=== PATIENT | female | born 1940 | race Caucasian/White ===

== ENCOUNTER 2017-11-12 12:22 | Observation (INO) | payer MEDICARE, SELFPAY ==
[2017-11-12] VITALS (13 sets, daily range): BP systolic 108–154; BP diastolic 68–84; PULSE 75–109; RESP 18–24; TEMP 36.5–36.7; O2SAT 92–98; BMI 32.8
--- NOTE | 2017-11-12 11:28 | XR_ITS ---
XR chest 2V Ordering Physician: Ignacio Aceves MD Patient Age: 77 years: Female HISTORY: ITS.REASON: cough, shortness of breath TECHNIQUE: COMPARISON : AP chest 12/13/2014 FINDINGS Right lung We again see scarring . Vertically oriented linear area of scarring and atelectasis at the right lung base. Mild thickening along the fissure at the right midlung again noted. Left chest. Is additional density was partially obscures apex left hemidiaphragm. Change since 2014. This may reflect a small infiltrate at the left lung base likely anterior left lower lobe as also suggestion today's lateral view. . Blunting at the posterior sulcus of left and right lung noted. Changes 2014 and may reflect a small pleural effusion versus some chronic pleural changes. Minimal vascular engorgement. Question possible very subtle CHF Borderline/mild cardiomegaly. Slight fullness right peritracheal azygous region is similar to previous studies but noted. May merely reflect a prominent azygos arch/ & azygous vein chest wall intact. Degenerative changes T-spine most evident midportion mild accentuated kyphosis IMPRESSION: . 1. minimal patchy infiltrate anterior LLL. Partial obscures left hemidiaphragm.. 2. Mild cardiomegaly. Mild vascular engorgement borderline CHF 3. Blunting CP angles reflecting small pleural effusions versus chronic pleural changes left base
--- NOTE | 2017-11-12 12:18 | HMH.HP ---
*Admission Date: 11/12/17 *Chief complaint: shortness of breath, cough *History of present illness: 77 year old female with a history of HTN, CVA and hyperlipidemia presents to PCP office with URI symptoms and shortness of breath that started 3-4 days ago. She reports a sore throat, yellow rhinorrhea, bilateral otalgia, wheezing, shortness of breath and a productive cough, sputum yellow. Patient denies any chest pain, palpitations or dizziness. She reports significant shortness of breath with exertion. No fevers. No GI symptoms. In the office, she was found to have an irregular heart rate and rhythm. EKG showed A. Fib UCVR 128. Patient was direct admitted for cardiology consult and further evaluation. [facility] History I have reviewed the patient's past medical history: Yes Medical History: Reports:: Cerebrovascular Accident, Hyperlipidemia, Hypertension Review of Systems - Review of Systems Review of systems:: pertinent systems reviewed and negative unless documented below - ENT Reports ear pain, Reports nasal congestion, Reports nasal discharge, Reports sore throat - *Cardiovascular Reports shortness of breath - *Respiratory Reports cough, Reports shortness of breath, Reports wheezing Meds Allergies Allergy/AdvReac Type Severity Reaction Status Date / Time No Known Allergies Allergy Unverified 09/04/17 15:04 Exam Narrative: Patient is alert and oriented x3. Rate and rhythm irregular. Pulses 2+ bilaterally. Trace LE edema. Skin is pink, warm and dry. Bilateral TM's with chronic changes and fluid/air levels. Pharynx with mild erythema. [place]oddy anterior cervical LAD. No thyromegaly. Scattered inspiratory crackles RUL/RML and faint scattered wheezes. Abdomen soft and nontender. Assessment and Plan (1) New onset atrial fibrillation Status: Acute Category: Medical Code(s): I48.91 - Unspecified atrial fibrillation (2) Shortness of breath on exertion Status: Acute Category: Medical Code(s): R06.02 - Shortness of breath (3) CVA (cerebral vascular accident) Status: Chronic Category: Medical Code(s): I63.9 - Cerebral infarction, unspecified (4) HTN (hypertension) Status: Chronic Category: Medical Code(s): I10 - Essential (primary) hypertension (5) Hyperlipemia Status: Chronic Category: Medical Code(s): E78.5 - Hyperlipidemia, unspecified (6) URI (upper respiratory infection) Status: Acute Category: Medical Code(s): J06.9 - Acute upper respiratory infection, unspecified - Assessment and plan all Dx Assessment and Plan for all problems:: Admit to acute care. Patient has an URI and likely pneumonia. This stress has likely caused her to convert in A. fib. Will obtain basic labs and cultures with addition of TSH and respiratory PCR. Will start antibiotics and nebs for possible pneumonia pending CXR. Consult cardiology, monitor telemetry and obtain Echo.
--- NOTE | 2017-11-12 12:26 | CA_ITS ---
PROCEDURE: 2-D M-mode and color Doppler study INDICATIONS FOR THE TEST: Chest pain COPD Heart Murmur Tobacco Smoking PalpitationsX Fatigue Syncope Edema HypertensionXDiabetes MellitusX Rheumatic Fever SOB DOEXObesityXHyperlipidemia Family History HD Additional History N O AF/RVR PATIENT INFORMATION HEIGHT: 64 WEIGHT:190 GENDER: Female B/P:140/95 2-D/M-MODE INTERPRETATION: 2-D MEASUREMENTS OBSERVED VALUES IN CMS Right Ventricular Dimension (RVDd) 1.7 Interventricular Septum (Thickness)(IVsd) 1.5 Left Ventricular Internal Dimensions(LVIDd) 5.0 Left Ventricular Posterior Wall (Thickness)(LVPWd) 1.2 Aortic Root 3.3 Aortic Cusp Separation 1.6 Left Atrial Dimensions (LAD) 3.6 2D 1. Left atrium is moderately enlarged, left ventricle is normal size, there is mild concentric left ventricular hypertrophy, visually estimated ejection fraction approximately 40-45%, there appears to be hypokinesis involving the distal septum and apical wall. 2. The right atrium is moderately enlarged, right ventricle is normal size and contractility. 3. The aortic valve is thickened and calcified leaflet continue to display mobility. 4. The mitral and tricuspid valve leaflets are minimally thickened. 5. The pulmonic valve is poorly visualized. 6. No significant pericardial effusion noted. DOPPLER INTERROGATION: Doppler interrogation of the aortic, mitral and tricuspid valvular presence of moderate mitral and moderate tricuspid regurgitation, calculated right ventricular systolic pressure is 60 to 65 mmHg consistent with moderate pulmonary hypertension. CONCLUSION: 1. Moderate biatrial enlargement, normal left ventricular size, mild concentric left ventricular hypertrophy, visually estimated ejection fraction of 40-45% with multiple segmental wall motion abnormalities described above 2. Moderate mitral and moderate tricuspid regurgitation, calculated right ventricular systolic pressure is 60 to 65 mmHg consistent with moderate pulmonary hypertension 3. No significant pericardial effusion noted.
[2017-11-12 13:50] LABS: Adenovirus,PCR Not Detected (NotDetected); Bordetella Pertussis Not Detected (NotDetected); Chlamydophila Pneumoniae, PCR Not Detected (NotDetected); Coronavirus 229E Not Detected (NotDetected); Coronavirus NL63 Not Detected (NotDetected); Coronavirus OC43 Not Detected (NotDetected); Coronovirus HKU1,PCR Not Detected (NotDetected); Human Metapneumovirus Not Detected (NotDetected); Influenza A, PCR Not Detected (NotDetected); Influenza AH1, 2009 Not Detected (NotDetected); Influenza AH1, PCR Not Detected (NotDetected); Influenza AH3,PCR Not Detected (NotDetected); Influenza B, PCR Not Detected (NotDetected); Mycoplasma Pneumoniae, PCR Not Detected (NotDected); Parainfluenza 1, PCR Not Detected (NotDetected); Parainfluenza 2, PCR Not Detected (NotDetected); Parainfluenza 3, PCR Not Detected (NotDetected); Parainfluenza 4, PCR Not Detected (NotDetected); Respiratory Syncytial Virus Not Detected (NotDetected)
[2017-11-12 14:08] LABS: Basophils % 0.2 % (0.1-2.0); Eosinophils # 0.1 K/mm3 (0.0-0.4); Eosinophils % 0.8 % (0.1-12.0); Hematocrit 39.5 % (37.0-47.0); Hemoglobin 12.7 g/dL (12.2-16.2); Lymphocytes # 1.8 K/mm3 (0.7-4.5); Lymphocytes % 15.4 K/mm3 (10-50); Mean Corpuscular HGB Conc 32.2 g/dL (31.8-35.4); Mean Corpuscular Hemoglobin 29.6 pg (27.0-31.2); Mean Corpuscular Volume 91.7 fl (81-99); Mean Platelet Volume 8.9 fl (7.4-10.4); Monocytes # 0.5 K/mm3 (0.1-1.0); Monocytes % 4.6 % (1.7-9.3); Neutrophils # 9.2 K/mm3 (1.8-7.8); Platelet Count 191 K/mm3 (142-424); Red Blood Count 4.31 M/mm3 (4.20-5.40); Red Cell Distribution Width 13.3 % (11.5-17.5); White Blood Count 11.6 K/mm3 (4.8-10.8)
--- NOTE | 2017-11-12 14:20 | HMH.CNCARD ---
History of Present Illness Consult date: 11/12/17 Requesting physician: Ignacio Aceves Consult reason: atrial fibrillation Chief complaint: cough, chest discomfort Additional Medical History:: 1. Hypertension 2. History of CVA approximately 2013 with affected speech and left side of body that improved after 3 months of physical therapy 3. Obesity History of present illness: 77-year-old white female with several days of increasing upper airway congestion and discomfort in the chest with productive cough presented to PCP office today for further evaluation. She was noted to have an irregular heartbeat with EKG revealing atrial fibrillation with a rapid ventricular response in the 120-130 range. Patient has no known previous history of atrial fibrillation. He was admitted for further evaluation and treatment. Patient denies any previous history of hyperthyroidism or coronary artery disease. She has a remote history of tobacco use. She denies history of diabetes. She does take statin therapy for hyperlipidemia. She denies any history of seizures recent fever or chills. Cardiology consulted for further evaluation. Echocardiogram has been performed with official results pending. [facility] History Medical History: Reports:: Cerebrovascular Accident, Hyperlipidemia, Hypertension Meds Home Medications Medication Instructions Recorded Confirmed Type Atorvastatin Calcium [Atorvastatin 40 mg PO DAILY 11/12/17 11/12/17 History 40mg Tab] Clopidogrel Bisulfate [Plavix 75mg 75 mg PO DAILY 11/12/17 11/12/17 History Tab] Hydralazine HCl 50 mg PO TID 11/12/17 11/12/17 History Loratadine [Allergy] 10 mg PO DAILY 11/12/17 11/12/17 History Metoprolol Tartrate 100 mg PO BID 11/12/17 11/12/17 History Ropinirole HCl 0.5 mg PO BID 11/12/17 11/12/17 History hydroCHLOROthiazide [HCTZ 25mg 25 mg PO DAILY 11/12/17 11/12/17 History tab] Allergies Allergy/AdvReac Type Severity Reaction Status Date / Time No Known Allergies Allergy Unverified 09/04/17 15:04 Review of Systems - *Cardiovascular Reports shortness of breath with activity, Reports irregular heart rhythm - *Respiratory Reports cough, Reports shortness of breath, Reports shortness of breath with activity - *Gastrointestinal Denies loose stools, Denies heartburn, Denies vomiting - *Neurologic Reports unsteadiness, Denies behavioral changes, Denies seizure-like activity Exam Vital signs and Labs for Last 24 Hours: Temp Pulse Resp BP Pulse Ox 97.7 F 75 20 132/68 95 11/12/17 13:21 11/12/17 13:21 11/12/17 13:21 11/12/17 13:21 11/12/17 13:21 Laboratory Results - last 24 hr 11/12/17 13:50: WBC 11.6 H, RBC 4.31, Hgb 12.7, Hct 39.5, MCV 91.7, MCH 29.6, MCHC 32.2, RDW 13.3, Plt Count 191, MPV 8.9, Neut % (Auto) 79.0, Lymph % (Auto) 15.4, [place] % (Auto) 4.6, Eos % (Auto) 0.8, Baso % (Auto) 0.2, Neut # (Auto) 9.2 H, Lymph # (Auto) 1.8, [place] # (Auto) 0.5, Eos # (Auto) 0.1, Baso # (Auto) 0.0 I & O for Last 24 hours: Intake & Output 11/10/17 11/11/17 11/12/17 11/13/17 11:59 11:59 11:59 11:59 Weight 191 lb 9 oz - *Routine Neck Exam Absent: JVD, carotid bruit - *Routine Respiratory Exam Present: CTA bilaterally. Absent: accessory muscle use - *Routine Cardiovascular Exam Present: tachycardia, irregular rhythm, irregularly irregular - *Routine Abdominal Exam Present: soft. Absent: tenderness - *Routine Extremities Exam Absent: edema, calf tenderness - *Routine Neurological Exam Present: alert, oriented X3, moving all extremities Assessment and Plan (1) New onset atrial fibrillation Current visit: Yes Status: Acute Category: Medical Code(s): I48.91 - Unspecified atrial fibrillation (2) Shortness of breath on exertion Current visit: Yes Status: Acute Category: Medical Code(s): R06.02 - Shortness of breath (3) CVA (cerebral vascular accident) Current visit: Yes Status: Chronic Category:
[2017-11-12 14:40] LABS: Alanine Aminotransferase 76 U/L (12-78); Albumin/Globulin Ratio 0.9 (1.1-1.8); Alkaline Phosphatase 102 U/L (46-116); Aspartate Amino Transferase 28 U/L (15-37); Bilirubin,Total 0.7 mg/dL (0.2-1.0); Blood Urea Nitrogen 27 mg/dL (7-18); Calcium 8.5 mg/dL (8.5-10.1); Carbon Dioxide 26 mmol/L (21.0-32.0); Chloride 98 mmol/L (98-107); Creatinine Clearance Estimated 53 mL/min (0-300); Creatinine,Serum 1.23 mg/dL (0.55-1.02); Estimated Glomerular Filt Rate 42 ml/min (>60); GFR (African American) 51 ML/MIN (>60); Globulin 3.3 gm/dl (1.3-3.2); Glucose 139 mg/dL (74-106); Sodium 137 mmol/L (136-145); Thyroid Stimulating Hormone 2.15 uIU/ml (0.358-3.740); Total Protein,Serum 6.3 gm/dL (6.4-8.2)
[2017-11-12 15:14] LABS: Mycoplasma Pneumo IGM (Rapid) Non-Reactive (Non-Reactiv)
--- NOTE | 2017-11-12 15:28 | PC.NURSE ---
Report given to Alek Bravo RN
[2017-11-12 16:06] LABS: Rhinovirus/Enterovirus Detected (NotDetected)
--- NOTE | 2017-11-12 17:48 | PC.NURSE ---
pt started on Cardizem gtt at 5mg/hr. running 80-100. afib on monitor. wheezes and rhonchi throughout. pt has had no complaints. v/s/s. call light in reach. pt able to ambulate with standby assist to bathroom. iv patent. will continue to monitor pt condition
--- NOTE | 2017-11-12 18:51 | PC.NURSE ---
titrated Cardizem drip to 10mg/hr. hr rate was running in the 110's. currently running between 80-100. will continue to monitor.
--- NOTE | 2017-11-12 19:04 | PC.NURSE ---
report to be given to christina barron and lynnette landis
--- NOTE | 2017-11-12 19:30 | PC.NURSE ---
PT FULL CODE, REPORT FROM RUSS
--- NOTE | 2017-11-12 21:00 | PC.NURSE ---
2ND IV STARTED PER JANKI.HEYDI, X1 STICK. #22 RAC: SALINE LOCKED, FLUSHED. PT TOLERATED WELL.
[2017-11-13] VITALS (29 sets, daily range): BP systolic 100–140; BP diastolic 64–84; PULSE 59–132; RESP 14–20; TEMP 36.2–37; O2SAT 90–100
--- NOTE | 2017-11-13 | IR_ITS ---
CARDIAC CATHETERIZATION DATE OF CATHETERIZATION:11/13/2017 9:10 AM PROCEDURES: 1. Left heart catheterization 2. Left ventriculogram 3. Selective coronary angiogram 4. Drug-eluting stent deployment to the mid dominant right coronary artery 5. Intravascular ultrasound to the LAD 6. Drug-eluting stent deployment to the proximal LAD INDICATION FOR TEST: 1. Abnormal echocardiogram with regional wall motion abnormality involving the septum and apex 2. Reduced ejection fraction 3. New onset atrial fibrillation 4. Acute coronary syndrome 5. Coronary artery disease Informed consent was obtained prior to the procedure. COMPLICATIONS: None ESTIMATED BLOOD LOSS: Less than 10 ml. TECHNIQUE: One percent lidocaine used to anesthetize the right anterior aspect of the wrist. The right radial artery was accessed via the Seldinger technique. A 6 Irish sheath was placed in the right radial artery. 2.5 mg of verapamil, 800 mcg of nitroglycerin and 5000 U Heparin were given through the arterial sheath. The trap catheter was also used to perform left heart catheterization left ventriculogram and selective coronary angiogram. At the end of the diagnostic angiogram and additional 4000 units of heparin was administered intravenously giving an ACT of 313 seconds. An MixRank right guide catheter was used intubate the right coronary artery and a BMW wire was placed distally. A 3 mm x 15 mm resolute Aidan stent was deployed at 24 mily reducing the severe concentric stenosis to 0%. DIPESH-3 flow was present before and after the procedure. Following this the catheter was placed into the left main artery and the BMW wire was placed distally. There is a new onset regional wall motion abnormality involving the septum and apex which was more consistent with an LAD lesion. There is an angiographically indeterminate lesion in the proximal LAD which looks very hazy possibly even a ruptured plaque in the proximal LAD especially in the TRINIDADIAN cranial views. Because of this intravascular ultrasound probe was used to interrogate the lesion. I chose not to use FFR as I suspected this vessel was involved in an acute coronary syndrome based on the 2 regional wall motion abnormality. The MLA measured 4 sq m therefore a 3 mm x 18 mm resolute [place] stent was placed in the area of interest and angiographically indeterminate lesion and deployed at 14 mily reducing the stenosis to 0%. At the end of the procedure the apparatus was removed the sheath was removed good hemostasis was achieved using TR banding patient transferred the postop holding area in stable condition. DIPESH-3 flow was present down the LAD before and after the procedure. The closing ACT measured ANGIOGRAPHIC RESULTS: 1. The left main artery normal 2. The left anterior descending artery has proximal angiographically indeterminate 50% stenosis 3. The circumflex artery is a nondominant yet still large vessel with mild luminal irregularities 4. The right coronary artery is a dominant vessel and has proximal 30% stenosis with a mid vessel concentric 80% stenosis 5. The ADRIAN ventriculogram reveals preserved ejection fraction estimated at 55% 6. The left ventricular end-diastolic pressure elevated at 25 mmHg IMPRESSION: 1. 2 vessel coronary artery disease as described above 2. Preserved ejection fraction 3. Moderately elevated LVEDP PLAN: 1. Aspirin Plavix 2. Patient should be on anticoagulation for her atrial fibrillation 3. Cardiac rehabilitation 4. Avoidance of tobacco products 5. Risk factor modification 6. Beta blockers for coronary artery disease
--- NOTE | 2017-11-13 03:40 | PC.NURSE ---
S Call RN , notified of O2 sat @ 87-88%
--- NOTE | 2017-11-13 06:05 | PC.NURSE ---
PT ALERT AND ORIENTED. STILL AFIB ON MONITOR. NO C/O CHEST PAIN OR SOA. CARDIZEM DRIP CURRENTLY 10MG/HR. IV SECURE AND PATENT X2. PT REMAINS ON ROOM AIR. INTERMITTENT, NON-PRODUCTIVE COUGH. AUDIBLE INSPIRATORY AND EXPIRATORY WHEEZES. SLEPT LONG INTERVALS. PT STABLE. WILL CONTINUE TO MONITOR. REPORT TO BE GIVEN TO ONCOMING NURSE.
--- NOTE | 2017-11-13 07:37 | PC.NURSE ---
REPORT GIVEN TO Marquis LITTLE W/C
--- NOTE | 2017-11-13 08:10 | HMH.ACPN2 ---
Internal Medicine - PN: Subj *Date: 11/13/17 *Time: 07:30 Interval history: Patient is sitting up in bed eating breakfast. States she feels better today. She has no complaints. ALert and oriented x3. Rate and rhythm irregular. Trace LE edema. A.fib 106 on the monitor. Cardizem infusing at 10mg/hr. LS with scattered wheezes/loose rhonchi anteriorly. Abdomen soft and nontender. Exam Vital signs and Labs for Last 24 Hours: Temp Pulse Resp BP Pulse Ox 97.2 F L 99 H 20 114/82 93 L 11/13/17 04:10 11/13/17 06:10 11/13/17 06:10 11/13/17 06:10 11/13/17 06:10 Laboratory Results - last 24 hr 11/12/17 13:45: Chlamy pneumoniae PCR Not detected, Adenovirus (PCR) Not detected, B.parapertussis DNA PCR Not detected, Coronavirus OC43 (PCR) Not detected, Coronavirus HKU1 (PCR) Not detected, Coronavirus 229E (PCR) Not detected, Coronavirus NL63 (PCR) Not detected, Human Metapneumovir PCR Not detected, Influenza A (H1) PCR Not detected, Influ A (H1N1/09) PCR Not detected, Influenza A (H3) PCR Not detected, Influenza Type A (PCR) Not detected, Influenza Type B (PCR) Not detected, M. pneumoniae (PCR) Not detected, Parainfluenza 1 (PCR) Not detected, Parainfluenza 2 (PCR) Not detected, Parainfluenza 3 (PCR) Not detected, Parainfluenza 4 (PCR) Not detected, RSV (PCR) Not detected, Entero/Rhino (PCR) Detected A 11/12/17 13:50: WBC 11.6 H, RBC 4.31, Hgb 12.7, Hct 39.5, MCV 91.7, MCH 29.6, MCHC 32.2, RDW 13.3, Plt Count 191, MPV 8.9, Neut % (Auto) 79.0, Lymph % (Auto) 15.4, [place] % (Auto) 4.6, Eos % (Auto) 0.8, Baso % (Auto) 0.2, Neut # (Auto) 9.2 H, Lymph # (Auto) 1.8, [place] # (Auto) 0.5, Eos # (Auto) 0.1, Baso # (Auto) 0.0 11/12/17 13:50: Sodium 137, Potassium 3.0 L, Chloride 98, Carbon Dioxide 26, Anion Gap 16.0 H, BUN 27 H, Creatinine 1.23 H, Estimated Creat Clear 53, Estimated GFR 42 L, Est GFR ( Amer) 51 L, Glucose 139 H, Calcium 8.5, Total Bilirubin 0.7, AST 28, ALT 76, Alkaline Phosphatase 102, Total Protein 6.3 L, Albumin 3.0 L, Globulin 3.3 H, Albumin/Globulin Ratio 0.9 L, TSH 2.15 11/12/17 13:50: Mycoplasma pneumon IgM Non-reactive I & O for Last 24 hours: Intake & Output 11/10/17 11/11/17 11/12/17 11/13/17 11:59 11:59 11:59 11:59 Intake Total 496 / 496 Output Total 700 / 700 Balance -204 / -204 Weight 187 lb 4 oz Microbiology Reports for the Last 24 Hours: Microbiology 11/12/17 15:00 Sputum - Expectorated Sputum Gram Stain - Final 11/12/17 15:00 Sputum - Expectorated Sputum Sputum Culture - Preliminary Assessment and Plan (1) New onset atrial fibrillation Current visit: Yes Status: Acute Category: Medical Code(s): I48.91 - Unspecified atrial fibrillation (2) Shortness of breath on exertion Current visit: Yes Status: Acute Category: Medical Code(s): R06.02 - Shortness of breath (3) CVA (cerebral vascular accident) Current visit: Yes Status: Chronic Category: Medical Code(s): I63.9 - Cerebral infarction, unspecified (4) HTN (hypertension) Current visit: Yes Status: Chronic Category: Medical Code(s): I10 - Essential (primary) hypertension (5) Hyperlipemia Current visit: Yes Status: Chronic Category: Medical Code(s): E78.5 - Hyperlipidemia, unspecified (6) URI (upper respiratory infection) Current visit: Yes Status: Acute Category: Medical Code(s): J06.9 - Acute upper respiratory infection, unspecified (7) Hypokalemia Current visit: Yes Status: Acute Category: Medical Code(s): E87.6 - Hypokalemia - Assessment and plan all Dx Assessment and Plan for all problems:: Echo showed EF 40-45% with hypokineses of distal septum/apical wall, moderate biatrial enlargement, moderate MR/TR, and RVSP 60-65 indicating moderate pulmonary HTN. She has not converted on Cardizem at this point; however her rate has improved. Awaiting cardiology plan for today. CXR showed LLL pneumonia. Continue xopenex treatments and IV antibiotics. Sp
--- NOTE | 2017-11-13 08:11 | HMH.PHAVTE ---
[facility] Pharmacy VTE Monitoring - Patient Demographics Admission date: 11/12/17 Report Date: 11/13/17 Time: 08:11 Allergies/Adverse Reactions: Patient Allergies No Known Allergies Allergy (Unverified 09/04/17 15:04) Height: 1.63 m Weight: 84.935 kg Patient Problems: Current Active Problems New onset atrial fibrillation (Acute) Shortness of breath on exertion (Acute) CVA (cerebral vascular accident) (Chronic) HTN (hypertension) (Chronic) Hyperlipemia (Chronic) URI (upper respiratory infection) (Acute) - VTE Risk Labs: VTE Related Lab Results Hgb 12.7 g/dL (12.2-16.2) 11/12/17 13:50 Hct 39.5 % (37.0-47.0) 11/12/17 13:50 Plt Count 191 K/mm3 (142-424) 11/12/17 13:50 BUN 27 mg/dL (7-18) H 11/12/17 13:50 Creatinine 1.23 mg/dL (0.55-1.02) H 11/12/17 13:50 Estimated Creat Clear 53 mL/min (0-300) 11/12/17 13:50 Was VTE Risk Assessment Performed: Yes VTE Score: 2 VTE Risk Level: Low Risk Clinical Trial Participant: No - Prophylaxis VTE Prophylaxis Ordered?: Yes Types of VTE Prophylaxis: TEDS Knee High Location of Applied Device: Bilateral Lower Extremeties
--- NOTE | 2017-11-13 08:13 | HMH.PNCARD ---
Subjective Date: 11/13/17 Time: 08:13 Principal diagnosis: A. fib, CHF Interval history: No new complaints overnight. Still with SOA with activity. Discussed echo results with patient and recommendation for cardiac cath due to segmental wall motion abnormalities. Continue IV cardizem for now. Review of Systems - *Neurologic Reports unsteadiness, Denies behavioral changes, Denies seizure-like activity Meds Home Medications Medication Instructions Recorded Confirmed Type Atorvastatin Calcium [Atorvastatin 40 mg PO DAILY 11/12/17 11/12/17 History 40mg Tab] Clopidogrel Bisulfate [Plavix 75mg 75 mg PO DAILY 11/12/17 11/12/17 History Tab] Hydralazine HCl 50 mg PO TID 11/12/17 11/12/17 History Loratadine [Allergy] 10 mg PO DAILY 11/12/17 11/12/17 History Metoprolol Tartrate 100 mg PO BID 11/12/17 11/12/17 History Ropinirole HCl 0.5 mg PO BID 11/12/17 11/12/17 History hydroCHLOROthiazide [HCTZ 25mg 25 mg PO DAILY 11/12/17 11/12/17 History tab] Allergies Allergy/AdvReac Type Severity Reaction Status Date / Time No Known Allergies Allergy Unverified 09/04/17 15:04 Exam Vital signs and Labs for Last 24 Hours: Temp Pulse Resp BP Pulse Ox 97.2 F L 99 H 20 114/82 93 L 11/13/17 04:10 11/13/17 06:10 11/13/17 06:10 11/13/17 06:10 11/13/17 06:10 Laboratory Results - last 24 hr 11/12/17 13:45: Chlamy pneumoniae PCR Not detected, Adenovirus (PCR) Not detected, B.parapertussis DNA PCR Not detected, Coronavirus OC43 (PCR) Not detected, Coronavirus HKU1 (PCR) Not detected, Coronavirus 229E (PCR) Not detected, Coronavirus NL63 (PCR) Not detected, Human Metapneumovir PCR Not detected, Influenza A (H1) PCR Not detected, Influ A (H1N1/09) PCR Not detected, Influenza A (H3) PCR Not detected, Influenza Type A (PCR) Not detected, Influenza Type B (PCR) Not detected, M. pneumoniae (PCR) Not detected, Parainfluenza 1 (PCR) Not detected, Parainfluenza 2 (PCR) Not detected, Parainfluenza 3 (PCR) Not detected, Parainfluenza 4 (PCR) Not detected, RSV (PCR) Not detected, Entero/Rhino (PCR) Detected A 11/12/17 13:50: WBC 11.6 H, RBC 4.31, Hgb 12.7, Hct 39.5, MCV 91.7, MCH 29.6, MCHC 32.2, RDW 13.3, Plt Count 191, MPV 8.9, Neut % (Auto) 79.0, Lymph % (Auto) 15.4, [place] % (Auto) 4.6, Eos % (Auto) 0.8, Baso % (Auto) 0.2, Neut # (Auto) 9.2 H, Lymph # (Auto) 1.8, [place] # (Auto) 0.5, Eos # (Auto) 0.1, Baso # (Auto) 0.0 11/12/17 13:50: Sodium 137, Potassium 3.0 L, Chloride 98, Carbon Dioxide 26, Anion Gap 16.0 H, BUN 27 H, Creatinine 1.23 H, Estimated Creat Clear 53, Estimated GFR 42 L, Est GFR ( Amer) 51 L, Glucose 139 H, Calcium 8.5, Total Bilirubin 0.7, AST 28, ALT 76, Alkaline Phosphatase 102, Total Protein 6.3 L, Albumin 3.0 L, Globulin 3.3 H, Albumin/Globulin Ratio 0.9 L, TSH 2.15 11/12/17 13:50: Mycoplasma pneumon IgM Non-reactive I & O for Last 24 hours: Intake & Output 11/10/17 11/11/17 11/12/17 11/13/17 11:59 11:59 11:59 11:59 Intake Total 496 / 496 Output Total 700 / 700 Balance -204 / -204 Weight 187 lb 4 oz Microbiology Reports for the Last 24 Hours: Microbiology 11/12/17 15:00 Sputum - Expectorated Sputum Gram Stain - Final 11/12/17 15:00 Sputum - Expectorated Sputum Sputum Culture - Preliminary - *Routine Respiratory Exam Present: rhonchi, wheezes - *Routine Cardiovascular Exam Present: irregular rhythm Plan - Patient/Caregiver Discharge Instructions Activity: As above. Proceed with cardiac cath today. Further recommendations to follow. - Follow Up Plan
--- NOTE | 2017-11-13 08:15 | P.PN_ITS ---
Internal Medicine - PN: Subj *Date: 11/13/17 *Time: 07:30 Interval history: Patient is sitting up in bed eating breakfast. States she feels better today. She has no complaints. ALert and oriented x3. Rate and rhythm irregular. Trace LE edema. A.fib 106 on the monitor. Cardizem infusing at 10mg/hr. LS with scattered wheezes/loose rhonchi anteriorly. Abdomen soft and nontender. Exam Vital signs and Labs for Last 24 Hours: Temp Pulse Resp BP Pulse Ox 97.2 F L 99 H 20 114/82 93 L 11/13/17 04:10 11/13/17 06:10 11/13/17 06:10 11/13/17 06:10 11/13/17 06:10 Laboratory Results - last 24 hr 11/12/17 13:45: Chlamy pneumoniae PCR Not detected, Adenovirus (PCR) Not detected, B.parapertussis DNA PCR Not detected, Coronavirus OC43 (PCR) Not detected, Coronavirus HKU1 (PCR) Not detected, Coronavirus 229E (PCR) Not detected, Coronavirus NL63 (PCR) Not detected, Human Metapneumovir PCR Not detected, Influenza A (H1) PCR Not detected, Influ A (H1N1/09) PCR Not detected , Influenza A (H3) PCR Not detected, Influenza Type A (PCR) Not detected, Influenza Type B (PCR) Not detected, M. pneumoniae (PCR) Not detected, Parainfluenza 1 (PCR) Not detected, Parainfluenza 2 (PCR) Not detected, Parainfluenza 3 (PCR) Not detected, Parainfluenza 4 (PCR) Not detected, RSV (PCR ) Not detected, Entero/Rhino (PCR) Detected A 11/12/17 13:50: WBC 11.6 H, RBC 4.31, Hgb 12.7, Hct 39.5, MCV 91.7, MCH 29.6, MCHC 32.2, RDW 13.3, Plt Count 191, MPV 8.9, Neut % (Auto) 79.0, Lymph % (Auto) 15.4, [place] % (Auto) 4.6, Eos % (Auto) 0.8, Baso % (Auto) 0.2, Neut # (Auto) 9.2 H, Lymph # (Auto) 1.8, [place] # (Auto) 0.5, Eos # (Auto) 0.1, Baso # (Auto) 0.0 11/12/17 13:50: Sodium 137, Potassium 3.0 L, Chloride 98, Carbon Dioxide 26, Anion Gap 16.0 H, BUN 27 H, Creatinine 1.23 H, Estimated Creat Clear 53, Estimated GFR 42 L, Est GFR ( Amer) 51 L, Glucose 139 H, Calcium 8.5, Total Bilirubin 0.7, AST 28, ALT 76, Alkaline Phosphatase 102, Total Protein 6.3 L, Albumin 3.0 L, Globulin 3.3 H, Albumin/Globulin Ratio 0.9 L, TSH 2.15 11/12/17 13:50: Mycoplasma pneumon IgM Non-reactive I & O for Last 24 hours: Intake & Output 11/10/17 11/11/17 11/12/17 11/13/17 11:59 11:59 11:59 11:59 Intake Total 496 / 496 Output Total 700 / 700 Balance -204 / -204 Weight 187 lb 4 oz Microbiology Reports for the Last 24 Hours: Microbiology 11/12/17 15:00 Sputum - Expectorated Sputum Gram Stain - Final 11/12/17 15:00 Sputum - Expectorated Sputum Sputum Culture - Preliminary Assessment and Plan (1) New onset atrial fibrillation Current visit: Yes Status: Acute Category: Medical Code(s): I48.91 - Unspecified atrial fibrillation (2) Shortness of breath on exertion Current visit: Yes Status: Acute Category: Medical Code(s): R06.02 - Shortness of breath (3) CVA (cerebral vascular accident) Current visit: Yes Status: Chronic Category: Medical Code(s): I63.9 - Cerebral infarction, unspecified (4) HTN (hypertension) Current visit: Yes Status: Chronic Category: Medical Code(s): I10 - Essential (primary) hypertension (5) Hyperlipemia Current visit: Yes Status: Chronic Category: Medical Code(s): E78.5 - Hyperlipidemia, unspecified (6) URI (upper respiratory infection) Current visit: Yes Status: Acute Category: Medical Code(s): J06.9 - Acute upper respiratory infection, unspecified (7) Hypokalemia Current visit: Yes Status: Acute Category: Medical Code(s): E87.6 - H
--- NOTE | 2017-11-13 08:16 | P.PN_ITS ---
Subjective Date: 11/13/17 Time: 08:13 Principal diagnosis: A. fib, CHF Interval history: No new complaints overnight. Still with SOA with activity. Discussed echo results with patient and recommendation for cardiac cath due to segmental wall motion abnormalities. Continue IV cardizem for now. Review of Systems - *Neurologic Reports unsteadiness, Denies behavioral changes, Denies seizure-like activity Meds Home Medications Medication Instructions Recorded Confirmed Type Atorvastatin Calcium [Atorvastatin 40 mg PO DAILY 11/12/17 11/12/17 History 40mg Tab] Clopidogrel Bisulfate [Plavix 75mg 75 mg PO DAILY 11/12/17 11/12/17 History Tab] Hydralazine HCl 50 mg PO TID 11/12/17 11/12/17 History Loratadine [Allergy] 10 mg PO DAILY 11/12/17 11/12/17 History Metoprolol Tartrate 100 mg PO BID 11/12/17 11/12/17 History Ropinirole HCl 0.5 mg PO BID 11/12/17 11/12/17 History hydroCHLOROthiazide [HCTZ 25mg 25 mg PO DAILY 11/12/17 11/12/17 History tab] Allergies Allergy/AdvReac Type Severity Reaction Status Date / Time No Known Allergies Allergy Unverified 09/04/17 15:04 Exam Vital signs and Labs for Last 24 Hours: Temp Pulse Resp BP Pulse Ox 97.2 F L 99 H 20 114/82 93 L 11/13/17 04:10 11/13/17 06:10 11/13/17 06:10 11/13/17 06:10 11/13/17 06:10 Laboratory Results - last 24 hr 11/12/17 13:45: Chlamy pneumoniae PCR Not detected, Adenovirus (PCR) Not detected, B.parapertussis DNA PCR Not detected, Coronavirus OC43 (PCR) Not detected, Coronavirus HKU1 (PCR) Not detected, Coronavirus 229E (PCR) Not detected, Coronavirus NL63 (PCR) Not detected, Human Metapneumovir PCR Not detected, Influenza A (H1) PCR Not detected, Influ A (H1N1/09) PCR Not detected , Influenza A (H3) PCR Not detected, Influenza Type A (PCR) Not detected, Influenza Type B (PCR) Not detected, M. pneumoniae (PCR) Not detected, Parainfluenza 1 (PCR) Not detected, Parainfluenza 2 (PCR) Not detected, Parainfluenza 3 (PCR) Not detected, Parainfluenza 4 (PCR) Not detected, RSV (PCR ) Not detected, Entero/Rhino (PCR) Detected A 11/12/17 13:50: WBC 11.6 H, RBC 4.31, Hgb 12.7, Hct 39.5, MCV 91.7, MCH 29.6, MCHC 32.2, RDW 13.3, Plt Count 191, MPV 8.9, Neut % (Auto) 79.0, Lymph % (Auto) 15.4, [place] % (Auto) 4.6, Eos % (Auto) 0.8, Baso % (Auto) 0.2, Neut # (Auto) 9.2 H, Lymph # (Auto) 1.8, [place] # (Auto) 0.5, Eos # (Auto) 0.1, Baso # (Auto) 0.0 11/12/17 13:50: Sodium 137, Potassium 3.0 L, Chloride 98, Carbon Dioxide 26, Anion Gap 16.0 H, BUN 27 H, Creatinine 1.23 H, Estimated Creat Clear 53, Estimated GFR 42 L, Est GFR ( Amer) 51 L, Glucose 139 H, Calcium 8.5, Total Bilirubin 0.7, AST 28, ALT 76, Alkaline Phosphatase 102, Total Protein 6.3 L, Albumin 3.0 L, Globulin 3.3 H, Albumin/Globulin Ratio 0.9 L, TSH 2.15 11/12/17 13:50: Mycoplasma pneumon IgM Non-reactive I & O for Last 24 hours: Intake & Output 11/10/17 11/11/17 11/12/17 11/13/17 11:59 11:59 11:59 11:59 Intake Total 496 / 496 Output Total 700 / 700 Balance -204 / -204 Weight 187 lb 4 oz Microbiology Reports for the Last 24 Hours: Microbiology 11/12/17 15:00 Sputum - Expectorated Sputum Gram Stain - Final 11/12/17 15:00 Sputum - Expectorated Sputum Sputum Culture - Preliminary - *Routine Respiratory Exam Present: rhonchi, wheezes - *Routine Cardiovascular Exam Present: irregular rhythm
--- NOTE | 2017-11-13 08:27 | PC.NURSE ---
0822 PATIENT TO POWER CHECKER WITH MAYDA VELARDE RN VIA WHEELCHAIR
[2017-11-13 09:53] LABS: CATHL Activated Clotting Time 287 SEC (74-125)
[2017-11-13 09:54] LABS: CATHL Activated Clotting Time 313 SEC (74-125)
[2017-11-13 14:52] LABS: Basophils % 0.2 % (0.1-2.0); Eosinophils # 0.1 K/mm3 (0.0-0.4); Hematocrit 36.4 % (37.0-47.0); Hemoglobin 11.3 g/dL (12.2-16.2); Lymphocytes % 19.1 K/mm3 (10-50); Mean Corpuscular HGB Conc 31.2 g/dL (31.8-35.4); Monocytes # 0.5 K/mm3 (0.1-1.0); Neutrophils # 7.7 K/mm3 (1.8-7.8); Neutrophils % 74.7 % (37.0-80.0); Platelet Count 176 K/mm3 (142-424); Red Blood Count 3.91 M/mm3 (4.20-5.40); Red Cell Distribution Width 13.4 % (11.5-17.5); White Blood Count 10.3 K/mm3 (4.8-10.8)
[2017-11-13 15:59] LABS: Anion Gap 14.1 mEq/L (5-15); Blood Urea Nitrogen 29 mg/dL (7-18); Carbon Dioxide 25 mmol/L (21.0-32.0); Chloride 100 mmol/L (98-107); Creatinine Clearance Estimated 46 mL/min (0-300); Creatinine,Serum 1.38 mg/dL (0.55-1.02); Estimated Glomerular Filt Rate 37 ml/min (>60); GFR (African American) 45 ML/MIN (>60); Glucose 223 mg/dL (74-106); Potassium 3.1 mmoL/L (3.5-5.1); Sodium 136 mmol/L (136-145)
--- NOTE | 2017-11-13 16:12 | PC.NURSE ---
PATIENT RETURNED FROM [facility] AT 1300 REMOVED 2ML AIR FROM TRACELET WITH 4ML REMAINING AT THAT TIME. 1330 REMOVED 2ML AIR FROM TRACELET WITH 2ML REMAINING 1400 REMOVED 2ML AIR FROM TRACELET WITH 0ML REMAINING 1430 REMOVED TRACELET AT THIS TIME REPLACED WITH 2X2 AND TEGADERM PATIENT STATES SHE IS FEELING WELL TODAY JUST TIRED. RATE IS CONTROLLED RHYTHM CONTINUES TO BE A.FIB. PER ELIJAH HOLLIDAY GIVE PATIENT 120MG PO CARDIZEM AND DC DRIP 30 MINUTES AFTER. WHEN DRIP IS DC PATIENT IS OK TO TRANSFER TO ACUTE FROM STEPDOWN. LUNGS HAVE WHEEZES T/O. DENIES PAIN AT THIS TIME. PATIENT IS AMBULATING TO THE BATHROOM ON HER OWN.
--- NOTE | 2017-11-13 21:20 | PC.NURSE ---
Late entry: @ 2107 Aaron Thakkar RN notified of increase of heart rate of 120-130's. Strip obtained for chart.
[2017-11-14] VITALS (14 sets, daily range): BP systolic 117–140; BP diastolic 65–88; PULSE 60–120; RESP 17–22; TEMP 36.6–37.1; O2SAT 92–96
--- NOTE | 2017-11-14 03:56 | PC.NURSE ---
Pt has rested well this shift with no complaints of pain or discomfort. Pt has been tachycardic this shift with HR as high as 140s, but not sustaining. Pt continues to be in a-fib. Wheezing noted during lung auscultation. BS active in all 4 qauds. A&Ox3. No acute distress noted. Will continue to monitor.
--- NOTE | 2017-11-14 07:06 | PC.NURSE ---
REPORT GIVEN TO Gaby PORTILLO
[2017-11-14 07:07] LABS: Anion Gap 9.9 mEq/L (5-15); Blood Urea Nitrogen 31 mg/dL (7-18); Carbon Dioxide 28 mmol/L (21.0-32.0); Chloride 104 mmol/L (98-107); Creatinine Clearance Estimated 49 mL/min (0-300); Creatinine,Serum 1.27 mg/dL (0.55-1.02); Estimated Glomerular Filt Rate 41 ml/min (>60); GFR (African American) 49 ML/MIN (>60); Glucose 134 mg/dL (74-106); Potassium 3.9 mmoL/L (3.5-5.1); Sodium 138 mmol/L (136-145)
--- NOTE | 2017-11-14 07:27 | PC.NURSE ---
REPORT GIVEN TO Juana SANDERSON W/C
--- NOTE | 2017-11-14 08:40 | HMH.ACPN2 ---
Internal Medicine - PN: Subj *Date: 11/14/17 *Time: 08:40 Interval history: Events of yesterday noted. Cath results reviewed. Patient has had no chest pain. Feels pretty good except for continued cough and sputum production. Exam Vital signs and Labs for Last 24 Hours: Temp Pulse Resp BP Pulse Ox 98.6 F 60 20 129/65 94 L 11/14/17 07:41 11/14/17 07:41 11/14/17 07:41 11/14/17 07:41 11/14/17 07:41 Laboratory Results - last 24 hr 11/13/17 09:14: Activated Clotting Time 313 H* 11/13/17 09:26: Activated Clotting Time 287 H* 11/13/17 14:40: WBC 10.3, RBC 3.91 L, Hgb 11.3 L, Hct 36.4 L, MCV 93.0, MCH 29.0, MCHC 31.2 L, RDW 13.4, Plt Count 176, MPV 9.0, Neut % (Auto) 74.7, Lymph % (Auto) 19.1, [place] % (Auto) 5.0, Eos % (Auto) 1.0, Baso % (Auto) 0.2, Neut # (Auto) 7.7, Lymph # (Auto) 2.0, [place] # (Auto) 0.5, Eos # (Auto) 0.1, Baso # (Auto) 0.0 11/13/17 14:40: Sodium 136, Potassium 3.1 L, Chloride 100, Carbon Dioxide 25, Anion Gap 14.1, BUN 29 H, Creatinine 1.38 H, Estimated Creat Clear 46, Estimated GFR 37 L, Est GFR ( Amer) 45 L, Glucose 223 H 11/14/17 06:05: Sodium 138, Potassium 3.9 D, Chloride 104, Carbon Dioxide 28, Anion Gap 9.9, BUN 31 H, Creatinine 1.27 H, Estimated Creat Clear 49, Estimated GFR 41 L, Est GFR ( Amer) 49 L, Glucose 134 H D I & O for Last 24 hours: Intake & Output 11/11/17 11/12/17 11/13/17 11/14/17 11:59 11:59 11:59 11:59 Intake Total 496 / 496 1589 / 1589 Output Total 700 / 700 1400 / 1400 Balance -204 / -204 189 / 189 Weight 187 lb 4 oz 186 lb 4 oz Microbiology Reports for the Last 24 Hours: Microbiology 11/12/17 15:00 Sputum - Expectorated Sputum Gram Stain - Final 11/12/17 15:00 Sputum - Expectorated Sputum Sputum Culture - Preliminary 11/12/17 13:50 Blood Blood Culture - Preliminary NO GROWTH AFTER 24 HOURS 11/12/17 13:50 Blood Blood Culture - Preliminary NO GROWTH AFTER 24 HOURS Narrative: Heart rate remains in atrial fibrillation in the low 100 range. Lungs have rhonchi and some crackles in the left lower lung field but overall improved. Patient is breathing more comfortably with less tachypnea. She has no edema and is neurologically intact. Assessment and Plan (1) New onset atrial fibrillation Current visit: Yes Status: Acute Category: Medical Code(s): I48.91 - Unspecified atrial fibrillation (2) Shortness of breath on exertion Current visit: Yes Status: Acute Category: Medical Code(s): R06.02 - Shortness of breath (3) CVA (cerebral vascular accident) Current visit: Yes Status: Chronic Category: Medical Code(s): I63.9 - Cerebral infarction, unspecified (4) HTN (hypertension) Current visit: Yes Status: Chronic Category: Medical Code(s): I10 - Essential (primary) hypertension (5) Hyperlipemia Current visit: Yes Status: Chronic Category: Medical Code(s): E78.5 - Hyperlipidemia, unspecified (6) URI (upper respiratory infection) Current visit: Yes Status: Acute Category: Medical Code(s): J06.9 - Acute upper respiratory infection, unspecified (7) Hypokalemia Current visit: Yes Status: Acute Category: Medical Code(s): E87.6 - Hypokalemia (8) Coronary atherosclerosis of [place] coronary artery Current visit: Yes Status: Acute Category: Medical Code(s): I25.10 - Atherosclerotic heart disease of [place] coronary artery without angina pectoris Stents placed. Continue current medication, But will also add Eliquis for atrial fibrillation anticoagulation issues. Continue current antibiotics. Await culture results.
--- NOTE | 2017-11-14 12:19 | HMH.PNCARD ---
Subjective Date: 11/14/17 Time: 08:30 Principal diagnosis: A. fib, CHF Interval history: Still with some SOA but less than admission. No chest pains. Tolerating meds at this time. Review of Systems - *Cardiovascular Denies chest pain - *Respiratory Reports cough, Reports shortness of breath, Reports shortness of breath with activity - *Neurologic Reports unsteadiness, Denies behavioral changes, Denies seizure-like activity Meds Home Medications Medication Instructions Recorded Confirmed Type Atorvastatin Calcium [Atorvastatin 40 mg PO HS 11/12/17 11/13/17 History 40mg Tab] Clopidogrel Bisulfate [Plavix 75mg 75 mg PO DAILY 11/12/17 11/12/17 History Tab] Hydralazine HCl 50 mg PO TID 11/12/17 11/12/17 History Loratadine [Allergy] 10 mg PO DAILY 11/12/17 11/12/17 History Ropinirole HCl 0.5 mg PO BID 11/12/17 11/12/17 History hydroCHLOROthiazide [HCTZ 25mg 25 mg PO DAILY 11/12/17 11/12/17 History tab] Fluticasone Propionate 2 sprays INHALATION DAILY 11/13/17 11/13/17 History Metoprolol Succinate 50 mg PO PM 11/13/17 11/13/17 History Metoprolol Succinate [Toprol XL 100 mg PO DAILY 11/13/17 11/13/17 History 100mg tablet] Allergies Allergy/AdvReac Type Severity Reaction Status Date / Time No Known Allergies Allergy Unverified 09/04/17 15:04 Exam Vital signs and Labs for Last 24 Hours: Temp Pulse Resp BP Pulse Ox 98.0 F 96 H 20 117/73 93 L 11/14/17 11:20 11/14/17 11:20 11/14/17 11:20 11/14/17 11:20 11/14/17 11:20 Laboratory Results - last 24 hr 11/13/17 14:40: WBC 10.3, RBC 3.91 L, Hgb 11.3 L, Hct 36.4 L, MCV 93.0, MCH 29.0, MCHC 31.2 L, RDW 13.4, Plt Count 176, MPV 9.0, Neut % (Auto) 74.7, Lymph % (Auto) 19.1, [place] % (Auto) 5.0, Eos % (Auto) 1.0, Baso % (Auto) 0.2, Neut # (Auto) 7.7, Lymph # (Auto) 2.0, [place] # (Auto) 0.5, Eos # (Auto) 0.1, Baso # (Auto) 0.0 11/13/17 14:40: Sodium 136, Potassium 3.1 L, Chloride 100, Carbon Dioxide 25, Anion Gap 14.1, BUN 29 H, Creatinine 1.38 H, Estimated Creat Clear 46, Estimated GFR 37 L, Est GFR ( Amer) 45 L, Glucose 223 H 11/14/17 06:05: Sodium 138, Potassium 3.9 D, Chloride 104, Carbon Dioxide 28, Anion Gap 9.9, BUN 31 H, Creatinine 1.27 H, Estimated Creat Clear 49, Estimated GFR 41 L, Est GFR ( Amer) 49 L, Glucose 134 H D I & O for Last 24 hours: Intake & Output 11/12/17 11/13/17 11/14/17 11/15/17 11:59 11:59 11:59 11:59 Intake Total 496 / 496 1589 / 1589 Output Total 700 / 700 1400 / 1400 Balance -204 / -204 189 / 189 Weight 187 lb 4 oz 186 lb 4 oz Microbiology Reports for the Last 24 Hours: Microbiology 11/12/17 15:00 Sputum - Expectorated Sputum Gram Stain - Final 11/12/17 15:00 Sputum - Expectorated Sputum Sputum Culture - Preliminary 11/12/17 13:50 Blood Blood Culture - Preliminary NO GROWTH AFTER 24 HOURS 11/12/17 13:50 Blood Blood Culture - Preliminary NO GROWTH AFTER 24 HOURS - *Routine Respiratory Exam Present: rhonchi, diminished air movement - *Routine Cardiovascular Exam Present: irregularly irregular Plan - Patient/Caregiver Discharge Instructions Additional Instructions: Continue DAPT for OMAYRA for 4-6 wks then consider stopping ASA due to need for anticoagulation (eliquis) for a. fib. Continue combination of BB and CCB for HR control. Consider VANDANA/Cardioversion in 4 wks if needed. Low dose lasix for elevated LVEDP on cardiac cath and elevated RVSP on echo. Patient Instructions: DI for Atrial Fibrillation - Follow Up Plan
--- NOTE | 2017-11-14 12:32 | P.PN_ITS ---
Subjective Date: 11/14/17 Time: 08:30 Principal diagnosis: A. fib, CHF Interval history: Still with some SOA but less than admission. No chest pains. Tolerating meds at this time. Review of Systems - *Cardiovascular Denies chest pain - *Respiratory Reports cough, Reports shortness of breath, Reports shortness of breath with activity - *Neurologic Reports unsteadiness, Denies behavioral changes, Denies seizure-like activity Meds Home Medications Medication Instructions Recorded Confirmed Type Atorvastatin Calcium [Atorvastatin 40 mg PO HS 11/12/17 11/13/17 History 40mg Tab] Clopidogrel Bisulfate [Plavix 75mg 75 mg PO DAILY 11/12/17 11/12/17 History Tab] Hydralazine HCl 50 mg PO TID 11/12/17 11/12/17 History Loratadine [Allergy] 10 mg PO DAILY 11/12/17 11/12/17 History Ropinirole HCl 0.5 mg PO BID 11/12/17 11/12/17 History hydroCHLOROthiazide [HCTZ 25mg 25 mg PO DAILY 11/12/17 11/12/17 History tab] Fluticasone Propionate 2 sprays INHALATION DAILY 11/13/17 11/13/17 History Metoprolol Succinate 50 mg PO PM 11/13/17 11/13/17 History Metoprolol Succinate [Toprol XL 100 mg PO DAILY 11/13/17 11/13/17 History 100mg tablet] Allergies Allergy/AdvReac Type Severity Reaction Status Date / Time No Known Allergies Allergy Unverified 09/04/17 15:04 Exam Vital signs and Labs for Last 24 Hours: Temp Pulse Resp BP Pulse Ox 98.0 F 96 H 20 117/73 93 L 11/14/17 11:20 11/14/17 11:20 11/14/17 11:20 11/14/17 11:20 11/14/17 11:20 Laboratory Results - last 24 hr 11/13/17 14:40: WBC 10.3, RBC 3.91 L, Hgb 11.3 L, Hct 36.4 L, MCV 93.0, MCH 29.0 , MCHC 31.2 L, RDW 13.4, Plt Count 176, MPV 9.0, Neut % (Auto) 74.7, Lymph % ( Auto) 19.1, [place] % (Auto) 5.0, Eos % (Auto) 1.0, Baso % (Auto) 0.2, Neut # (Auto ) 7.7, Lymph # (Auto) 2.0, [place] # (Auto) 0.5, Eos # (Auto) 0.1, Baso # (Auto) 0.0 11/13/17 14:40: Sodium 136, Potassium 3.1 L, Chloride 100, Carbon Dioxide 25, Anion Gap 14.1, BUN 29 H, Creatinine 1.38 H, Estimated Creat Clear 46, Estimated GFR 37 L, Est GFR ( Amer) 45 L, Glucose 223 H 11/14/17 06:05: Sodium 138, Potassium 3.9 D, Chloride 104, Carbon Dioxide 28, Anion Gap 9.9, BUN 31 H, Creatinine 1.27 H, Estimated Creat Clear 49, Estimated GFR 41 L, Est GFR ( Amer) 49 L, Glucose 134 H D I & O for Last 24 hours: Intake & Output 11/12/17 11/13/17 11/14/17 11/15/17 11:59 11:59 11:59 11:59 Intake Total 496 / 496 1589 / 1589 Output Total 700 / 700 1400 / 1400 Balance -204 / -204 189 / 189 Weight 187 lb 4 oz 186 lb 4 oz Microbiology Reports for the Last 24 Hours: Microbiology 11/12/17 15:00 Sputum - Expectorated Sputum Gram Stain - Final 11/12/17 15:00 Sputum - Expectorated Sputum Sputum Culture - Preliminary 11/12/17 13:50 Blood Blood Culture - Preliminary NO GROWTH AFTER 24 HOURS 11/12/17 13:50 Blood Blood Culture - Preliminary NO GROWTH AFTER 24 HOURS - *Routine Respiratory Exam Present: rhonchi, diminished air movement - *Routine Cardiovascular Exam Present: irregularly irregular Plan - Patient/Caregiver Discharge Instructions Additional Instructions: Continue DAPT for OMAYRA for 4-6 wks then consider stopping ASA due to need for anticoagulation (eliquis) for a. fib
[2017-11-15] VITALS (15 sets, daily range): BP systolic 133–150; BP diastolic 61–89; PULSE 79–132; RESP 16–21; TEMP 36.8–37.2; O2SAT 93–96
--- NOTE | 2017-11-15 05:11 | PC.NURSE ---
Pt has rested well this shift, no complaints of pain or discomfort. Pt states her breathing is much better tonight. Faint wheezes noted during lung auscultation. Pt c/o diarrhea this shift. BS active in all 4 qauds. VSS. Pt continues to be in a-fib with occasional PVC. NO acute distress noted. Will continue to monitor.
[2017-11-15 07:01] LABS: Basophils % 0.4 % (0.1-2.0); Eosinophils # 0.1 K/mm3 (0.0-0.4); Hematocrit 34.4 % (37.0-47.0); Hemoglobin 11.2 g/dL (12.2-16.2); Lymphocytes # 2.3 K/mm3 (0.7-4.5); Lymphocytes % 24.5 K/mm3 (10-50); Mean Corpuscular HGB Conc 32.6 g/dL (31.8-35.4); Mean Corpuscular Hemoglobin 29.5 pg (27.0-31.2); Mean Corpuscular Volume 90.7 fl (81-99); Mean Platelet Volume 9.2 fl (7.4-10.4); Monocytes # 0.5 K/mm3 (0.1-1.0); Monocytes % 5.1 % (1.7-9.3); Neutrophils # 6.4 K/mm3 (1.8-7.8); Neutrophils % 68.9 % (37.0-80.0); Platelet Count 179 K/mm3 (142-424); Red Blood Count 3.79 M/mm3 (4.20-5.40); Red Cell Distribution Width 13.3 % (11.5-17.5); White Blood Count 9.3 K/mm3 (4.8-10.8)
--- NOTE | 2017-11-15 07:02 | PC.NURSE ---
REPORT GIVEN TO Gaby VITAL
[2017-11-15 07:05] LABS: Alanine Aminotransferase 59 U/L (12-78); Albumin Level 2.5 gm/dL (3.4-5.0); Albumin/Globulin Ratio 0.7 (1.1-1.8); Alkaline Phosphatase 86 U/L (46-116); Anion Gap 13.1 mEq/L (5-15); Aspartate Amino Transferase 15 U/L (15-37); Bilirubin,Total 0.2 mg/dL (0.2-1.0); Blood Urea Nitrogen 25 mg/dL (7-18); Calcium 8.4 mg/dL (8.5-10.1); Carbon Dioxide 25 mmol/L (21.0-32.0); Chloride 104 mmol/L (98-107); Creatinine Clearance Estimated 59 mL/min (0-300); Creatinine,Serum 1.06 mg/dL (0.55-1.02); Estimated Glomerular Filt Rate 50 ml/min (>60); GFR (African American) 61 ML/MIN (>60); Globulin 3.4 gm/dl (1.3-3.2); Glucose 124 mg/dL (74-106); Potassium 4.1 mmoL/L (3.5-5.1); Sodium 138 mmol/L (136-145); Total Protein,Serum 5.9 gm/dL (6.4-8.2)
--- NOTE | 2017-11-15 07:52 | HMH.ACPN2 ---
Internal Medicine - PN: Subj *Date: 11/15/17 *Time: 07:30 Interval history: Patient is sitting on the side of the bed. Reports some shortness of breath through the night. Continues to have productive cough. Alert and oriented x3. Rate and rhythm irregular, A. Fib UCVR rate 130-150's on bedside monitor. Lung sounds with scattered loose rhonchi, air movement improved. Abdomen soft and nontender Exam Vital signs and Labs for Last 24 Hours: Temp Pulse Resp BP Pulse Ox 98.2 F 132 H 20 147/75 95 11/15/17 07:34 11/15/17 07:34 11/15/17 07:34 11/15/17 07:34 11/15/17 07:34 Laboratory Results - last 24 hr 11/15/17 06:10: WBC 9.3, RBC 3.79 L, Hgb 11.2 L, Hct 34.4 L, MCV 90.7, MCH 29.5, MCHC 32.6, RDW 13.3, Plt Count 179, MPV 9.2, Neut % (Auto) 68.9, Lymph % (Auto) 24.5, [place] % (Auto) 5.1, Eos % (Auto) 1.0, Baso % (Auto) 0.4, Neut # (Auto) 6.4, Lymph # (Auto) 2.3, [place] # (Auto) 0.5, Eos # (Auto) 0.1, Baso # (Auto) 0.0 11/15/17 06:10: Sodium 138, Potassium 4.1, Chloride 104, Carbon Dioxide 25, Anion Gap 13.1, BUN 25 H, Creatinine 1.06 H, Estimated Creat Clear 59, Estimated GFR 50 L, Est GFR ( Amer) 61 D, Glucose 124 H, Calcium 8.4 L, Total Bilirubin 0.2, AST 15 D, ALT 59, Alkaline Phosphatase 86, Total Protein 5.9 L, Albumin 2.5 L, Globulin 3.4 H, Albumin/Globulin Ratio 0.7 L I & O for Last 24 hours: Intake & Output 11/12/17 11/13/17 11/14/17 11/15/17 11:59 11:59 11:59 11:59 Intake Total 496 / 496 1589 / 1589 1510 / 1510 Output Total 700 / 700 1400 / 1400 200 / 200 Balance -204 / -204 189 / 189 1310 / 1310 Weight 187 lb 4 oz 186 lb 4 oz Microbiology Reports for the Last 24 Hours: Microbiology 11/12/17 15:00 Sputum - Expectorated Sputum Gram Stain - Final 11/12/17 15:00 Sputum - Expectorated Sputum Sputum Culture - Preliminary 11/12/17 13:50 Blood Blood Culture - Preliminary NO GROWTH AFTER 48 HOURS 11/12/17 13:50 Blood Blood Culture - Preliminary NO GROWTH AFTER 48 HOURS Assessment and Plan (1) New onset atrial fibrillation Current visit: Yes Status: Acute Category: Medical Code(s): I48.91 - Unspecified atrial fibrillation (2) Shortness of breath on exertion Current visit: Yes Status: Acute Category: Medical Code(s): R06.02 - Shortness of breath (3) CVA (cerebral vascular accident) Current visit: Yes Status: Chronic Category: Medical Code(s): I63.9 - Cerebral infarction, unspecified (4) HTN (hypertension) Current visit: Yes Status: Chronic Category: Medical Code(s): I10 - Essential (primary) hypertension (5) Hyperlipemia Current visit: Yes Status: Chronic Category: Medical Code(s): E78.5 - Hyperlipidemia, unspecified (6) URI (upper respiratory infection) Current visit: Yes Status: Acute Category: Medical Code(s): J06.9 - Acute upper respiratory infection, unspecified (7) Hypokalemia Current visit: Yes Status: Acute Category: Medical Code(s): E87.6 - Hypokalemia (8) Coronary atherosclerosis of [place] coronary artery Current visit: Yes Status: Acute Category: Medical Code(s): I25.10 - Atherosclerotic heart disease of [place] coronary artery without angina pectoris - Assessment and plan all Dx Assessment and Plan for all problems:: Patient's respiratory status has improved and she is ok to discharge from that standpoint; however she continues to have high heart rates which is likely the cause of her shortness of breath. Cardizem changed to immediate release. Awaiting cardiology note for further recommendations. If HR comes down will consider discharge home later this afternoon on increased dose of cardizem with short term FU in the office.
--- NOTE | 2017-11-15 07:57 | P.PN_ITS ---
Internal Medicine - PN: Subj *Date: 11/15/17 *Time: 07:30 Interval history: Patient is sitting on the side of the bed. Reports some shortness of breath through the night. Continues to have productive cough. Alert and oriented x3. Rate and rhythm irregular, A. Fib UCVR rate 130-150's on bedside monitor. Lung sounds with scattered loose rhonchi, air movement improved. Abdomen soft and nontender Exam Vital signs and Labs for Last 24 Hours: Temp Pulse Resp BP Pulse Ox 98.2 F 132 H 20 147/75 95 11/15/17 07:34 11/15/17 07:34 11/15/17 07:34 11/15/17 07:34 11/15/17 07:34 Laboratory Results - last 24 hr 11/15/17 06:10: WBC 9.3, RBC 3.79 L, Hgb 11.2 L, Hct 34.4 L, MCV 90.7, MCH 29.5 , MCHC 32.6, RDW 13.3, Plt Count 179, MPV 9.2, Neut % (Auto) 68.9, Lymph % (Auto ) 24.5, [place] % (Auto) 5.1, Eos % (Auto) 1.0, Baso % (Auto) 0.4, Neut # (Auto) 6.4, Lymph # (Auto) 2.3, [place] # (Auto) 0.5, Eos # (Auto) 0.1, Baso # (Auto) 0.0 11/15/17 06:10: Sodium 138, Potassium 4.1, Chloride 104, Carbon Dioxide 25, Anion Gap 13.1, BUN 25 H, Creatinine 1.06 H, Estimated Creat Clear 59, Estimated GFR 50 L, Est GFR ( Amer) 61 D, Glucose 124 H, Calcium 8.4 L, Total Bilirubin 0.2, AST 15 D, ALT 59, Alkaline Phosphatase 86, Total Protein 5.9 L, Albumin 2.5 L, Globulin 3.4 H, Albumin/Globulin Ratio 0.7 L I & O for Last 24 hours: Intake & Output 11/12/17 11/13/17 11/14/17 11/15/17 11:59 11:59 11:59 11:59 Intake Total 496 / 496 1589 / 1589 1510 / 1510 Output Total 700 / 700 1400 / 1400 200 / 200 Balance -204 / -204 189 / 189 1310 / 1310 Weight 187 lb 4 oz 186 lb 4 oz Microbiology Reports for the Last 24 Hours: Microbiology 11/12/17 15:00 Sputum - Expectorated Sputum Gram Stain - Final 11/12/17 15:00 Sputum - Expectorated Sputum Sputum Culture - Preliminary 11/12/17 13:50 Blood Blood Culture - Preliminary NO GROWTH AFTER 48 HOURS 11/12/17 13:50 Blood Blood Culture - Preliminary NO GROWTH AFTER 48 HOURS Assessment and Plan (1) New onset atrial fibrillation Current visit: Yes Status: Acute Category: Medical Code(s): I48.91 - Unspecified atrial fibrillation (2) Shortness of breath on exertion Current visit: Yes Status: Acute Category: Medical Code(s): R06.02 - Shortness of breath (3) CVA (cerebral vascular accident) Current visit: Yes Status: Chronic Category: Medical Code(s): I63.9 - Cerebral infarction, unspecified (4) HTN (hypertension) Current visit: Yes Status: Chronic Category: Medical Code(s): I10 - Essential (primary) hypertension (5) Hyperlipemia Current visit: Yes Status: Chronic Category: Medical Code(s): E78.5 - Hyperlipidemia, unspecified (6) URI (upper respiratory infection) Current visit: Yes Status: Acute Category: Medical Code(s): J06.9 - Acute upper respiratory infection, unspecified (7) Hypokalemia Current visit: Yes Status: Acute Category: Medical Code(s): E87.6 - Hypokalemia (8) Coronary atherosclerosis of [place] coronary artery Current visit: Yes Status: Acute Category: Medical Code(s): I25.10 - Atherosclerotic heart disease of [place] coronary artery without angina pectoris - Assessment and plan all Dx Assessment and Plan for all problems:: Patient's respiratory status has improved and she is ok to discharge from that standpoint; however she continues to have high heart rates which is likely the cau
--- NOTE | 2017-11-15 08:02 | PC.NURSE ---
0715 - Received report from Aaron Thakkar RN
--- NOTE | 2017-11-15 09:16 | P.PN_ITS ---
Subjective Date: 11/15/17 Time: 09:13 Principal diagnosis: A. fib, CHF Interval history: 77-year-old white female in bed in no acute distress. Eyes chest pain. Still with some shortness of breath but improving. Telemetry shows continued atrial fibrillation with rates in the 120s and 130s beats per minute. Exam Vital signs and Labs for Last 24 Hours: Temp Pulse Resp BP Pulse Ox 98.2 F 132 H 20 147/75 95 11/15/17 07:34 11/15/17 07:34 11/15/17 07:34 11/15/17 07:34 11/15/17 07:34 Laboratory Results - last 24 hr 11/15/17 06:10: WBC 9.3, RBC 3.79 L, Hgb 11.2 L, Hct 34.4 L, MCV 90.7, MCH 29.5 , MCHC 32.6, RDW 13.3, Plt Count 179, MPV 9.2, Neut % (Auto) 68.9, Lymph % (Auto ) 24.5, [place] % (Auto) 5.1, Eos % (Auto) 1.0, Baso % (Auto) 0.4, Neut # (Auto) 6.4, Lymph # (Auto) 2.3, [place] # (Auto) 0.5, Eos # (Auto) 0.1, Baso # (Auto) 0.0 11/15/17 06:10: Sodium 138, Potassium 4.1, Chloride 104, Carbon Dioxide 25, Anion Gap 13.1, BUN 25 H, Creatinine 1.06 H, Estimated Creat Clear 59, Estimated GFR 50 L, Est GFR ( Amer) 61 D, Glucose 124 H, Calcium 8.4 L, Total Bilirubin 0.2, AST 15 D, ALT 59, Alkaline Phosphatase 86, Total Protein 5.9 L, Albumin 2.5 L, Globulin 3.4 H, Albumin/Globulin Ratio 0.7 L I & O for Last 24 hours: Intake & Output 11/12/17 11/13/17 11/14/17 11/15/17 11:59 11:59 11:59 11:59 Intake Total 496 / 496 1589 / 1589 1510 / 1510 Output Total 700 / 700 1400 / 1400 200 / 200 Balance -204 / -204 189 / 189 1310 / 1310 Weight 187 lb 4 oz 186 lb 4 oz Microbiology Reports for the Last 24 Hours: Microbiology 11/12/17 15:00 Sputum - Expectorated Sputum Gram Stain - Final 11/12/17 15:00 Sputum - Expectorated Sputum Sputum Culture - Preliminary 11/12/17 13:50 Blood Blood Culture - Preliminary NO GROWTH AFTER 48 HOURS 11/12/17 13:50 Blood Blood Culture - Preliminary NO GROWTH AFTER 48 HOURS - *Routine Respiratory Exam Present: rhonchi - *Routine Cardiovascular Exam Present: tachycardia, irregularly irregular Progress Note: A&P (1) New onset atrial fibrillation Status: Acute Assessment and plan: Recommend starting amiodarone 200 mg twice daily. We will also give digoxin 0.25 mg IV ?3 doses and then 0.125 mg p.o. daily starting tomorrow. Continue anticoagulation with Eliquis. Consider VANDANA/cardioversion in 1 week if patient has not converted back to normal sinus rhythm in the interim. In light of the mild cardiomyopathy noted on echocardiogram, will try to minimize use of negative inotropes (Cardizem) and get rate control using beta joel, amiodarone and digoxin. Patient could be discharged home later today if rate control obtained. Current Visit: Yes (2) Shortness of breath on exertion Status: Acute Current Visit: Yes (3) CVA (cerebral vascular accident) Status: Chronic Current Visit: Yes (4) HTN (hypertension) Status: Chronic Current Visit: Yes (5) Hyperlipemia Status: Chronic Current Visit: Yes (6) URI (upper respiratory infection) Status: Acute Current Visit: Yes
--- NOTE | 2017-11-15 19:23 | PC.NURSE ---
Pt A&Ox3 in NAD this shift. Heart rate irreg. Lungs /c expiratory wheezes. Pt ambulated in room independently. Will continue to monitor.
[2017-11-16] VITALS: BP 166/65; PULSE 81; RESP 20; TEMP 36.2; O2SAT 94
--- NOTE | 2017-11-16 03:46 | PC.NURSE ---
no acute distress noted at this time, pt has rested well this shift, denies pain and SOA, scattered wheezing and rhonchi noted to auscultation, pt c/o cough producing yellow thick sputum, pt maintaining O2 sats at or above 90 on room air, community cultural development officer in place reading A-Fib, bowel sounds active, pt ambulating to and from bathroom well, no acute distress noted at this time, call light in reach, will continue to monitor.
[2017-11-16 04:00] VITALS: BP 126/59; PULSE 53; RESP 20; TEMP 36.7; O2SAT 94
[2017-11-16 05:00] VITALS: PULSE 60; PULSE 87
[2017-11-16 06:24] VITALS: PULSE 65; PULSE 67; O2SAT 94
[2017-11-16 08:00] VITALS: BP 146/83; PULSE 60; PULSE 79; RESP 16; TEMP 36.7; O2SAT 94
[2017-11-16 08:07] VITALS: PULSE 98
--- NOTE | 2017-11-16 08:08 | HMH.DCSUM ---
General - General Admission date: 11/12/17 Discharge date: 11/16/17 HPI HPI: 77 year old female with a history of HTN, CVA and hyperlipidemia presents to PCP office with URI symptoms and shortness of breath that started 3-4 days ago. She reports a sore throat, yellow rhinorrhea, bilateral otalgia, wheezing, shortness of breath and a productive cough, sputum yellow. Patient denies any chest pain, palpitations or dizziness. She reports significant shortness of breath with exertion. No fevers. No GI symptoms. In the office, she was found to have an irregular heart rate and rhythm. EKG showed A. Fib UCVR 128. Patient was direct admitted for cardiology consult and further evaluation. Hospital Course Hospital Course: Patient was admitted and begun on broad term antibiotics to cover community-acquired pneumonia. Chest x-ray showed patchy left lower lobe infiltrate PCR testing showed positive serology for rhino/enterovirus. She improved with antibiotic therapy and supportive care. Atrial fibrillation was noted as on admission, and she was treated with Lovenox and initially with Cardizem intravenously. Cardiology was consulted and because of her new onset disease, high risk of vascular disease given her previous stroke, she was subjected to left heart cath which revealed coronary disease and she had 2 stents placed. She did well with this and felt better with less shortness of air afterwards. Patient continued to be in atrial fibrillation with rapid response and her medical treatment was transitioned to amiodarone and digoxin. She did well with this and her heart rate this morning is in the 60s. She feels much better. Eliquis anticoagulation was also started and she tolerated this well. This morning she was doing well. She will be discharged with medications as noted in the document below. Objective Vital signs: Temp Pulse Resp BP Pulse Ox 98.0 F 67 20 126/59 94 L 11/16/17 04:00 11/16/17 06:24 11/16/17 04:00 11/16/17 04:00 11/16/17 06:24 Narrative: This morning patient is pleasant, talkative, in no distress. Vital signs look great. Still with an irregular rhythm but in the low 60s for rate control. Lungs are clear with only minimal rhonchi, her voice is much improved. She looks better as far as constitutional symptoms. She has no edema. Previously noted neurologic deficits remain. Results Labs on day of discharge: Preliminary micro results at discharge 11/12/17 15:00 Sputum Culture - Preliminary Sputum - Expectorated Sputum 11/12/17 13:50 Blood Culture - Preliminary Blood NO GROWTH AFTER 72 HOURS 11/12/17 13:50 Blood Culture - Preliminary Blood NO GROWTH AFTER 72 HOURS DS: Diagnosis - Discharge Diagnosis (1) New onset atrial fibrillation Status: Acute (2) Shortness of breath on exertion Status: Resolved (3) CVA (cerebral vascular accident) Status: Chronic (4) HTN (hypertension) Status: Chronic (5) Hyperlipemia Status: Chronic (6) URI (upper respiratory infection) Status: Resolved (7) Hypokalemia Status: Resolved (8) Coronary atherosclerosis of [place] coronary artery Status: Chronic Discharge Plan - Patient Discharge Instructions ACTIVITY: Continue current activity DIET: continue same diet Additional Instructions: Continue DAPT for OMAYRA for 4-6 wks then consider stopping ASA due to need for anticoagulation (eliquis) for a. fib. Continue combination of BB and CCB for HR control. Consider VANDANA/Cardioversion in 4 wks if needed. Low dose lasix for elevated LVEDP on cardiac cath and elevated RVSP on echo. Patient Instructions: DI for Atrial Fibrillation - Follow up Plan Follow up with: Ignacio Aceves MD [Primary Care Provider] - 11/20/17 Danilo Adan MD [Staff Physician] - 1 week Disposition: Home, Self-Prison Medications: Home Medications Medication Instructions Recorded Confirmed Type Atorvastat
--- NOTE | 2017-11-16 08:11 | P.DS_ITS ---
General - General Admission date: 11/12/17 Discharge date: 11/16/17 HPI HPI: 77 year old female with a history of HTN, CVA and hyperlipidemia presents to PCP office with URI symptoms and shortness of breath that started 3-4 days ago. She reports a sore throat, yellow rhinorrhea, bilateral otalgia, wheezing, shortness of breath and a productive cough, sputum yellow. Patient denies any chest pain, palpitations or dizziness. She reports significant shortness of breath with exertion. No fevers. No GI symptoms. In the office, she was found to have an irregular heart rate and rhythm. EKG showed A. Fib UCVR 128. Patient was direct admitted for cardiology consult and further evaluation. Hospital Course Hospital Course: Patient was admitted and begun on broad term antibiotics to cover community- acquired pneumonia. Chest x-ray showed patchy left lower lobe infiltrate PCR testing showed positive serology for rhino/enterovirus. She improved with antibiotic therapy and supportive care. Atrial fibrillation was noted as on admission, and she was treated with Lovenox and initially with Cardizem intravenously. Cardiology was consulted and because of her new onset disease, high risk of vascular disease given her previous stroke, she was subjected to left heart cath which revealed coronary disease and she had 2 stents placed. She did well with this and felt better with less shortness of air afterwards. Patient continued to be in atrial fibrillation with rapid response and her medical treatment was transitioned to amiodarone and digoxin. She did well with this and her heart rate this morning is in the 60s. She feels much better. Eliquis anticoagulation was also started and she tolerated this well. This morning she was doing well. She will be discharged with medications as noted in the document below. Objective Vital signs: Temp Pulse Resp BP Pulse Ox 98.0 F 67 20 126/59 94 L 11/16/17 04:00 11/16/17 06:24 11/16/17 04:00 11/16/17 04:00 11/16/17 06:24 Narrative: This morning patient is pleasant, talkative, in no distress. Vital signs look great. Still with an irregular rhythm but in the low 60s for rate control. Lungs are clear with only minimal rhonchi, her voice is much improved. She looks better as far as constitutional symptoms. She has no edema. Previously noted neurologic deficits remain. Results Labs on day of discharge: Preliminary micro results at discharge 11/12/17 15:00 Sputum Culture - Preliminary Sputum - Expectorated Sputum 11/12/17 13:50 Blood Culture - Preliminary Blood NO GROWTH AFTER 72 HOURS 11/12/17 13:50 Blood Culture - Preliminary Blood NO GROWTH AFTER 72 HOURS DS: Diagnosis - Discharge Diagnosis (1) New onset atrial fibrillation Status: Acute (2) Shortness of breath on exertion Status: Resolved (3) CVA (cerebral vascular accident) Status: Chronic (4) HTN (hypertension) Status: Chronic (5) Hyperlipemia Status: Chronic (6) URI (upper respiratory infection) Status: Resolved (7) Hypokalemia Status: Resolved (8) Coronary atherosclerosis of [place] coronary artery Status: Chronic Discharge Plan - Patient Discharge Instructions ACTIVITY: Continue current activity DIET: continue same diet Additional Instructions: Continue DAPT for OMAYRA for 4-6 wks then consider stopping ASA due to need for anticoag
[2017-11-16 08:22] LABS: Thyroid Stimulating Hormone 2.81 uIU/ml (0.358-3.740)
--- NOTE | 2017-11-29 09:48 | P.CONS_ITS ---
History of Present Illness Consult date: 11/12/17 Requesting physician: Ignacio Aceves Consult reason: atrial fibrillation Chief complaint: cough, chest discomfort Additional Medical History:: 1. Hypertension 2. History of CVA approximately 2013 with affected speech and left side of body that improved after 3 months of physical therapy 3. Obesity History of present illness: 77-year-old white female with several days of increasing upper airway congestion and discomfort in the chest with productive cough presented to PCP office today for further evaluation. She was noted to have an irregular heartbeat with EKG revealing atrial fibrillation with a rapid ventricular response in the 120-130 range. Patient has no known previous history of atrial fibrillation. He was admitted for further evaluation and treatment. Patient denies any previous history of hyperthyroidism or coronary artery disease. She has a remote history of tobacco use. She denies history of diabetes. She does take statin therapy for hyperlipidemia. She denies any history of seizures recent fever or chills. Cardiology consulted for further evaluation. Echocardiogram has been performed with official results pending. [facility] History Medical History: Reports:: Cerebrovascular Accident, Hyperlipidemia, Hypertension Meds Home Medications Medication Instructions Recorded Confirmed Type Atorvastatin Calcium [Atorvastatin 40 mg PO DAILY 11/12/17 11/12/17 History 40mg Tab] Clopidogrel Bisulfate [Plavix 75mg 75 mg PO DAILY 11/12/17 11/12/17 History Tab] Hydralazine HCl 50 mg PO TID 11/12/17 11/12/17 History Loratadine [Allergy] 10 mg PO DAILY 11/12/17 11/12/17 History Metoprolol Tartrate 100 mg PO BID 11/12/17 11/12/17 History Ropinirole HCl 0.5 mg PO BID 11/12/17 11/12/17 History hydroCHLOROthiazide [HCTZ 25mg 25 mg PO DAILY 11/12/17 11/12/17 History tab] Allergies Allergy/AdvReac Type Severity Reaction Status Date / Time No Known Allergies Allergy Unverified 09/04/17 15:04 Review of Systems - *Cardiovascular Reports shortness of breath with activity, Reports irregular heart rhythm - *Respiratory Reports cough, Reports shortness of breath, Reports shortness of breath with activity - *Gastrointestinal Denies loose stools, Denies heartburn, Denies vomiting - *Neurologic Reports unsteadiness, Denies behavioral changes, Denies seizure-like activity Exam Vital signs and Labs for Last 24 Hours: Temp Pulse Resp BP Pulse Ox 97.7 F 75 20 132/68 95 11/12/17 13:21 11/12/17 13:21 11/12/17 13:21 11/12/17 13:21 11/12/17 13:21 Laboratory Results - last 24 hr 11/12/17 13:50: WBC 11.6 H, RBC 4.31, Hgb 12.7, Hct 39.5, MCV 91.7, MCH 29.6, MCHC 32.2, RDW 13.3, Plt Count 191, MPV 8.9, Neut % (Auto) 79.0, Lymph % (Auto) 15.4, [place] % (Auto) 4.6, Eos % (Auto) 0.8, Baso % (Auto) 0.2, Neut # (Auto) 9.2 H, Lymph # (Auto) 1.8, [place] # (Auto) 0.5, Eos # (Auto) 0.1, Baso # (Auto) 0.0 I & O for Last 24 hours: Intake & Output 11/10/17 11/11/17 11/12/17 11/13/17 11:59 11:59 11:59 11:59 Weight 191 lb 9 oz - *Routine Neck Exam Absent: JVD, carotid bruit - *Routine Respiratory Exam Present: CTA bilaterally. Absent: accessory muscle use - *Routine Cardiovascular Exam Present: tachycardia, irregular rhythm, irregularly irregular - *Routine Abdominal Exam
== END 2017-11-16 09:28 | disposition home or self-care (01) ==
PROVIDERS: Internal Medicine; Nurse Practitioner Family; Admitting Provider Internal Medicine Adolescent Medicine; Family Provider Internal Medicine Adolescent Medicine; PCP Internal Medicine Adolescent Medicine; Visit Provider Internal Medicine Adolescent Medicine
DX: I48.91 Unspecified atrial fibrillation (principal); J06.9 Acute upper respiratory infection, unspecified; J18.9 Pneumonia, unspecified organism; I10 Essential (primary) hypertension; I25.10 Atherosclerotic heart disease of native coronary artery without angina pectoris; E87.6 Hypokalemia; Z86.73 Personal history of transient ischemic attack (TIA), and cerebral infarction without residual deficits; B34.8 Other viral infections of unspecified site
CPT/HCPCS: 36415; 71046; 80048; 80053; 84443; 85025; 85347; 86738; 87040; 87070; 87077; 87205; 87486; 87581; 87633; 87798; 92928; 93005; 93306; 93458; 93571; 94640; 94760; 94761; 99152; 99153; C1725; C1769; C1876; C9600; G0378; J1644; J2405; Q9967

== ENCOUNTER 2017-12-24 09:07 | Observation (INO) ==
[2017-12-24 13:56] LABS: Anion Gap 10.8 mEq/L (5-15); Blood Urea Nitrogen 23 mg/dL (7-18); Carbon Dioxide 36 mmol/L (21.0-32.0); Chloride 95 mmol/L (98-107); Glucose 159 mg/dL (74-106); Sodium 139 mmol/L (136-145)
[2017-12-24 13:58] LABS: Potassium 2.8 mmoL/L (3.5-5.1)
--- NOTE | 2017-12-25 12:24 | History & Physical Report ---
*Admission Date: 12/25/17 *Chief complaint: Weakness, nausea/vomiting *History of present illness: 77-year-old white female with diagnosis of new onset atrial fibrillation and cardiac disease hospitalized the end of November for new-onset atrial fibrillation , catheterization showed two-vessel coronary disease with successful stent deployment with preserved left ventricular end-diastolic function. She was discharged home on beta-blockers, digoxin and anticonvulsant therapy. She may to see me in my office, was significantly swollen and placed on diuretics. Last week she has not done well, and yesterday labs done showing potassium of 2.9. Came to the office today, a 25 pound weight loss since before previous auscultation week, keeping fluids down, actively vomiting the office. Plan will be to admit to hospital for IV fluids, further diagnostic testing and volume repletion. [facility] History I have reviewed the patient's past medical history: Yes Medical History: Reports:: Atrial Fibrillation, Coronary Artery Disease, Cerebrovascular Accident, Hyperlipidemia, Hypertension, Myocardial Infarction, Palpitations Denies:: Cancer, Diabetes Mellitus Type 1, Diabetes Mellitus Type 2, MRSA Other Medical History: Reports: Arthritis, Cataracts, Sinus Problems Laterality Cases: Bilateral: Breast Biopsy, Cataract Other Surgeries: Yes: Angioplasty, Cardiac Catheterization, Cardiac Surgery, Coronary Stent, Other Amputation: No Fractures: No - *Social History Educational Level: Completed GED/General Educational Development Smoking Status: Never smoker Alcohol Intake: never Alcohol Intake Frequency:: other Substance Use Type: denies use Occupational Status: retired Housing: house Household Members: spouse - Psychiatric History Expresses thoughts of harming self/others: None Suicide Plan Description: No Plan *Family Hx:: Heart Attack, Hyperlipidemia, Hypertension, Stroke, Coronary Artery Disease Review of Systems - Review of Systems Review of systems:: unable to obtain, other, pertinent systems reviewed and negative unless documented below Denies any stroke symptoms, cardiac pains or dyspnea with orthopnea. Reports increasing dyspnea with exertion, weakness, orthostatic symptoms of vomiting without blood or coffee grounds. No stretching Meds Home Medications Medication Instructions Recorded Confirmed Type Atorvastatin Calcium [Atorvastatin 40 mg PO HS 11/12/17 12/25/17 History 40mg Tab] Loratadine [Allergy] 10 mg PO DAILY 11/12/17 12/25/17 History Fluticasone Propionate 2 sprays INHALATION DAILY 11/13/17 12/25/17 History metoprolol succinate ER 100 mg 50 mg PO BID 11/27/17 12/25/17 History tablet,extended release 24 hr ropinirole 0.5 mg tablet 0.5 mg PO BID 11/27/17 12/25/17 History furosemide 20 mg tablet 20 mg PO DAILY PRN tab 12/11/17 12/25/17 History hydrochlorothiazide 25 mg tablet 25 mg PO DAILY 12/11/17 12/25/17 History Apixaban [Eliquis] 2.5 mg PO BID 12/25/17 12/25/17 History Clopidogrel Bisulfate [Plavix 75mg 75 mg PO DAILY 12/25/17 12/25/17 History Tab] Digoxin [Digoxin 0.125mg Tablet] 125 mcg PO DAILY 12/25/17 12/25/17 History Allergies Allergy/AdvReac Type Severity Reaction Status Date / Time No Known Allergies Allergy Verified 12/25/17 11:32 Exam Vital signs and Labs for Last 24 Hours: Temp Pulse Resp BP Pulse Ox 97.7 F 71 18 131/64 97 12/25/17 11:17 12/25/17 11:17 12/25/17 11:17 12/25/17 11:17 12/25/17 11:17 Laboratory Results - last 24 hr 12/24/17 09:09: Sodium 139, Potassium 2.8 L*, Chloride 95 L, Carbon Dioxide 36 H , Anion Gap 10.8, BUN 23 H, Creatinine 1.42 H, Estimated GFR 36 L, Est GFR ( Amer) 43 L, Glucose 159 H, Magnesium 2.1 12/24/17 09:09: Digoxin 2.46 I & O for Last 24 hours: Intake & Output 12/23/17 12/24/17 12/25/17 12/26/17 11:59 11:59 11:59 11:59 Weight 174 lb 6 oz Narrative: Weak and frail, blood pressure was normal however, with the vomiting in the office - oropharynx is dry. Lungs are clear, heart rate regular no 50s. Soft 1+ lymphedema in her ankles but much less edema than baseline. H&P: Result - Labs Labs: [facility] 12/24/17 09:09 Sodium 139 Potassium 2.8 L* Chloride 95 L Carbon Dioxide 36 H BUN 23 H Creatinine 1.42 H Glucose 159 H Assessment and Plan - Assessment and plan all Dx Assessment and Plan for all problems:: Plan will be to admit to hospital. Cautious IV fluid resuscitation. Follow labs, hold digoxin, continue beta-joel. Follow on telemetry monitoring. Stop diuretics at this point.
--- NOTE | 2017-12-25 13:38 | Pharmacy Consult Notes ---
[facility] Pharmacy VTE Monitoring - Patient Demographics Admission date: 12/25/17 Report Date: 12/25/17 Time: 13:37 Allergies/Adverse Reactions: Patient Allergies No Known Allergies Allergy (Verified 12/25/17 11:32) Height: 1.63 m Weight: 79.095 kg Patient Problems: Current Active Problems Hypokalemia (Acute) Bradycardia (Acute) - VTE Risk Labs: VTE Related Lab Results BUN 23 mg/dL (7-18) H 12/24/17 09:09 Creatinine 1.42 mg/dL (0.55-1.02) H 12/24/17 09:09 Was VTE Risk Assessment Performed: Yes VTE Score: 3 VTE Risk Level: Low Risk Clinical Trial Participant: No - Prophylaxis VTE Prophylaxis Ordered?: Yes Types of VTE Prophylaxis: TEDS Knee High Location of Applied Device: Bilateral Lower Extremeties
[2017-12-26 06:49] LABS: Anion Gap 8.7 mEq/L (5-15); Chol/HDL Ratio 2.3 (1-3.5)
[2017-12-26 06:54] LABS: Potassium 2.7 mmoL/L (3.5-5.1)
[2017-12-26 07:12] LABS: Basophils % 0.4 % (0.1-2.0); Eosinophils # 0.1 K/mm3 (0.0-0.4); Eosinophils % 0.8 % (0.1-12.0); Hematocrit 37.6 % (37.0-47.0); Lymphocytes # 2.5 K/mm3 (0.7-4.5); Lymphocytes % 27.3 K/mm3 (10-50); Mean Corpuscular Hemoglobin 29.4 pg (27.0-31.2); Mean Corpuscular Volume 91.9 fl (81-99); Mean Platelet Volume 8.8 fl (7.4-10.4); Monocytes # 0.7 K/mm3 (0.1-1.0); Monocytes % 7.4 % (1.7-9.3); Neutrophils # 5.7 K/mm3 (1.8-7.8); Platelet Count 303 K/mm3 (142-424); Red Blood Count 4.09 M/mm3 (4.20-5.40); Red Cell Distribution Width 14.5 % (11.5-17.5)
--- NOTE | 2017-12-26 07:58 | Progress Note ---
Internal Medicine - PN: Subj *Date: 12/26/17 *Time: 07:56 Interval history: Patient overall feels somewhat better, has Clear liquids down. Had problems with the p.o. potassium. Continues to feel fairly weak. Exam Vital signs and Labs for Last 24 Hours: Temp Pulse Resp BP Pulse Ox 98.2 F 65 20 126/55 96 12/26/17 07:35 12/26/17 07:35 12/26/17 07:35 12/26/17 07:35 12/26/17 07:35 Laboratory Results - last 24 hr 12/25/17 11:59: Troponin I 0.07 H 12/25/17 11:59: Digoxin 2.21 12/26/17 06:12: WBC 9.0, RBC 4.09 L, Hgb 12.0 L, Hct 37.6, MCV 91.9, MCH 29.4, MCHC 32.0, RDW 14.5, Plt Count 303, MPV 8.8, Neut % (Auto) 64.0, Lymph % (Auto) 27.3, [place] % (Auto) 7.4, Eos % (Auto) 0.8, Baso % (Auto) 0.4, Neut # (Auto) 5.7 , Lymph # (Auto) 2.5, [place] # (Auto) 0.7, Eos # (Auto) 0.1, Baso # (Auto) 0.0 12/26/17 06:12: Sodium 141, Potassium 2.7 L*, Chloride 101, Carbon Dioxide 34 H , Anion Gap 8.7, BUN 16 D, Creatinine 1.07 H D, Estimated Creat Clear 55, Estimated GFR 50 L, Est GFR ( Amer) 60 D, Glucose 90, Triglycerides 102 , Cholesterol 99 L, LDL Cholesterol 36, VLDL Cholesterol 20, HDL Cholesterol 43 , Cholesterol/HDL Ratio 2.3 I & O for Last 24 hours: Intake & Output 12/23/17 12/24/17 12/25/17 12/26/17 11:59 11:59 11:59 11:59 Intake Total 2503 / 2503 Output Total 800 / 800 Balance 1703 / 1703 Weight 174 lb 6 oz 174 lb 6 oz Narrative: Patient is alert, pleasant, oropharynx is slightly more more. Lungs are clear, heart rate remains bradycardic in the low 50s. Abdomen soft, no skin perfusion problems or breakdown. Assessment and Plan (1) Bradycardia Current visit: Yes Status: Acute Category: Medical Code(s): R00.1 - Bradycardia, unspecified (2) Hypokalemia Current visit: Yes Status: Acute Category: Medical Code(s): E87.6 - Hypokalemia (3) A-fib Current visit: No Status: Chronic Category: Medical Code(s): I48.91 - Unspecified atrial fibrillation (4) Bilateral edema of lower extremity Current visit: No Status: Chronic Category: Medical Code(s): R60.0 - Localized edema (5) CAD (coronary artery disease) Current visit: No Status: Chronic Category: Medical Code(s): I25.10 - Atherosclerotic heart disease of [place] coronary artery without angina pectoris Potassium remains low at 2.7, we will replace this intravenously given her intolerance to pills. Continue telemetry monitoring. Given her significant bradycardia we will continue to hold digoxin, I will slightly reduce the dose of her joel. Labs tomorrow.
[2017-12-27 07:34] LABS: Basophils # 0.1 K/mm3 (0-0.2); Basophils % 0.6 % (0.1-2.0); Eosinophils # 0.1 K/mm3 (0.0-0.4); Eosinophils % 1.1 % (0.1-12.0); Hematocrit 34.9 % (37.0-47.0); Hemoglobin 11.1 g/dL (12.2-16.2); Lymphocytes # 1.9 K/mm3 (0.7-4.5); Lymphocytes % 24.8 K/mm3 (10-50); Mean Corpuscular HGB Conc 31.9 g/dL (31.8-35.4); Mean Corpuscular Hemoglobin 29.6 pg (27.0-31.2); Mean Corpuscular Volume 92.8 fl (81-99); Mean Platelet Volume 8.5 fl (7.4-10.4); Monocytes # 0.6 K/mm3 (0.1-1.0); Neutrophils # 5.1 K/mm3 (1.8-7.8); Neutrophils % 65.6 % (37.0-80.0); Platelet Count 275 K/mm3 (142-424); Red Blood Count 3.76 M/mm3 (4.20-5.40); Red Cell Distribution Width 14.7 % (11.5-17.5); White Blood Count 7.7 K/mm3 (4.8-10.8)
[2017-12-27 07:41] LABS: Albumin/Globulin Ratio 0.6 (1.1-1.8); Anion Gap 8.1 mEq/L (5-15); Bilirubin,Total 0.4 mg/dL (0.2-1.0); Calcium 8.2 mg/dL (8.5-10.1); Globulin 3.2 gm/dl (1.3-3.2); Potassium 3.1 mmoL/L (3.5-5.1); Total Protein,Serum 5.2 gm/dL (6.4-8.2)
--- NOTE | 2017-12-27 08:27 | Discharge Summary ---
General - General Admission date: 12/25/17 Discharge date: 12/27/17 HPI HPI: 77-year-old white female with diagnosis of new onset atrial fibrillation and cardiac disease hospitalized the end of November for new-onset atrial fibrillation , catheterization showed two-vessel coronary disease with successful stent deployment with preserved left ventricular end-diastolic function. She was discharged home on beta-blockers, digoxin and anticonvulsant therapy. She may to see me in my office, was significantly swollen and placed on diuretics. Last week she has not done well, and yesterday labs done showing potassium of 2.9. Came to the office today, a 25 pound weight loss since before previous auscultation week, keeping fluids down, actively vomiting the office. Plan will be to admit to hospital for IV fluids, further diagnostic testing and volume repletion. Hospital Course Hospital Course: Patient was admitted for IV hydration. She was gently rehydrated with IVF's which she tolerated well. She was placed on telemetry which initially showed some bradycardia. Her digoxin was held and her metoprolol was changed from extended release to immediate release. Heart rate 60-70's this morning. Patient was not able to tolerate PO potassium replacement so she was given multiple runs of potassium IV. CXR was obtained and found to be normal. She has not had any further vomiting and is tolerating solid foods without any nausea or abdominal pain. Orthostasis has resolved and she is able to ambulate without any dizziness. She is feeling much better and is ready to go home. Discharge home on metoprolol tartrate and aldactone. Stop digoxin. See medication reconciliation for complete list. CMP and CBC at [facility] lab on 12/31. Follow-up with Dr. Aceves in [place] office on 01/01/ Objective Vital signs: Temp Pulse Resp BP Pulse Ox 98.0 F 76 20 106/81 97 12/27/17 07:50 12/27/17 07:50 12/27/17 07:50 12/27/17 07:50 12/27/17 07:50 Narrative: Alert and oriented x3. Rate and rhythm irregular. 1+ BLE edema. Lung sounds with faint crackles LLL. Abdomen soft and nontender. Results Labs on day of discharge: Labs from last 24 hours 12/27/17 12/27/17 06:52 06:52 WBC 7.7 RBC 3.76 L Hgb 11.1 L Hct 34.9 L MCV 92.8 MCH 29.6 MCHC 31.9 RDW 14.7 Plt Count 275 MPV 8.5 Neut % (Auto) 65.6 Lymph % (Auto) 24.8 [place] % (Auto) 8.0 Eos % (Auto) 1.1 Baso % (Auto) 0.6 Neut # (Auto) 5.1 Lymph # (Auto) 1.9 [place] # (Auto) 0.6 Eos # (Auto) 0.1 Baso # (Auto) 0.1 Sodium 143 Potassium 3.1 L Chloride 105 Carbon Dioxide 33 H Anion Gap 8.1 BUN 11 D Creatinine 1.01 Estimated Creat Clear 58 Estimated GFR 53 L Est GFR ( Amer) 64 Glucose 109 H Calcium 8.2 L Total Bilirubin 0.4 AST 24 ALT 25 Alkaline Phosphatase 93 Total Protein 5.2 L Albumin 2.0 L Globulin 3.2 Albumin/Globulin Ratio 0.6 L DS: Diagnosis - Discharge Diagnosis (1) Bradycardia Status: Resolved (2) Hypokalemia Status: Acute (3) A-fib Status: Chronic (4) Bilateral edema of lower extremity Status: Chronic (5) CAD (coronary artery disease) Status: Chronic Discharge Plan - Patient Discharge Instructions ACTIVITY: Continue current activity DIET: continue same diet - Follow up Plan Follow up with: Ignacio Aceves MD [Primary Care Provider] - 01/01/18 Disposition: Home, Self-[facility] Medications: Home Medications Medication Instructions Recorded Confirmed Type Atorvastatin Calcium [Atorvastatin 40 mg PO HS 11/12/17 12/25/17 History 40mg Tab] Loratadine [Allergy] 10 mg PO DAILY 11/12/17 12/25/17 History Fluticasone Propionate 2 sprays INHALATION DAILY 11/13/17 12/25/17 History metoprolol succinate ER 100 mg 50 mg PO HS 11/27/17 12/25/17 History tablet,extended release 24 hr ropinirole 0.5 mg tablet 0.5 mg PO BID 11/27/17 12/25/17 History furosemide 20 mg tablet 20 mg PO DAILY PRN tab 12/11/17 12/25/17 History hydrochlorothiazide 25 mg tablet 25 mg PO DAILY 12/11/17 12/25/17 History Apixaban [Eliquis] 2.5 mg PO BID 12/25/17 12/25/17 History Clopidogrel Bisulfate [Plavix 75mg 75 mg PO DAILY 12/25/17 12/25/17 History Tab] Digoxin [Digoxin 0.125mg Tablet] 125 mcg PO DAILY 12/25/17 12/25/17 History Metoprolol Succinate [Toprol Xl] 100 mg PO DAILY 12/25/17 12/25/17 History Potassium Chloride [Pot Chlor 20 20 meq PO BID 12/25/17 12/25/17 History mEq Tab] Prescriptions/Medication Reconciliation: New Metoprolol Tartrate [Lopressor 50mg tablet] 50 mg PO BID #60 tab Spironolactone [Aldactone 25mg Tab] 25 mg PO BID #60 tab Continue ropinirole 0.5 mg tablet 0.5 mg PO BID hydrochlorothiazide 25 mg tablet 25 mg PO DAILY Loratadine [Allergy] 10 mg PO DAILY Atorvastatin Calcium [Atorvastatin 40mg Tab] 40 mg PO HS Fluticasone Propionate 2 sprays INHALATION DAILY Apixaban [Eliquis] 2.5 mg PO BID Clopidogrel Bisulfate [Plavix 75mg Tab] 75 mg PO DAILY Discontinued metoprolol succinate ER 100 mg tablet,extended release 24 hr 50 mg PO HS furosemide 20 mg tablet 20 mg PO DAILY PRN tab PRN Reason: Edema Digoxin [Digoxin 0.125mg Tablet] 125 mcg PO DAILY Potassium Chloride [Pot Chlor 20 mEq Tab] 20 meq PO BID Metoprolol Succinate [Toprol Xl] 100 mg PO DAILY
== END 2017-12-27 12:17 | disposition home or self-care (01) ==
LOC: LAB.CARL 09:07 → 2ND 09:07
PROVIDERS: ADMIT Internal Medicine Adolescent Medicine; ATTEND Internal Medicine Adolescent Medicine

== ENCOUNTER → 2017-12-31 08:43 | Outpatient (CLI) | payer MEDICARE, SELFPAY ==
[2017-12-31 13:39] LABS: Basophils # 0.1 K/mm3 (0-0.2); Basophils % 0.6 % (0.1-2.0); Eosinophils # 0.2 K/mm3 (0.0-0.4); Eosinophils % 2.7 % (0.1-12.0); Hemoglobin 11.9 g/dL (12.2-16.2); Lymphocytes # 1.7 K/mm3 (0.7-4.5); Mean Corpuscular HGB Conc 31.4 g/dL (31.8-35.4); Mean Corpuscular Hemoglobin 29.6 pg (27.0-31.2); Mean Corpuscular Volume 94.5 fl (81-99); Monocytes # 0.4 K/mm3 (0.1-1.0); Neutrophils # 5.6 K/mm3 (1.8-7.8); Neutrophils % 70.6 % (37.0-80.0); Platelet Count 341 K/mm3 (142-424); Red Blood Count 4.02 M/mm3 (4.20-5.40); Red Cell Distribution Width 14.9 % (11.5-17.5); White Blood Count 7.9 K/mm3 (4.8-10.8)
[2017-12-31 13:46] LABS: Alanine Aminotransferase 39 U/L (12-78); Albumin Level 2.6 gm/dL (3.4-5.0); Albumin/Globulin Ratio 0.8 (1.1-1.8); Alkaline Phosphatase 128 U/L (46-116); Anion Gap 15.2 mEq/L (5-15); Aspartate Amino Transferase 24 U/L (15-37); Bilirubin,Total 0.4 mg/dL (0.2-1.0); Blood Urea Nitrogen 18 mg/dL (7-18); Calcium 8.8 mg/dL (8.5-10.1); Carbon Dioxide 28 mmol/L (21.0-32.0); Chloride 103 mmol/L (98-107); Creatinine,Serum 1.21 mg/dL (0.55-1.02); Estimated Glomerular Filt Rate 43 ml/min (>60); GFR (African American) 52 ML/MIN (>60); Globulin 3.1 gm/dl (1.3-3.2); Glucose 123 mg/dL (74-106); Potassium 3.2 mmoL/L (3.5-5.1); Sodium 143 mmol/L (136-145); Total Protein,Serum 5.7 gm/dL (6.4-8.2)
== END ==
PROVIDERS: Visit Provider Nurse Practitioner Family
DX: R53.1 Weakness (principal); E87.6 Hypokalemia
CPT/HCPCS: 36415; 80053; 85025

== ENCOUNTER → 2018-01-07 08:58 | Outpatient (CLI) | payer MEDICARE, SELFPAY ==
[2018-01-07 13:45] LABS: Anion Gap 14.7 mEq/L (5-15); Blood Urea Nitrogen 23 mg/dL (7-18); Carbon Dioxide 25 mmol/L (21.0-32.0); Chloride 104 mmol/L (98-107); Creatinine,Serum 1.36 mg/dL (0.55-1.02); Estimated Glomerular Filt Rate 38 ml/min (>60); GFR (African American) 46 ML/MIN (>60); Glucose 114 mg/dL (74-106); Magnesium 1.7 mg/dL (1.4-2.2); Potassium 4.7 mmoL/L (3.5-5.1); Sodium 139 mmol/L (136-145)
== END ==
PROVIDERS: PCP Internal Medicine Adolescent Medicine; Visit Provider Internal Medicine Adolescent Medicine
DX: E87.6 Hypokalemia (principal)
CPT/HCPCS: 36415; 80048; 83735

== ENCOUNTER → 2018-02-06 08:30 | Outpatient (CLI) | payer MEDICARE, SELFPAY ==
[2018-02-06 13:19] LABS: Basophils % 0.2 % (0.1-2.0); Eosinophils # 0.2 K/mm3 (0.0-0.4); Eosinophils % 1.1 % (0.1-12.0); Hematocrit 35.2 % (37.0-47.0); Hemoglobin 11.6 g/dL (12.2-16.2); Lymphocytes # 2.6 K/mm3 (0.7-4.5); Lymphocytes % 16.1 K/mm3 (10-50); Mean Corpuscular HGB Conc 33.1 g/dL (31.8-35.4); Mean Corpuscular Hemoglobin 29.5 pg (27.0-31.2); Mean Corpuscular Volume 89.2 fl (81-99); Mean Platelet Volume 9.6 fl (7.4-10.4); Monocytes # 0.8 K/mm3 (0.1-1.0); Monocytes % 5.2 % (1.7-9.3); Neutrophils # 12.3 K/mm3 (1.8-7.8); Neutrophils % 77.4 % (37.0-80.0); Platelet Count 295 K/mm3 (142-424); Red Blood Count 3.95 M/mm3 (4.20-5.40); Red Cell Distribution Width 13.4 % (11.5-17.5); White Blood Count 15.9 K/mm3 (4.8-10.8)
[2018-02-06 13:22] LABS: MANUAL DIFFERENTIAL MANUAL DIFFERENTIAL (MANUAL DIFF)
[2018-02-06 13:37] LABS: Lymphocytes % 18 % (10-50); Monocytes % 6 % (2-9); Neutrophils % 75 % (42-76); Total Cells Counted 100
[2018-02-06 13:38] LABS: Platelet Estimate Normal; RBC Morphology Normal
[2018-02-06 14:32] LABS: Alanine Aminotransferase 23 U/L (12-78); Albumin Level 3.2 gm/dL (3.4-5.0); Albumin/Globulin Ratio 1.1 (1.1-1.8); Alkaline Phosphatase 81 U/L (46-116); Anion Gap 14.1 mEq/L (5-15); Aspartate Amino Transferase 14 U/L (15-37); Bilirubin,Total 0.2 mg/dL (0.2-1.0); Blood Urea Nitrogen 43 mg/dL (7-18); Calcium 9.1 mg/dL (8.5-10.1); Carbon Dioxide 22 mmol/L (21.0-32.0); Chloride 105 mmol/L (98-107); Creatinine,Serum 1.45 mg/dL (0.55-1.02); Estimated Glomerular Filt Rate 35 ml/min (>60); GFR (African American) 42 ML/MIN (>60); Globulin 2.8 gm/dl (1.3-3.2); Glucose 134 mg/dL (74-106); Potassium 5.1 mmoL/L (3.5-5.1); Sodium 136 mmol/L (136-145)
== END ==
PROVIDERS: Visit Provider Internal Medicine Adolescent Medicine
DX: I48.2 Chronic atrial fibrillation (principal); I50.20 Unspecified systolic (congestive) heart failure
CPT/HCPCS: 36415; 80053; 85007; 85025

== ENCOUNTER → 2018-03-13 09:00 | Outpatient (CLI) | payer MEDICARE, SELFPAY ==
[2018-03-13 13:50] LABS: Alanine Aminotransferase 28 U/L (12-78); Albumin Level 3.2 gm/dL (3.4-5.0); Albumin/Globulin Ratio 1.1 (1.1-1.8); Alkaline Phosphatase 103 U/L (46-116); Aspartate Amino Transferase 17 U/L (15-37); Bilirubin,Total 0.3 mg/dL (0.2-1.0); Blood Urea Nitrogen 34 mg/dL (7-18); Calcium 8.9 mg/dL (8.5-10.1); Carbon Dioxide 22 mmol/L (21.0-32.0); Chloride 102 mmol/L (98-107); Estimated Glomerular Filt Rate 29 ml/min (>60); GFR (African American) 35 ML/MIN (>60); Glucose 134 mg/dL (74-106); Sodium 135 mmol/L (136-145); Total Protein,Serum 6.2 gm/dL (6.4-8.2)
== END ==
PROVIDERS: Visit Provider Internal Medicine Adolescent Medicine
DX: I10 Essential (primary) hypertension (principal)
CPT/HCPCS: 36415; 80053

== ENCOUNTER → 2018-04-05 09:14 | Outpatient (CLI) | payer MEDICARE, SELFPAY ==
[2018-04-05 09:30] LABS: Basophils % 0.3 % (0.1-2.0); Eosinophils % 0.5 % (0.1-12.0); Hemoglobin 8.8 g/dL (12.2-16.2); Lymphocytes # 1.8 K/mm3 (0.7-4.5); Lymphocytes % 21.2 K/mm3 (10-50); Mean Corpuscular HGB Conc 31.1 g/dL (31.8-35.4); Mean Corpuscular Hemoglobin 27.3 pg (27.0-31.2); Mean Corpuscular Volume 87.6 fl (81-99); Mean Platelet Volume 9.1 fl (7.4-10.4); Monocytes # 0.5 K/mm3 (0.1-1.0); Monocytes % 6.2 % (1.7-9.3); Neutrophils # 6.1 K/mm3 (1.8-7.8); Neutrophils % 71.9 % (37.0-80.0); Platelet Count 315 K/mm3 (142-424); Red Blood Count 3.23 M/mm3 (4.20-5.40); Red Cell Distribution Width 14.4 % (11.5-17.5); White Blood Count 8.5 K/mm3 (4.8-10.8)
[2018-04-05 09:54] LABS: Hematocrit 28.4 % (37.0-47.0)
[2018-04-05 11:10] LABS: Alanine Aminotransferase 36 U/L (12-78); Albumin/Globulin Ratio 1.1 (1.1-1.8); Alkaline Phosphatase 93 U/L (46-116); Anion Gap 16.5 mEq/L (5-15); Aspartate Amino Transferase 23 U/L (15-37); Bilirubin,Total 0.4 mg/dL (0.2-1.0); Blood Urea Nitrogen 42 mg/dL (7-18); Calcium 9.1 mg/dL (8.5-10.1); Carbon Dioxide 21 mmol/L (21.0-32.0); Chloride 105 mmol/L (98-107); Creatinine,Serum 2.01 mg/dL (0.55-1.02); Estimated Glomerular Filt Rate 24 ml/min (>60); GFR (African American) 29 ML/MIN (>60); Globulin 2.8 gm/dl (1.3-3.2); Glucose 107 mg/dL (74-106); Potassium 5.5 mmoL/L (3.5-5.1); Sodium 137 mmol/L (136-145); Total Protein,Serum 5.8 gm/dL (6.4-8.2)
== END ==
PROVIDERS: Visit Provider Internal Medicine Adolescent Medicine
DX: I48.2 Chronic atrial fibrillation (principal); I50.20 Unspecified systolic (congestive) heart failure
CPT/HCPCS: 36415; 80053; 83735; 85025

== ENCOUNTER 2018-04-05 10:00 | Outpatient (RCR) | payer MEDICARE, SELFPAY ==
--- NOTE | 2018-04-01 15:26 | HMH.PTOPWND ---
Rehab Outpt Wound Evaluation Rehab OP Wound Evaluation Start: 04/01/18 15:18 Freq: Status: Active Protocol: Document 04/01/18 15:19 LEI (Rec: 04/01/18 15:26 PHORHUAN [id number]) Electronically Signed By Adán Alves, PT 04/01/18 15:19 Subjective/History History History Pt is 77 yowf who presents with c/o sharmin LE edema x ~ 4 yrs, Since I had a stroke. Pt reports she walked long distances frequently prior to her CVA, but since that time she is unable to ambulate very far. She reports also having a hx of A-fib, HTN, CO, and cardiac stents x 2. She reports minimal pain, but some tenderness to palpation in the lower legs. She also reports the edema reduces with LE elevation at night. Lymphedema Eval Classification of Lymphedema Secondary Lymphedema Yes Stage of Lymphedema Lymphedema stages Stage I (Pitting edema, reduces w/ elevation, no fibrosis) Skin Changes Dry Skin Yes Discoloration of Skin Yes Pain Scale Pain Scale (0-10) 2 Affected Extremities Areas Affected by Lymphedema/Edema Right Lower Extremity Left Lower Extremity Manual Lymphatic Drainage Treatment Area MLD Treatment Area Right Lower Extremity Left Lower Extremity Wound Problems/Impairments Impairments Problems/Impairmments Palpation Tenderness Impaired Walking Increased Edema Lymphedema Present Subjective C/O Pain Impaired Self Care/Self Management Prognosis Rehab Potential Good Clinical Impression Consistent with Diagnosis Yes Short Term Goals Number of Weeks 4 Decreased Palpation Tenderness Yes: to min Increase Ability to Walk Yes: 5 min Decrease Subjective C/O Pain Yes: 1/ Patient to Understand Lymphedema Yes Treatment and Exercises Decrease Girth Measurments by (cm) Yes: by 5 cm Correction Goals Number of Weeks 8 Decreased Palpation Tenderness Yes: to none Increase Ability to Walk Yes: 10 min Decrease Subjective C/O Pain Yes: 0/10 Patient to be Ind w/ HEP Yes Patient to Adhere Lymphedema Precautions Yes
== END 2018-04-05 10:01 | disposition home or self-care (01) ==
LOC: PT 10:00
PROVIDERS: Family Provider Internal Medicine Adolescent Medicine; PCP Internal Medicine Adolescent Medicine; Visit Provider Internal Medicine Adolescent Medicine
DX: I89.0 Lymphedema, not elsewhere classified (principal)
CPT/HCPCS: 97140; 97162; 97760

== ENCOUNTER 2018-04-09 10:08 | Observation (INO) ==
--- NOTE | 2018-04-09 13:56 | Consult Report ---
History of Present Illness Consult date: 04/09/18 Requesting physician: Ignacio Aceves Consult reason: shortness of breath Chief complaint: SOA Additional Medical History:: 1. Hypertension 2. History of CVA approximately 2013 with affected speech and left side of body that improved after 3 months of physical therapy 3. Obesity 4. New-onset atrial fibrillation, 10/2017, CHADS-VASC score of 6 A. Intolerant of Xarelto and Eliquis due to nausea. 5. Anemia, 03/2018 6. Coronary artery disease A. Cardiac catheterization, 10/2017, and drug-eluting stent placement to LAD and RCA. ADRIAN ventriculogram revealed ejection fraction of 55% with left ventricular end-diastolic pressure 25 mmHg. B. Echocardiogram, 10/2017, Moderate biatrial enlargement, normal left ventricular size, mild concentric left ventricular hypertrophy, visually estimated ejection fraction of 40-45% with multiple segmental wall motion abnormalities. Moderate mitral and moderate tricuspid regurgitation, calculated right ventricular systolic pressure is 60 to 65 mmHg consistent with moderate pulmonary hypertension. No significant pericardial effusion noted. 7. Hyperlipidemia History of present illness: 77-year-old white female with history of recent coronary artery disease with two -vessel stenting in October of this year at same time being diagnosed with new onset atrial fibrillation for which she was started on anticoagulation. Post stenting patient relates with resolved. However over the last 4-6 weeks patient has had recurrent episodes of exertional shortness of breath to the point of limiting her activity. She states she gets out of breath just walking across the room at home and in the last 2 nights has had to sit up on the couch to sleep due to shortness of breath. She has noted some increase in her lower extremity edema although she admits she has lymphedema and has recently been to the lymphedema clinic. Patient was seen in Dr. Aceves's office today and was admitted for further evaluation and treatment. Patient's EKG shows atrial fibrillation with mild RVR. Preliminary echocardiogram shows slight decrease in her left ventricular ejection fraction compared with echocardiogram from October of this year. Official reading is pending. Cardiology consulted for evaluation and recommendations. The patient relates she has been off of her anticoagulation for atrial fibrillation for about 3 weeks now. She remains on aspirin and plavix. [facility] History Medical History: Reports:: Atrial Fibrillation, Coronary Artery Disease, Cerebrovascular Accident, Hyperlipidemia, Hypertension, Myocardial Infarction, Palpitations Denies:: Cancer, Diabetes Mellitus Type 1, Diabetes Mellitus Type 2, MRSA Other Medical History: Reports: Arthritis, Cataracts, Sinus Problems Laterality Cases: Bilateral: Breast Biopsy Other Surgeries: Yes: Angioplasty, Cardiac Catheterization, Cardiac Surgery, Coronary Stent, Other Amputation: No Fractures: No - *Social History Smoking Status: Never smoker Alcohol Intake: never Alcohol Intake Frequency:: other Substance Use Type: denies use Occupational Status: retired Housing: house Household Members: spouse *Family Hx:: Heart Attack, Hyperlipidemia, Hypertension, Stroke, Coronary Artery Disease Meds Home Medications Medication Instructions Recorded Confirmed Type Atorvastatin Calcium [Atorvastatin 40 mg PO HS 11/12/17 12/25/17 History 40mg Tab] Loratadine [Allergy] 10 mg PO DAILY 11/12/17 12/25/17 History Fluticasone Propionate 2 sprays INHALATION DAILY 11/13/17 12/25/17 History ropinirole 0.5 mg tablet 0.5 mg PO BID 11/27/17 12/25/17 History hydrochlorothiazide 25 mg tablet 25 mg PO DAILY 12/11/17 12/25/17 History Apixaban [Eliquis] 2.5 mg PO BID 12/25/17 12/25/17 History Clopidogrel Bisulfate [Plavix 75mg 75 mg PO DAILY 12/25/17 12/25/17 History Tab] Allergies Allergy/AdvReac Type Severity Reaction Status Date / Time No Known Allergies Allergy Verified 12/25/17 11:32 Review of Systems - *Cardiovascular Reports shortness of breath with activity, Denies chest pain - *Respiratory Reports shortness of breath with activity - *Gastrointestinal Denies abdominal pain - *Genitourinary Denies difficulty urinating Exam Vital signs and Labs for Last 24 Hours: Temp Pulse Resp BP Pulse Ox 98.3 F 96 H 18 124/70 95 04/09/18 12:43 04/09/18 12:43 04/09/18 12:43 04/09/18 12:43 04/09/18 12:43 I & O for Last 24 hours: Intake & Output 04/07/18 04/08/18 04/09/18 04/10/18 11:59 11:59 11:59 11:59 Weight 172 lb 3.99 oz - *Routine Neck Exam Absent: JVD, carotid bruit - *Routine Respiratory Exam Present: decreased breath sounds. Absent: rales, rhonchi, wheezes - *Routine Cardiovascular Exam Present: tachycardia, irregularly irregular - *Routine Extremities Exam Present: edema, extremity cold to touch - *Routine Neurological Exam Present: alert, oriented X3, moving all extremities Assessment and Plan (1) Atrial fibrillation with rapid ventricular response Current visit: Yes Status: Acute Category: Medical Code(s): I48.91 - Unspecified atrial fibrillation (2) Cardiomyopathy Current visit: Yes Status: Acute Category: Medical Code(s): I42.9 - Cardiomyopathy, unspecified (3) Coronary atherosclerosis of [place] coronary artery Current visit: No Status: Chronic Qualifiers: [place] vs. transplanted heart: [place] heart Associated angina: without angina Qualified Code(s): I25.10 - Atherosclerotic heart disease of [place] coronary artery without angina pectoris Category: Medical Code(s): I25.10 - Atherosclerotic heart disease of [place] coronary artery without angina pectoris (4) Fatigue Current visit: No Status: Chronic Qualifiers: Fatigue type: chronic, unspecified Qualified Code(s): R53.82 - Chronic fatigue, unspecified Category: Medical Code(s): R53.83 - Other fatigue (5) HHD (hypertensive heart disease) Current visit: No Status: Chronic Qualifiers: Heart failure presence: without heart failure Qualified Code(s): I11.9 - Hypertensive heart disease without heart failure Category: Medical Code(s): I11.9 - Hypertensive heart disease without heart failure (6) HLD (hyperlipidemia) Current visit: No Status: Chronic Qualifiers: Hyperlipidemia type: other hyperlipidemia Qualified Code(s): E78.4 - Other hyperlipidemia Category: Medical Code(s): E78.5 - Hyperlipidemia, unspecified (7) HTN (hypertension) Current visit: No Status: Chronic Qualifiers: Hypertension type: essential hypertension Qualified Code(s): I10 - Essential (primary) hypertension Category: Medical Code(s): I10 - Essential (primary) hypertension (8) Shortness of breath on exertion Current visit: No Status: Resolved Category: Medical Code(s): R06.02 - Shortness of breath (9) Hyperkalemia Current visit: Yes Status: Acute Category: Medical Code(s): E87.5 - Hyperkalemia (10) Renal insufficiency Current visit: Yes Status: Acute Category: Medical Code(s): N28.9 - Disorder of kidney and ureter, unspecified - Assessment and plan all Dx Assessment and Plan for all problems:: 1. SOA, multifactorial, including anemia, cardiomyopathy and a.fib with mild RVR. Consideration for stent thrombosis/stenosis also. 2. Serial cardiac enzymes 3. Echo, pending 4. Recommend transfusion to Hgb >10. Anemia likely from anticoagulation for A. fib (stopped 3 wks ago) so will need consideration of Left atrial appendage ligation for thromboembolism prevention. Consider GI workup also for source of bleed. 5. Reevaluate in AM with further recommendations. Consider repeat cardiac cath. 6. Guaiac stool for blood.
[2018-04-09 14:05] LABS: Basophils % 0.3 % (0.1-2.0); Eosinophils # 0.1 K/mm3 (0.0-0.4); Eosinophils % 1.2 % (0.1-12.0); Hematocrit 29.6 % (37.0-47.0); Lymphocytes # 1.9 K/mm3 (0.7-4.5); Lymphocytes % 25.6 K/mm3 (10-50); Mean Corpuscular HGB Conc 30.6 g/dL (31.8-35.4); Mean Corpuscular Hemoglobin 26.8 pg (27.0-31.2); Mean Corpuscular Volume 87.7 fl (81-99); Mean Platelet Volume 8.7 fl (7.4-10.4); Monocytes # 0.5 K/mm3 (0.1-1.0); Monocytes % 6.2 % (1.7-9.3); Neutrophils # 4.9 K/mm3 (1.8-7.8); Neutrophils % 66.7 % (37.0-80.0); Platelet Count 332 K/mm3 (142-424); Red Blood Count 3.37 M/mm3 (4.20-5.40); Red Cell Distribution Width 14.3 % (11.5-17.5); White Blood Count 7.3 K/mm3 (4.8-10.8)
[2018-04-09 14:06] LABS: Calcium 9.2 mg/dL (8.5-10.1)
[2018-04-09 15:47] LABS: Creatine Kinase 52 U/L (26-192)
--- NOTE | 2018-04-09 16:10 | History & Physical Report ---
*Admission Date: 04/09/18 *Chief complaint: Malaise/dyspnea *History of present illness: 77-year-old white female with history of new onset atrial fibrillation approximately 4 months ago, non-STEMI, stents were placed and patient was discharged on a regimen of diuretics, blood pressure medication, and anticoagulation therapy. Over the past couple of months, patient continued to feel poorly, and I have seen her multiple times in the office and adjust her diuretics and done a couple of things with her blood pressure medication including reducing dose of her beta-joel with some improvement in her symptoms. 4 weeks ago she had persistent GI bleeding on 2 different antiplatelet therapies , and this has been stopped. She came back for follow-up today, and was found to have persistent anemia, worsening kidney insufficiency with acute on chronic kidney injury and significant lethargy and malaise. Was admitted to hospital for bolus, repeat echocardiogram, recheck labs and cardiology evaluation for possible VANDANA with cardioversion to assist her in maintaining sinus rhythm and further recommendations. [facility] History I have reviewed the patient's past medical history: Yes Medical History: Reports:: Arrhythmia, Atrial Fibrillation, Coronary Artery Disease, Cerebrovascular Accident, Heart Murmur, Hyperlipidemia, Hypertension, Myocardial Infarction, Palpitations, Valvular Heart Disease Denies:: Cancer, Diabetes Mellitus Type 1, Diabetes Mellitus Type 2, MRSA Other Medical History: Reports: Arthritis, Cataracts, Sinus Problems Laterality Cases: Left: Lumpectomy, Bilateral: Breast Biopsy, Cataract Other Surgeries: Yes: Angioplasty, Cardiac Catheterization, Cardiac Surgery, Coronary Stent, Other Amputation: No Fractures: No - *Social History Educational Level: Completed High School Smoking Status: Never smoker Alcohol Intake: never Alcohol Intake Frequency:: other Substance Use Type: denies use Occupational Status: retired Housing: house Household Members: spouse - Psychiatric History Expresses thoughts of harming self/others: None Suicide Plan Description: No Plan *Family Hx:: Heart Attack, Hyperlipidemia, Hypertension, Stroke, Coronary Artery Disease Review of Systems - Review of Systems Review of systems:: pertinent systems reviewed and negative unless documented below - Constitutional Reports fatigue, Reports lack of energy, Reports malaise - ENT Reports poor balance - *Cardiovascular Reports shortness of breath, Reports shortness of breath with activity, Reports generalized swelling, Reports irregular heart rhythm, Reports leg swelling - *Respiratory Reports cough - *Gastrointestinal Reports abdominal pain Meds Home Medications Medication Instructions Recorded Confirmed Type Atorvastatin Calcium [Atorvastatin 40 mg PO HS 11/12/17 04/09/18 History 40mg Tab] Loratadine [Allergy] 10 mg PO DAILY 11/12/17 04/09/18 History Fluticasone Propionate 2 sprays INHALATION DAILY 11/13/17 04/09/18 History ropinirole 0.5 mg tablet 0.5 mg PO BID 11/27/17 04/09/18 History Clopidogrel Bisulfate [Plavix 75mg 75 mg PO DAILY 12/25/17 04/09/18 History Tab] Erythromycin Base [Erythromycin 1 gm EYE-BOTH WEEKLY 04/09/18 04/09/18 History 3.5gm opth oinment] Metoprolol Tartrate [Lopressor 100 mg PO DAILY 04/09/18 04/09/18 History 50mg tablet] Spironolactone [Aldactone 25mg 25 mg PO BID 04/09/18 04/09/18 History Tab] Allergies Allergy/AdvReac Type Severity Reaction Status Date / Time No Known Allergies Allergy Verified 12/25/17 11:32 Exam Vital signs and Labs for Last 24 Hours: Temp Pulse Resp BP Pulse Ox 98.0 F 85 18 121/64 94 L 04/09/18 15:32 04/09/18 15:32 04/09/18 15:32 04/09/18 15:32 04/09/18 15:32 Laboratory Results - last 24 hr 04/09/18 14:43: Blood Type A Negative, Crossmatch (AHG) See Detail 04/09/18 14:43: Total Creatine Kinase 52, CK-MB (CK-2) 1.0, CK-MB (CK-2) Rel Index 1.9, Troponin I < 0.02 04/09/18 14:58: Blood Type Confirm A Negative 04/09/18 : WBC 7.3, RBC 3.37 L, Hgb 9.0 L, Hct 29.6 L, MCV 87.7, MCH 26.8 L, MCHC 30.6 L, RDW 14.3, Plt Count 332, MPV 8.7, Neut % (Auto) 66.7, Lymph % (Auto ) 25.6, [place] % (Auto) 6.2, Eos % (Auto) 1.2, Baso % (Auto) 0.3, Neut # (Auto) 4.9, Lymph # (Auto) 1.9, [place] # (Auto) 0.5, Eos # (Auto) 0.1, Baso # (Auto) 0.0 04/09/18 : Sodium 138, Potassium 5.0, Chloride 105, Carbon Dioxide 20 L, Anion Gap 18.0 H, BUN 41 H, Creatinine 1.78 H, Estimated Creat Clear 33, Estimated GFR 28 L, Est GFR ( Amer) 33 L, Glucose 139 H, Calcium 9.2, Magnesium 2.0 04/09/18 : B-Natriuretic Peptide 1110 H I & O for Last 24 hours: Intake & Output 04/07/18 04/08/18 04/09/18 04/10/18 11:59 11:59 11:59 11:59 Weight 172 lb 3.99 oz Narrative: Patient appears tired and ill over baseline. She, as always, is pleasant and talkative. Lungs have rhonchi in both bases, heart rate irregular with rate in the low 60s. Abdomen soft but slightly distended. Legs have 1+ edema to mid hong. She walks with assistance with her walker and her . Previously noted mild neurologic deficit from ischemic stroke several years ago unchanged. H&P: Result - Labs Labs: Short CBC 04/09/18 Range/Units Unknown WBC 7.3 (4.8-10.8) K/mm3 Hgb 9.0 L (12.2-16.2) g/dL Hct 29.6 L (37.0-47.0) % Plt Count 332 (142-424) K/mm3 BMP 04/09/18 Unknown Sodium 138 Potassium 5.0 Chloride 105 Carbon Dioxide 20 L BUN 41 H Creatinine 1.78 H Glucose 139 H Calcium 9.2 Cardiac Enzymes 04/09/18 Range/Units 14:43 Total Creatine Kinase 52 (26-192) U/L CK-MB (CK-2) 1.0 (0.0-3.6) ng/ml Troponin I < 0.02 (0.00-0.06) ng/ml Assessment and Plan (1) Atrial fibrillation with rapid ventricular response Current visit: Yes Status: Acute Category: Medical Code(s): I48.91 - Unspecified atrial fibrillation (2) Cardiomyopathy Current visit: Yes Status: Acute Category: Medical Code(s): I42.9 - Cardiomyopathy, unspecified (3) Coronary atherosclerosis of [place] coronary artery Current visit: No Status: Chronic Qualifiers: [place] vs. transplanted heart: elem heart Associated angina: without angina Qualified Code(s): I25.10 - Atherosclerotic heart disease of [place] coronary artery without angina pectoris Category: Medical Code(s): I25.10 - Atherosclerotic heart disease of [place] coronary artery without angina pectoris (4) Fatigue Current visit: No Status: Chronic Qualifiers: Fatigue type: chronic, unspecified Qualified Code(s): R53.82 - Chronic fatigue, unspecified Category: Medical Code(s): R53.83 - Other fatigue (5) HHD (hypertensive heart disease) Current visit: No Status: Chronic Qualifiers: Heart failure presence: without heart failure Qualified Code(s): I11.9 - Hypertensive heart disease without heart failure Category: Medical Code(s): I11.9 - Hypertensive heart disease without heart failure (6) HLD (hyperlipidemia) Current visit: No Status: Chronic Qualifiers: Hyperlipidemia type: other hyperlipidemia Qualified Code(s): E78.4 - Other hyperlipidemia Category: Medical Code(s): E78.5 - Hyperlipidemia, unspecified (7) HTN (hypertension) Current visit: No Status: Chronic Qualifiers: Hypertension type: essential hypertension Qualified Code(s): I10 - Essential (primary) hypertension Category: Medical Code(s): I10 - Essential (primary) hypertension (8) Shortness of breath on exertion Current visit: No Status: Resolved Category: Medical Code(s): R06.02 - Shortness of breath (9) Hyperkalemia Current visit: Yes Status: Acute Category: Medical Code(s): E87.5 - Hyperkalemia (10) Renal insufficiency Current visit: Yes Status: Acute Category: Medical Code(s): N28.9 - Disorder of kidney and ureter, unspecified (11) A-fib Current visit: No Status: Chronic Qualifiers: Atrial fibrillation type: chronic Qualified Code(s): I48.2 - Chronic atrial fibrillation Category: Medical Code(s): I48.91 - Unspecified atrial fibrillation Patient is currently not in rapid response from her A. fib but is significantly compromised from a functional status perspective. She is also been extremely intolerant to anticoagulation therapy Cardiology evaluation to see if cardioversion electrically would be an option, she would certainly require VANDANA, transthoracic echo today. (12) Bilateral edema of lower extremity Current visit: No Status: Chronic Category: Medical Code(s): R60.0 - Localized edema Admit. Diuresis if able to after fluid bolus. Close observation of fluid status and labs.
--- NOTE | 2018-04-09 20:51 | Cardiology Report ---
PROCEDURE: 2-D M-mode and color Doppler study INDICATIONS FOR THE TEST: Chest pain COPD Heart Murmur Tobacco Smoking Palpitations Fatigue Syncope EdemaX Hypertension Diabetes Mellitus Rheumatic Fever SOB DOEXObesityXHyperlipidemiaX Family History HD Additional History CHRONIC AF,CHF,PAST HISTORY CVA PATIENT INFORMATION HEIGHT: 65 WEIGHT:170 GENDER: Female B/P:117/84 2-D/M-MODE INTERPRETATION: 2-D MEASUREMENTS OBSERVED VALUES IN CMS Right Ventricular Dimension (RVDd) 2.3 Interventricular Septum (Thickness)(IVsd) .9 Left Ventricular Internal Dimensions(LVIDd) 5.6 Left Ventricular Posterior Wall (Thickness)(LVPWd) .9 Aortic Root 3.3 Aortic Cusp Separation 1.7 Left Atrial Dimensions (LAD) 3.9 2D 1. Left atrium is moderately enlarged, left ventricle is mildly dilated, there is severely reduced left ventricular systolic function, visually estimated ejection fraction of 25-30%, there is marked hypokinesis involving mid to distal septum, anterior, anteroapical, anterolateral and inferoapical wall. 2. The right atrium and right ventricle are mildly enlarged with normal contractility. 3. The aortic valve is minimally thickened and fibrosed. 4. The mitral and tricuspid valve leaflets are minimally thickened. 5. The pulmonic valve is poorly visualized. 6. No significant pericardial effusion noted. DOPPLER INTERROGATION: Doppler interrogation of the aortic, mitral and tricuspid valve reveals presence of moderate to severe mitral and moderate tricuspid regurgitation, calculated right ventricular systolic pressure 58 mmHg consistent with the moderate pulmonary hypertension, inferior vena cava is dilated without significant inspiratory collapse. CONCLUSION: 1. Moderately enlarged atrium, mildly dilated left ventricle, severely reduced left ventricular systolic function, visually estimated ejection fraction of 25-30% with multiple segmental wall motion abnormality described above. 2. Mildly enlarged right ventricle with normal contractility. 3. Moderate to severe mitral and moderate tricuspid regurgitation, calculated right ventricular systolic pressure is 58 mmHg consistent with moderate pulmonary hypertension, inferior vena cava is dilated without significant inspiratory collapse. 4. No significant pericardial effusion noted.
[2018-04-10 00:25] LABS: Hematocrit 36.1 % (37.0-47.0)
[2018-04-10 00:37] LABS: Hemoglobin 11.4 g/dL (12.2-16.2)
--- NOTE | 2018-04-10 07:18 | Pharmacy Consult Notes ---
[facility] Pharmacy VTE Monitoring - Patient Demographics Admission date: 04/09/18 Report Date: 04/10/18 Time: 07:18 Allergies/Adverse Reactions: Patient Allergies No Known Allergies Allergy (Verified 12/25/17 11:32) Height: 1.63 m Weight: 77.621 kg Patient Problems: Current Active Problems Atrial fibrillation with rapid ventricular response (Acute) Cardiomyopathy (Acute) Hyperkalemia (Acute) Renal insufficiency (Acute) - VTE Risk Labs: VTE Related Lab Results Hgb 11.4 g/dL (12.2-16.2) L D 04/10/18 00:15 Hct 36.1 % (37.0-47.0) L 04/10/18 00:15 Plt Count 332 K/mm3 (142-424) 04/09/18 Unknown BUN 41 mg/dL (7-18) H 04/09/18 Unknown Creatinine 1.78 mg/dL (0.55-1.02) H 04/09/18 Unknown Estimated Creat Clear 33 mL/min (0-300) 04/09/18 Unknown Was VTE Risk Assessment Performed: Yes VTE Score: 3 VTE Risk Level: Low Risk Clinical Trial Participant: No - Prophylaxis VTE Prophylaxis Ordered?: Yes Types of VTE Prophylaxis: TEDS Knee High Location of Applied Device: Bilateral Lower Extremeties
--- NOTE | 2018-04-10 08:38 | Progress Note ---
Internal Medicine - PN: Subj *Date: 04/10/18 *Time: 08:35 Interval history: Patient is feeling fairly well. Tolerated blood transfusion well. Had significant urine output after the transfusion. Has minimal shortness of air she walks around room. No pains in the chest or otherwise. Exam Vital signs and Labs for Last 24 Hours: Temp Pulse Resp BP Pulse Ox 97.7 F 100 H 20 136/85 97 04/10/18 07:57 04/10/18 08:00 04/10/18 07:57 04/10/18 07:57 04/10/18 07:57 Laboratory Results - last 24 hr 04/09/18 14:43: Blood Type A Negative, Antibody Screen Negative, Crossmatch (AHG ) See Detail 04/09/18 14:43: Total Creatine Kinase 52, CK-MB (CK-2) 1.0, CK-MB (CK-2) Rel Index 1.9, Troponin I < 0.02 04/09/18 14:58: Blood Type Confirm A Negative 04/09/18 : WBC 7.3, RBC 3.37 L, Hgb 9.0 L, Hct 29.6 L, MCV 87.7, MCH 26.8 L, MCHC 30.6 L, RDW 14.3, Plt Count 332, MPV 8.7, Neut % (Auto) 66.7, Lymph % (Auto ) 25.6, [place] % (Auto) 6.2, Eos % (Auto) 1.2, Baso % (Auto) 0.3, Neut # (Auto) 4.9, Lymph # (Auto) 1.9, [place] # (Auto) 0.5, Eos # (Auto) 0.1, Baso # (Auto) 0.0 04/09/18 : Sodium 138, Potassium 5.0, Chloride 105, Carbon Dioxide 20 L, Anion Gap 18.0 H, BUN 41 H, Creatinine 1.78 H, Estimated Creat Clear 33, Estimated GFR 28 L, Est GFR ( Amer) 33 L, Glucose 139 H, Calcium 9.2, Magnesium 2.0 04/09/18 : B-Natriuretic Peptide 1110 H 04/10/18 00:15: Hgb 11.4 L D, Hct 36.1 L I & O for Last 24 hours: Intake & Output 07/04/08/18 04/09/18 04/10/18 11:59 11:59 11:59 11:59 Intake Total 1597 / 1597 Output Total 925 / 925 Balance 672 / 672 Weight 172 lb 3.99 oz 171 lb 2 oz Narrative: Patient is awake, alert. Pleasant. Heart rate irregular. Rate is under good control. Crackles and rhonchi in both lung bases. Symmetric air entry. Alert and oriented 3. Assessment and Plan (1) Atrial fibrillation with rapid ventricular response Current visit: Yes Status: Acute Category: Medical Code(s): I48.91 - Unspecified atrial fibrillation (2) Cardiomyopathy Current visit: Yes Status: Acute Category: Medical Code(s): I42.9 - Cardiomyopathy, unspecified (3) Coronary atherosclerosis of [place] coronary artery Current visit: No Status: Chronic Qualifiers: [place] vs. transplanted heart: [place] heart Associated angina: without angina Qualified Code(s): I25.10 - Atherosclerotic heart disease of [place] coronary artery without angina pectoris Category: Medical Code(s): I25.10 - Atherosclerotic heart disease of [place] coronary artery without angina pectoris (4) Fatigue Current visit: No Status: Chronic Qualifiers: Fatigue type: chronic, unspecified Qualified Code(s): R53.82 - Chronic fatigue, unspecified Category: Medical Code(s): R53.83 - Other fatigue (5) HHD (hypertensive heart disease) Current visit: No Status: Chronic Qualifiers: Heart failure presence: without heart failure Qualified Code(s): I11.9 - Hypertensive heart disease without heart failure Category: Medical Code(s): I11.9 - Hypertensive heart disease without heart failure (6) HLD (hyperlipidemia) Current visit: No Status: Chronic Qualifiers: Hyperlipidemia type: other hyperlipidemia Qualified Code(s): E78.4 - Other hyperlipidemia Category: Medical Code(s): E78.5 - Hyperlipidemia, unspecified (7) HTN (hypertension) Current visit: No Status: Chronic Qualifiers: Hypertension type: essential hypertension Qualified Code(s): I10 - Essential (primary) hypertension Category: Medical Code(s): I10 - Essential (primary) hypertension (8) Shortness of breath on exertion Current visit: No Status: Resolved Category: Medical Code(s): R06.02 - Shortness of breath (9) Hyperkalemia Current visit: Yes Status: Acute Category: Medical Code(s): E87.5 - Hyperkalemia (10) Renal insufficiency Current visit: Yes Status: Acute Category: Medical Code(s): N28.9 - Disorder of kidney and ureter, unspecified (11) A-fib Current visit: No Status: Chronic Qualifiers: Atrial fibrillation type: chronic Qualified Code(s): I48.2 - Chronic atrial fibrillation Category: Medical Code(s): I48.91 - Unspecified atrial fibrillation (12) Bilateral edema of lower extremity Current visit: No Status: Chronic Category: Medical Code(s): R60.0 - Localized edema - Assessment and plan all Dx Assessment and Plan for all problems:: Significant cardiac comorbidity with chronic atrial fibrillation, echocardiogram report yesterday with 25% ejection fraction with segmental wall motion abnormalities. Agree with plan for heart catheterization today to evaluate for vascular blockages. Given the fact the patient has been treated for 3 months or over, with beta blockers and diuretics-and is intolerant to parag inhibitors and angiotensin receptor blockers because of hyperkalemia and renal insufficiency-I think this patient should be strongly considered for pacemaker/defibrillator device for her high risk of lethal cardiac arrhythmias and her need to be in sinus rhythm. She is also had poor response to newer oral anticoagulation agents, with GI bleeding. I would be very reluctant to put her on warfarin because of her high fall risk because of recent stroke and her reliance on cane/walker for ambulation. As a result I think she also should be considered for atrial appendage clipping to avoid further anticoagulation use. Check labs today for kidney function, labs ordered for tomorrow to evaluate response to therapy. Appreciate cardiology consultation.
--- NOTE | 2018-04-10 09:34 | Progress Note ---
Subjective Date: 04/10/18 Time: 09:31 Principal diagnosis: Cardiomyopathy, CHF Interval history: 77 yo WF in bed in [facility]. Breathing has improved after blood transfusions and IV lasix. Echo showed reduced LVEF compared with echo from 10/2017 at time of cath/ stenting. Pt intolerant of BENNETT/ARB due to hyperkalemia. She has been compliant with beta joel and diuretic therapy. Unable to take anticoagulation due to recurrent GI bleed. Exam Vital signs and Labs for Last 24 Hours: Temp Pulse Resp BP Pulse Ox 97.7 F 100 H 20 136/85 97 04/10/18 07:57 04/10/18 08:00 04/10/18 07:57 04/10/18 07:57 04/10/18 07:57 Laboratory Results - last 24 hr 04/09/18 14:43: Blood Type A Negative, Antibody Screen Negative, Crossmatch (AHG ) See Detail 04/09/18 14:43: Total Creatine Kinase 52, CK-MB (CK-2) 1.0, CK-MB (CK-2) Rel Index 1.9, Troponin I < 0.02 04/09/18 14:58: Blood Type Confirm A Negative 04/09/18 : WBC 7.3, RBC 3.37 L, Hgb 9.0 L, Hct 29.6 L, MCV 87.7, MCH 26.8 L, MCHC 30.6 L, RDW 14.3, Plt Count 332, MPV 8.7, Neut % (Auto) 66.7, Lymph % (Auto ) 25.6, [place] % (Auto) 6.2, Eos % (Auto) 1.2, Baso % (Auto) 0.3, Neut # (Auto) 4.9, Lymph # (Auto) 1.9, [place] # (Auto) 0.5, Eos # (Auto) 0.1, Baso # (Auto) 0.0 04/09/18 : Sodium 138, Potassium 5.0, Chloride 105, Carbon Dioxide 20 L, Anion Gap 18.0 H, BUN 41 H, Creatinine 1.78 H, Estimated Creat Clear 33, Estimated GFR 28 L, Est GFR ( Amer) 33 L, Glucose 139 H, Calcium 9.2, Magnesium 2.0 04/09/18 : B-Natriuretic Peptide 1110 H 04/10/18 00:15: Hgb 11.4 L D, Hct 36.1 L I & O for Last 24 hours: Intake & Output 04/07/18 04/08/18 04/09/18 04/10/18 11:59 11:59 11:59 11:59 Intake Total 1597 / 1597 Output Total 925 / 925 Balance 672 / 672 Weight 172 lb 3.99 oz 171 lb 2 oz - *Routine Respiratory Exam Present: decreased breath sounds. Absent: rhonchi, wheezes Comments: slight basilar rales - *Routine Cardiovascular Exam Present: irregularly irregular. Absent: RRR - *Routine Extremities Exam Present: edema Progress Note: A&P (1) Atrial fibrillation with rapid ventricular response Status: Acute Current Visit: Yes (2) Cardiomyopathy Status: Acute Current Visit: Yes (3) Coronary atherosclerosis of [place] coronary artery Status: Chronic Current Visit: No (4) Fatigue Status: Chronic Current Visit: No (5) HHD (hypertensive heart disease) Status: Chronic Current Visit: No (6) HLD (hyperlipidemia) Status: Chronic Current Visit: No (7) HTN (hypertension) Status: Chronic Current Visit: No (8) Shortness of breath on exertion Status: Resolved Current Visit: No (9) Hyperkalemia Status: Acute Current Visit: Yes (10) Renal insufficiency Status: Acute Current Visit: Yes (11) A-fib Status: Chronic Current Visit: No (12) Bilateral edema of lower extremity Status: Chronic Current Visit: No Assessment and Plan for All Diagnoses:: Due to worsening LVEF despite coronary revascularization in 10/2017 and maximally tolerated medical therapy, will plan to proceed with AICD insertion tomorrow.
[2018-04-10 09:38] LABS: Anion Gap 15.3 mEq/L (5-15); Potassium 4.3 mmoL/L (3.5-5.1)
[2018-04-11 06:04] LABS: Basophils % 0.3 % (0.1-2.0); Eosinophils # 0.2 K/mm3 (0.0-0.4); Eosinophils % 1.9 % (0.1-12.0); Hematocrit 35.4 % (37.0-47.0); Lymphocytes # 2.4 K/mm3 (0.7-4.5); Lymphocytes % 29.4 K/mm3 (10-50); Mean Corpuscular Hemoglobin 26.6 pg (27.0-31.2); Mean Corpuscular Volume 85.8 fl (81-99); Mean Platelet Volume 8.8 fl (7.4-10.4); Monocytes # 0.6 K/mm3 (0.1-1.0); Monocytes % 7.4 % (1.7-9.3); Neutrophils # 4.9 K/mm3 (1.8-7.8); Platelet Count 281 K/mm3 (142-424); Red Blood Count 4.12 M/mm3 (4.20-5.40); White Blood Count 8.1 K/mm3 (4.8-10.8)
[2018-04-11 06:21] LABS: Albumin Level 2.8 gm/dL (3.4-5.0); Anion Gap 12.3 mEq/L (5-15); Bilirubin,Total 0.9 mg/dL (0.2-1.0); Globulin 2.9 gm/dl (1.3-3.2); Potassium 4.3 mmoL/L (3.5-5.1); Total Protein,Serum 5.7 gm/dL (6.4-8.2)
--- NOTE | 2018-04-11 09:20 | Progress Note ---
[facility] Anesthesia Checklist - Patient Identification Patient Identification: Arm Band, Verbal (Name & ) - Structural Data Admitted From: Inpatient Planned Operative Procedure/s: bi v pacer Consent for Planned Operative Procedure(s) Verified: Yes Verified Documents: Surgical Consent, History and Physical - NPO Status Verified Time NPO: 00:00 - Chart Verification Results Verified: CBC, BMP - Additional verifications Patient : No Anesthesia Reactions: No Hx Blood Transfusions: Yes Blood Transfusion Reaction: No Cephalosporin Allergy: No Previous Colonoscopy: No - Cardiovascular Assessment Pulse Strength: Baseline Pulse Rhythm: Irregular Peripheral Edema: No - Airway Assessment C-Spine Mobility Assessed: Yes TMJ Mobility Assessed: Yes Dentition: Dentures-good fit - Neurological Assessment Level of Consciousness: Awake, Alert, Appropriate Hx Seizures: No Numbness or tingling in extremities: No - Anesthesia Plan Anesthesia Risk discussed: Yes Anesthesia Plan: Verified ASA Class: III Anesthesia Type: General [facility] Anesthesia HX I have reviewed the patient's past medical history: Yes Medical History: Reports:: Arrhythmia, Atrial Fibrillation, Coronary Artery Disease, Cerebrovascular Accident, Gastrointestinal Bleed, Heart Murmur, Hyperlipidemia, Hypertension, Myocardial Infarction, Palpitations, Valvular Heart Disease Denies:: Cancer, Diabetes Mellitus Type 1, Diabetes Mellitus Type 2, MRSA Other Medical History: Reports: Arthritis, Cataracts, Sinus Problems Laterality Cases: Left: Lumpectomy, Bilateral: Breast Biopsy, Cataract Other Surgeries: Yes: Angioplasty, Cardiac Catheterization, Cardiac Surgery, Coronary Stent, Other Amputation: No Fractures: No *Family Hx:: Heart Attack, Hyperlipidemia, Hypertension, Stroke, Coronary Artery Disease
--- NOTE | 2018-04-11 09:49 | Progress Note ---
Internal Medicine - PN: Subj *Date: 04/11/18 *Time: 08:10 Interval history: Patient is sitting on the side of the bed, states shortness of breath has improved. She has no complaints or concerns. Alert and oriented x3. Rate and rhythm irregular. Trace LE edema. Lung sounds clear. Abdomen soft and nontender. Exam Vital signs and Labs for Last 24 Hours: Temp Pulse Resp BP Pulse Ox 97.6 F 115 H 18 104/61 98 04/11/18 08:00 04/11/18 08:33 04/11/18 08:00 04/11/18 08:00 04/11/18 08:33 Laboratory Results - last 24 hr 04/10/18 09:35: Stool Occult Blood Negative 04/11/18 05:40: WBC 8.1, RBC 4.12 L, Hgb 11.0 L, Hct 35.4 L, MCV 85.8, MCH 26.6 L, MCHC 31.0 L, RDW 15.0, Plt Count 281, MPV 8.8, Neut % (Auto) 61.0, Lymph % ( Auto) 29.4, [place] % (Auto) 7.4, Eos % (Auto) 1.9, Baso % (Auto) 0.3, Neut # (Auto ) 4.9, Lymph # (Auto) 2.4, [place] # (Auto) 0.6, Eos # (Auto) 0.2, Baso # (Auto) 0.0 04/11/18 05:40: Sodium 137, Potassium 4.3, Chloride 106, Carbon Dioxide 23, Anion Gap 12.3, BUN 30 H, Creatinine 1.57 H, Estimated Creat Clear 37, Estimated GFR 32 L, Est GFR ( Amer) 39 L, Glucose 92 D, Calcium 9.0, Total Bilirubin 0.9, AST 19, ALT 43, Alkaline Phosphatase 107, Total Protein 5.7 L, Albumin 2.8 L, Globulin 2.9, Albumin/Globulin Ratio 1.0 L I & O for Last 24 hours: Intake & Output 04/08/18 04/09/18 04/10/18 04/11/18 11:59 11:59 11:59 11:59 Intake Total 1597 / 1597 850 / 850 Output Total 925 / 925 1350 / 1350 Balance 672 / 672 -500 / -500 Weight 172 lb 3.99 oz 171 lb 2 oz 173 lb 2 oz Assessment and Plan (1) Atrial fibrillation with rapid ventricular response Current visit: Yes Status: Acute Category: Medical Code(s): I48.91 - Unspecified atrial fibrillation (2) Cardiomyopathy Current visit: Yes Status: Acute Category: Medical Code(s): I42.9 - Cardiomyopathy, unspecified (3) Coronary atherosclerosis of [place] coronary artery Current visit: No Status: Chronic Qualifiers: [place] vs. transplanted heart: [place] heart Associated angina: without angina Qualified Code(s): I25.10 - Atherosclerotic heart disease of [place] coronary artery without angina pectoris Category: Medical Code(s): I25.10 - Atherosclerotic heart disease of [place] coronary artery without angina pectoris (4) Fatigue Current visit: No Status: Chronic Qualifiers: Fatigue type: chronic, unspecified Qualified Code(s): R53.82 - Chronic fatigue, unspecified Category: Medical Code(s): R53.83 - Other fatigue (5) HHD (hypertensive heart disease) Current visit: No Status: Chronic Qualifiers: Heart failure presence: without heart failure Qualified Code(s): I11.9 - Hypertensive heart disease without heart failure Category: Medical Code(s): I11.9 - Hypertensive heart disease without heart failure (6) HLD (hyperlipidemia) Current visit: No Status: Chronic Qualifiers: Hyperlipidemia type: other hyperlipidemia Qualified Code(s): E78.4 - Other hyperlipidemia Category: Medical Code(s): E78.5 - Hyperlipidemia, unspecified (7) HTN (hypertension) Current visit: No Status: Chronic Qualifiers: Hypertension type: essential hypertension Qualified Code(s): I10 - Essential (primary) hypertension Category: Medical Code(s): I10 - Essential (primary) hypertension (8) Shortness of breath on exertion Current visit: No Status: Resolved Category: Medical Code(s): R06.02 - Shortness of breath (9) Hyperkalemia Current visit: Yes Status: Acute Category: Medical Code(s): E87.5 - Hyperkalemia (10) Renal insufficiency Current visit: Yes Status: Acute Category: Medical Code(s): N28.9 - Disorder of kidney and ureter, unspecified (11) A-fib Current visit: No Status: Chronic Qualifiers: Atrial fibrillation type: chronic Qualified Code(s): I48.2 - Chronic atrial fibrillation Category: Medical Code(s): I48.91 - Unspecified atrial fibrillation (12) Bilateral edema of lower extremity Current visit: No Status: Chronic Category: Medical Code(s): R60.0 - Localized edema - Assessment and plan all Dx Assessment and Plan for all problems:: NPO for AICD placement today. Plan for cath tomorrow.
--- NOTE | 2018-04-11 15:38 | Progress Note ---
Subjective Date: 04/11/18 Time: 08:00 Principal diagnosis: Cardiomyopathy, CHF Interval history: 77 yo WF in bed in NAD. SOA has improved with transfusion and diuresis. Answered questions regarding AICD. Exam Vital signs and Labs for Last 24 Hours: Temp Pulse Resp BP Pulse Ox 97.6 F 115 H 18 104/61 98 04/11/18 08:00 04/11/18 08:33 04/11/18 08:00 04/11/18 08:00 04/11/18 08:33 Laboratory Results - last 24 hr 04/11/18 05:40: WBC 8.1, RBC 4.12 L, Hgb 11.0 L, Hct 35.4 L, MCV 85.8, MCH 26.6 L, MCHC 31.0 L, RDW 15.0, Plt Count 281, MPV 8.8, Neut % (Auto) 61.0, Lymph % ( Auto) 29.4, [place] % (Auto) 7.4, Eos % (Auto) 1.9, Baso % (Auto) 0.3, Neut # (Auto ) 4.9, Lymph # (Auto) 2.4, [place] # (Auto) 0.6, Eos # (Auto) 0.2, Baso # (Auto) 0.0 04/11/18 05:40: Sodium 137, Potassium 4.3, Chloride 106, Carbon Dioxide 23, Anion Gap 12.3, BUN 30 H, Creatinine 1.57 H, Estimated Creat Clear 37, Estimated GFR 32 L, Est GFR ( Amer) 39 L, Glucose 92 D, Calcium 9.0, Total Bilirubin 0.9, AST 19, ALT 43, Alkaline Phosphatase 107, Total Protein 5.7 L, Albumin 2.8 L, Globulin 2.9, Albumin/Globulin Ratio 1.0 L I & O for Last 24 hours: Intake & Output 04/09/18 04/10/18 04/11/18 04/12/18 11:59 11:59 11:59 11:59 Intake Total 1597 / 1597 850 / 850 Output Total 925 / 925 1350 / 1350 800 / 800 Balance 672 / 672 -500 / -500 -800 / -800 Weight 172 lb 3.99 oz 171 lb 2 oz 173 lb 2 oz - *Routine Respiratory Exam Present: CTA bilaterally - *Routine Cardiovascular Exam Present: tachycardia, irregularly irregular Progress Note: A&P (1) Atrial fibrillation with rapid ventricular response Status: Acute Current Visit: Yes (2) Cardiomyopathy Status: Acute Current Visit: Yes (3) Coronary atherosclerosis of [place] coronary artery Status: Chronic Current Visit: No (4) Fatigue Status: Chronic Current Visit: No (5) HHD (hypertensive heart disease) Status: Chronic Current Visit: No (6) HLD (hyperlipidemia) Status: Chronic Current Visit: No (7) HTN (hypertension) Status: Chronic Current Visit: No (8) Shortness of breath on exertion Status: Resolved Current Visit: No (9) Hyperkalemia Status: Acute Current Visit: Yes (10) Renal insufficiency Status: Acute Current Visit: Yes (11) A-fib Status: Chronic Current Visit: No (12) Bilateral edema of lower extremity Status: Chronic Current Visit: No Assessment and Plan for All Diagnoses:: Plan is for AICD today. A. fib still not well controlled. Will increase bisoprolol to 5 mg BID as BP tolerates.
--- NOTE | 2018-04-12 13:42 | Progress Note ---
Internal Medicine - PN: Subj *Date: 04/12/18 *Time: 08:30 Interval history: Patient did very well overnight, no problems with chest pain. Feels more energetic. Is n.p.o. for ventricular defibrillator/atrial pacer device today. Exam Vital signs and Labs for Last 24 Hours: Temp Pulse Resp BP Pulse Ox 98.1 F 128 H 16 144/77 97 04/12/18 12:00 04/12/18 12:00 04/12/18 12:00 04/12/18 12:00 04/12/18 12:00 I & O for Last 24 hours: Intake & Output 04/10/18 04/11/18 04/12/18 04/13/18 11:59 11:59 11:59 11:59 Intake Total 1597 / 1597 850 / 850 480 / 480 Output Total 925 / 925 1350 / 1350 800 / 800 Balance 672 / 672 -500 / -500 -320 / -320 Weight 171 lb 2 oz 173 lb 2 oz Narrative: Lungs are clear. Heart rate irregular, trace edema. Alert, pleasant. Assessment and Plan (1) Atrial fibrillation with rapid ventricular response Current visit: Yes Status: Acute Category: Medical Code(s): I48.91 - Unspecified atrial fibrillation (2) Cardiomyopathy Current visit: Yes Status: Acute Category: Medical Code(s): I42.9 - Cardiomyopathy, unspecified (3) Coronary atherosclerosis of [place] coronary artery Current visit: No Status: Chronic Qualifiers: [place] vs. transplanted heart: [place] heart Associated angina: without angina Qualified Code(s): I25.10 - Atherosclerotic heart disease of [place] coronary artery without angina pectoris Category: Medical Code(s): I25.10 - Atherosclerotic heart disease of [place] coronary artery without angina pectoris (4) Fatigue Current visit: No Status: Chronic Qualifiers: Fatigue type: chronic, unspecified Qualified Code(s): R53.82 - Chronic fatigue, unspecified Category: Medical Code(s): R53.83 - Other fatigue (5) HHD (hypertensive heart disease) Current visit: No Status: Chronic Qualifiers: Heart failure presence: without heart failure Qualified Code(s): I11.9 - Hypertensive heart disease without heart failure Category: Medical Code(s): I11.9 - Hypertensive heart disease without heart failure (6) HLD (hyperlipidemia) Current visit: No Status: Chronic Qualifiers: Hyperlipidemia type: other hyperlipidemia Qualified Code(s): E78.4 - Other hyperlipidemia Category: Medical Code(s): E78.5 - Hyperlipidemia, unspecified (7) HTN (hypertension) Current visit: No Status: Chronic Qualifiers: Hypertension type: essential hypertension Qualified Code(s): I10 - Essential (primary) hypertension Category: Medical Code(s): I10 - Essential (primary) hypertension (8) Shortness of breath on exertion Current visit: No Status: Resolved Category: Medical Code(s): R06.02 - Shortness of breath (9) Hyperkalemia Current visit: Yes Status: Acute Category: Medical Code(s): E87.5 - Hyperkalemia (10) Renal insufficiency Current visit: Yes Status: Acute Category: Medical Code(s): N28.9 - Disorder of kidney and ureter, unspecified (11) A-fib Current visit: No Status: Chronic Qualifiers: Atrial fibrillation type: chronic Qualified Code(s): I48.2 - Chronic atrial fibrillation Category: Medical Code(s): I48.91 - Unspecified atrial fibrillation (12) Bilateral edema of lower extremity Current visit: No Status: Chronic Category: Medical Code(s): R60.0 - Localized edema - Assessment and plan all Dx Assessment and Plan for all problems:: Metabolically patient is improving. Continue current plan. Cardiology evaluation and device placement today.
--- NOTE | 2018-04-12 14:28 | Progress Note ---
[facility] Anesthesia Record Part I Intake, IV Amount: 400 Estimated blood loss (mL): 10 Urine output (mL): 0 Blood Products used (#): none Blood Pressure: 137/55 SaO2: 96 Pulse Rate: 112 Respiratory Rate: 16 Temperature: 97.8 F Patient is:: Awake, Stable Stable to PACU at:: 14:22
--- NOTE | 2018-04-12 14:29 | Progress Note ---
[facility] Anesthesia Record Part II Discharge Time: 14:52 Destination: Medical Surgical Department PACU nurse assessment reviewed?: Yes Patient Condition:: Good Anesthesia Complications:: None
[2018-04-13 06:16] LABS: Basophils % 0.3 % (0.1-2.0); Eosinophils # 0.2 K/mm3 (0.0-0.4); Eosinophils % 2.1 % (0.1-12.0); Hematocrit 33.5 % (37.0-47.0); Lymphocytes # 1.8 K/mm3 (0.7-4.5); Lymphocytes % 24.5 K/mm3 (10-50); Mean Corpuscular HGB Conc 29.9 g/dL (31.8-35.4); Mean Corpuscular Hemoglobin 26.1 pg (27.0-31.2); Mean Corpuscular Volume 87.2 fl (81-99); Mean Platelet Volume 8.9 fl (7.4-10.4); Monocytes # 0.5 K/mm3 (0.1-1.0); Monocytes % 7.3 % (1.7-9.3); Neutrophils # 4.7 K/mm3 (1.8-7.8); Neutrophils % 65.7 % (37.0-80.0); Platelet Count 249 K/mm3 (142-424); Red Blood Count 3.84 M/mm3 (4.20-5.40); White Blood Count 7.2 K/mm3 (4.8-10.8)
[2018-04-13 06:42] LABS: Anion Gap 10.8 mEq/L (5-15); Calcium 8.5 mg/dL (8.5-10.1); Potassium 4.8 mmoL/L (3.5-5.1)
--- NOTE | 2018-04-13 15:02 | Progress Note ---
Internal Medicine - PN: Subj *Date: 04/13/18 *Time: 17:49 Interval history: Patient had no acute events overnight. Continues to have mild left upper chest at site of ICD placement. Remained tachycardic overnight with heart rate in the low 100s. Irregular rhythm. No evidence, denies nausea, vomiting, diarrhea. Denies shortness of breath or confusion. Exam Vital signs and Labs for Last 24 Hours: Temp Pulse Resp BP Pulse Ox 100.0 F H 95 H 18 153/83 94 L 04/13/18 12:00 04/13/18 12:00 04/13/18 12:00 04/13/18 12:00 04/13/18 12:00 Laboratory Results - last 24 hr 04/13/18 05:55: WBC 7.2, RBC 3.84 L, Hgb 10.0 L, Hct 33.5 L, MCV 87.2, MCH 26.1 L, MCHC 29.9 L, RDW 15.0, Plt Count 249, MPV 8.9, Neut % (Auto) 65.7, Lymph % ( Auto) 24.5, [place] % (Auto) 7.3, Eos % (Auto) 2.1, Baso % (Auto) 0.3, Neut # (Auto ) 4.7, Lymph # (Auto) 1.8, [place] # (Auto) 0.5, Eos # (Auto) 0.2, Baso # (Auto) 0.0 04/13/18 05:55: Sodium 142, Potassium 4.8, Chloride 109 H, Carbon Dioxide 27, Anion Gap 10.8, BUN 24 H, Creatinine 1.59 H, Estimated Creat Clear 36, Estimated GFR 31 L, Est GFR ( Amer) 38 L, Glucose 107 H, Calcium 8.5 I & O for Last 24 hours: Intake & Output 04/10/18 04/11/18 04/12/18 04/13/18 23:59 23:59 23:59 23:59 Intake Total 1477 / 1477 490 / 490 400 / 400 Output Total 1675 / 1675 1400 / 1400 250 / 250 Balance -198 / -198 -910 / -910 400 / 400 -250 / -250 Weight 77.621 kg 78.528 kg 76.856 kg - *Routine HEENT Exam Head: Present: normocephalic, atraumatic Eye: Present: EOMI, PERRL. Absent: conjunctival icterus, scleral injection ENT: Present: mucous membranes moist - *Routine Neck Exam Present: supple. Absent: lymphadenopathy - Routine Chest/Breast/Axilla Exam Comments: TTP in Left upper chest overlying AICD. No erythema, wound CDI - *Routine Respiratory Exam Present: CTA bilaterally. Absent: rales, wheezes, crackles - *Routine Cardiovascular Exam Present: tachycardia, irregular rhythm. Absent: murmur - *Routine Abdominal Exam Present: soft, normoactive bowel sounds - *Routine Rectal Exam Patient deferred: visual exam - *Routine Exam Patient deferred: external exam - *Routine Extremities Exam Absent: cyanosis, clubbing - *Routine Skin Exam Present: intact. Absent: cyanosis - *Routine Neurological Exam Present: alert, oriented X3, CN II-XII intact Assessment and Plan (1) Atrial fibrillation with rapid ventricular response Current visit: Yes Status: Acute Category: Medical Code(s): I48.91 - Unspecified atrial fibrillation (2) Cardiomyopathy Current visit: Yes Status: Acute Category: Medical Code(s): I42.9 - Cardiomyopathy, unspecified (3) Coronary atherosclerosis of [place] coronary artery Current visit: No Status: Chronic Qualifiers: [place] vs. transplanted heart: [place] heart Associated angina: without angina Qualified Code(s): I25.10 - Atherosclerotic heart disease of [place] coronary artery without angina pectoris Category: Medical Code(s): I25.10 - Atherosclerotic heart disease of [place] coronary artery without angina pectoris (4) Fatigue Current visit: No Status: Chronic Qualifiers: Fatigue type: chronic, unspecified Qualified Code(s): R53.82 - Chronic fatigue, unspecified Category: Medical Code(s): R53.83 - Other fatigue (5) HHD (hypertensive heart disease) Current visit: No Status: Chronic Qualifiers: Heart failure presence: without heart failure Qualified Code(s): I11.9 - Hypertensive heart disease without heart failure Category: Medical Code(s): I11.9 - Hypertensive heart disease without heart failure (6) HLD (hyperlipidemia) Current visit: No Status: Chronic Qualifiers: Hyperlipidemia type: other hyperlipidemia Qualified Code(s): E78.4 - Other hyperlipidemia Category: Medical Code(s): E78.5 - Hyperlipidemia, unspecified (7) HTN (hypertension) Current visit: No Status: Chronic Qualifiers: Hypertension type: essential hypertension Qualified Code(s): I10 - Essential (primary) hypertension Category: Medical Code(s): I10 - Essential (primary) hypertension (8) Hyperkalemia Current visit: Yes Status: Acute Category: Medical Code(s): E87.5 - Hyperkalemia (9) Renal insufficiency Current visit: Yes Status: Acute Category: Medical Code(s): N28.9 - Disorder of kidney and ureter, unspecified (10) A-fib Current visit: No Status: Chronic Qualifiers: Atrial fibrillation type: chronic Qualified Code(s): I48.2 - Chronic atrial fibrillation Category: Medical Code(s): I48.91 - Unspecified atrial fibrillation (11) Bilateral edema of lower extremity Current visit: No Status: Chronic Category: Medical Code(s): R60.0 - Localized edema - Assessment and plan all Dx Assessment and Plan for all problems:: 77yo F with Afib and HFrEF s/p AICD placement. - Improved rate control - Mild incision tenderness - Symptoms improved - Needs RHC, planned for Sunday - Continue current level of management - Pain control as ordered
--- NOTE | 2018-04-14 06:14 | Progress Note ---
Internal Medicine - PN: Subj *Date: 04/14/18 *Time: 06:11 Interval history: Ms. Trujillo remains hemodynamically stable. No acute events overnight. Blood pressure improved with rate control. Heart rate more consistently in the 90s overnight. Denies any fevers, nausea or vomiting. Has not had a bowel movement greater than 24 hours. Ambulating without dizziness. Continues to have left upper chest pain at site of ICD placement. Exam Vital signs and Labs for Last 24 Hours: Temp Pulse Resp BP Pulse Ox 97.8 F 94 H 16 120/66 97 04/14/18 04:00 04/14/18 04:00 04/14/18 04:00 04/14/18 04:00 04/14/18 04:00 Laboratory Results - last 24 hr 04/13/18 05:55: WBC 7.2, RBC 3.84 L, Hgb 10.0 L, Hct 33.5 L, MCV 87.2, MCH 26.1 L, MCHC 29.9 L, RDW 15.0, Plt Count 249, MPV 8.9, Neut % (Auto) 65.7, Lymph % ( Auto) 24.5, [place] % (Auto) 7.3, Eos % (Auto) 2.1, Baso % (Auto) 0.3, Neut # (Auto ) 4.7, Lymph # (Auto) 1.8, [place] # (Auto) 0.5, Eos # (Auto) 0.2, Baso # (Auto) 0.0 04/13/18 05:55: Sodium 142, Potassium 4.8, Chloride 109 H, Carbon Dioxide 27, Anion Gap 10.8, BUN 24 H, Creatinine 1.59 H, Estimated Creat Clear 36, Estimated GFR 31 L, Est GFR ( Amer) 38 L, Glucose 107 H, Calcium 8.5 I & O for Last 24 hours: Intake & Output 04/11/18 04/12/18 04/13/18 04/14/18 23:59 23:59 23:59 23:59 Intake Total 490 / 490 400 / 400 800 / 800 Output Total 1400 / 1400 550 / 550 300 / 300 Balance -910 / -910 400 / 400 250 / 250 -300 / -300 Weight 78.528 kg 76.856 kg 77.593 kg - *Routine HEENT Exam Head: Present: normocephalic, atraumatic Eye: Present: EOMI ENT: Present: mucous membranes moist - *Routine Neck Exam Present: supple. Absent: lymphadenopathy - Routine Chest/Breast/Axilla Exam Chest wall: Present: tenderness (overlying ICD insertion site. No erythema or drainage) - *Routine Respiratory Exam Present: CTA bilaterally. Absent: accessory muscle use, rales, stridor, wheezes - *Routine Cardiovascular Exam Present: tachycardia, irregularly irregular - *Routine Abdominal Exam Present: soft, normoactive bowel sounds. Absent: tenderness - *Routine Rectal Exam Patient deferred: visual exam - *Routine Exam Patient deferred: external exam - *Routine Extremities Exam Absent: cyanosis, clubbing, edema - *Routine Skin Exam Present: intact. Absent: cyanosis, erythema - *Routine Neurological Exam Present: alert, oriented X3, CN II-XII intact Assessment and Plan (1) Atrial fibrillation with rapid ventricular response Current visit: Yes Status: Acute Category: Medical Code(s): I48.91 - Unspecified atrial fibrillation (2) Cardiomyopathy Current visit: Yes Status: Acute Category: Medical Code(s): I42.9 - Cardiomyopathy, unspecified (3) Coronary atherosclerosis of [place] coronary artery Current visit: No Status: Chronic Qualifiers: [place] vs. transplanted heart: [place] heart Associated angina: without angina Qualified Code(s): I25.10 - Atherosclerotic heart disease of [place] coronary artery without angina pectoris Category: Medical Code(s): I25.10 - Atherosclerotic heart disease of [place] coronary artery without angina pectoris (4) Fatigue Current visit: No Status: Chronic Qualifiers: Fatigue type: chronic, unspecified Qualified Code(s): R53.82 - Chronic fatigue, unspecified Category: Medical Code(s): R53.83 - Other fatigue (5) HHD (hypertensive heart disease) Current visit: No Status: Chronic Qualifiers: Heart failure presence: without heart failure Qualified Code(s): I11.9 - Hypertensive heart disease without heart failure Category: Medical Code(s): I11.9 - Hypertensive heart disease without heart failure (6) HLD (hyperlipidemia) Current visit: No Status: Chronic Qualifiers: Hyperlipidemia type: other hyperlipidemia Qualified Code(s): E78.4 - Other hyperlipidemia Category: Medical Code(s): E78.5 - Hyperlipidemia, unspecified (7) HTN (hypertension) Current visit: No Status: Chronic Qualifiers: Hypertension type: essential hypertension Qualified Code(s): I10 - Essential (primary) hypertension Category: Medical Code(s): I10 - Essential (primary) hypertension (8) Shortness of breath on exertion Current visit: No Status: Resolved Category: Medical Code(s): R06.02 - Shortness of breath (9) Hyperkalemia Current visit: Yes Status: Acute Category: Medical Code(s): E87.5 - Hyperkalemia (10) Renal insufficiency Current visit: Yes Status: Acute Category: Medical Code(s): N28.9 - Disorder of kidney and ureter, unspecified (11) A-fib Current visit: No Status: Chronic Qualifiers: Atrial fibrillation type: chronic Qualified Code(s): I48.2 - Chronic atrial fibrillation Category: Medical Code(s): I48.91 - Unspecified atrial fibrillation (12) Bilateral edema of lower extremity Current visit: No Status: Chronic Category: Medical Code(s): R60.0 - Localized edema - Assessment and plan all Dx Assessment and Plan for all problems:: 77yo F with Afib and HFrEF s/p AICD placement. - Improved rate control - Mild incision tenderness - Symptoms stable - Needs RHC, planned for Sunday - Continue current level of management - Pain control as ordered -Initiate bowel regimen
--- NOTE | 2018-04-15 08:21 | Progress Note ---
Subjective Date: 04/15/18 Time: 08:18 Principal diagnosis: Cardiomyopathy, CHF Interval history: 77 yo WF in chair in NAD. States she is feeling better. Some soreness at ICD site but no pain. Discussed need to minimize risk for CVA with consideration for CHIKIS ligation in near future. Exam Vital signs and Labs for Last 24 Hours: Temp Pulse Resp BP Pulse Ox 97.9 F 108 H 18 125/69 99 04/15/18 07:27 04/15/18 07:55 04/15/18 07:27 04/15/18 07:27 04/15/18 07:55 I & O for Last 24 hours: Intake & Output 04/12/18 04/13/18 04/14/18 04/15/18 11:59 11:59 11:59 11:59 Intake Total 480 / 480 400 / 400 800 / 800 1450 / 1450 Output Total 800 / 800 250 / 250 600 / 600 Balance -320 / -320 150 / 150 200 / 200 1450 / 1450 Weight 169 lb 7 oz 171 lb 1 oz 171 lb 5 oz - *Routine Respiratory Exam Present: CTA bilaterally - *Routine Cardiovascular Exam Present: irregularly irregular Progress Note: A&P (1) Atrial fibrillation with rapid ventricular response Status: Acute Current Visit: Yes (2) Cardiomyopathy Status: Acute Current Visit: Yes (3) Coronary atherosclerosis of [place] coronary artery Status: Chronic Current Visit: No (4) Fatigue Status: Chronic Current Visit: No (5) HHD (hypertensive heart disease) Status: Chronic Current Visit: No (6) HLD (hyperlipidemia) Status: Chronic Current Visit: No (7) HTN (hypertension) Status: Chronic Current Visit: No (8) Shortness of breath on exertion Status: Resolved Current Visit: No (9) Hyperkalemia Status: Acute Current Visit: Yes (10) Renal insufficiency Status: Acute Current Visit: Yes (11) A-fib Status: Chronic Current Visit: No (12) Bilateral edema of lower extremity Status: Chronic Current Visit: No Assessment and Plan for All Diagnoses:: Will proceed with Right and Left heart cath today to define coronary anatomy and pulmonary pressure in setting of biventricular CHF and severe Cardiomyopathy. Will add digoxin for rate control. Telemetry still shows A. fib with labile rate and intermittent pacing.
--- NOTE | 2018-04-15 08:35 | Progress Note ---
Internal Medicine - PN: Subj *Date: 04/15/18 *Time: 08:34 Interval history: Patient did well over the weekend. Feels good this morning. Exam Vital signs and Labs for Last 24 Hours: Temp Pulse Resp BP Pulse Ox 97.9 F 108 H 18 125/69 99 04/15/18 07:27 04/15/18 07:55 04/15/18 07:27 04/15/18 07:27 04/15/18 07:55 I & O for Last 24 hours: Intake & Output 04/12/18 04/13/18 04/14/18 04/15/18 11:59 11:59 11:59 11:59 Intake Total 480 / 480 400 / 400 800 / 800 1450 / 1450 Output Total 800 / 800 250 / 250 600 / 600 Balance -320 / -320 150 / 150 200 / 200 1450 / 1450 Weight 169 lb 7 oz 171 lb 1 oz 171 lb 5 oz Narrative: No edema. Alert. Oriented. Pulse rate irregular, better rate control. Assessment and Plan (1) Atrial fibrillation with rapid ventricular response Current visit: Yes Status: Acute Category: Medical Code(s): I48.91 - Unspecified atrial fibrillation (2) Cardiomyopathy Current visit: Yes Status: Acute Category: Medical Code(s): I42.9 - Cardiomyopathy, unspecified (3) Coronary atherosclerosis of [place] coronary artery Current visit: No Status: Chronic Qualifiers: [place] vs. transplanted heart: [place] heart Associated angina: without angina Qualified Code(s): I25.10 - Atherosclerotic heart disease of [place] coronary artery without angina pectoris Category: Medical Code(s): I25.10 - Atherosclerotic heart disease of [place] coronary artery without angina pectoris (4) Fatigue Current visit: No Status: Chronic Qualifiers: Fatigue type: chronic, unspecified Qualified Code(s): R53.82 - Chronic fatigue, unspecified Category: Medical Code(s): R53.83 - Other fatigue (5) HHD (hypertensive heart disease) Current visit: No Status: Chronic Qualifiers: Heart failure presence: without heart failure Qualified Code(s): I11.9 - Hypertensive heart disease without heart failure Category: Medical Code(s): I11.9 - Hypertensive heart disease without heart failure (6) HLD (hyperlipidemia) Current visit: No Status: Chronic Qualifiers: Hyperlipidemia type: other hyperlipidemia Qualified Code(s): E78.4 - Other hyperlipidemia Category: Medical Code(s): E78.5 - Hyperlipidemia, unspecified (7) HTN (hypertension) Current visit: No Status: Chronic Qualifiers: Hypertension type: essential hypertension Qualified Code(s): I10 - Essential (primary) hypertension Category: Medical Code(s): I10 - Essential (primary) hypertension (8) Shortness of breath on exertion Current visit: No Status: Resolved Category: Medical Code(s): R06.02 - Shortness of breath (9) Hyperkalemia Current visit: Yes Status: Acute Category: Medical Code(s): E87.5 - Hyperkalemia (10) Renal insufficiency Current visit: Yes Status: Acute Category: Medical Code(s): N28.9 - Disorder of kidney and ureter, unspecified (11) A-fib Current visit: No Status: Chronic Qualifiers: Atrial fibrillation type: chronic Qualified Code(s): I48.2 - Chronic atrial fibrillation Category: Medical Code(s): I48.91 - Unspecified atrial fibrillation (12) Bilateral edema of lower extremity Current visit: No Status: Chronic Category: Medical Code(s): R60.0 - Localized edema - Assessment and plan all Dx Assessment and Plan for all problems:: Left heart cath today. Medicine changes if needed based on results from this test.
--- NOTE | 2018-04-15 10:30 | Procedure Note ---
[facility] CHOIR DIRECTOR-D - CHOIR DIRECTOR-D Date of Procedure:: 04/12/18 Procedures:: 1. Pocket formation for biventricular pacemaker generator with cardiac resynchronization/defibrillator therapy. 2. Placement right atrial sensing and pacing lead into the right atrial appendage. 3. Placement of right ventricular sensing pacing and shocking lead in the right ventricular apex. 4. Placement of left ventricular sensing pacing lead via the coronary sinus. 5. Permanent cardiac resynchronization therapy with AICD implantation/ biventricular pacemaker. Indication for test:: Systolic Congestive Heart Failure , ejection <35% Wide QRS > 120ms [place] [employer] Class 3 Informed consent:: Obtained prior to procedure. Complications:: None EBL:: Less than 10 ml. Technique:: 1% lidocaine with epinephrine used to anesthetize the left anterior aspect of the chest. Scalpel was used to make the initial cutaneous incision while electrocautery was used to dissect down into the fascia. The fascia was lifted off the pectoralis muscle and digitally manipulated creating a pocket for the pacemaker. The patient was then placed in Trendelenburg position and subclavian vein was accessed via the Seldinger technique on 3 separate occasions. 3 wires were left into the subclavian vein. The right ventricular pacing shocking coil sheath was placed into the subclavian vein and under fluoroscopic guidance the right lingular sensing pacing shocking lead was placed into the right ventricular apex secured into place with the distal screw. After achieving excellent numbers the lead was then secured into placing using 3-0 silk. The lead was secured to the fascia also with heavy silk suture. Prior to the right ventricular lead being secured into place the sheath was peeled away from the subclavian vein. Under fluoroscopic guidance the coronary sinus was cannulated and confirmed with an injection of contrast. An 0.014 wire was then placed distally in the inferior posterior segment of the left ventricle via the coronary sinus and the left ventricular lead was advanced. After achieving excellent thresholds and interrogation numbers the sheath was then peeled away and the lead was then secured into place using silk suture. Following this, the left ventricular coil was secured in place using heavy silk and also secured to the fascia and additional 7 [place] sheath was then placed over the existing wire and an atrial sensing placing coil was placed in the right atrial appendage after achieving excellent thresholds the sheath was peeled away and the lead was secured to the fascia using heavy silk. After achieving, hemostasis, Ancef was used to flush the pocket and the 3 leads were attached to the CHOIR DIRECTOR-D generator. The generator was then secured into place by heavy silk suture. Monocryl was used to close the subcutaneous layers while tyler were used to close the subcutaneous layers while tyler were used to close the cutaneous layer. Pressurized and the patient was transferred to the postop holding area in stable condition. Impression:: 1. Successful pocket formation for biventricular pacemaker generator with cardiac resynchronization/defibrillator therapy. 2. Successful placement of right atrial sensing and pacing lead into the right atrial appendage. 3. Successful placement of a right ventricular sensing, pacing, and shocking lead in the right ventricular apex. 4. Successful placement of left ventricular sensing pacing lead via the coronary sinus. 5. Successful permanent cardiac resynchronization plus AICD generator device. Interrogation:: Generator Model # [id number] Serial # [id number] RA Model # [id number] Serial # [id number] P-wave 0.4 mV Impedance 380 Ohms Threshold Pulse Width RV Model #[id number] Serial # [id number] R-wave 12.0 mV Impedance 530 Ohms Threshold 0.75V Pulse Width .5ms lV Model #[id number] Serial # [id number] R-wave Impedance 580 Ohms Threshold 1.25V Pulse Width 1.0 ms Pacing Parameters: Mode: DDIR Base/Max Track: 80/110 Therapies: VT-1: 150- Monitor VT-2: 180- ATP X3, 36, 40 J VF- 214- ATP W/C 36, 40 J Plan:: 1.Post-op wound care.
--- NOTE | 2018-04-16 08:06 | Progress Note ---
Subjective Date: 04/16/18 Time: 07:49 Principal diagnosis: Cardiomyopathy, CHF Interval history: 77-year-old white female ambulating in room in no distress. Soreness over the ICD site is improved. She denies chest pain or shortness of breath. States she feels much better than when she came in to the hospital. Telemetry shows atrial fibrillation with intermittent pacing with rate in the 80 to low 100 range. Exam Vital signs and Labs for Last 24 Hours: Temp Pulse Resp BP Pulse Ox 98.4 F 84 18 118/68 97 04/16/18 07:44 04/16/18 07:44 04/16/18 07:44 04/16/18 07:44 04/16/18 07:44 I & O for Last 24 hours: Intake & Output 04/13/18 04/14/18 04/15/18 04/16/18 11:59 11:59 11:59 11:59 Intake Total 400 / 400 800 / 800 1450 / 1450 1160 / 1160 Output Total 250 / 250 600 / 600 1150 / 1150 Balance 150 / 150 200 / 200 1450 / 1450 10 / 10 Weight 169 lb 7 oz 171 lb 1 oz 171 lb 5 oz 169 lb 3 oz - *Routine Respiratory Exam Present: CTA bilaterally - *Routine Cardiovascular Exam Present: irregularly irregular Progress Note: A&P (1) Atrial fibrillation with rapid ventricular response Status: Acute Current Visit: Yes (2) Cardiomyopathy Status: Acute Current Visit: Yes (3) Coronary atherosclerosis of [place] coronary artery Status: Chronic Current Visit: No (4) Fatigue Status: Chronic Current Visit: No (5) HHD (hypertensive heart disease) Status: Chronic Current Visit: No (6) HLD (hyperlipidemia) Status: Chronic Current Visit: No (7) HTN (hypertension) Status: Chronic Current Visit: No (8) Shortness of breath on exertion Status: Resolved Current Visit: No (9) Hyperkalemia Status: Acute Current Visit: Yes (10) Renal insufficiency Status: Acute Current Visit: Yes (11) A-fib Status: Chronic Current Visit: No (12) Bilateral edema of lower extremity Status: Chronic Current Visit: No Assessment and Plan for All Diagnoses:: Cardiac catheterization yesterday revealed patent stents without significant CAD and improved LVEF. Continue DAPT. Digoxin started yesterday with improvement in rate. Consideration for VANDANA/Cardioversion only if patient could take anticoagulation, otherwise will plan to refer for CHIKIS ligation due to recent anemia, blood transfusion and high risk for fall/bleeding complications. OK from cardiology standpoint to discharge home. Follow up one week for ICD incision care and medication titration.
--- NOTE | 2018-04-16 09:10 | Discharge Summary ---
General - General Admission date:: 04/09/18 Discharge date: 04/16/18 HPI HPI: 77-year-old white female with history of new onset atrial fibrillation approximately 4 months ago, non-STEMI, stents were placed and patient was discharged on a regimen of diuretics, blood pressure medication, and anticoagulation therapy. Over the past couple of months, patient continued to feel poorly, and I have seen her multiple times in the office and adjust her diuretics and done a couple of things with her blood pressure medication including reducing dose of her beta-joel with some improvement in her symptoms. 4 weeks ago she had persistent GI bleeding on 2 different antiplatelet therapies , and this has been stopped. She came back for follow-up today, and was found to have persistent anemia, worsening kidney insufficiency with acute on chronic kidney injury and significant lethargy and malaise. Was admitted to hospital for bolus, repeat echocardiogram, recheck labs and cardiology evaluation for possible VANDANA with cardioversion to assist her in maintaining sinus rhythm and further recommendations. Hospital Course Hospital Course: Admitted due to worsening fatigue, SOA, and irregular rythym with Hx of anticoagulant intolerance and GI bleeds. Cardiology consulted and Echocardiogram obtained. Found to have significantly decreased EF (<25%) from baseline in October necessitating intervention. Cardiology recommended AICD placement and Right Heart cath. Admitted for optimization. AICD placed and rate control initiated. Symptoms began to improve and patient reported feeling better. Due to continued left chest wall pain, titration of rate control medication, and fatigue, patient kept admitted until right heart cath performed. Tolerated right heart cath with noted improvement in LVEF, and patent stents. Due to Hx of anticoagulation intolerance, cardiology recommended Right atrial appendage clipping to decrease risk for clot formation. PAtient remained stable with improved blood pressure and heart rate in 80s-90s. Medically stable for discharge home with plan for outpatient stress test and referral to lace finisher who can assist with RAA clipping. Objective Vital signs: Temp Pulse Resp BP Pulse Ox 98.4 F 84 18 118/68 97 04/16/18 07:44 04/16/18 07:44 04/16/18 07:44 04/16/18 07:44 04/16/18 07:44 - *Routine HEENT Exam Head: Present: normocephalic, atraumatic Eye: Present: EOMI ENT: Present: mucous membranes moist - *Routine Neck Exam Present: supple, full ROM. Absent: JVD, lymphadenopathy - Routine Chest/Breast/Axilla Exam Chest wall: Present: tenderness (above site of ICD placement) - *Routine Respiratory Exam Present: CTA bilaterally. Absent: prolonged expiratory phase, stridor, wheezes , crackles - *Routine Cardiovascular Exam Present: Normal S1, irregularly irregular Comments: rate in normal range - *Routine Abdominal Exam Present: soft, normoactive bowel sounds - *Routine Rectal Exam Patient deferred: visual exam - *Routine Exam Patient deferred: external exam - *Routine Extremities Exam Absent: cyanosis, clubbing, edema - *Routine Skin Exam Present: intact. Absent: cyanosis, erythema - *Routine Neurological Exam Present: alert, oriented X3, CN II-XII intact DS: Diagnosis - Discharge Diagnosis (1) Atrial fibrillation with rapid ventricular response Status: Acute (2) Cardiomyopathy Status: Acute (3) Coronary atherosclerosis of [place] coronary artery Status: Chronic (4) Fatigue Status: Chronic (5) HHD (hypertensive heart disease) Status: Chronic (6) HLD (hyperlipidemia) Status: Chronic (7) HTN (hypertension) Status: Chronic (8) Shortness of breath on exertion Status: Resolved (9) Hyperkalemia Status: Acute (10) Renal insufficiency Status: Acute (11) A-fib Status: Chronic (12) Bilateral edema of lower extremity Status: Chronic Discharge Plan - Patient Discharge Instructions ACTIVITY: Continue current activity, Ambulate as tolerated DIET: low fat, low cholesterol Patient Instructions: DI for Atrial Fibrillation, Low-Sodium Diet - Follow up Plan Follow up with: Danilo Adan MD [Staff Physician] - 04/22/18 Ignacio Aceves MD [Primary Care Provider] - 1 week Disposition: Home, Self-Half-Way Medications: Home Medications Medication Instructions Recorded Confirmed Type Loratadine [Allergy] 10 mg PO DAILY 11/12/17 04/09/18 History Fluticasone Propionate 2 sprays INHALATION DAILY 11/13/17 04/09/18 History ropinirole 0.5 mg tablet 0.5 mg PO BID 11/27/17 04/09/18 History Erythromycin Base [Erythromycin 1 gm EYE-BOTH WEEKLY 04/09/18 04/09/18 History 3.5gm opth oinment] Spironolactone [Aldactone 25mg 25 mg PO BID 04/09/18 04/09/18 History Tab] Prescriptions/Medication Reconciliation: New Clopidogrel Bisulfate [Plavix 75mg Tab] 75 mg PO DAILY 30 Days #30 tab Digoxin [Digoxin 0.125mg Tablet] 125 mcg PO DAILY 30 Days #30 tab Lisinopril [Zestril 2.5mg Tablet] 2.5 mg PO DAILY 30 Days #30 tab Acetaminophen with Codeine [Tylenol with Codeine #3 tablet] 1 each PO Q6HP PRN 3 Days #12 tab PRN Reason: Breakthru Moderate Pain Aspirin [Aspirin 81mg chewable tab] 81 mg PO DAILY 30 Days #30 tab.chew Bisoprolol Fumarate [Zebeta 5mg tablet] 5 mg PO BID 30 Days #60 tab Continue ropinirole 0.5 mg tablet 0.5 mg PO BID Loratadine [Allergy] 10 mg PO DAILY Fluticasone Propionate 2 sprays INHALATION DAILY Atorvastatin Calcium [Atorvastatin 40mg Tab] 40 mg PO HS 30 Days #30 tab Erythromycin Base [Erythromycin 3.5gm opth oinment] 1 gm EYE-BOTH WEEKLY Spironolactone [Aldactone 25mg Tab] 25 mg PO BID Discontinued Metoprolol Tartrate 100 mg PO DAILY Clopidogrel Bisulfate [Plavix 75mg Tab] 75 mg PO DAILY
== END 2018-04-16 10:40 | disposition home or self-care (01) ==
LOC: 2ND
PROVIDERS: ADMIT Internal Medicine Adolescent Medicine; ATTEND Internal Medicine Adolescent Medicine

== ENCOUNTER → 2018-06-14 10:44 | Outpatient (CLI) | payer MEDICARE, SELFPAY ==
[2018-06-14 12:21] LABS: Alanine Aminotransferase 22 U/L (12-78); Albumin Level 2.8 gm/dL (3.4-5.0); Alkaline Phosphatase 131 U/L (46-116); Aspartate Amino Transferase 22 U/L (15-37); Bilirubin,Direct 0.2 mg/dL (0.0-0.2); Bilirubin,Indirect 0.2 mg/dL (0.0-0.9); Bilirubin,Total 0.4 mg/dL (0.2-1.0); Digoxin 1.34 ng/mL (1.15-2.56); Total Protein,Serum 6.5 gm/dL (6.4-8.2)
== END ==
PROVIDERS: Family Provider Internal Medicine Adolescent Medicine; PCP Internal Medicine Adolescent Medicine; Visit Provider Internal Medicine Cardiovascular Disease
DX: E78.5 Hyperlipidemia, unspecified (principal); I11.9 Hypertensive heart disease without heart failure; I25.10 Atherosclerotic heart disease of native coronary artery without angina pectoris; I48.91 Unspecified atrial fibrillation; R11.2 Nausea with vomiting, unspecified; R53.83 Other fatigue; R60.0 Localized edema
CPT/HCPCS: 36415; 80076; 80162

== ENCOUNTER → 2018-08-16 09:37 | Outpatient (CLI) | payer MEDICARE, SELFPAY ==
--- NOTE | 2018-08-16 09:39 | XR_ITS ---
XR DEXA axial skeleton HISTORY: ITS.REASON: POST MENOPAUSAL ORDERING PHYSICIAN: Ignacio Aceves MD PATIENT AGE: 78 years COMPARISON: None FINDINGS: The BMD measured at the right femoral neck is 0.715 g/cm squared with a T score of -2.3. This is considered Osteopenic according to the World Health Organization criteria. Fracture risk is Moderate. Treatment is advised. The L1 L4 density has a T score of -1.4 IMPRESSION: Osteopenia with moderate fracture risk. Treatment is suggested. Recommend follow-up exam July 2020
== END ==
PROVIDERS: PCP Internal Medicine Adolescent Medicine; Visit Provider Internal Medicine Adolescent Medicine
DX: Z78.0 Asymptomatic menopausal state (principal)
CPT/HCPCS: 77080

== ENCOUNTER → 2018-09-05 11:30 | Outpatient (CLI) | payer MEDICARE, SELFPAY ==
--- NOTE | 2018-09-05 11:33 | XR_ITS ---
XR chest 2V HISTORY: ITS.REASON: chest pain ORDERING PHYSICIAN: Yaritza Bae PATIENT AGE: 78 years COMPARISON: 04/12/2018 FINDINGS: Tripolar pacemaker is present. There has been prior clipping of left aortic appendage. Normal heart size. There are atelectatic or fibrotic changes in the right lung base. Chronic changes are present in the left lung base. There are old left-sided rib fractures. Mild degenerative change thoracic spine. IMPRESSION: Chronic changes, prior pacemaker placement. No acute finding
[2018-09-05 12:16] LABS: Basophils # 0.1 K/mm3 (0-0.2); Basophils % 0.4 % (0.1-2.0); Eosinophils # 0.1 K/mm3 (0.0-0.4); Eosinophils % 0.8 % (0.1-12.0); Hematocrit 44.7 % (37.0-47.0); Hemoglobin 13.6 g/dL (12.2-16.2); Lymphocytes # 3.4 K/mm3 (0.7-4.5); Lymphocytes % 20.1 % (10-50); Mean Corpuscular HGB Conc 30.4 g/dL (31.8-35.4); Mean Corpuscular Hemoglobin 27.8 pg (27.0-31.2); Mean Corpuscular Volume 91.6 fl (81-99); Mean Platelet Volume 8.4 fl (7.4-10.4); Monocytes # 0.9 K/mm3 (0.1-1.0); Monocytes % 5.5 % (1.7-9.3); Neutrophils # 12.5 K/mm3 (1.8-7.8); Neutrophils % 73.2 % (37.0-80.0); Platelet Count 240 K/mm3 (142-424); Red Blood Count 4.88 M/mm3 (4.20-5.40); Red Cell Distribution Width 15.2 % (11.5-17.5); White Blood Count 17.1 K/mm3 (4.8-10.8)
[2018-09-05 12:22] LABS: MANUAL DIFFERENTIAL MANUAL DIFFERENTIAL (MANUAL DIFF)
[2018-09-05 13:17] LABS: Lymphocytes % 18 % (10-50); Monocytes % 4 % (2-9); Neutrophils % 78 % (42-76); Platelet Estimate Normal; Total Cells Counted 100
[2018-09-05 14:16] LABS: Anion Gap 16.8 mEq/L (5-15); Blood Urea Nitrogen 68 mg/dL (7-18); Calcium 8.9 mg/dL (8.5-10.1); Carbon Dioxide 22 mmol/L (21.0-32.0); Chloride 102 mmol/L (98-107); Creatinine,Serum 1.82 mg/dL (0.55-1.02); Estimated Glomerular Filt Rate 27 ml/min (>60); Free T4 (Free Thyroxine) 1.22 ng/dl (0.76-1.46); GFR (African American) 33 ML/MIN (>60); Glucose 98 mg/dL (74-106); Potassium 5.8 mmoL/L (3.5-5.1); Sodium 135 mmol/L (136-145); Thyroid Stimulating Hormone 5.52 uIU/ml (0.358-3.740)
== END ==
PROVIDERS: PCP Internal Medicine Adolescent Medicine; Visit Provider Nurse Practitioner Family
DX: E78.5 Hyperlipidemia, unspecified (principal); I11.9 Hypertensive heart disease without heart failure; I25.10 Atherosclerotic heart disease of native coronary artery without angina pectoris; I48.91 Unspecified atrial fibrillation; Z95.810 Presence of automatic (implantable) cardiac defibrillator
CPT/HCPCS: 36415; 71046; 80048; 84439; 84443; 85007; 85025

== ENCOUNTER → 2018-09-06 12:17 | Outpatient (CLI) | payer MEDICARE, SELFPAY ==
[2018-09-06 12:33] LABS: MANUAL DIFFERENTIAL MANUAL DIFFERENTIAL (MANUAL DIFF)
[2018-09-06 13:16] LABS: Basophils # 0.1 K/mm3 (0-0.2); Basophils % 0.3 % (0.1-2.0); Eosinophils # 0.1 K/mm3 (0.0-0.4); Eosinophils % 0.6 % (0.1-12.0); Hematocrit 43.3 % (37.0-47.0); Hemoglobin 13.2 g/dL (12.2-16.2); Lymphocytes # 2.7 K/mm3 (0.7-4.5); Lymphocytes % 17.6 % (10-50); Mean Corpuscular HGB Conc 30.4 g/dL (31.8-35.4); Mean Corpuscular Hemoglobin 27.6 pg (27.0-31.2); Mean Corpuscular Volume 90.8 fl (81-99); Monocytes # 0.8 K/mm3 (0.1-1.0); Monocytes % 4.9 % (1.7-9.3); Neutrophils # 11.8 K/mm3 (1.8-7.8); Neutrophils % 76.5 % (37.0-80.0); Platelet Count 236 K/mm3 (142-424); Red Blood Count 4.77 M/mm3 (4.20-5.40); Red Cell Distribution Width 15.3 % (11.5-17.5); White Blood Count 15.4 K/mm3 (4.8-10.8)
[2018-09-06 16:05] LABS: Alanine Aminotransferase 24 U/L (12-78); Albumin/Globulin Ratio 0.9 (1.1-1.8); Alkaline Phosphatase 99 U/L (46-116); Anion Gap 14.8 mEq/L (5-15); Aspartate Amino Transferase 12 U/L (15-37); Bilirubin,Total 0.4 mg/dL (0.2-1.0); Blood Urea Nitrogen 68 mg/dL (7-18); Calcium 8.9 mg/dL (8.5-10.1); Carbon Dioxide 23 mmol/L (21.0-32.0); Chloride 103 mmol/L (98-107); Creatinine,Serum 1.85 mg/dL (0.55-1.02); Estimated Glomerular Filt Rate 26 ml/min (>60); GFR (African American) 32 ML/MIN (>60); Globulin 3.3 gm/dl (1.3-3.2); Glucose 100 mg/dL (74-106); Potassium 5.8 mmoL/L (3.5-5.1); Sodium 135 mmol/L (136-145); Total Protein,Serum 6.3 gm/dL (6.4-8.2)
[2018-09-06 18:21] LABS: Hypochromasia 1+; Lymphocytes % 17 % (10-50); Monocytes % 5 % (2-9); Neutrophils % 77 % (42-76); Platelet Estimate Normal; Total Cells Counted 100
[2018-09-08 12:21] LABS: Peripheral Smear Review Scanned Result
[2018-09-09 13:09] LABS: Albumin 3.5 g/dL (2.9-4.4); Alpha-1-Globulin 0.2 g/dL (0.0-0.4); Alpha-2-Globulin 0.8 g/dL (0.4-1.0); Gamma Globulin 0.9 g/dL (0.4-1.8); Protein, Total 6.4 g/dL (6.0-8.5)
== END ==
PROVIDERS: PCP Internal Medicine Adolescent Medicine; Visit Provider Internal Medicine Adolescent Medicine
DX: D72.829 Elevated white blood cell count, unspecified (principal); D72.89 Other specified disorders of white blood cells
CPT/HCPCS: 36415; 80053; 84155; 84165; 85007; 85014; 85018; 85048; 85049; 85060

== ENCOUNTER → 2018-10-17 09:20 | Outpatient (CLI) | payer MEDICARE, SELFPAY ==
[2018-10-17 11:27] LABS: Anion Gap 14.2 mEq/L (5-15); Blood Urea Nitrogen 25 mg/dL (7-18); Calcium 9.3 mg/dL (8.5-10.1); Carbon Dioxide 28 mmol/L (21.0-32.0); Chloride 104 mmol/L (98-107); Creatinine,Serum 1.27 mg/dL (0.55-1.02); Estimated Glomerular Filt Rate 41 ml/min (>60); GFR (African American) 49 ML/MIN (>60); Glucose 116 mg/dL (74-106); Potassium 4.2 mmoL/L (3.5-5.1); Sodium 142 mmol/L (136-145)
== END ==
PROVIDERS: Visit Provider Internal Medicine Cardiovascular Disease
DX: I25.10 Atherosclerotic heart disease of native coronary artery without angina pectoris (principal); I42.9 Cardiomyopathy, unspecified; I48.2 Chronic atrial fibrillation; R06.02 Shortness of breath
CPT/HCPCS: 36415; 80048

== ENCOUNTER → 2018-10-31 09:38 | Outpatient (CLI) | payer MEDICARE, SELFPAY ==
[2018-10-31 11:15] LABS: Blood Urea Nitrogen 27 mg/dL (7-18); Calcium 9.3 mg/dL (8.5-10.1); Carbon Dioxide 30 mmol/L (21.0-32.0); Chloride 103 mmol/L (98-107); Creatinine,Serum 1.09 mg/dL (0.55-1.02); Estimated Glomerular Filt Rate 49 ml/min (>60); GFR (African American) 59 ML/MIN (>60); Glucose 134 mg/dL (74-106); Sodium 141 mmol/L (136-145)
== END ==
PROVIDERS: Visit Provider Nurse Practitioner Family
DX: I11.0 Hypertensive heart disease with heart failure (principal); I50.41 Acute combined systolic (congestive) and diastolic (congestive) heart failure
CPT/HCPCS: 36415; 80048; 83880

== ENCOUNTER → 2018-11-22 10:06 | Outpatient (CLI) | payer MEDICARE, SELFPAY ==
[2018-11-22 12:04] LABS: Blood Urea Nitrogen 23 mg/dL (7-18); Calcium 9.1 mg/dL (8.5-10.1); Carbon Dioxide 29 mmol/L (21.0-32.0); Chloride 103 mmol/L (98-107); Creatinine,Serum 1.06 mg/dL (0.55-1.02); Estimated Glomerular Filt Rate 50 ml/min (>60); GFR (African American) 61 ML/MIN (>60); Glucose 181 mg/dL (74-106); Sodium 141 mmol/L (136-145)
== END ==
PROVIDERS: Visit Provider Internal Medicine Cardiovascular Disease
DX: E78.5 Hyperlipidemia, unspecified (principal); I11.9 Hypertensive heart disease without heart failure; I25.10 Atherosclerotic heart disease of native coronary artery without angina pectoris; I42.9 Cardiomyopathy, unspecified; I48.91 Unspecified atrial fibrillation; R60.9 Edema, unspecified
CPT/HCPCS: 36415; 80048

== ENCOUNTER → 2019-02-18 10:54 | Outpatient (CLI) | payer MEDICARE, SELFPAY ==
[2019-02-18 14:20] LABS: Basophils % 0.3 % (0.1-2.0); Eosinophils # 0.2 K/mm3 (0.0-0.4); Eosinophils % 2.3 % (0.1-12.0); Hematocrit 33.6 % (37.0-47.0); Hemoglobin 10.7 g/dL (12.2-16.2); Lymphocytes # 2.3 K/mm3 (0.7-4.5); Lymphocytes % 23.7 % (10-50); Mean Corpuscular HGB Conc 31.8 g/dL (31.8-35.4); Mean Corpuscular Hemoglobin 25.7 pg (27.0-31.2); Mean Platelet Volume 9.5 fl (7.4-10.4); Monocytes # 0.5 K/mm3 (0.1-1.0); Monocytes % 5.7 % (1.7-9.3); Neutrophils # 6.5 K/mm3 (1.8-7.8); Neutrophils % 67.9 % (37.0-80.0); Platelet Count 296 K/mm3 (142-424); Red Blood Count 4.15 M/mm3 (4.20-5.40); Red Cell Distribution Width 14.1 % (11.5-17.5); White Blood Count 9.5 K/mm3 (4.8-10.8)
[2019-02-18 14:33] LABS: Alanine Aminotransferase 22 U/L (12-78); Albumin/Globulin Ratio 0.9 (1.1-1.8); Alkaline Phosphatase 151 U/L (46-116); Anion Gap 15.3 mEq/L (5-15); Aspartate Amino Transferase 22 U/L (15-37); Bilirubin,Total 0.4 mg/dL (0.2-1.0); Blood Urea Nitrogen 16 mg/dL (7-18); Carbon Dioxide 25 mmol/L (21.0-32.0); Chloride 104 mmol/L (98-107); Creatinine,Serum 1.05 mg/dL (0.55-1.02); Estimated Glomerular Filt Rate 51 ml/min (>60); GFR (African American) 61 ML/MIN (>60); Globulin 3.4 gm/dl (1.3-3.2); Glucose 99 mg/dL (74-106); Potassium 4.3 mmoL/L (3.5-5.1); Sodium 140 mmol/L (136-145); Total Protein,Serum 6.4 gm/dL (6.4-8.2)
== END ==
PROVIDERS: PCP Internal Medicine Adolescent Medicine; Visit Provider Internal Medicine Adolescent Medicine
DX: R60.9 Edema, unspecified (principal)
CPT/HCPCS: 36415; 80053; 83735; 85025

== ENCOUNTER → 2019-03-05 08:38 | Outpatient (CLI) | payer MEDICARE, SELFPAY ==
[2019-03-05 13:38] LABS: Basophils % 0.4 % (0.1-2.0); Eosinophils # 0.2 K/mm3 (0.0-0.4); Eosinophils % 2.1 % (0.1-12.0); Hematocrit 38.2 % (37.0-47.0); Hemoglobin 11.1 g/dL (12.2-16.2); Lymphocytes # 2.1 K/mm3 (0.7-4.5); Lymphocytes % 18.5 % (10-50); Mean Corpuscular HGB Conc 29.2 g/dL (31.8-35.4); Mean Corpuscular Hemoglobin 23.4 pg (27.0-31.2); Mean Corpuscular Volume 80.1 fl (81-99); Mean Platelet Volume 9.6 fl (7.4-10.4); Monocytes # 0.7 K/mm3 (0.1-1.0); Neutrophils # 8.5 K/mm3 (1.8-7.8); Neutrophils % 73.2 % (37.0-80.0); Platelet Count 369 K/mm3 (142-424); Red Blood Count 4.77 M/mm3 (4.20-5.40); Red Cell Distribution Width 14.2 % (11.5-17.5); White Blood Count 11.6 K/mm3 (4.8-10.8)
[2019-03-05 15:47] LABS: Alanine Aminotransferase 24 U/L (12-78); Albumin Level 3.2 gm/dL (3.4-5.0); Albumin/Globulin Ratio 0.9 (1.1-1.8); Alkaline Phosphatase 154 U/L (46-116); Anion Gap 16.7 mEq/L (5-15); Aspartate Amino Transferase 23 U/L (15-37); Bilirubin,Total 0.5 mg/dL (0.2-1.0); Blood Urea Nitrogen 18 mg/dL (7-18); Carbon Dioxide 27 mmol/L (21.0-32.0); Chloride 97 mmol/L (98-107); Creatinine,Serum 1.22 mg/dL (0.55-1.02); Estimated Glomerular Filt Rate 43 ml/min (>60); GFR (African American) 52 ML/MIN (>60); Globulin 3.5 gm/dl (1.3-3.2); Glucose 115 mg/dL (74-106); Magnesium 1.9 mg/dL (1.4-2.2); Potassium 3.7 mmoL/L (3.5-5.1); Sodium 137 mmol/L (136-145); Thyroid Stimulating Hormone 5.03 uIU/ml (0.358-3.740); Total Protein,Serum 6.7 gm/dL (6.4-8.2)
== END ==
PROVIDERS: PCP Internal Medicine Adolescent Medicine; Visit Provider Internal Medicine Adolescent Medicine
DX: I48.2 Chronic atrial fibrillation (principal); I25.10 Atherosclerotic heart disease of native coronary artery without angina pectoris; I89.0 Lymphedema, not elsewhere classified
CPT/HCPCS: 36415; 80053; 83735; 84443; 85025

== ENCOUNTER 2019-04-15 07:46 | Observation (INO) ==
--- NOTE | 2019-04-15 08:13 | Emergency Department Note ---
ED Disposition Clinical Impression: Limb ischemia Disposition: Admitted As Inpatient Condition on Discharge: Serious - Critical Care Critical Care Time: Yes Attestation: On 04/15/19, the high probability of a clinically significant, sudden or life threatening deterioration of the following system(s) required my full and direct attention, intervention and personal management. The time I documented below is in addition to time spent performing reported procedures but includes the following listed in this critical care notation. Total Critical Care Time: 15 Vital system(s) involved:: Circulatory Failure My critical care processes included: Assessment & monitoring of V/S, Initial and Re-exams, Data Review/Interpretation, Coordinating Care, Medication Orders and management, Documentation Medical Decision Making - Del Inquiry Pt receiving controlled substance: Yes Del was queried for this patient: No Reason not queried -: Emergent pt cond-no time Risks and benefits of using a controlled substance: were not discussed with pt by me Vital Signs: 04/15/19 07:54 04/15/19 08:21 Temperature 98 F 98 F Temperature Source Oral Oral Pulse Rate 72 Pulse Rate [Right Apical] 84 Respiratory Rate 18 18 Blood Pressure 138/68 Blood Pressure [Left Arm] 139/84 Blood Pressure Mean [Left Arm] 102 02 Sat by Pulse Oximetry 97 Oxygen Delivery Method Room Air Room Air - Lab Data Lab Results 04/15/19 08:11: WBC 12.4 H, RBC 4.97, Hgb 12.8, Hct 41.9, MCV 84.4, MCH 25.7 L, MCHC 30.4 L, RDW 15.8, Plt Count 339, MPV 9.2, Neut % (Auto) 79.6, Lymph % (Auto) 15.5, [place] % (Auto) 3.2, Eos % (Auto) 1.4, Baso % (Auto) 0.4, Neut # (Auto) 9.9 H, Lymph # (Auto) 1.9, [place] # (Auto) 0.4, Eos # (Auto) 0.2, Baso # (Auto) 0.1 04/15/19 08:11: Sodium 137, Potassium 3.3 L, Chloride 100, Carbon Dioxide 28, Anion Gap 12.3, BUN 17, Creatinine 1.22 H, Estimated Creat Clear 47, Estimated GFR 43 L, Est GFR ( Amer) 52 L, Glucose 177 H, Calcium 9.1 Result diagrams: 04/15/19 08:11 04/15/19 08:11 Orders (Tests/Meds): ED MEDICATIONS Generic Name Dose Route Start Last Admin Trade Name Kate PRN Reason Stop Dose Admin Fentanyl Citrate 50 mcg 04/15/19 08:28 04/15/19 09:07 Fentanyl 100mcg/2ml Vial IV 04/16/19 08:28 25 mcg Q3MINP PRN Administration Moderate to Severe Pain Fentanyl Citrate 25 mcg 04/15/19 08:28 Fentanyl 250mcg/5ml Vial IV 04/16/19 08:28 Q3MINP PRN Moderate to Severe Pain Fentanyl Citrate 50 mcg 04/15/19 08:28 Fentanyl 250mcg/5ml Vial IV 04/16/19 08:28 Q3MINP PRN Moderate to Severe Pain Fentanyl Citrate 25 mcg 04/15/19 08:28 Fentanyl 100mcg/2ml Vial IV 04/16/19 08:28 Q3MINP PRN Moderate to Severe Pain Flumazenil 0.2 mg 04/15/19 08:28 Romazicon 0.1mg/Ml 5ml Vial IV 04/15/19 23:00 NEEDED PRN Sedation Heparin Sodium (Porcine) 10,000 unit 04/15/19 08:28 04/15/19 08:55 Heparin 1,000 Units/Ml 10ml Vial ([employer]ician) IV 04/15/19 12:28 3,000 unit NEEDED PRN Administration Emergency Box Television Installer Sodium Chloride 1,000 mls @ 25 mls/hr 04/15/19 08:30 Sod Chlor 0.9% 1000ml Bag IV 04/16/19 08:28 .Q25H WALT Midazolam HCl 1 mg 04/15/19 08:28 Midazolam 2mg/2ml Vial IV 04/16/19 08:28 Q3MINP PRN Sedation Midazolam HCl 1 mg 04/15/19 08:28 04/15/19 09:08 Midazolam 1mg/Ml 5ml Vial IV 04/16/19 08:28 1 mg Q3MINP PRN Administration Sedation Naloxone HCl 0.4 mg 04/15/19 08:28 Narcan 0.4mg/Ml Vial IV 04/16/19 08:28 Q5MINP PRN Decreased Respirations Nitroglycerin 800 mcg 04/15/19 08:28 Nitroglycerin 800mcg/8ml Syr ([employer] Technician) IV 04/16/19 08:28 NEEDED PRN Emergency Box Television Installer Sodium Chloride 10 ml 04/15/19 08:28 Saline Flush 10ml Syringe IV 05/15/19 08:27 NEEDED PRN Maintain IV Site Discontinued Medications Generic Name Dose Route Start Last Admin Trade Name Kate PRN Reason Stop Dose Admin Diphenhydramine HCl 50 mg 04/15/19 08:28 04/15/19 08:54 Benadryl 50mg/1ml Vial IV 04/15/19 08:29 50 mg ONCE ONE Administration Heparin Sodium/Sodium Chloride 3,000 unit 04/15/19 08:28 Heparin 1000 Units/500ml Ns ([employer] Technician) IV 04/15/19 08:29 ONCE ONE Lidocaine HCl 20 ml 04/15/19 08:28 04/15/19 08:41 Lidocaine 1% 20ml Mdv IJ 04/15/19 08:29 10 ml ONCE ONE Administration Morphine Sulfate 4 mg 04/15/19 08:15 04/15/19 08:17 Morphine 4mg/Ml Syringe IV 04/15/19 08:16 4 mg ONCE ONE Administration Ondansetron HCl 4 mg 04/15/19 08:16 04/15/19 08:17 Zofran 4mg/2ml Vial IV 04/15/19 08:17 4 mg ONCE ONE Administration Verapamil HCl 2.5 mg 04/15/19 08:28 Verapamil 2.5mg/Ml 2ml Vial IV 04/15/19 08:29 ONCE ONE - Physician Consults Physician Consulted: Antionette Time: 08:08 Reason -: Cardiology Eval/Care Comment/Response: Send straight to [employer] Technician. Additional Consult: Tasia Time: 09:00 Reason -: Pt condition Comment/Response: States patient may not need to be admitted. He will touch base with [employer] Technician to discuss disposition. General Adult HPI - General Chief complaint: PAIN Stated complaint: Right arm pain Time Seen by Provider: 04/15/19 08:00 Mode of Arrival: Ambulatory Limitations: No Limitations Description of Symptoms (Recalled from ER Triage Doc. by RN): pt c/o rt shoulder pain after reaching up to put something on a shelf this morning. pt states she has a hx of a torn rotator cuff in the same shoulder. pt states her arm is in severe pain and going numb. - History of Present Illness HPI narrative: States she is staying with her sister here in the hospital. Reached up to get something with her right arm at 5:15 AM and had sudden pain that went from her right shoulder all the way down her arm. Her right hand is now numb. No prior similar symptoms. No chest pain, neck pain, back pain. She has coronary artery disease, has had stents by Dr. Adan. He also referred her to Dr. Clancy and she had some sort of appendage taken off of the back of her heart last year. No recent procedures. Her only current blood thinner is 81 mg aspirin. - Related Data Home Medications Medication Instructions Recorded Confirmed Loratadine [Allergy] 10 mg PO DAILY 11/12/17 03/13/19 Fluticasone Propionate 2 spry INHALATION DAILY 11/13/17 03/13/19 ropinirole 0.5 mg tablet 0.5 mg PO BID 11/27/17 03/13/19 Erythromycin Base [Erythromycin 1 gm EYE-BOTH WEEKLY 04/09/18 03/13/19 3.5gm opth oinment] alendronate 35 mg tablet 35 mg PO QWEEK 09/05/18 03/13/19 ondansetron HCl 4 mg tablet 4 mg PO TID PRN 09/05/18 03/13/19 metolazone 2.5 mg tablet 2.5 mg PO .3 times weekly tab 03/13/19 03/13/19 Previous Rx's Medication Instructions Recorded Aspirin [Aspirin 81mg chewable 81 mg PO DAILY 30 Days #30 tab.chew 04/16/18 tab] Digoxin [Digoxin 0.125mg Tablet] 125 mcg PO DAILY 30 Days #30 tab 04/16/18 Lisinopril [Zestril 2.5mg Tablet] 2.5 mg PO DAILY 30 Days #30 tab 04/16/18 bisoprolol fumarate 10 mg tablet 10 mg PO BID #180 tab 09/05/18 potassium chloride ER 8 mEq 8 meq PO DAILY #30 cap 10/03/18 capsule,extended release furosemide 40 mg tablet 40 mg PO QAM #30 tab 11/14/18 Allergies Allergy/AdvReac Type Severity Reaction Status Date / Time No Known Allergies Allergy Verified 03/13/19 10:11 [facility] History - Hepatitis A Screen Drug use history?: No High risk sexual behaviors?: No History of sexually transmitted infection?: No Currently employed?: No Childcare worker?: No Do you have indoor plumbing?: Yes Do you have electricity?: Yes Attestation statement:: This patient has been screened for Hepatitis A risk factors. I have reviewed the patient's past medical history: Yes Medical History: Reports:: Arrhythmia, Atrial Fibrillation, Coronary Artery Disease, Cerebrovascular Accident, Gastrointestinal Bleed, Heart Murmur, Hyperlipidemia, Hypertension, Myocardial Infarction, Palpitations, Valvular Heart Disease Denies:: Cancer, Diabetes Mellitus Type 1, Diabetes Mellitus Type 2, MRSA, Seizures Other Medical History: Reports: Arthritis, Cataracts, Sinus Problems. Denies: Blood Transfusion Reaction Laterality Cases: Left: Lumpectomy, Bilateral: Breast Biopsy Other Surgeries: Yes: Angioplasty, Cardiac Catheterization, Cardiac Surgery, Coronary Stent, Other Amputation: No Fractures: No Comment: 05/22/18 CHIKIS clipping - Social History Smoking Status: Never smoker Alcohol Intake: never Alcohol Intake Frequency:: other Substance Use Type: denies use Occupational Status: retired Housing: house Household Members: spouse Family Hx:: Heart Attack, Hyperlipidemia, Hypertension, Stroke, Coronary Artery Disease ROS Obtained: Yes Systems reviewed as appropriate & no additional complaints - Cardiovascular Cardiovascular: Denies chest pain - Respiratory Respiratory: No dyspnea - Musculoskeletal Musculoskeletal: Reports as per HPI - Neurologic Neurologic: Reports numbness (Right arm), Reports weakness (Right arm) Physical Exam - General General appearance: alert, in no apparent distress - Head Head exam: atraumatic, normocephalic - Eye Eye exam: Present: normal appearance, EOMI - ENT ENT exam: Present: mucous membranes moist - Neck Neck exam: Present: normal inspection - Chest Chest inspection: Present: normal inspection, symmetric chest wall rise - Respiratory Respiratory exam: Present: normal lung sounds bilaterally. Absent: respiratory distress - Cardiovascular Cardiovascular exam: Present: regular rate, normal rhythm, normal heart sounds - Abdominal Exam Abdominal exam: Present: soft. Absent: distention - Neurological Exam Neurological exam: Present: alert, oriented X3 - Psychiatric Psychiatric exam: Present: normal affect, normal mood - Skin Skin exam: Present: warm, dry - Other Other exam information: Right upper extremity has no palpable pulses, brachial or radial. Right hand is cool and poor strength of right upper extremity. Poor capillary refill. Examination consistent with acute ischemia right upper extremity.
[2019-04-15 08:21] LABS: Basophils # 0.1 K/mm3 (0-0.2); Basophils % 0.4 % (0.1-2.0); Eosinophils # 0.2 K/mm3 (0.0-0.4); Eosinophils % 1.4 % (0.1-12.0); Hematocrit 41.9 % (37.0-47.0); Hemoglobin 12.8 g/dL (12.2-16.2); Lymphocytes # 1.9 K/mm3 (0.7-4.5); Lymphocytes % 15.5 % (10-50); Mean Corpuscular HGB Conc 30.4 g/dL (31.8-35.4); Mean Corpuscular Volume 84.4 fl (81-99); Mean Platelet Volume 9.2 fl (7.4-10.4); Monocytes # 0.4 K/mm3 (0.1-1.0); Monocytes % 3.2 % (1.7-9.3); Neutrophils # 9.9 K/mm3 (1.8-7.8); Neutrophils % 79.6 % (37.0-80.0); Platelet Count 339 K/mm3 (142-424); Red Blood Count 4.97 M/mm3 (4.20-5.40); Red Cell Distribution Width 15.8 % (11.5-17.5); White Blood Count 12.4 K/mm3 (4.8-10.8)
[2019-04-15 08:25] LABS: Anion Gap 12.3 mEq/L (5-15); Calcium 9.1 mg/dL (8.5-10.1)
--- NOTE | 2019-04-15 12:20 | Consult Report ---
History of Present Illness Consult date: 04/15/19 Requesting physician: Oscar Dozier Chief complaint: RUE pain Additional Medical History:: 1. Hypertension 2. History of CVA approximately 2013 with affected speech and left side of body that improved after 3 months of physical therapy 3. Obesity 4. New-onset atrial fibrillation, 10/2017, now chronic with CHADS-VASC score of 6 A. Intolerant of Xarelto and Eliquis due to nausea. B. History of anemia and GI bleed requiring transfusion, 2017 C. Left atrial appendage ligation, 05/2018, Dr. Kyle, [place], [place] D. Acute RUE thrombus with ischemia, 04/15/2019, s/p thrombectomy. Started on Xarelto 5. Anemia, 03/2018 6. Coronary artery disease A. Cardiac catheterization, 10/2017, and drug-eluting stent placement to LAD and RCA. ADRIAN ventriculogram revealed ejection fraction of 55% with left ventricular end-diastolic pressure 25 mmHg. B. Echocardiogram, 10/2017, Moderate biatrial enlargement, normal left ventricular size, mild concentric left ventricular hypertrophy, visually estimated ejection fraction of 40-45% with multiple segmental wall motion abnormalities. Moderate mitral and moderate tricuspid regurgitation, calculated right ventricular systolic pressure is 60 to 65 mmHg consistent with moderate pulmonary hypertension. No significant pericardial effusion noted. C. cardiac cath, 03/2018, ANGIOGRAPHIC RESULTS: 1. The left main artery normal 2. The left anterior descending artery has proximal 10-20% stenoses with one mid vessel 20% stenosis. 3. The circumflex artery nondominant with mild 10% luminal irregularities. The stent in the proximal segment is widely patent free of in-stent restenosis 4. The right coronary artery is a dominant vessel with a mid vessel stent which is widely patent free of in-stent restenosis 5. The ADRIAN ventriculogram reveals left ventricular dilatation with ejection fraction 45-50% 6. The left ventricular end-diastolic pressure 20 mmHg IMPRESSION: 1. Patent stents in the circumflex artery and right coronary 2. Interval improvement in ejection fraction since placement of cardiac resynchronization therapy device 3. Mildly elevated LVEDP 7. Hyperlipidemia 8. Cardiomyopathy A. Echo, 03/2018, moderately enlarged left atrium, mildly dilated left ventricle, severely reduced left ventricular systolic function, visually estimated EF of 25-30% with marked hypokinesis involving mid to distal septum, anterior, anteroapical, anterolateral and inferoapical solorzano. Mildly enlarged right ventricle with normal contractility. Moderate to severe mitral regurgitation and moderate tricuspid regurgitation with RVSP of 58 mmHg consistent with moderate pulmonary hypertension. Inferior vena cava is dilated without significant inspiratory collapse. No significant pericardial effusion noted. B. [facility] BiV AICD implantation, 03/2018 History of present illness: States she is staying with her sister here in the hospital. Reached up to get something with her right arm at 5:15 AM and had sudden pain that went from her right shoulder all the way down her arm. Her right hand is now numb. No prior similar symptoms. No chest pain, neck pain, back pain. She has coronary artery disease, has had stents by Dr. Adan. He also referred her to Dr. Clancy and she had some sort of appendage taken off of the back of her heart last year. No recent procedures. Her only current blood thinner is 81 mg aspirin. The above per Dr. Mera Pt is now post procedure including thrombectomy with IV heparin and IV nitroglycerin given. Palpable pulse in the right radial area. Pt is still groggy from sedation at this time. [facility] History Medical History: Reports:: Arrhythmia, Atrial Fibrillation, Coronary Artery Disease, Cerebrovascular Accident, Gastrointestinal Bleed, Heart Murmur, Hyperlipidemia, Hypertension, Myocardial Infarction, Palpitations, Valvular He art Disease Denies:: Cancer, Diabetes Mellitus Type 1, Diabetes Mellitus Type 2, MRSA, Seizures *Have you ever received a pneumonia vaccine?: Yes *Have you received a flu vaccine this season?: No Other Medical History: Reports: Arthritis, Cataracts, Sinus Problems. Denies: Blood Transfusion Reaction Laterality Cases: Left: Lumpectomy, Bilateral: Breast Biopsy Other Surgeries: Yes: Angioplasty, Cardiac Catheterization, Cardiac Surgery, Coronary Stent, Other Amputation: No Fractures: No - *Social History Educational Level: Completed High School Smoking Status: Former smoker # Packs/Day (cigarettes): 1 Alcohol Intake: never Alcohol Intake Frequency:: other Substance Use Type: denies use *Occupational Status:: retired Housing: house Household Members: spouse *Travel in the last 8 weeks: None - Psychiatric History Expresses thoughts of harming self/others: None Suicide Plan Description: No Plan Family Hx:: Heart Attack, Hyperlipidemia, Hypertension, Stroke, Coronary Artery Disease Meds Home Medications Medication Instructions Recorded Confirmed Type Loratadine [Allergy] 10 mg PO DAILY 11/12/17 03/13/19 History Fluticasone Propionate 2 spry INHALATION DAILY 11/13/17 03/13/19 History ropinirole 0.5 mg tablet 0.5 mg PO BID 11/27/17 03/13/19 History Erythromycin Base [Erythromycin 1 gm EYE-BOTH WEEKLY 04/09/18 03/13/19 History 3.5gm opth oinment] Aspirin [Aspirin 81mg chewable 81 mg PO DAILY 30 Days #30 tab.chew 04/16/18 03/13/19 Rx tab] Digoxin [Digoxin 0.125mg Tablet] 125 mcg PO DAILY 30 Days #30 tab 04/16/18 03/13/19 Rx Lisinopril [Zestril 2.5mg Tablet] 2.5 mg PO DAILY 30 Days #30 tab 04/16/18 03/13/19 Rx alendronate 35 mg tablet 35 mg PO QWEEK 09/05/18 03/13/19 History bisoprolol fumarate 10 mg tablet 10 mg PO BID #180 tab 09/05/18 03/13/19 Rx ondansetron HCl 4 mg tablet 4 mg PO TID PRN 09/05/18 03/13/19 History potassium chloride ER 8 mEq 8 meq PO DAILY #30 cap 10/03/18 03/13/19 Rx capsule,extended release furosemide 40 mg tablet 40 mg PO QAM #30 tab 11/14/18 03/13/19 Rx metolazone 2.5 mg tablet 2.5 mg PO .3 times weekly tab 03/13/19 03/13/19 History Allergies Allergy/AdvReac Type Severity Reaction Status Date / Time No Known Allergies Allergy Verified 03/13/19 10:11 Review of Systems - Review of Systems Review of systems:: unable to obtain - *Neurologic Reports numbness (Right arm), Reports weakness (Right arm) Exam Vital signs and Labs for Last 24 Hours: Temp Pulse Resp BP Pulse Ox 97.2 F L 63 20 107/63 L 98 04/15/19 11:02 04/15/19 11:02 04/15/19 11:02 04/15/19 11:02 04/15/19 11:02 Laboratory Results - last 24 hr 04/15/19 08:11: WBC 12.4 H, RBC 4.97, Hgb 12.8, Hct 41.9, MCV 84.4, MCH 25.7 L, MCHC 30.4 L, RDW 15.8, Plt Count 339, MPV 9.2, Neut % (Auto) 79.6, Lymph % (Auto) 15.5, [place] % (Auto) 3.2, Eos % (Auto) 1.4, Baso % (Auto) 0.4, Neut # (Auto) 9.9 H, Lymph # (Auto) 1.9, [place] # (Auto) 0.4, Eos # (Auto) 0.2, Baso # (Auto) 0.1 04/15/19 08:11: Sodium 137, Potassium 3.3 L, Chloride 100, Carbon Dioxide 28, Anion Gap 12.3, BUN 17, Creatinine 1.22 H, Estimated Creat Clear 47, Estimated GFR 43 L, Est GFR ( Amer) 52 L, Glucose 177 H, Calcium 9.1 I & O for Last 24 hours: Intake & Output 04/13/19 04/14/19 04/15/19 04/16/19 11:59 11:59 11:59 11:59 Weight 167 lb - *Routine HEENT Exam Head: Present: normocephalic Eye: Present: EOMI, PERRL ENT: Present: mucous membranes moist - *Routine Neck Exam Present: supple. Absent: JVD, carotid bruit - *Routine Respiratory Exam Present: CTA bilaterally. Absent: accessory muscle use, rales, rhonchi, wheezes - *Routine Cardiovascular Exam Present: RRR. Absent: murmur, gallop, rubs Comments: Paced rhythm with intermittent PVCs - *Routine Abdominal Exam Present: soft. Absent: tenderness, distended, guarding - *Routine Extremities Exam Absent: edema, calf tenderness - *Routine Neurological Exam Present: oriented X3, moving all extremities Assessment and Plan (1) Acute thrombosis of right upper extremity Current visit: Yes Status: Acute Category: Medical Code(s): I82.601 - Acute embolism and thrombosis of unspecified veins of right upper extremity (2) Limb ischemia Current visit: Yes Status: Acute Category: Medical Code(s): I99.8 - Other disorder of circulatory system (3) A-fib Current visit: No Status: Chronic Qualifiers: Atrial fibrillation type: chronic Qualified Code(s): I48.2 - Chronic atrial fibrillation Category: Medical Code(s): I48.91 - Unspecified atrial fibrillation (4) Automatic implantable cardioverter-defibrillator in situ Current visit: No Status: Chronic Category: Medical Code(s): Z95.810 - Presence of automatic (implantable) cardiac defibrillator (5) CAD (coronary artery disease) Current visit: No Status: Chronic Qualifiers: Coronary Disease-Associated Artery/Lesion type: [place] artery [place] vs. t ransplanted heart: [place] heart Associated angina: without angina Qualified Code(s): I25.10 - Atherosclerotic heart disease of [place] coronary artery without angina pectoris Category: Medical Code(s): I25.10 - Atherosclerotic heart disease of [place] coronary artery without angina pectoris (6) Cardiomyopathy Current visit: No Status: Chronic Qualifiers: Cardiomyopathy type: unspecified Qualified Code(s): I42.9 - Cardiomyopathy, unspecified Category: Medical Code(s): I42.9 - Cardiomyopathy, unspecified (7) Mitral valve regurgitation Current visit: No Status: Chronic Qualifiers: Cardiac valve disease etiology: etiology unspecified Qualified Code(s): I34.0 - Nonrheumatic mitral (valve) insufficiency Category: Medical Code(s): I34.0 - Nonrheumatic mitral (valve) insufficiency (8) Tricuspid regurgitation Current visit: No Status: Chronic Qualifiers: Cardiac valve disease etiology: etiology unspecified Qualified Code(s): I07.1 - Rheumatic tricuspid insufficiency Category: Medical Code(s): I07.1 - Rheumatic tricuspid insufficiency - Assessment and plan all Dx Assessment and Plan for all problems:: 1. Continue IV fluids and observe overnight to monitor continued patency of right upper extremity arterial system. 2. Start Xarelto 20 mg daily 3. Resume home medications 4. Echo to assess for LV thrombus and LVEF
[2019-04-15 13:04] LABS: Hematocrit 30.6 % (37.0-47.0)
--- NOTE | 2019-04-15 16:01 | Pharmacy Consult Notes ---
[facility] Pharmacy VTE Monitoring - Patient Demographics Admission date: 04/15/19 Report Date: 04/15/19 Time: 16:01 Allergies/Adverse Reactions: Patient Allergies No Known Allergies Allergy (Verified 03/13/19 10:11) Height: 1.63 m Weight: 75.75 kg Patient Problems: Current Active Problems (Updated 04/15/19 @ 12:37 by ELIJAH Almazan) Limb ischemia (Acute) Acute thrombosis of right upper extremity (Acute) - VTE Risk Labs: VTE Related Lab Results Hgb 9.0 g/dL (12.2-16.2) L D 04/15/19 12:10 Hct 30.6 % (37.0-47.0) L 04/15/19 12:10 Plt Count 339 K/mm3 (142-424) 04/15/19 08:11 BUN 17 mg/dL (7-18) 04/15/19 08:11 Creatinine 1.22 mg/dL (0.55-1.02) H 04/15/19 08:11 Estimated Creat Clear 47 mL/min (50-200) 04/15/19 08:11 Was VTE Risk Assessment Performed: Yes VTE Score: 3 VTE Risk Level: Low Risk Clinical Trial Participant: No - Prophylaxis VTE Prophylaxis Ordered?: Yes Types of VTE Prophylaxis: TEDS Knee High
--- NOTE | 2019-04-15 19:16 | History & Physical Report ---
*Admission Date: 04/15/19 *Chief complaint: right arm numbness *History of present illness: Cirrhosis 78-year-old female who was at the hospital with her sister who was admitted when she reports reaching up to get something with her right arm at 5:15 AM and had sudden pain that went from her right shoulder all the way down her arm. Her right hand is now numb. No prior similar symptoms. No chest pain, neck pain, back pain. She has coronary artery disease, has had stents by Dr. Adan. He also referred her to Dr. Kyle and she had some sort of appendage taken off of the back of her heart last year. No recent procedures. Her only current blood thinner is 81 mg aspirin. She presented to the ER due to the pain in her arm where she was found to have absent pulse in her right upper extremity. Cardiology was consulted emergently for thrombectomy. Patient was taken promptly to the [facility] for intervention. She was admitted to medicine for further management. [facility] History I have reviewed the patient's past medical history: Yes Medical History: Reports:: Arrhythmia, Atrial Fibrillation, Coronary Artery Disease, Cerebrovascular Accident, Gastrointestinal Bleed, Heart Murmur, Hyperlipidemia, Hypertension, Myocardial Infarction, Palpitations, Valvular Heart Disease Denies:: Cancer, Diabetes Mellitus Type 1, Diabetes Mellitus Type 2, MRSA, Seizures *Have you ever received a pneumonia vaccine?: Yes *Have you received a flu vaccine this season?: No Other Medical History: Reports: Arthritis, Cataracts, Sinus Problems. Denies: Blood Transfusion Reaction Laterality Cases: Left: Lumpectomy, Bilateral: Breast Biopsy Other Surgeries: Yes: Angioplasty, Cardiac Catheterization, Cardiac Surgery, Coronary Stent, Other Amputation: No Fractures: No - *Social History Educational Level: Completed High School Smoking Status: Former smoker # Packs/Day (cigarettes): 1 Alcohol Intake: never Alcohol Intake Frequency:: other Substance Use Type: denies use *Occupational Status:: retired Housing: house Household Members: spouse *Travel in the last 8 weeks: None - Psychiatric History Expresses thoughts of harming self/others: None Suicide Plan Description: No Plan Family Hx:: Heart Attack, Hyperlipidemia, Hypertension, Stroke, Coronary Artery Disease Review of Systems - Review of Systems Review of systems:: pertinent systems reviewed and negative unless documented below - *Neurologic Reports numbness (Right arm), Reports weakness (Right arm) Meds Home Medications Medication Instructions Recorded Confirmed Type Loratadine [Allergy] 10 mg PO DAILY 11/12/17 03/13/19 History Fluticasone Propionate 2 spry INHALATION DAILY 11/13/17 03/13/19 History ropinirole 0.5 mg tablet 0.5 mg PO BID 11/27/17 03/13/19 History Erythromycin Base [Erythromycin 1 gm EYE-BOTH WEEKLY 04/09/18 03/13/19 History 3.5gm opth oinment] Aspirin [Aspirin 81mg chewable 81 mg PO DAILY 30 Days #30 tab.chew 04/16/18 03/13/19 Rx tab] Digoxin [Digoxin 0.125mg Tablet] 125 mcg PO DAILY 30 Days #30 tab 04/16/18 03/13/19 Rx Lisinopril [Zestril 2.5mg Tablet] 2.5 mg PO DAILY 30 Days #30 tab 04/16/18 03/13/19 Rx alendronate 35 mg tablet 35 mg PO QWEEK 09/05/18 03/13/19 History bisoprolol fumarate 10 mg tablet 10 mg PO BID #180 tab 09/05/18 03/13/19 Rx ondansetron HCl 4 mg tablet 4 mg PO TID PRN 09/05/18 03/13/19 History potassium chloride ER 8 mEq 8 meq PO DAILY #30 cap 10/03/18 03/13/19 Rx capsule,extended release furosemide 40 mg tablet 40 mg PO QAM #30 tab 11/14/18 03/13/19 Rx metolazone 2.5 mg tablet 2.5 mg PO .3 times weekly tab 03/13/19 03/13/19 History Allergies Allergy/AdvReac Type Severity Reaction Status Date / Time No Known Allergies Allergy Verified 03/13/19 10:11 Exam Vital signs and Labs for Last 24 Hours: Temp Pulse Resp BP Pulse Ox 97.2 F L 80 15 125/53 L 98 04/15/19 11:02 04/15/19 16:00 04/15/19 13:10 04/15/19 13:10 04/15/19 13:10 Laboratory Results - last 24 hr 04/15/19 08:11: WBC 12.4 H, RBC 4.97, Hgb 12.8, Hct 41.9, MCV 84.4, MCH 25.7 L, MCHC 30.4 L, RDW 15.8, Plt Count 339, MPV 9.2, Neut % (Auto) 79.6, Lymph % (Auto) 15.5, [place] % (Auto) 3.2, Eos % (Auto) 1.4, Baso % (Auto) 0.4, Neut # (Auto) 9.9 H, Lymph # (Auto) 1.9, [place] # (Auto) 0.4, Eos # (Auto) 0.2, Baso # (Auto) 0.1 04/15/19 08:11: Sodium 137, Potassium 3.3 L, Chloride 100, Carbon Dioxide 28, Anion Gap 12.3, BUN 17, Creatinine 1.22 H, Estimated Creat Clear 47, Estimated GFR 43 L, Est GFR ( Amer) 52 L, Glucose 177 H, Calcium 9.1 04/15/19 10:10: Activated Clotting Time 302 H* 04/15/19 12:10: Hgb 9.0 L D, Hct 30.6 L I & O for Last 24 hours: Intake & Output 04/12/19 04/13/19 04/14/19 04/15/19 23:59 23:59 23:59 23:59 Intake Total 360 / 360 Balance 360 / 360 Weight 75.75 kg - *Routine HEENT Exam Head: Present: normocephalic Eye: Present: EOMI, PERRL ENT: Present: mucous membranes moist - *Routine Neck Exam Present: supple. Absent: lymphadenopathy - *Routine Respiratory Exam Present: CTA bilaterally - *Routine Cardiovascular Exam Present: irregular rhythm. Absent: murmur - *Routine Abdominal Exam Present: soft, normoactive bowel sounds. Absent: tenderness - *Routine Rectal Exam Patient deferred: visual exam - *Routine Exam Patient deferred: external exam - *Routine Extremities Exam Present: pulses intact. Absent: cyanosis, clubbing, edema - *Routine Skin Exam Present: warm. Absent: pallor, rash - *Routine Neurological Exam Present: alert, oriented X3 Assessment and Plan (1) Acute thrombosis of right upper extremity Current visit: Yes Status: Acute Category: Medical Code(s): I82.601 - Acute embolism and thrombosis of unspecified veins of right upper extremity (2) Limb ischemia Current visit: Yes Status: Acute Category: Medical Code(s): I99.8 - Other disorder of circulatory system (3) A-fib Current visit: No Status: Chronic Qualifiers: Atrial fibrillation type: chronic Qualified Code(s): I48.2 - Chronic atrial fibrillation Category: Medical Code(s): I48.91 - Unspecified atrial fibrillation (4) Automatic implantable cardioverter-defibrillator in situ Current visit: No Status: Chronic Category: Medical Code(s): Z95.810 - Presence of automatic (implantable) cardiac defibrillator (5) CAD (coronary artery disease) Current visit: No Status: Chronic Qualifiers: Coronary Disease-Associated Artery/Lesion type: [place] artery [place] vs. transplanted heart: [place] heart Associated angina: without angina Qualified Code(s): I25.10 - Atherosclerotic heart disease of [place] coronary artery without angina pectoris Category: Medical Code(s): I25.10 - Atherosclerotic heart disease of [place] coronary artery without angina pectoris (6) Cardiomyopathy Current visit: No Status: Chronic Qualifiers: Cardiomyopathy type: unspecified Qualified Code(s): I42.9 - Cardiomyopathy, unspecified Category: Medical Code(s): I42.9 - Cardiomyopathy, unspecified (7) Mitral valve regurgitation Current visit: No Status: Chronic Qualifiers: Cardiac valve disease etiology: etiology unspecified Qualified Code(s): I34.0 - Nonrheumatic mitral (valve) insufficiency Category: Medical Code(s): I34.0 - Nonrheumatic mitral (valve) insufficiency (8) Tricuspid regurgitation Current visit: No Status: Chronic Qualifiers: Cardiac valve disease etiology: etiology unspecified Qualified Code(s): I07.1 - Rheumatic tricuspid insufficiency Category: Medical Code(s): I07.1 - Rheumatic tricuspid insufficiency - Assessment and plan all Dx Assessment and Plan for all problems:: Continue IV fluids. Monitor for ischemic changes overnight in RUE. No numbness or tingling at this time. Tolerating anticoagulation. If remains hemodynamically stable, likely DC tomorrow with continuation of plavix due to stent.
--- NOTE | 2019-04-16 06:02 | Cardiology Report ---
PROCEDURE: 2-D M-mode and color Doppler study INDICATIONS FOR THE TEST: Chest pain COPD Heart Murmur+ Tobacco Smoking Palpitations+ Fatigue Syncope Edema Hypertension+Diabetes Mellitus Rheumatic Fever SOB WOODS Obesity Hyperlipidemia+ Family History HD Additional History 04-15-19 RUE THROMBECTOMY, 06/04 CHIKIS CLIP, CVA, STENTS, EF 25-30 04/03, AICD, AR, CM, AFIB PATIENT INFORMATION HEIGHT: 64 WEIGHT:167 GENDER: Female B/P:107/63 2-D/M-MODE INTERPRETATION: 2-D MEASUREMENTS OBSERVED VALUES IN CMS Right Ventricular Dimension (RVDd) 3.0 Interventricular Septum (Thickness)(IVsd) 1.8 Left Ventricular Internal Dimensions(LVIDd) 3.4 Left Ventricular Posterior Wall (Thickness)(LVPWd) 1.3 Aortic Root 2.9 Aortic Cusp Separation 1.9 Left Atrial Dimensions (LAD) 4.0 2D 1. Left atrium is moderately enlarged, left ventricle is normal size, mild concentric left ventricular hypertrophy, visually estimated ejection fraction is 50% with no regional wall motion abnormality. 2. The right atrium is moderately enlarged, mildly dilated with normal contractility, there is an ICD lead seen in the right ventricle . 3. The aortic valve is minimally thickened and calcified, leaflet continue to display mobility. 4. The mitral and tricuspid valve leaflets are minimally thickened. 5. The pulmonic valve is poorly visualized. 6. No significant pericardial effusion noted. DOPPLER INTERROGATION: Doppler interrogation of the aortic, mitral and tricuspid valvular presence of mild mitral and moderate tricuspid regurgitation calculated right ventricular systolic pressure is 49 mmHg consistent with moderate pulmonary hypertension, diastolic parameters are inconclusive. CONCLUSION: 1. Moderate biatrial enlargement, normal left ventricular size, mild concentric left ventricular hypertrophy, severely estimated ejection fraction 50% with no regional wall motion abnormality, diastolic parameters are inconclusive. 2. Mildly enlarged with normal contractility. 3. Mild mitral and moderate tricuspid regurgitation calculated right ventricular systolic pressure is 49 mmHg consistent with moderate pulmonary hypertension. 4. No significant pericardial effusion noted, inferior vena cava is not well visualized.
[2019-04-16 06:23] LABS: Basophils # 0.1 K/mm3 (0-0.2); Basophils % 0.5 % (0.1-2.0); Eosinophils # 0.2 K/mm3 (0.0-0.4); Eosinophils % 1.6 % (0.1-12.0); Lymphocytes # 2.7 K/mm3 (0.7-4.5); Lymphocytes % 25.8 % (10-50); Mean Corpuscular Volume 84.7 fl (81-99); Mean Platelet Volume 8.6 fl (7.4-10.4); Monocytes # 0.6 K/mm3 (0.1-1.0); Monocytes % 5.9 % (1.7-9.3); Neutrophils % 66.2 % (37.0-80.0); Platelet Count 217 K/mm3 (142-424); Red Blood Count 2.73 M/mm3 (4.20-5.40); Red Cell Distribution Width 16.4 % (11.5-17.5); White Blood Count 10.5 K/mm3 (4.8-10.8)
[2019-04-16 06:38] LABS: Anion Gap 10.4 mEq/L (5-15)
[2019-04-16 07:05] LABS: Hemoglobin 7.2 g/dL (12.2-16.2)
[2019-04-16 07:06] LABS: Hematocrit 23.1 % (37.0-47.0)
[2019-04-16 07:19] LABS: Calcium 7.3 mg/dL (8.5-10.1)
--- NOTE | 2019-04-16 07:45 | Progress Note ---
Internal Medicine - PN: Subj *Date: 04/16/19 *Time: 07:43 Interval history: Patient feels pretty good. Wishes to be discharged. Extremities in the upper extremities look good with good pulses. Heart rate irregular, lungs are clear. Previously noted ankle edema unchanged. Exam Vital signs and Labs for Last 24 Hours: Temp Pulse Resp BP Pulse Ox 98.5 F 80 18 93/40 L 96 04/16/19 05:00 04/16/19 06:00 04/16/19 06:00 04/16/19 06:00 04/16/19 06:00 Laboratory Results - last 24 hr 04/15/19 08:11: WBC 12.4 H, RBC 4.97, Hgb 12.8, Hct 41.9, MCV 84.4, MCH 25.7 L, MCHC 30.4 L, RDW 15.8, Plt Count 339, MPV 9.2, Neut % (Auto) 79.6, Lymph % (Auto) 15.5, [place] % (Auto) 3.2, Eos % (Auto) 1.4, Baso % (Auto) 0.4, Neut # (Auto) 9.9 H, Lymph # (Auto) 1.9, [place] # (Auto) 0.4, Eos # (Auto) 0.2, Baso # (Auto) 0.1 04/15/19 08:11: Sodium 137, Potassium 3.3 L, Chloride 100, Carbon Dioxide 28, Anion Gap 12.3, BUN 17, Creatinine 1.22 H, Estimated Creat Clear 47, Estimated GFR 43 L, Est GFR ( Amer) 52 L, Glucose 177 H, Calcium 9.1 04/15/19 10:10: Activated Clotting Time 302 H* 04/15/19 12:10: Hgb 9.0 L D, Hct 30.6 L 04/16/19 06:10: Sodium 138, Potassium 3.4 L, Chloride 106, Carbon Dioxide 25, BUN 17, Creatinine 1.30 H, Glucose 124 H D, Calcium 7.3 L D 04/16/19 06:10: WBC 10.5, RBC 2.73 L D, Hgb 7.2 L*, Hct 23.1 L*, MCV 84.7, MCH 26.3 L, MCHC 31.0 L, RDW 16.4, Plt Count 217 D, MPV 8.6, Neut % (Auto) 66.2, Lymph % (Auto) 25.8, [place] % (Auto) 5.9, Eos % (Auto) 1.6, Baso % (Auto) 0.5, Neut # (Auto) 7.0, Lymph # (Auto) 2.7, [place] # (Auto) 0.6, Eos # (Auto) 0.2, Baso # (Auto) 0.1 I & O for Last 24 hours: Intake & Output 04/13/19 04/14/19 04/15/19 04/16/19 11:59 11:59 11:59 11:59 Intake Total 3150 / 3150 Output Total 625 / 625 Balance 2525 / 2525 Weight 167 lb Narrative: See notes above. Assessment and Plan (1) Acute thrombosis of right upper extremity Current visit: Yes Status: Acute Category: Medical Code(s): I82.601 - Acute embolism and thrombosis of unspecified veins of right upper extremity (2) Limb ischemia Current visit: Yes Status: Acute Category: Medical Code(s): I99.8 - Other disorder of circulatory system (3) A-fib Current visit: No Status: Chronic Qualifiers: Atrial fibrillation type: chronic Qualified Code(s): I48.2 - Chronic atrial fibrillation Category: Medical Code(s): I48.91 - Unspecified atrial fibrillation (4) Automatic implantable cardioverter-defibrillator in situ Current visit: No Status: Chronic Category: Medical Code(s): Z95.810 - Presence of automatic (implantable) cardiac defibrillator (5) CAD (coronary artery disease) Current visit: No Status: Chronic Qualifiers: Coronary Disease-Associated Artery/Lesion type: [place] artery [place] vs. transplanted heart: [place] heart Associated angina: without angina Qualified Code(s): I25.10 - Atherosclerotic heart disease of [place] coronary artery without angina pectoris Category: Medical Code(s): I25.10 - Atherosclerotic heart disease of [place] coronary artery without angina pectoris (6) Cardiomyopathy Current visit: No Status: Chronic Qualifiers: Cardiomyopathy type: unspecified Qualified Code(s): I42.9 - Cardiomyopathy, unspecified Category: Medical Code(s): I42.9 - Cardiomyopathy, unspecified (7) Mitral valve regurgitation Current visit: No Status: Chronic Qualifiers: Cardiac valve disease etiology: etiology unspecified Qualified Code(s): I34.0 - Nonrheumatic mitral (valve) insufficiency Category: Medical Code(s): I34.0 - Nonrheumatic mitral (valve) insufficiency (8) Tricuspid regurgitation Current visit: No Status: Chronic Qualifiers: Cardiac valve disease etiology: etiology unspecified Qualified Code(s): I07.1 - Rheumatic tricuspid insufficiency Category: Medical Code(s): I07.1 - Rheumatic tricuspid insufficiency - Assessment and plan all Dx Assessment and Plan for all problems:: Patient seems to be doing well, procedure went well. Hemoglobin 7.2, I will transfuse 1 unit today and if this is acceptable we will discharge later today.
--- NOTE | 2019-04-16 10:29 | Progress Note ---
Subjective Date: 04/16/19 Time: 10:26 Principal diagnosis: RUE arterial thrombus Interval history: The patient is a 78-year-old female who was staying in the hospital with her sister when she reached up around 5:15 AM yesterday morning and had sudden pain in her right arm from the shoulder all the way down. Her right hand went numb. The patient was then treated in the emergency department and taken for a right upper extremity angiogram which found that she had a arterial thrombus from her shoulder down her arm. The patient is status post thrombectomy with IV heparin and IV nitroglycerin. She is now on oral Xarelto. Her right radial pulse is diminished but present. Her right brachial pulse is present. The patient denies any pain in her right arm. She states that the numbness is improving. She does have a history of chronic atrial fibrillation status post left atrial appendage clip. The patient had previously been tried on anticoagulation but the patient was intolerant to these medications and subsequently had a left atrial appendage clip with Dr. Jalil Connell per the patient's report in May 2018. This morning she denies any chest pain or pressure. She denies any shortness of breath. She denies any fever, chills, nausea, vomiting, diarrhea, PND or orthopnea. Exam Vital signs and Labs for Last 24 Hours: Temp Pulse Resp BP Pulse Ox 98.9 F 74 18 113/48 L 99 04/16/19 08:00 04/16/19 10:00 04/16/19 10:00 04/16/19 10:00 04/16/19 10:00 Laboratory Results - last 24 hr 04/15/19 10:10: Activated Clotting Time 302 H* 04/15/19 12:10: Hgb 9.0 L D, Hct 30.6 L 04/16/19 06:10: Sodium 138, Potassium 3.4 L, Chloride 106, Carbon Dioxide 25, Anion Gap 10.4, BUN 17, Creatinine 1.30 H, Estimated Creat Clear 43, Estimated GFR 40 L, Est GFR ( Amer) 48 L, Glucose 124 H D, Calcium 7.3 L D 04/16/19 06:10: WBC 10.5, RBC 2.73 L D, Hgb 7.2 L*, Hct 23.1 L*, MCV 84.7, MCH 26.3 L, MCHC 31.0 L, RDW 16.4, Plt Count 217 D, MPV 8.6, Neut % (Auto) 66.2, Lymph % (Auto) 25.8, [place] % (Auto) 5.9, Eos % (Auto) 1.6, Baso % (Auto) 0.5, Neut # (Auto) 7.0, Lymph # (Auto) 2.7, [place] # (Auto) 0.6, Eos # (Auto) 0.2, Baso # (Auto) 0.1 04/16/19 08:23: Crossmatch (AHG) See Detail Echocardiogram shows an ejection fraction of 50% with no wall motion abnormalities. There is moderate pulmonary hypertension. I & O for Last 24 hours: Intake & Output 04/13/19 04/14/19 04/15/19 04/16/19 23:59 23:59 23:59 23:59 Intake Total 2192 / 2192 1198 / 1198 Output Total 125 / 125 700 / 700 Balance 2066 / 2066 498 / 498 Weight 167 lb 167 lb 3 oz Narrative: EKG is ventricular pacing with a rate of 75 and underlying atrial fibrillation. - Constitutional no acute distress, average body habitus - *Routine HEENT Exam Head: Present: normocephalic, atraumatic Eye: Present: EOMI, PERRL ENT: Present: mucous membranes moist - *Routine Neck Exam Present: supple, full ROM, normal carotid upstroke. Absent: JVD, carotid bruit, lymphadenopathy - *Routine Respiratory Exam Present: CTA bilaterally - *Routine Cardiovascular Exam Present: Normal S1, Normal S2, irregularly irregular. Absent: murmur - *Routine Abdominal Exam Present: soft, normoactive bowel sounds. Absent: tenderness, distended - *Routine Extremities Exam Present: edema (Bilateral lower extremities), full ROM, pulses intact (Diminished right radial pulse but present), normal capillary refill. Absent: cyanosis, clubbing - *Routine Skin Exam Present: intact, warm. Absent: erythema, rash - *Routine Neurological Exam Present: alert, oriented X3, CN II-XII intact. Absent: sensory deficit, motor deficit - Detailed Eye Exam Eyelids: Left normal inspection Progress Note: A&P (1) Acute thrombosis of right upper extremity Status: Acute Current Visit: Yes (2) Limb ischemia Status: Acute Current Visit: Yes (3) A-fib Status: Chronic Current Visit: No (4) Automatic implantable cardioverter-defibrillator in situ Status: Chronic Current Visit: No (5) CAD (coronary artery disease) Status: Chronic Current Visit: No (6) Cardiomyopathy Status: Chronic Current Visit: No (7) Mitral valve regurgitation Status: Chronic Current Visit: No (8) Tricuspid regurgitation Status: Chronic Current Visit: No Assessment and Plan for All Diagnoses:: Plan: 1. The patient was admitted and found to have a right upper extremity arterial thrombus. She is status post thrombectomy. The patient is on Xarelto 20 mg daily for the thrombus. She has been intolerant to this medication in the past. We will continue to follow the patient closely and monitor for bleeding and side effects. 2. The patient does have chronic atrial fibrillation and is status post left atrial appendage clip. There is some concern that the patient's left atrial appendage clip could have been placed in accurately or could have possibly moved or not healed properly. The patient will need to undergo a VANDANA in the morning to evaluate the left atrial appendage clip to make sure it is in the proper position to prevent possible recurrent thrombus if this is where it originated from. 3. The patient has been educated on the risks and benefits of proceeding with VANDANA. The patient has verbalized understanding is agreeable in proceeding with the procedure. 4. The patient will be n.p.o. after midnight in preparation for the VANDANA. 5. The patient did have an echocardiogram which showed a an ejection fraction of 50%. She has moderate pulmonary hypertension. This did not demonstrate an LV thrombus. However this will be reevaluated on VANDANA tomorrow. 6. Coronary artery disease is likely stable. 7. Her blood pressure is well controlled. 8. Her LDL goal is less than 55. 9. The patient is anemic this morning with a hemoglobin of 7.2. Which is down from 12. This is most likely blood loss anemia from the procedure yesterday. She is being transfused 1 unit of packed red blood cells per her primary care provider. We will continue to follow her CBC. Continue Xarelto at this time. 10. Further recommendations will be made pending the patient's response to treatment. Thank you for the opportunity to help participate in the care of this patient.
[2019-04-16 15:41] LABS: Hemoglobin 9.1 g/dL (12.2-16.2)
--- NOTE | 2019-04-17 07:20 | Progress Note ---
Internal Medicine - PN: Subj *Date: 04/17/19 *Time: 07:19 Interval history: Patient did well overnight. Slept comfortably. No complaints of pain. Exam Vital signs and Labs for Last 24 Hours: Temp Pulse Resp BP Pulse Ox 98.3 F 74 18 102/58 L 96 04/17/19 03:44 04/17/19 04:00 04/17/19 03:44 04/17/19 03:44 04/17/19 03:44 Laboratory Results - last 24 hr 04/16/19 06:10: Sodium 138, Potassium 3.4 L, Chloride 106, Carbon Dioxide 25, Anion Gap 10.4, BUN 17, Creatinine 1.30 H, Estimated Creat Clear 43, Estimated GFR 40 L, Est GFR ( Amer) 48 L, Glucose 124 H D, Calcium 7.3 L D 04/16/19 08:23: Blood Type A Negative, Antibody Screen Negative, Crossmatch (AHG) See Detail 04/16/19 14:45: Hgb 9.1 L D, Hct 30.0 L I & O for Last 24 hours: Intake & Output 04/14/19 04/15/19 04/16/19 04/17/19 11:59 11:59 11:59 11:59 Intake Total 3879 / 3879 1102 / 1102 Output Total 975 / 975 1900 / 1900 Balance 2904 / 2904 -798 / -798 Weight 167 lb 167 lb 3 oz 169 lb 6 oz Narrative: Patient is pleasant and talkative, oriented x3. Heart rate irregular. Distal pulses good in all 4 extremities including the right radial. Abdomen soft. Ankle edema at baseline. Lungs are clear. Assessment and Plan (1) Acute thrombosis of right upper extremity Current visit: Yes Status: Acute Category: Medical Code(s): I82.601 - Acute embolism and thrombosis of unspecified veins of right upper extremity (2) Limb ischemia Current visit: Yes Status: Acute Category: Medical Code(s): I99.8 - Other disorder of circulatory system (3) A-fib Current visit: No Status: Chronic Qualifiers: Atrial fibrillation type: chronic Qualified Code(s): I48.2 - Chronic atrial fibrillation Category: Medical Code(s): I48.91 - Unspecified atrial fibrillation (4) Automatic implantable cardioverter-defibrillator in situ Current visit: No Status: Chronic Category: Medical Code(s): Z95.810 - Presence of automatic (implantable) cardiac defibrillator (5) CAD (coronary artery disease) Current visit: No Status: Chronic Qualifiers: Coronary Disease-Associated Artery/Lesion type: [place] artery [place] vs. transplanted heart: [place] heart Associated angina: without angina Qualified Code(s): I25.10 - Atherosclerotic heart disease of [place] coronary artery without angina pectoris Category: Medical Code(s): I25.10 - Atherosclerotic heart disease of [place] coronary artery without angina pectoris (6) Cardiomyopathy Current visit: No Status: Chronic Qualifiers: Cardiomyopathy type: unspecified Qualified Code(s): I42.9 - Cardiomyopathy, unspecified Category: Medical Code(s): I42.9 - Cardiomyopathy, unspecified (7) Mitral valve regurgitation Current visit: No Status: Chronic Qualifiers: Cardiac valve disease etiology: etiology unspecified Qualified Code(s): I34.0 - Nonrheumatic mitral (valve) insufficiency Category: Medical Code(s): I34.0 - Nonrheumatic mitral (valve) insufficiency (8) Tricuspid regurgitation Current visit: No Status: Chronic Qualifiers: Cardiac valve disease etiology: etiology unspecified Qualified Code(s): I07.1 - Rheumatic tricuspid insufficiency Category: Medical Code(s): I07.1 - Rheumatic tricuspid insufficiency - Assessment and plan all Dx Assessment and Plan for all problems:: Patient improving from thrombectomy of the right arm. VANDANA today to evaluate left atrial appendage clipping status and source of clot. Status post transfusion. Hemoglobin yesterday acceptable. Recheck this today. Possibility of discharge later today if procedure goes well.
[2019-04-17 08:13] LABS: Anion Gap 11.3 mEq/L (5-15)
[2019-04-17 08:33] LABS: Basophils % 0.4 % (0.1-2.0); Eosinophils # 0.2 K/mm3 (0.0-0.4); Eosinophils % 2.2 % (0.1-12.0); Hematocrit 26.8 % (37.0-47.0); Hemoglobin 8.3 g/dL (12.2-16.2); Lymphocytes # 1.5 K/mm3 (0.7-4.5); Lymphocytes % 19.3 % (10-50); Mean Corpuscular HGB Conc 30.9 g/dL (31.8-35.4); Mean Corpuscular Volume 84.8 fl (81-99); Mean Platelet Volume 9.3 fl (7.4-10.4); Monocytes # 0.4 K/mm3 (0.1-1.0); Monocytes % 5.1 % (1.7-9.3); Neutrophils # 5.7 K/mm3 (1.8-7.8); Neutrophils % 73.1 % (37.0-80.0); Platelet Count 178 K/mm3 (142-424); Red Blood Count 3.16 M/mm3 (4.20-5.40); Red Cell Distribution Width 16.2 % (11.5-17.5); White Blood Count 7.8 K/mm3 (4.8-10.8)
--- NOTE | 2019-04-17 09:28 | Progress Note ---
Subjective Date: 04/17/19 Time: 09:25 Principal diagnosis: RUE arterial thrombus Interval history: This is a 78-year-old white female who was admitted to the hospital with a right upper extremity arterial thrombus. She is status post thrombectomy to the right upper extremity. She is now on Xarelto for anticoagulation. She does have a palpable right radial pulse. She denies any chest pain or pressure. She denies any shortness of breath or edema. She denies any fever, chills, nausea, vomiting, diarrhea, PND or orthopnea. The patient states that the numbness in her right arm is improving and she does have a little pain but this is stable for now. She is scheduled to undergo VANDANA today to confirm placement of her left atrial appendage clip as well as rule out any source of her arterial thrombus. Exam Vital signs and Labs for Last 24 Hours: Temp Pulse Resp BP Pulse Ox 98.2 F 72 15 130/60 98 04/17/19 08:00 04/17/19 08:46 04/17/19 08:00 04/17/19 08:00 04/17/19 08:00 Laboratory Results - last 24 hr 04/16/19 08:23: Blood Type A Negative, Antibody Screen Negative, Crossmatch (AHG) See Detail 04/16/19 14:45: Hgb 9.1 L D, Hct 30.0 L 04/17/19 07:47: WBC 7.8 D, RBC 3.16 L, Hgb 8.3 L, Hct 26.8 L, MCV 84.8, MCH 26.2 L, MCHC 30.9 L, RDW 16.2, Plt Count 178, MPV 9.3, Neut % (Auto) 73.1, Lymph % (Auto) 19.3, [place] % (Auto) 5.1, Eos % (Auto) 2.2, Baso % (Auto) 0.4, Neut # (Auto) 5.7, Lymph # (Auto) 1.5, [place] # (Auto) 0.4, Eos # (Auto) 0.2, Baso # (Auto) 0.0 04/17/19 07:47: Sodium 141, Potassium 3.3 L, Chloride 105, Carbon Dioxide 28, Anion Gap 11.3, BUN 16, Creatinine 1.33 H, Estimated Creat Clear 42, Estimated GFR 39 L, Est GFR ( Amer) 47 L, Glucose 131 H, Calcium 8.0 L I & O for Last 24 hours: Intake & Output 04/14/19 04/15/19 04/16/19 04/17/19 23:59 23:59 23:59 23:59 Intake Total 2192 / 2192 2789 / 2789 1533 / 1533 Output Total 125 / 125 1350 / 1350 1700 / 1700 Balance 2066 / 2066 1439 / 1439 -167 / -167 Weight 167 lb 167 lb 3 oz 169 lb 6 oz Narrative: EKG is V pacing with a rate of 70 and underlying atrial fibrillation. - Constitutional no acute distress - *Routine HEENT Exam Head: Present: normocephalic, atraumatic Eye: Present: EOMI, PERRL ENT: Present: mucous membranes moist - *Routine Neck Exam Present: supple, full ROM, normal carotid upstroke. Absent: JVD, carotid bruit, lymphadenopathy - *Routine Respiratory Exam Present: CTA bilaterally - *Routine Cardiovascular Exam Present: RRR, Normal S1, Normal S2. Absent: murmur, gallop - *Routine Abdominal Exam Present: soft, normoactive bowel sounds. Absent: tenderness, distended - *Routine Extremities Exam Present: full ROM, pulses intact, normal capillary refill. Absent: cyanosis, clubbing, edema - *Routine Skin Exam Present: intact, warm. Absent: erythema, rash - *Routine Neurological Exam Present: alert, oriented X3, CN II-XII intact. Absent: sensory deficit, motor deficit - Detailed Eye Exam Eyelids: Left normal inspection Progress Note: A&P (1) Acute thrombosis of right upper extremity Status: Acute Current Visit: Yes (2) Limb ischemia Status: Acute Current Visit: Yes (3) A-fib Status: Chronic Current Visit: No (4) Automatic implantable cardioverter-defibrillator in situ Status: Chronic Current Visit: No (5) CAD (coronary artery disease) Status: Chronic Current Visit: No (6) Cardiomyopathy Status: Chronic Current Visit: No (7) Mitral valve regurgitation Status: Chronic Current Visit: No (8) Tricuspid regurgitation Status: Chronic Current Visit: No Assessment and Plan for All Diagnoses:: Plan: 1. The patient was admitted to the hospital with a right upper extremity arterial thrombus. She is status post thrombectomy to the right upper extremity. She will remain on Xarelto 20 mg daily for anticoagulation. She has been intolerant of this medication in the past but will follow the patient closely for bleeding and other side effects. 2. The patient does have chronic atrial fibrillation. She is rate controlled. She is status post left atrial appendage clip. 3. The patient is scheduled to undergo a VANDANA this morning to confirm accurate placement of her left atrial appendage clip as well to rule out any source of her arterial thrombus. 4. The patient will remain n.p.o. in preparation for the VANDANA. 5. Patient has been educated on risks and benefits of proceeding with a VANDANA. The patient is verbalized understanding is agreeable to proceeding with the procedure. 6. Coronary artery disease is likely stable. She denies any chest pain or pressure. 7. Her blood pressure is well controlled. 8. Her LDL goal is less than 55. 9. She does have an AICD in place. This is followed in the outpatient clinic. 10. The patient is anemic this morning with a hemoglobin of 8.3. This is up from 7.2 yesterday. This will be managed per her primary care provider. 11. Further recommendations will be made pending the patient's response to treatment and the results of her VANDANA today. Thank you for the opportunity to help participate in the care of this patient.
[2019-04-17 12:55] LABS: Basophils % 0.2 % (0.1-2.0); Eosinophils # 0.2 K/mm3 (0.0-0.4); Eosinophils % 2.2 % (0.1-12.0); Hematocrit 28.1 % (37.0-47.0); Hemoglobin 8.5 g/dL (12.2-16.2); Lymphocytes # 2.1 K/mm3 (0.7-4.5); Lymphocytes % 21.5 % (10-50); Mean Corpuscular HGB Conc 30.1 g/dL (31.8-35.4); Mean Corpuscular Volume 85.8 fl (81-99); Mean Platelet Volume 9.4 fl (7.4-10.4); Monocytes # 0.4 K/mm3 (0.1-1.0); Monocytes % 4.2 % (1.7-9.3); Neutrophils % 71.9 % (37.0-80.0); Platelet Count 198 K/mm3 (142-424); Red Blood Count 3.28 M/mm3 (4.20-5.40); Red Cell Distribution Width 16.5 % (11.5-17.5); White Blood Count 9.7 K/mm3 (4.8-10.8)
--- NOTE | 2019-04-17 13:34 | Progress Note ---
[facility] Anesthesia Checklist - Patient Identification Patient Identification: Arm Band, Verbal (Name & ) - Structural Data Admitted From: Home Planned Operative Procedure/s: VANDANA Consent for Planned Operative Procedure(s) Verified: Yes Verified Documents: Surgical Consent, History and Physical - NPO Status Verified Time NPO: 22:00 - Chart Verification Results Verified: CBC, BMP - Additional verifications Anesthesia Reactions: No Hx Blood Transfusions: Yes Blood Transfusion Reaction: No - Airway Assessment C-Spine Mobility Assessed: Yes TMJ Mobility Assessed: Yes Dentition: Dentures-good fit (Upper) - Neurological Assessment Level of Consciousness: Awake, Alert, Appropriate, Follows Commands Hx Seizures: No Numbness or tingling in extremities: No - Anesthesia Plan Anesthesia Risk discussed: Yes Anesthesia Plan: Verified ASA Class: III Anesthesia Type: MAC [facility] History I have reviewed the patient's past medical history: Yes Medical History: Reports:: Arrhythmia, Atrial Fibrillation, Coronary Artery Disease, Cerebrovascular Accident, Gastrointestinal Bleed, Heart Murmur, H yperlipidemia, Hypertension, Myocardial Infarction, Palpitations, Valvular Heart Disease Denies:: Cancer, Diabetes Mellitus Type 1, Diabetes Mellitus Type 2, MRSA, Seizures *Have you ever received a pneumonia vaccine?: Yes *Have you received a flu vaccine this season?: No Other Medical History: Reports: Arthritis, Cataracts, Sinus Problems. Denies: Blood Transfusion Reaction Laterality Cases: Left: Lumpectomy, Bilateral: Breast Biopsy Other Surgeries: Yes: Angioplasty, Cardiac Catheterization, Cardiac Surgery, Coronary Stent, Other Amputation: No Fractures: No - *Social History Educational Level: Completed High School Smoking Status: Former smoker # Packs/Day (cigarettes): 1 Alcohol Intake: never Alcohol Intake Frequency:: other Substance Use Type: denies use *Occupational Status:: retired Housing: house Household Members: spouse *Travel in the last 8 weeks: None - Psychiatric History Expresses thoughts of harming self/others: None Suicide Plan Description: No Plan Family Hx:: Heart Attack, Hyperlipidemia, Hypertension, Stroke, Coronary Artery Disease
--- NOTE | 2019-04-17 13:59 | Discharge Summary ---
General - General Admission date:: 04/15/19 Discharge date: 04/17/19 HPI HPI: Cirrhosis 78-year-old female who was at the hospital with her sister who was admitted when she reports reaching up to get something with her right arm at 5:15 AM and had sudden pain that went from her right shoulder all the way down her arm. Her right hand is now numb. No prior similar symptoms. No chest pain, neck pain, back pain. She has coronary artery disease, has had stents by Dr. Adan. He also referred her to Dr. Kyle and she had some sort of appendage taken off of the back of her heart last year. No recent procedures. Her only current blood thinner is 81 mg aspirin. She presented to the ER due to the pain in her arm where she was found to have absent pulse in her right upper extremity. Cardiology was consulted emergently for thrombectomy. Patient was taken promptly to the [facility] for intervention. She was admitted to medicine for further management. Hospital Course Hospital Course: Ms. Trujillo did well during her admission. Found to be anemic on day 2 of admission and so she was transfused 1 unit of blood. Remained hemodynamically stable. Tolerated aspirin, Plavix, Xarelto during admission. VANDANA was performed on day of discharge showing stable atrial appendage clipping. Patient noted to have significant atherosclerotic disease. At this time it is believed that she had a plaque rupture or come loose leading to her blood clot and arterial thrombus. Plan to continue Plavix and Xarelto per cardiology recommendations. We will follow-up closely in the outpatient setting to monitor for any signs of bleeding. Additionally started pantoprazole prophylactically to minimize GI bleed risk. Likely stable for discharge Objective Vital signs: Temp Pulse Resp BP Pulse Ox 98.8 F 72 16 102/52 L 98 04/17/19 11:54 04/17/19 13:26 04/17/19 13:26 04/17/19 13:26 04/17/19 13:26 Narrative: See physical exam in progress note from today. Results Labs on day of discharge: Labs from last 24 hours 04/17/19 04/17/19 04/17/19 12:50 07:47 07:47 WBC 9.7 7.8 D RBC 3.28 L 3.16 L Hgb 8.5 L 8.3 L Hct 28.1 L 26.8 L MCV 85.8 84.8 MCH 25.8 L 26.2 L MCHC 30.1 L 30.9 L RDW 16.5 16.2 Plt Count 198 178 MPV 9.4 9.3 Neut % (Auto) 71.9 73.1 Lymph % (Auto) 21.5 19.3 [place] % (Auto) 4.2 5.1 Eos % (Auto) 2.2 2.2 Baso % (Auto) 0.2 0.4 Neut # (Auto) 7.0 5.7 Lymph # (Auto) 2.1 1.5 [place] # (Auto) 0.4 0.4 Eos # (Auto) 0.2 0.2 Baso # (Auto) 0.0 0.0 Sodium 141 Potassium 3.3 L Chloride 105 Carbon Dioxide 28 Anion Gap 11.3 BUN 16 Creatinine 1.33 H Estimated Creat Clear 42 Estimated GFR 39 L Est GFR ( Amer) 47 L Glucose 131 H Calcium 8.0 L Crossmatch (AHG) 04/16/19 04/16/19 14:45 08:23 WBC RBC Hgb 9.1 L D Hct 30.0 L MCV MCH MCHC RDW Plt Count MPV Neut % (Auto) Lymph % (Auto) [place] % (Auto) Eos % (Auto) Baso % (Auto) Neut # (Auto) Lymph # (Auto) [place] # (Auto) Eos # (Auto) Baso # (Auto) Sodium Potassium Chloride Carbon Dioxide Anion Gap BUN Creatinine Estimated Creat Clear Estimated GFR Est GFR ( Amer) Glucose Calcium Crossmatch (AHG) See Detail DS: Diagnosis - Discharge Diagnosis (1) Acute thrombosis of right upper extremity Status: Acute (2) Limb ischemia Status: Acute (3) A-fib Status: Chronic (4) Automatic implantable cardioverter-defibrillator in situ Status: Chronic (5) CAD (coronary artery disease) Status: Chronic (6) Cardiomyopathy Status: Chronic (7) Mitral valve regurgitation Status: Chronic (8) Tricuspid regurgitation Status: Chronic Discharge Plan - Patient Discharge Instructions ACTIVITY: Continue current activity DIET: continue same diet Patient Instructions: Cardiac Catheterization, DI for Coronary Stenting, DI for Surgical Site Infection - Follow up Plan Follow up with: Ignacio Aceves MD [Primary Care Provider] - Disposition: Home, Self-Residential Medications: Home Medications Medication Instructions Recorded Confirmed Type Fluticasone Propionate 1 spry IN DAILY 02/27/18 07/31/19 History ropinirole 0.5 mg tablet 0.5 mg PO BIDP PRN 11/27/17 04/16/19 History Erythromycin Base [Erythromycin 1 gm EYE-BOTH NEEDED PRN 04/09/18 04/16/19 History 3.5gm opth oinment] alendronate 35 mg tablet 35 mg PO WEEKLY 09/05/18 04/16/19 History ondansetron HCl 4 mg tablet 4 mg PO Q8HP PRN 09/05/18 04/16/19 History metolazone 2.5 mg tablet 2.5 mg PO MOWEFR tab 03/13/19 04/16/19 History Aspirin [Aspirin 81mg chewable 81 mg PO DAILY 04/16/19 04/16/19 History tab] Bisoprolol Fumarate [Bisoprolol 10 mg PO BID 04/16/19 04/16/19 History 10mg Tablet] Digoxin [Digoxin 0.125mg Tablet] 125 mcg PO DAILY 04/16/19 04/16/19 History Furosemide [Furosemide 40MG tAB] 40 mg PO DAILY 04/16/19 04/16/19 History Loratadine [Claritin] 10 mg PO DAILY 04/16/19 04/16/19 History Potassium Chloride [Pot Chlor 8 8 meq PO DAILY 04/16/19 04/16/19 History mEq Cap] Clopidogrel Bisulfate [Plavix 75mg 75 mg PO DAILY 30 Days #30 tab 04/17/19 Rx Tab] Pantoprazole Sodium [Pantoprazole 20 mg PO DAILY 30 Days #30 tab 04/17/19 Rx 20mg Tab] Rivaroxaban [Xarelto 10mg tablet] 15 mg PO DAILY 30 Days #30 tab 04/17/19 Rx Prescriptions/Medication Reconciliation: New Clopidogrel Bisulfate [Plavix 75mg Tab] 75 mg PO DAILY 30 Days #30 tab Rivaroxaban [Xarelto 10mg tablet] 15 mg PO DAILY 30 Days #30 tab Pantoprazole Sodium [Pantoprazole 20mg Tab] 20 mg PO DAILY 30 Days #30 tab Continued ropinirole 0.5 mg tablet 0.5 mg PO BIDP PRN PRN Reason: RESTLESS LEG SYNDROME alendronate 35 mg tablet 35 mg PO WEEKLY ondansetron HCl 4 mg tablet 4 mg PO Q8HP PRN PRN Reason: Nausea And Vomiting metolazone 2.5 mg tablet 2.5 mg PO MOWEFR tab Fluticasone Propionate 1 spry IN DAILY Furosemide [Furosemide 40MG tAB] 40 mg PO DAILY Digoxin [Digoxin 0.125mg Tablet] 125 mcg PO DAILY Bisoprolol Fumarate [Bisoprolol 10mg Tablet] 10 mg PO BID Loratadine [Claritin] 10 mg PO DAILY Erythromycin Base [Erythromycin 3.5gm opth oinment] 1 gm EYE-BOTH NEEDED PRN PRN Reason: dry eyes Potassium Chloride [Pot Chlor 8 mEq Cap] 8 meq PO DAILY Discontinued Aspirin [Aspirin 81mg chewable tab] 81 mg PO DAILY
--- NOTE | 2019-04-17 14:56 | Cardiology Report ---
Procedure: Transesophageal echocardiogram Indication for procedure: RIGHT UPPER ARTERIAL THROMBECTOMY HISTORY OF RIGHT ATRIAL APPENDAGE CLIP, rule out cardiac source of emboli Procedure: Patient brought in cardiac catheter lab holding area in hemodynamically stable condition, after the informed consent, conscious sedation was provided by anesthesiologist, local anesthesia was applied, transesophageal echocardiography mild [difficult to. Patient tolerated the procedure well Findings: 1. Left atrium is moderately enlarged, left atrial appendage is ligated, there is no flow in the left atrial appendage. There is no thrombus seen in the left atrium. 2. The right atrium is moderately enlarged, the intra-atrial septum is intact, there is no flow across the anteroseptal septum, agitated saline contrast study fails to identify intracardiac shunt. 3. The aortic valve is minimally thickened and calcified leaflet continue to display mobility, there is no aortic stenosis or aortic insufficiency. 4. The mitral valve leaflets are minimally thickened, there is no mitral stenosis, there is mild mitral regurgitation. 5. There is catheter noted in the right atrium and right ventricle which is likely a pacemaker or ICD lead. 6. The tricuspid valve leaflets are minimally thickened, there is moderate tricuspid regurgitation. 7. The pulmonic valve is grossly normal. 8. The right ventricle is moderately enlarged with normal contractility. 9. The left ventricle is normal size, mild concentric left ventricular hypertrophy, visually estimated ejection fraction 55% with no regional wall motion abnormality the obtained views. 10. No significant pericardial effusion noted 11. Extensive atherosclerosis seen in the arch, and descending thoracic aorta. There is no aneurysm or dissection. Conclusion: 1. Biatrial enlargement, normal left ventricular size, mild concentric left ventricular hypertrophy, visually estimated ejection fraction 55% with no regional wall motion abnormality, in the obtained views. 2. Left atrial appendage is ligated, there is no flow in the left atrial appendage, there is no thrombus seen in the left atrium. 3. Agitated send contrast study fails to identify intracardiac shunt 4. Moderately enlarged right atrium and right ventricle, contractility of the right ventricle is normal. 5. Mild mitral and moderate tricuspid regurgitation 6. Extensive atherosclerosis seen in the arch and descending thoracic aorta. 7. No significant pericardial effusion noted.
== END 2019-04-17 17:02 | disposition home or self-care (01) ==
LOC: ER 07:46 → 2ND 08:18 → CATHLAB 08:18
PROVIDERS: ADMIT Internal Medicine Adolescent Medicine; ATTEND Internal Medicine Adolescent Medicine
CPT/HCPCS: 36217; 36218; 36415; 37184; 37185; 75710; 80048; 85014; 85018; 85025; 85347; 86850; 93306; 93312; 96374; 96375; 99152; 99153; 99283; C1725; C1760; C1766; C1769; C1776; G0378; J1327; J1644; J2405; P9016; Q9967

== ENCOUNTER → 2019-04-19 07:23 | Outpatient (CLI) | payer MEDICARE, SELFPAY ==
[2019-04-19 07:39] LABS: Basophils # 0.1 K/mm3 (0-0.2); Basophils % 0.6 % (0.1-2.0); Eosinophils # 0.2 K/mm3 (0.0-0.4); Eosinophils % 1.7 % (0.1-12.0); Hematocrit 27.7 % (37.0-47.0); Hemoglobin 8.7 g/dL (12.2-16.2); Lymphocytes # 1.5 K/mm3 (0.7-4.5); Mean Corpuscular HGB Conc 31.2 g/dL (31.8-35.4); Mean Corpuscular Hemoglobin 26.8 pg (27.0-31.2); Mean Corpuscular Volume 85.7 fl (81-99); Mean Platelet Volume 8.8 fl (7.4-10.4); Monocytes # 0.4 K/mm3 (0.1-1.0); Monocytes % 4.4 % (1.7-9.3); Neutrophils # 7.1 K/mm3 (1.8-7.8); Neutrophils % 77.4 % (37.0-80.0); Platelet Count 255 K/mm3 (142-424); Red Blood Count 3.23 M/mm3 (4.20-5.40); Red Cell Distribution Width 17.1 % (11.5-17.5); White Blood Count 9.2 K/mm3 (4.8-10.8)
== END ==
PROVIDERS: Visit Provider Internal Medicine Adolescent Medicine
DX: I10 Essential (primary) hypertension (principal); D72.829 Elevated white blood cell count, unspecified
CPT/HCPCS: 36415; 85025

== ENCOUNTER → 2019-04-22 09:11 | Outpatient (CLI) | payer MEDICARE, SELFPAY ==
[2019-04-22 14:21] LABS: Basophils # 0.1 K/mm3 (0-0.2); Basophils % 0.6 % (0.1-2.0); Eosinophils # 0.1 K/mm3 (0.0-0.4); Eosinophils % 1.3 % (0.1-12.0); Hematocrit 29.5 % (37.0-47.0); Hemoglobin 9.2 g/dL (12.2-16.2); Lymphocytes # 2.2 K/mm3 (0.7-4.5); Mean Corpuscular HGB Conc 31.3 g/dL (31.8-35.4); Mean Corpuscular Hemoglobin 27.1 pg (27.0-31.2); Mean Corpuscular Volume 86.4 fl (81-99); Mean Platelet Volume 9.2 fl (7.4-10.4); Monocytes # 0.5 K/mm3 (0.1-1.0); Neutrophils # 7.5 K/mm3 (1.8-7.8); Platelet Count 370 K/mm3 (142-424); Red Blood Count 3.41 M/mm3 (4.20-5.40); Red Cell Distribution Width 16.9 % (11.5-17.5); White Blood Count 10.4 K/mm3 (4.8-10.8)
[2019-04-22 14:41] LABS: Alanine Aminotransferase 22 U/L (12-78); Albumin Level 2.9 gm/dL (3.4-5.0); Albumin/Globulin Ratio 0.9 (1.1-1.8); Alkaline Phosphatase 139 U/L (46-116); Anion Gap 12.6 mEq/L (5-15); Aspartate Amino Transferase 16 U/L (15-37); Bilirubin,Total 0.5 mg/dL (0.2-1.0); Blood Urea Nitrogen 17 mg/dL (7-18); Calcium 8.4 mg/dL (8.5-10.1); Carbon Dioxide 30 mmol/L (21.0-32.0); Chloride 98 mmol/L (98-107); Creatinine,Serum 1.49 mg/dL (0.55-1.02); Estimated Glomerular Filt Rate 34 ml/min (>60); GFR (African American) 41 ML/MIN (>60); Globulin 3.3 gm/dl (1.3-3.2); Glucose 132 mg/dL (74-106); Potassium 3.6 mmoL/L (3.5-5.1); Sodium 137 mmol/L (136-145); Total Protein,Serum 6.2 gm/dL (6.4-8.2)
== END ==
PROVIDERS: PCP Internal Medicine Adolescent Medicine; Visit Provider Internal Medicine Adolescent Medicine
DX: I48.2 Chronic atrial fibrillation (principal); I50.20 Unspecified systolic (congestive) heart failure
CPT/HCPCS: 36415; 80053; 85025

== ENCOUNTER → 2019-04-29 09:09 | Outpatient (CLI) | payer MEDICARE, SELFPAY ==
[2019-04-29 13:38] LABS: Basophils # 0.1 K/mm3 (0-0.2); Basophils % 0.5 % (0.1-2.0); Eosinophils # 0.2 K/mm3 (0.0-0.4); Eosinophils % 1.6 % (0.1-12.0); Hematocrit 30.5 % (37.0-47.0); Hemoglobin 9.2 g/dL (12.2-16.2); Lymphocytes # 2.4 K/mm3 (0.7-4.5); Mean Corpuscular Hemoglobin 25.4 pg (27.0-31.2); Mean Corpuscular Volume 84.6 fl (81-99); Mean Platelet Volume 8.2 fl (7.4-10.4); Monocytes # 0.7 K/mm3 (0.1-1.0); Monocytes % 5.9 % (1.7-9.3); Neutrophils # 7.7 K/mm3 (1.8-7.8); Platelet Count 505 K/mm3 (142-424); Red Blood Count 3.61 M/mm3 (4.20-5.40); Red Cell Distribution Width 16.1 % (11.5-17.5)
[2019-04-29 14:07] LABS: Anion Gap 17.1 mEq/L (5-15); Blood Urea Nitrogen 17 mg/dL (7-18); Calcium 8.8 mg/dL (8.5-10.1); Carbon Dioxide 26 mmol/L (21.0-32.0); Chloride 95 mmol/L (98-107); Creatinine,Serum 1.35 mg/dL (0.55-1.02); Estimated Glomerular Filt Rate 38 ml/min (>60); GFR (African American) 46 ML/MIN (>60); Glucose 150 mg/dL (74-106); Potassium 3.1 mmoL/L (3.5-5.1); Sodium 135 mmol/L (136-145)
== END ==
PROVIDERS: PCP Internal Medicine Adolescent Medicine; Visit Provider Internal Medicine Adolescent Medicine
DX: I10 Essential (primary) hypertension (principal); I48.91 Unspecified atrial fibrillation; R60.9 Edema, unspecified
CPT/HCPCS: 36415; 80048; 85025

== ENCOUNTER → 2019-05-29 07:39 | Outpatient (CLI) | payer MEDICARE, SELFPAY ==
[2019-05-29 08:47] LABS: Anion Gap 16.2 mEq/L (5-15); Blood Urea Nitrogen 48 mg/dL (7-18); Calcium 9.1 mg/dL (8.5-10.1); Carbon Dioxide 28 mmol/L (21.0-32.0); Chloride 95 mmol/L (98-107); Creatinine,Serum 1.97 mg/dL (0.55-1.02); Estimated Glomerular Filt Rate 25 ml/min (>60); GFR (African American) 30 ML/MIN (>60); Glucose 110 mg/dL (74-106); Potassium 4.2 mmoL/L (3.5-5.1); Sodium 135 mmol/L (136-145)
== END ==
PROVIDERS: Visit Provider Internal Medicine Cardiovascular Disease
DX: I10 Essential (primary) hypertension (principal); R06.02 Shortness of breath
CPT/HCPCS: 36415; 80048; 83880

== ENCOUNTER → 2019-06-26 10:38 | Outpatient (CLI) | payer MEDICARE, SELFPAY ==
[2019-06-26 11:05] LABS: Basophils # 0.1 K/mm3 (0-0.2); Basophils % 0.5 % (0.1-2.0); Eosinophils # 0.2 K/mm3 (0.0-0.4); Eosinophils % 1.2 % (0.1-12.0); Hemoglobin 8.5 g/dL (12.2-16.2); Lymphocytes # 2.4 K/mm3 (0.7-4.5); Lymphocytes % 17.4 % (10-50); Mean Corpuscular HGB Conc 28.5 g/dL (31.8-35.4); Mean Corpuscular Volume 77.2 fl (81-99); Mean Platelet Volume 8.5 fl (7.4-10.4); Monocytes # 0.8 K/mm3 (0.1-1.0); Monocytes % 5.9 % (1.7-9.3); Neutrophils # 10.3 K/mm3 (1.8-7.8); Neutrophils % 74.9 % (37.0-80.0); Platelet Count 548 K/mm3 (142-424); Red Blood Count 3.88 M/mm3 (4.20-5.40); White Blood Count 13.7 K/mm3 (4.8-10.8)
[2019-06-26 11:45] LABS: Anion Gap 13.4 mEq/L (5-15); Blood Urea Nitrogen 24 mg/dL (7-18); Calcium 8.7 mg/dL (8.5-10.1); Carbon Dioxide 29 mmol/L (21.0-32.0); Chloride 96 mmol/L (98-107); Creatinine,Serum 1.39 mg/dL (0.55-1.02); Digoxin 0.51 ng/mL (0.90-2.00); Estimated Glomerular Filt Rate 37 ml/min (>60); GFR (African American) 44 ML/MIN (>60); Glucose 141 mg/dL (74-106); Potassium 3.4 mmoL/L (3.5-5.1); Sodium 135 mmol/L (136-145)
== END ==
PROVIDERS: Visit Provider Internal Medicine Cardiovascular Disease
DX: E03.9 Hypothyroidism, unspecified (principal); E78.5 Hyperlipidemia, unspecified; I10 Essential (primary) hypertension; I25.10 Atherosclerotic heart disease of native coronary artery without angina pectoris; I48.91 Unspecified atrial fibrillation; I73.9 Peripheral vascular disease, unspecified; R06.02 Shortness of breath
CPT/HCPCS: 36415; 80048; 80162; 85025

== ENCOUNTER → 2019-06-30 12:25 | Outpatient (CLI) | payer MEDICARE, SELFPAY ==
[2019-06-30 12:41] LABS: Basophils # 0.1 K/mm3 (0-0.2); Basophils % 0.6 % (0.1-2.0); Eosinophils # 0.1 K/mm3 (0.0-0.4); Hematocrit 27.9 % (37.0-47.0); Lymphocytes # 2.3 K/mm3 (0.7-4.5); Lymphocytes % 15.7 % (10-50); Mean Corpuscular HGB Conc 28.1 g/dL (31.8-35.4); Mean Corpuscular Hemoglobin 21.8 pg (27.0-31.2); Mean Corpuscular Volume 77.4 fl (81-99); Mean Platelet Volume 9.1 fl (7.4-10.4); Monocytes # 0.8 K/mm3 (0.1-1.0); Monocytes % 5.5 % (1.7-9.3); Neutrophils # 11.3 K/mm3 (1.8-7.8); Neutrophils % 77.3 % (37.0-80.0); Platelet Count 485 K/mm3 (142-424); Red Blood Count 3.61 M/mm3 (4.20-5.40); White Blood Count 14.6 K/mm3 (4.8-10.8)
--- NOTE | 2019-06-30 12:41 | XR_ITS ---
PROCEDURE: XR FOOT LT MIN 3V CLINICAL INDICATION: LT FOOT PAIN COMPARISON: No exams were available for comparison FINDINGS: No fracture or dislocation. No lytic or blastic change. There is normal mineralization. The joint spaces are well-preserved. No significant degenerative/arthritic changes. No erosive changes evident. Other findings:None. IMPRESSION: No acute findings. Dictated by: Roddy Decker MD 06/30/2019 12:58 Electronically signed by Roddy Decker MD in [place] 06/30/2019 12:58
[2019-06-30 12:51] LABS: Uric Acid 11.9 mg/dL (2.6-7.2)
[2019-06-30 12:56] LABS: Hemoglobin 7.9 g/dL (12.2-16.2)
== END ==
PROVIDERS: PCP Internal Medicine Adolescent Medicine; Visit Provider Nurse Practitioner Family
DX: M79.672 Pain in left foot (principal); M79.89 Other specified soft tissue disorders
CPT/HCPCS: 36415; 73630; 84550; 85025

== ENCOUNTER 2019-07-03 08:26 | Outpatient (CLI) | payer MEDICARE, SELFPAY ==
[2019-07-03] VITALS (22 sets, daily range): BP systolic 137–169; BP diastolic 67–89; PULSE 69–74; RESP 16–20; TEMP 36.4–36.7; O2SAT 97–100; BMI 26.7
--- NOTE | 2019-07-03 15:31 | PC.NURSE ---
07/03/19 1025 Transfusion of 1st unit of PRBC's initiated at this time. VSS. Lungs CTA. Resp easy/regular. Trace edema RLE, trace to 1+ edema LLE/edema present on arrival/pt states this is her normal baseline. 1110 Pt charles blood transfusion well with no problems, no s/s transfusion reaction noted. Denies c/o. VSS. Resp easy/reg. Skin warm/dry to touich. 1235 Transfusion of 1st unit of PRBC's complete at this time. VSS. Pt continues to deny c/o. VSS. Resp easy/reg. Lungs CTA. Pt tolerated well with no problems noted. 1240 Lasix 40mg IV given at this time per MD order between units of blood.
--- NOTE | 2019-07-03 15:39 | PC.NURSE ---
07/03/19 1300 Transfusion of 2nd unit of PRBC's initiated at this time. Lungs CTA. Resp easy/reg. VSS. Pt denies c/o. 1345 VSS. Pt tolerating blood transfusion well. Skin warm/dry to touch. Resp easy/reg. IV patent. Resp easy/reg. Lungs CTA. No s/s transfusion reaction noted. Pt with good urine output since receiving Lasix 40mg IV as ordered for transfusion. 1505 Transfusion of 2nd unit PRBC's complete at this time. Pt has tolerated well with no problems noted/no s/s reaction. Lungs CTA. Resp easy/reg. VSS.
[2019-07-03 15:49] LABS: Hematocrit 29.3 % (37.0-47.0); Hemoglobin 8.2 g/dL (12.2-16.2)
--- NOTE | 2019-07-03 16:22 | PC.NURSE ---
07/03/19 1605 1 hour post transfusion H&H drawn at this time/transported to lab.
[2019-07-03 16:25] LABS: Hematocrit 36.7 % (37.0-47.0)
[2019-07-03 16:26] LABS: Hemoglobin 11.3 g/dL (12.2-16.2)
== END 2019-07-03 16:15 | disposition home or self-care (01) ==
LOC: INF 08:26
PROVIDERS: Visit Provider Nurse Practitioner Family
DX: D64.9 Anemia, unspecified (principal)
CPT/HCPCS: 36430; 85014; 85018; 86850; P9016

== ENCOUNTER → 2019-08-04 07:45 | Outpatient (CLI) | payer MEDICARE, SELFPAY ==
[2019-08-04 14:07] LABS: Basophils # 0.1 K/mm3 (0-0.2); Basophils % 0.4 % (0.1-2.0); Eosinophils # 0.3 K/mm3 (0.0-0.4); Eosinophils % 1.9 % (0.1-12.0); Hematocrit 34.6 % (37.0-47.0); Hemoglobin 10.4 g/dL (12.2-16.2); Lymphocytes % 12.7 % (10-50); Mean Corpuscular Hemoglobin 24.4 pg (27.0-31.2); Mean Corpuscular Volume 81.3 fl (81-99); Mean Platelet Volume 9.8 fl (7.4-10.4); Monocytes # 0.6 K/mm3 (0.1-1.0); Monocytes % 3.7 % (1.7-9.3); Neutrophils # 12.7 K/mm3 (1.8-7.8); Neutrophils % 81.3 % (37.0-80.0); Platelet Count 335 K/mm3 (142-424); Red Blood Count 4.26 M/mm3 (4.20-5.40); Red Cell Distribution Width 18.2 % (11.5-17.5); White Blood Count 15.6 K/mm3 (4.8-10.8)
[2019-08-04 14:10] LABS: MANUAL DIFFERENTIAL MANUAL DIFFERENTIAL (MANUAL DIFF)
[2019-08-04 14:30] LABS: Eosinophils % 2 % (0-3); Lymphocytes % 11 % (10-50); Monocytes % 4 % (2-9); Neutrophils % 83 % (42-76); Total Cells Counted 100
[2019-08-04 14:31] LABS: Acanthocytes 1+; Anisocytosis 1+; Hypochromasia 1+; Platelet Estimate Normal; Poikilocytosis 1+; Stomatocytes 1+
[2019-08-04 14:44] LABS: Alanine Aminotransferase 17 U/L (12-78); Albumin/Globulin Ratio 0.9 (1.1-1.8); Alkaline Phosphatase 151 U/L (46-116); Aspartate Amino Transferase 18 U/L (15-37); Bilirubin,Total 0.4 mg/dL (0.2-1.0); Blood Urea Nitrogen 21 mg/dL (7-18); Carbon Dioxide 26 mmol/L (21.0-32.0); Chloride 100 mmol/L (98-107); Creatinine,Serum 1.29 mg/dL (0.55-1.02); Estimated Glomerular Filt Rate 40 ml/min (>60); GFR (African American) 48 ML/MIN (>60); Globulin 3.5 gm/dl (1.3-3.2); Glucose 152 mg/dL (74-106); Sodium 137 mmol/L (136-145); Total Protein,Serum 6.5 gm/dL (6.4-8.2); Uric Acid 8.4 mg/dL (2.6-7.2)
== END ==
PROVIDERS: PCP Internal Medicine Adolescent Medicine; Visit Provider Internal Medicine Adolescent Medicine
DX: I25.10 Atherosclerotic heart disease of native coronary artery without angina pectoris (principal); I50.20 Unspecified systolic (congestive) heart failure; M10.071 Idiopathic gout, right ankle and foot
CPT/HCPCS: 36415; 80053; 84550; 85007; 85025

== ENCOUNTER → 2019-09-01 07:10 | Outpatient (CLI) | payer MEDICARE, SELFPAY ==
[2019-09-01 14:06] LABS: Basophils # 0.1 K/mm3 (0-0.2); Basophils % 0.8 % (0.1-2.0); Eosinophils # 0.6 K/mm3 (0.0-0.4); Eosinophils % 6.1 % (0.1-12.0); Hematocrit 33.2 % (37.0-47.0); Hemoglobin 9.6 g/dL (12.2-16.2); Lymphocytes # 2.9 K/mm3 (0.7-4.5); Lymphocytes % 28.6 % (10-50); Mean Corpuscular HGB Conc 28.9 g/dL (31.8-35.4); Mean Corpuscular Hemoglobin 23.8 pg (27.0-31.2); Mean Corpuscular Volume 82.5 fl (81-99); Monocytes # 0.4 K/mm3 (0.1-1.0); Neutrophils % 60.5 % (37.0-80.0); Platelet Count 332 K/mm3 (142-424); Red Blood Count 4.03 M/mm3 (4.20-5.40); Red Cell Distribution Width 18.3 % (11.5-17.5)
[2019-09-01 14:26] LABS: Albumin Level 3.1 gm/dL (3.4-5.0); Anion Gap 16.7 mEq/L (5-15); Aspartate Amino Transferase 20 U/L (15-37); Blood Urea Nitrogen 28 mg/dL (7-18); Calcium 8.6 mg/dL (8.5-10.1); Carbon Dioxide 24 mmol/L (21.0-32.0); Chloride 103 mmol/L (98-107); Creatinine,Serum 1.54 mg/dL (0.55-1.02); Estimated Glomerular Filt Rate 32 ml/min (>60); GFR (African American) 39 ML/MIN (>60); Glucose 187 mg/dL (74-106); Potassium 3.7 mmoL/L (3.5-5.1); Sodium 140 mmol/L (136-145); Uric Acid 5.2 mg/dL (2.6-7.2)
[2019-09-01 14:45] LABS: Alanine Aminotransferase 22 U/L (12-78); Albumin/Globulin Ratio 0.9 (1.1-1.8); Alkaline Phosphatase 148 U/L (46-116); Bilirubin,Total 0.3 mg/dL (0.2-1.0); Globulin 3.3 gm/dl (1.3-3.2); Total Protein,Serum 6.4 gm/dL (6.4-8.2)
== END ==
PROVIDERS: Visit Provider Internal Medicine Adolescent Medicine
DX: M10.071 Idiopathic gout, right ankle and foot (principal); I50.20 Unspecified systolic (congestive) heart failure
CPT/HCPCS: 36415; 80053; 84550; 85025

== ENCOUNTER → 2019-10-06 09:30 | Outpatient (CLI) | payer MEDICARE, SELFPAY ==
[2019-10-06 13:36] LABS: Basophils # 0.1 K/mm3 (0-0.2); Basophils % 0.6 % (0.1-2.0); Eosinophils # 0.2 K/mm3 (0.0-0.4); Eosinophils % 1.6 % (0.1-12.0); Hematocrit 31.4 % (37.0-47.0); Hemoglobin 8.8 g/dL (12.2-16.2); Lymphocytes % 21.4 % (10-50); Mean Corpuscular HGB Conc 28.1 g/dL (31.8-35.4); Mean Corpuscular Hemoglobin 23.2 pg (27.0-31.2); Mean Corpuscular Volume 82.5 fl (81-99); Mean Platelet Volume 8.1 fl (7.4-10.4); Monocytes # 0.6 K/mm3 (0.1-1.0); Monocytes % 4.3 % (1.7-9.3); Neutrophils # 10.2 K/mm3 (1.8-7.8); Neutrophils % 72.2 % (37.0-80.0); Platelet Count 352 K/mm3 (142-424); Red Blood Count 3.81 M/mm3 (4.20-5.40); White Blood Count 14.1 K/mm3 (4.8-10.8)
[2019-10-06 14:45] LABS: Alanine Aminotransferase 19 U/L (12-78); Albumin Level 2.9 gm/dL (3.4-5.0); Alkaline Phosphatase 120 U/L (46-116); Anion Gap 12.6 mEq/L (5-15); Aspartate Amino Transferase 11 U/L (15-37); Bilirubin,Total 0.2 mg/dL (0.2-1.0); Blood Urea Nitrogen 26 mg/dL (7-18); Calcium 8.5 mg/dL (8.5-10.1); Carbon Dioxide 25 mmol/L (21.0-32.0); Chloride 106 mmol/L (98-107); Creatinine,Serum 1.23 mg/dL (0.55-1.02); Estimated Glomerular Filt Rate 42 ml/min (>60); GFR (African American) 51 ML/MIN (>60); Glucose 144 mg/dL (74-106); Potassium 4.6 mmoL/L (3.5-5.1); Sodium 139 mmol/L (136-145); Total Protein,Serum 5.9 gm/dL (6.4-8.2)
== END ==
PROVIDERS: Visit Provider Internal Medicine Adolescent Medicine
DX: E87.6 Hypokalemia (principal); I10 Essential (primary) hypertension
CPT/HCPCS: 36415; 80053; 85025

== ENCOUNTER → 2019-10-22 10:24 | Outpatient (CLI) | payer MEDICARE, SELFPAY ==
--- NOTE | 2019-10-22 10:34 | XR_ITS ---
PROCEDURE: XR SHOULDER RT MIN 2V CLINICAL INDICATION: 1 week follow up from right shoulder dislocation Follow-up dislocation COMPARISON: XR SHOULDER RT MIN 2V from 10/15/2019 XR SHOULDER RT MIN 2V from 10/15/2019 XR SHOULDER RT MIN 2V from 10/15/2019 FINDINGS: There are mild osteoarthritic changes of the acromioclavicular joint with mild subacromial stenosis. No fracture or dislocation. No IMPRESSION: Other significant anomalies. Minimal osteoarthritic change of the acromioclavicular joint with subacromial stenosis Dictated by: Roddy Decker MD 10/22/2019 15:44 Electronically signed by Roddy Decker MD in [facility] 10/22/2019 15:44
== END ==
PROVIDERS: PCP Internal Medicine Adolescent Medicine; Visit Provider Orthopaedic Surgery
DX: S43.004A Unspecified dislocation of right shoulder joint, initial encounter (principal)
CPT/HCPCS: 73030

== ENCOUNTER → 2019-11-03 07:16 | Outpatient (CLI) | payer MEDICARE, SELFPAY ==
[2019-11-03 13:47] LABS: Basophils # 0.1 K/mm3 (0-0.2); Basophils % 0.4 % (0.1-2.0); Eosinophils # 0.3 K/mm3 (0.0-0.4); Eosinophils % 2.4 % (0.1-12.0); Hematocrit 25.9 % (37.0-47.0); Lymphocytes # 2.7 K/mm3 (0.7-4.5); Lymphocytes % 25.3 % (10-50); Mean Corpuscular HGB Conc 28.9 g/dL (31.8-35.4); Mean Corpuscular Hemoglobin 23.3 pg (27.0-31.2); Mean Corpuscular Volume 80.5 fl (81-99); Mean Platelet Volume 8.3 fl (7.4-10.4); Monocytes # 0.5 K/mm3 (0.1-1.0); Monocytes % 4.9 % (1.7-9.3); Neutrophils # 7.3 K/mm3 (1.8-7.8); Neutrophils % 66.9 % (37.0-80.0); Platelet Count 484 K/mm3 (142-424); Red Blood Count 3.22 M/mm3 (4.20-5.40); Red Cell Distribution Width 15.3 % (11.5-17.5); White Blood Count 10.9 K/mm3 (4.8-10.8)
[2019-11-03 13:52] LABS: Hemoglobin 7.5 g/dL (12.2-16.2)
[2019-11-03 13:55] LABS: Anion Gap 14.5 mEq/L (5-15); Blood Urea Nitrogen 28 mg/dL (7-18); Carbon Dioxide 26 mmol/L (21.0-32.0); Chloride 108 mmol/L (98-107); Creatinine,Serum 1.47 mg/dL (0.55-1.02); Estimated Glomerular Filt Rate 34 ml/min (>60); GFR (African American) 41 ML/MIN (>60); Glucose 96 mg/dL (74-106); Potassium 4.5 mmoL/L (3.5-5.1); Sodium 144 mmol/L (137-145)
== END ==
PROVIDERS: Visit Provider Internal Medicine Adolescent Medicine
DX: I50.20 Unspecified systolic (congestive) heart failure (principal)
CPT/HCPCS: 36415; 80048; 85025

== ENCOUNTER → 2019-11-03 09:47 | Outpatient (POV) | payer MEDICARE, SELFPAY | PROVIDERS: PCP Internal Medicine Adolescent Medicine; Visit Provider Specialist | DX: R53.83 Other fatigue (principal); M79.621 Pain in right upper arm; R20.2 Paresthesia of skin; I50.20 Unspecified systolic (congestive) heart failure | CPT/HCPCS: 36415; 80048; 85025; 95886; 95909 ==

== ENCOUNTER → 2019-11-04 10:29 | Outpatient (CLI) | payer MEDICARE, SELFPAY | PROVIDERS: Visit Provider Internal Medicine Adolescent Medicine | DX: D64.9 Anemia, unspecified (principal) | CPT/HCPCS: 36415; 86850 ==

== ENCOUNTER 2019-11-05 08:00 | Outpatient (CLI) | payer MEDICARE, SELFPAY ==
[2019-11-05] VITALS (18 sets, daily range): BP systolic 131–166; BP diastolic 58–78; PULSE 69–70; RESP 18–20; TEMP 35.7–36.4; O2SAT 100; BMI 29.8
--- NOTE | 2019-11-05 09:01 | PC.NURSE ---
0855-BLOOD TRANSFUSION STARTED AT 100 ML/HR AT THIS TIME.
--- NOTE | 2019-11-05 09:42 | PC.NURSE ---
0925-BLOOD INCREASED RATE TO 150 ML/HR AT THIS TIME.
--- NOTE | 2019-11-05 10:03 | PC.NURSE ---
0955-INCREASED RATE TO 200 ML/HR AT THIS TIME.
--- NOTE | 2019-11-05 11:04 | PC.NURSE ---
1100-TRANSFUSION RATE STARTED AT 100 ML/HR AT THIS TIME.
--- NOTE | 2019-11-05 11:35 | PC.NURSE ---
1130-INCREASED RATE TO 150 ML/HR AT THIS TIME.
--- NOTE | 2019-11-05 12:17 | PC.NURSE ---
1200-INCREASED RATE TO 200 ML/HR AT THIS TIME.
[2019-11-05 14:35] LABS: Hematocrit 32.2 % (37.0-47.0); Hemoglobin 9.9 g/dL (12.2-16.2)
--- NOTE | 2019-11-05 14:49 | PC.NURSE ---
1350-BLOOD DRAWN FROM IV AT THIS TIME TO CHECK 1 HR POST HGB/HCT.
== END 2019-11-05 14:35 | disposition home or self-care (01) ==
LOC: INF 08:16
PROVIDERS: Visit Provider Internal Medicine Adolescent Medicine
DX: D64.9 Anemia, unspecified (principal)
CPT/HCPCS: 36430; 85014; 85018; P9016

== ENCOUNTER → 2019-11-18 12:39 | Outpatient (CLI) | payer MEDICARE, SELFPAY ==
--- NOTE | 2019-11-18 12:46 | XR_ITS ---
PROCEDURE: XR SHOULDER RT MIN 2V CLINICAL INDICATION: Shoulder dislocation Follow-up dislocation COMPARISON: XR SHOULDER RT MIN 2V from 10/15/2019 XR SHOULDER RT MIN 2V from 10/15/2019 XR SHOULDER RT MIN 2V from 10/15/2019 XR SHOULDER RT MIN 2V from 10/22/2019 FINDINGS: No fracture or dislocation evident. No lytic or blastic change. There is mild subacromial stenosis with slightly high-riding humeral head which may be seen with rotator pathology. There is a faint density superior to the humeral head of unknown etiology and could be due to soft tissue calcification or small avulsion injury. IMPRESSION: 1. No evidence of dislocation. 2. Slight superior location of the humeral head with subacromial stenosis which could be seen with rotator cuff disease. 3. Possible small avulsion or periarticular calcification along the superior aspect of the humeral head Dictated by: Roddy Decker MD 11/18/2019 13:23 Electronically signed by Roddy Decker MD in [facility] 11/18/2019 13:23
[2019-11-18 15:36] LABS: Chloride 98 mmol/L (98-107); Potassium 3.5 mmoL/L (3.5-5.1); Sodium 135 mmol/L (136-145)
[2019-11-18 15:39] LABS: Anion Gap 12.5 mEq/L (5-15); Blood Urea Nitrogen 25 mg/dl (7-17); Carbon Dioxide 28 mmol/L (22.0-30.0); Estimated Glomerular Filt Rate 40 ml/min (>60); GFR (African American) 48 ML/MIN (>60); Glucose 177 mg/dl (74-100)
[2019-11-18 15:53] LABS: NT Pro Brain Natriuretic Pep. 1080 pg/mL (0-450)
== END ==
PROVIDERS: Internal Medicine Cardiovascular Disease; PCP Internal Medicine Adolescent Medicine; Visit Provider Orthopaedic Surgery
DX: S43.004A Unspecified dislocation of right shoulder joint, initial encounter (principal); R60.0 Localized edema; R06.02 Shortness of breath
CPT/HCPCS: 36415; 73030; 80048; 83880

== ENCOUNTER → 2019-11-27 11:40 | Outpatient (CLI) | payer MEDICARE, SELFPAY ==
[2019-11-27 11:55] LABS: Basophils # 0.1 K/mm3 (0-0.2); Basophils % 0.5 % (0.1-2.0); Eosinophils # 0.3 K/mm3 (0.0-0.4); Eosinophils % 2.3 % (0.1-12.0); Hematocrit 34.2 % (37.0-47.0); Hemoglobin 10.4 g/dL (12.2-16.2); Lymphocytes # 2.5 K/mm3 (0.7-4.5); Lymphocytes % 21.2 % (10-50); Mean Corpuscular HGB Conc 30.4 g/dL (31.8-35.4); Mean Corpuscular Hemoglobin 25.3 pg (27.0-31.2); Mean Corpuscular Volume 83.2 fl (81-99); Monocytes # 0.6 K/mm3 (0.1-1.0); Monocytes % 5.3 % (1.7-9.3); Neutrophils # 8.3 K/mm3 (1.8-7.8); Neutrophils % 70.7 % (37.0-80.0); Platelet Count 362 K/mm3 (142-424); Red Blood Count 4.11 M/mm3 (4.20-5.40); Red Cell Distribution Width 16.2 % (11.5-17.5); White Blood Count 11.7 K/mm3 (4.8-10.8)
[2019-11-27 13:22] LABS: Chloride 99 mmol/L (98-107); Potassium 4.4 mmoL/L (3.5-5.1); Sodium 135 mmol/L (136-145)
[2019-11-27 13:25] LABS: Anion Gap 12.4 mEq/L (5-15); Blood Urea Nitrogen 19 mg/dl (7-17); Calcium 9.4 mg/dl (8.4-10.2); Carbon Dioxide 28 mmol/L (22.0-30.0); Estimated Glomerular Filt Rate 33 ml/min (>60); GFR (African American) 41 ML/MIN (>60); Glucose 121 mg/dl (74-100)
[2019-11-27 13:26] LABS: Magnesium 1.4 mg/dl (1.6-2.3)
[2019-11-27 13:33] LABS: NT Pro Brain Natriuretic Pep. 1310 pg/mL (0-450)
== END ==
PROVIDERS: Visit Provider Physician Assistant
DX: E78.5 Hyperlipidemia, unspecified (principal); I11.9 Hypertensive heart disease without heart failure; I25.10 Atherosclerotic heart disease of native coronary artery without angina pectoris; I42.9 Cardiomyopathy, unspecified; I73.9 Peripheral vascular disease, unspecified
CPT/HCPCS: 36415; 80048; 83735; 83880; 85025

== ENCOUNTER → 2019-12-01 09:06 | Outpatient (CLI) | payer MEDICARE, SELFPAY ==
[2019-12-01 10:18] LABS: Chloride 87 mmol/L (98-107); Potassium 3.7 mmoL/L (3.5-5.1); Sodium 134 mmol/L (136-145)
[2019-12-01 10:21] LABS: Anion Gap 17.7 mEq/L (5-15); Blood Urea Nitrogen 34 mg/dl (7-17); Calcium 9.3 mg/dl (8.4-10.2); Carbon Dioxide 33 mmol/L (22.0-30.0); Estimated Glomerular Filt Rate 19 ml/min (>60); GFR (African American) 22 ML/MIN (>60); Glucose 139 mg/dl (74-100)
[2019-12-01 10:22] LABS: Magnesium 1.3 mg/dl (1.6-2.3)
[2019-12-01 10:30] LABS: NT Pro Brain Natriuretic Pep. 828 pg/mL (0-450)
== END ==
PROVIDERS: Visit Provider Physician Assistant
DX: I07.1 Rheumatic tricuspid insufficiency (principal); I11.9 Hypertensive heart disease without heart failure; I25.10 Atherosclerotic heart disease of native coronary artery without angina pectoris; I27.20 Pulmonary hypertension, unspecified; I34.0 Nonrheumatic mitral (valve) insufficiency; I48.91 Unspecified atrial fibrillation; I50.9 Heart failure, unspecified; I73.9 Peripheral vascular disease, unspecified; R06.02 Shortness of breath; R60.0 Localized edema; Z86.718 Personal history of other venous thrombosis and embolism; Z95.810 Presence of automatic (implantable) cardiac defibrillator
CPT/HCPCS: 36415; 80048; 83735; 83880

== ENCOUNTER → 2019-12-11 09:13 | Outpatient (CLI) | payer MEDICARE, SELFPAY ==
[2019-12-11 11:35] LABS: Chloride 88 mmol/L (98-107); Potassium 3.7 mmoL/L (3.5-5.1); Sodium 132 mmol/L (136-145)
[2019-12-11 11:38] LABS: Anion Gap 14.7 mEq/L (5-15); Blood Urea Nitrogen 35 mg/dl (7-17); Calcium 9.5 mg/dl (8.4-10.2); Carbon Dioxide 33 mmol/L (22.0-30.0); Estimated Glomerular Filt Rate 24 ml/min (>60); GFR (African American) 29 ML/MIN (>60); Glucose 148 mg/dl (74-100)
--- NOTE | 2019-12-11 11:52 | CA_ITS ---
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 133.9 Axillary 55.4 Brachial 195.0 144.0 138.0 Radial 123.0 33.1 28.0 Ulnar 62.6 83.0 95.0 Left Prox Mid Distal Findings Study suggests no evidence of arterial throbosis seen in the right upper extremity. Conclusion No evidence of arterial throbosis seen in the right upper extremity Critical Notification Physician Notified Date: 12/11/2019 Time: 12:25 Physician Name: Queenie SANCHEZ Electronically signed by : Roddy Decker MD 12/11/2019 16:11:17
== END ==
LOC: LAB 09:16 → RAD 11:50
PROVIDERS: PCP Internal Medicine Adolescent Medicine; Visit Provider Physician Assistant
DX: I07.1 Rheumatic tricuspid insufficiency (principal); I25.10 Atherosclerotic heart disease of native coronary artery without angina pectoris; I27.20 Pulmonary hypertension, unspecified; I34.0 Nonrheumatic mitral (valve) insufficiency; I48.91 Unspecified atrial fibrillation; I50.9 Heart failure, unspecified; I73.9 Peripheral vascular disease, unspecified; R06.02 Shortness of breath; R60.0 Localized edema; Z86.718 Personal history of other venous thrombosis and embolism; Z95.810 Presence of automatic (implantable) cardiac defibrillator; M79.601 Pain in right arm
CPT/HCPCS: 36415; 80048; 93931

== ENCOUNTER → 2019-12-22 12:36 | Outpatient (POV) | payer MEDICARE, SELFPAY | PROVIDERS: PCP Internal Medicine Adolescent Medicine; Visit Provider Specialist | DX: M79.601 Pain in right arm (principal); R20.2 Paresthesia of skin; R53.83 Other fatigue | CPT/HCPCS: 95886; 95909 ==

== ENCOUNTER 2020-01-07 10:00 | Outpatient (RCR) | payer MEDICARE, SELFPAY ==
--- NOTE | 2019-10-23 16:16 | HMH.OTOPEV ---
OT Inpatient Evaluation Rehab OT Outpatient Eval Start: 10/23/19 15:31 Freq: Status: Active Protocol: Document 10/23/19 15:32 [email or web address] (Rec: 10/23/19 16:06 RMARSHALL [id number]) Electronically Signed By Wesly Montez OT 10/23/19 15:32 Outpatient Therapy Subjective History Subjective History Pt is a 79 year old female who reports to therapy for initial evaluation to right wrist. Pt fell on 10/15/19 landing on right shoulder which resulted in a R shoulder dislocation. After a few days, pt began having symptoms of drop wrist at right hand. Currently pt is unable to extend wrist at all. 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 Pt demonstrates with significant decline in wrist AROM and strength. Pt will continue to be seen twice a week in order to address all deficits. Chief Complaint Pain,Paresthesia,Weakness Symptom Type Ache,Throb,Sharp,Dull Symptoms Relieved By Nothing Symptoms Aggravated By Physical Activity,Twisting, Lifting Prior Functional Limitations None Current Functional Limitations Reaching,Lifting,Housework, Dressing,Recreation Activity Symptom Description Constant but Variable Level of pain today (0-10) 2 Pain scale - at its best (0-10) 2 Pain scale - at its worst (0-10) 7 Wrist/Hand Eval Wrist Range of Motion Right Wrist Limitations of Range of Motion Muscle Weakness Wrist Extension Active Range of Motion ( 0 degrees degrees) Wrist Flexion Active Range of Motion ( 75 degrees degrees) Wrist Radial Deviation Active Range of 0 degrees Motion (degrees) Wrist Ulnar Deviation Active Range of 0 degrees Motion (degrees) Wrist Manual Muscle Testing Right Wrist Extension Strength Grade 2- Poor- Wrist Flexion Strength Grade 3 Fair Wrist Radial Deviation Strength Grade 2- Poor- Wrist Ulnar Deviation Strength Grade 2- Poor- OT Outpatient Assessment Impairments Problems/Impairments Palpation Tenderness,Impaired Range of Motion,Impaired Strength,Impaired Endurance, Impaired Lifting,Impaired Dressing,Impaired Shower/
--- NOTE | 2019-12-01 11:07 | HMH.RHREAS ---
Rehab Reassessment Rehab OP Re-assessment Start: 12/01/19 10:45 Freq: Status: Active Protocol: Document 12/01/19 10:53 RMARSHALL (Rec: 12/01/19 11:07 RMARSHALL [id number]) Electronically Signed By Wesly Montez OT 12/01/19 10:53 Rehab Re-assessment Objective Objective Notes Pt continues to be seen twice a week in order to address right UE deficits. Pt engages in R wrist, elbow, and shoulder exercises (AROM/AAROM /Strengthening). Pt is also passively ranged at all joints in all planes. Pt does receive moist heat, but is unable to accept modalities due to interal pacemaker. Assessment Progress Assessment Slower Than Expected Assessment Notes Pt has demonstrated great progress in wrist and hand with AROM. However, elbow continues to remain weak and in need of continued AROM exercises. Pt's shoulder is the most significantly impaired of all joints on the RUE. Pt is not able to tolerate AAROM exercises due to pain. Pt is unable to activity move her shoulder at all. Her shoulder will be added to her plan of care at this time. Current R shoulder PROM Flex: 95 degrees Abd: 80 degrees ER: 30 degrees IR: 40 degrees R Wrist Current AROM Flex: 72 degrees Ext: [address]: 25 degrees UD: 25 degrees Patient goals met Wrist AROM goals have been met ; both short term and partnership manager. Goals Not Met Wrist MMT goals have not been met (LTG) Revised Goals Continue progressing toward LTG goals written on initial eval for wrist MMT; activity tolerance; and pain Add shoulder goals
--- NOTE | 2019-12-31 10:13 | HMH.RHREAS ---
Rehab Reassessment Rehab OP Re-assessment Start: 12/01/19 10:45 Freq: Status: Active Protocol: Document 12/31/19 09:13 RMARSHALL (Rec: 12/31/19 10:13 RMARSHALL [id number]) Electronically Signed By Wesly Montez OT 12/31/19 09:13 Rehab Re-assessment Subjective Subjective I go back to the doctor on the . Objective Objective Notes Pt continues to be seen twice a week in order to address right UE deficits. Pt engages in R wrist, elbow, and shoulder exercises (AROM/AAROM /Strengthening). Pt is also passively ranged at all joints in all planes. Pt does receive moist heat, but is unable to accept modalities due to interal pacemaker. Assessment Progress Assessment Slower Than Expected Assessment Notes Pt has demonstrated great progress in wrist, hand, and elbow with AROM. Pt is now able to actively flex, supinate, and pronate elbow independently. Pt's shoulder continues to be the most significantly impaired of all joints on the RUE. Pt is not able to tolerate AAROM exercises due to pain. Pt is unable to activity move her shoulder at all. Most therapy sessions pt is unable to tolerate PROM at right shoulder as well. Pt claims right shoulder pain at rest is normally 7-8/10 at times. However with use the shoulder pain is 10/10 Current R shoulder PROM Flex: 95 degrees Abd: 80 degrees ER: 30 degrees IR: 40 degrees R Wrist Current AROM Flex: 72 degrees Ext: [address]: 25 degrees UD: 25 degrees Patient goals met Wrist AROM and MMT goals have been met; both short term and snf.
== END 2020-01-07 10:05 | disposition home or self-care (01) ==
LOC: OT 10:00
PROVIDERS: PCP Internal Medicine Adolescent Medicine; Visit Provider Orthopaedic Surgery
DX: S43.004A Unspecified dislocation of right shoulder joint, initial encounter (principal)
CPT/HCPCS: 97010; 97110; 97140; 97164; 97166; 97763

== ENCOUNTER 2020-02-07 09:43 | Emergency (ER) | payer MEDICARE, SELFPAY ==
[2020-02-07 09:55] VITALS: BP 163/74; PULSE 70; RESP 18; TEMP 36.7; O2SAT 98; BMI 27.4
--- NOTE | 2020-02-07 10:00 | HMH.EDGENADL ---
ED Disposition Clinical Impression: Gout attack Qualifiers: Gout site: foot Gout etiology: unspecified cause Laterality: right Qualified Code(s): M10.9 - Gout, unspecified Disposition: Home, Self-Care Condition on Discharge: Good Additional Instructions: Rest and elevate foot. Alfred as needed for pain. Prednisone as prescribed. You were given a dose of this in the emergency room, take your next dose tomorrow. See your primary care physician on Sunday for follow-up. You should discuss with them whether you should restart allopurinol. Prescriptions: Hydrocod/Acet 5/325 mg [Alfred 5/325mg tablet] 1 tab PO Q6HP PRN #10 tab PRN Reason: Pain Transmission Status: Received by [id number] predniSONE [Prednisone 20mg Tab] 20 mg PO BID #10 tab Transmission Status: Received by [id number] Referrals: Ignacio Aceves MD [Primary Care Provider] - - Critical Care Critical Care Time: No Attestation: On 02/07/20, the high probability of a clinically significant, sudden or life threatening deterioration of the following system(s) required my full and direct attention, intervention and personal management. The time I documented below is in addition to time spent performing reported procedures but includes the following listed in this critical care notation. Medical Decision Making - Del Inquiry Pt receiving controlled substance: Yes Del was queried for this patient: Yes Reference #:: [id number] Risks and benefits of using a controlled substance: were discussed with pt by me Comment: 6 rxs for tramadol. Vital Signs: 02/07/20 09:55 Temperature 98.1 F Temperature Source Oral Pulse Rate [Left Radial] 70 Respiratory Rate 18 Blood Pressure [Right Arm] 163/74 H Blood Pressure Mean [Right Arm] 103 Blood Pressure Position [Right Arm] Sitting 02 Sat by Pulse Oximetry 98 Oxygen Delivery Method Room Air Orders (Tests/Meds): ED MEDICATIONS Discontinued Medications Generic Name Dose Route Start Last Admin Trade Name Freq PRN Reason Stop Dose Admin Hydrocodone Bitart/Acetaminophen 1 tab 02/07/20 10:28 Alfred 5/325mg Tablet PO 02/07/20 10:29 ONCE ONE Prednisone 40 mg 02/07/20 10:28 Deltasone 20mg Tablet PO 02/07/20 10:29 ONCE ONE General Adult HPI - General Stated complaint: gout in foot Time Seen by Provider: 02/07/20 10:12 - History of Present Illness HPI narrative: Complains of a gout attack in her right foot, started mildly a week ago but over the past couple days is gotten more severe. Getting harder to walk on. On her prescription list there is noted to be allopurinol, but she says she does not take that. States her last gout attack was about 3 years ago. She does not know what medication was used for the acute attack. She says she is going to see her doctor on Sunday for follow-up. She has tramadol at home for pain, but it is not helping at all. She requests something else for pain. Current symptoms are the same as previous gout attacks. - Related Data Home Medications Medication Instructions Recorded Confirmed metolazone 2.5 mg tablet 2.5 mg PO MOWEFR tab 03/13/19 01/06/20 Loratadine [Claritin] 10 mg PO DAILY 04/16/19 01/06/20 bisoprolol fumarate 10 mg tablet 10 mg PO BID tab 05/29/19 01/06/20 digoxin 125 mcg (0.125 mg) tablet 125 mcg PO .MWF tab 05/29/19 01/06/20 Clopidogrel Bisulfate [Plavix 75mg 75 mg PO DAILY 07/03/19 01/06/20 Tab] Rivaroxaban [Xarelto] 10 mg PO QPM 07/03/19 01/06/20 allopurinol 100 mg tablet 100 mg PO BID tab 10/22/19 01/06/20 fluticasone propionate 50 1 spray INTRANASAL DAILY 10/22/19 01/06/20 mcg/actuation nasal spray,suspension nitroglycerin 0.4 mg/hr 1 patch TRANSDERMA DAILY 10/22/19 01/06/20 transdermal 24 hour patch ondansetron HCl 4 mg tablet 4 mg PO Q8H 10/22/19 01/06/20 pantoprazole 40 mg tablet,delayed 40 mg PO DAILY 10/22/19 01/06/20 release ropinirole 0.5 mg tablet 0.5 mg PO B
[2020-02-07 10:43] VITALS: BP 123/74; PULSE 78; RESP 16; TEMP 36.6; O2SAT 98
== END 2020-02-07 10:44 | disposition home or self-care (01) ==
PROVIDERS: Emergency Provider Emergency Medicine; PCP Internal Medicine Adolescent Medicine
DX: M10.071 Idiopathic gout, right ankle and foot (principal); I48.20 Chronic atrial fibrillation, unspecified; I25.10 Atherosclerotic heart disease of native coronary artery without angina pectoris; Z86.73 Personal history of transient ischemic attack (TIA), and cerebral infarction without residual deficits; E78.5 Hyperlipidemia, unspecified; I10 Essential (primary) hypertension; I25.2 Old myocardial infarction; Z95.0 Presence of cardiac pacemaker; Z87.891 Personal history of nicotine dependence
CPT/HCPCS: 99281

== ENCOUNTER → 2020-02-19 13:52 | Outpatient (CLI) | payer MEDICARE, SELFPAY ==
--- NOTE | 2020-02-19 14:05 | CT_ITS ---
PROCEDURE: CT SOFT TISSUE NECK WO CON CLINICAL HISTORY: NECK SWELLING,NECK PAIN, COMPARISON: CT CHEST WO CON from 02/19/2020 TECHNIQUE: Oral Contrast: None IV Contrast: None Axial images obtained with sagittal and coronal reformats. All CT scans at the facility use one or more dose reduction, viz: automated exposure control, ma/kV adjustment per patient size (including targeted exams where dose is matched to indication, i.e. head), or iterative reconstruction technique. FINDINGS: There was reported palpable abnormality along the left posterior neck and trapezius region. There is some asymmetry in the posterior muscles some which may be due to patient positioning. The trapezius muscle shows asymmetric prominence on the left. The left rhomboid minor, scalene muscles and splenius cervicis muscle also is somewhat more prominent. This is not felt however to be due to underlying hemorrhage as the muscle margin is well-circumscribed and the density is not significantly different the. The muscle outline is well-circumscribed. No infiltration of the fascial planes between the muscles. No fluid collections. The nasopharynx, hypopharynx, oropharynx, glottic region, epiglottis and subglottic region have an unremarkable appearance. There are multiple bilateral thyroid nodules. The right lobe of the thyroid gland is enlarged. Dominant nodule in the right thyroid measures up to 1.8 cm. There is degenerative disc disease at C5-C6 and C6-C7 with mild bilateral foraminal narrowing at these levels. IMPRESSION: There is asymmetric prominence of the muscles in the left neck posteriorly including the trapezius, scalenes, rhomboid minor and splenius cervicis. This may may be related to spasm and contraction. No definite hematoma or other significant anomaly. Bilateral thyroid nodules most prominent on the right at 1.8 cm with enlarged right lobe of the thyroid gland. The trachea is slightly shifted toward the left the Degenerative disc disease with mild bilateral foraminal narrowing at C5-C6 and C6-C7 Dictated by: Roddy Decker MD 02/19/2020 15:47 Electronically signed by Roddy Decker MD in [place] 02/19/2020 15:47
--- NOTE | 2020-02-19 14:05 | CT_ITS ---
PROCEDURE: CT CHEST WO CON CLINICAL INDICATION: LT SIDED CHEST PAIN Left-sided chest pain, possible soft tissue mass posterior COMPARISON: CXR2V XR chest 2V from 09/05/2018 CT SOFT TISSUE NECK WO CON from 02/19/2020 TECHNIQUE: Axial images obtained with sagittal and coronal reformats. All CT scans at the facility use one or more dose reduction, viz: automated exposure control, ma/kV adjustment per patient size (including targeted exams where dose is matched to indication, i.e. head), or iterative reconstruction technique. FINDINGS: HEART AND MEDIASTINAL STRUCTURES: The right lobe of the thyroid gland is enlarged with multiple nodules the largest of which measures 1.8 cm. Thyroid ultrasound may provide further evaluation. There is mild tracheal shift to the right. Cardiac pacemaker is present from left subclavian approach. There is mild cardiomegaly without failure. There are few small mediastinal lymph nodes but no mediastinal or hilar mass or adenopathy. LUNGS AND PLEURAL SPACES: There is scarring in the lung apices with apical pleural thickening. Irregular increased density is present in the right lower lobe anteriorly which may be due to an area of scarring or volume loss. This however has a somewhat nodular contour along its mid aspect measuring 2 cm AP and 1.5 cm transverse. There are mild atelectatic or fibrotic changes in the left lower lobe. There is some pleural thickening along the left posterior hemithorax. This however is fat density. No lobar consolidation or collapse. BONY STRUCTURES: Degenerative changes with mild kyphosis of the midthoracic spine UPPER ABDOMEN: Unremarkable. ADDITIONAL FINDINGS: Asymmetric prominence of the posterior neck muscles as described in the neck CT report may be due to muscle spasm/contraction without obvious mass or hematoma IMPRESSION: 1. Right thyroid nodule with enlarged right lobe of the thyroid gland which may be better evaluated with ultrasound. 2. Irregular parenchymal density in the right lower lobe which could be due to scarring and/or atelectatic change. This however has a somewhat nodular configuration and developing mass or neoplasm cannot be excluded. Suggest short-term follow-up in 3 months to confirm short term stability 3. Other nonacute findings as described above. Dictated by: Roddy Decker MD 02/19/2020 16:06 Electronically signed by Roddy Decker MD in [place] 02/19/2020 16:06
[2020-02-19 15:51] LABS: Basophils # 0.1 K/mm3 (0-0.2); Basophils % 0.4 % (0.1-2.0); Eosinophils # 0.1 K/mm3 (0.0-0.4); Eosinophils % 0.6 % (0.1-12.0); Hemoglobin 10.7 g/dL (12.2-16.2); Lymphocytes # 1.7 K/mm3 (0.7-4.5); Lymphocytes % 8.8 % (10-50); Mean Corpuscular HGB Conc 31.6 g/dL (31.8-35.4); Mean Corpuscular Hemoglobin 25.6 pg (27.0-31.2); Mean Corpuscular Volume 80.8 fl (81-99); Mean Platelet Volume 8.6 fl (7.4-10.4); Monocytes # 0.9 K/mm3 (0.1-1.0); Monocytes % 4.8 % (1.7-9.3); Neutrophils # 16.6 K/mm3 (1.8-7.8); Neutrophils % 85.5 % (37.0-80.0); Platelet Count 397 K/mm3 (142-424); Red Cell Distribution Width 15.2 % (11.5-17.5); White Blood Count 19.4 K/mm3 (4.8-10.8)
[2020-02-19 15:56] LABS: MANUAL DIFFERENTIAL MANUAL DIFFERENTIAL (MANUAL DIFF)
[2020-02-19 17:18] LABS: Anisocytosis 1+; Hypochromasia 2+; Lymphocytes % 17 % (10-50); Microcytosis 1+; Monocytes % 3 % (2-9); Neutrophils % 77 % (42-76); Platelet Estimate Normal; Poikilocytosis 2+; Stomatocytes 1+; Total Cells Counted 100
[2020-02-19 17:57] LABS: Alanine Aminotransferase 13 U/L (12-78); Albumin Level 4.2 g/dl (3.5-5.0); Albumin/Globulin Ratio 1.4 (1.1-1.8); Alkaline Phosphatase 124 U/L (38-126); Anion Gap 14.2 mEq/L (5-15); Aspartate Amino Transferase 20 U/L (14-36); Bilirubin,Total 0.7 mg/dl (0.2-1.3); Blood Urea Nitrogen 27 mg/dl (7-17); Calcium 9.5 mg/dl (8.4-10.2); Carbon Dioxide 31 mmol/L (22.0-30.0); Chloride 90 mmol/L (98-107); Estimated Glomerular Filt Rate 29 ml/min (>60); GFR (African American) 35 ML/MIN (>60); Globulin 2.9 g/dL (1.3-3.2); Glucose 144 mg/dl (74-100); Magnesium 1.3 mg/dl (1.6-2.3); Potassium 4.2 mmoL/L (3.5-5.1); Sodium 131 mmol/L (136-145); Total Protein,Serum 7.1 g/dl (6.3-8.2); Uric Acid 14.5 mg/dl (2.5-6.2)
[2020-02-19 18:04] LABS: Erythrocyte Sedimentation Rate 85 mm/hr (0-30)
== END ==
PROVIDERS: PCP Internal Medicine Adolescent Medicine; Visit Provider Nurse Practitioner Family
DX: I25.10 Atherosclerotic heart disease of native coronary artery without angina pectoris (principal); M10.9 Gout, unspecified; R22.1 Localized swelling, mass and lump, neck; R07.9 Chest pain, unspecified; M25.512 Pain in left shoulder; M54.2 Cervicalgia
CPT/HCPCS: 36415; 70490; 71250; 80053; 83735; 84550; 85007; 85025; 85651

== ENCOUNTER → 2020-03-08 09:26 | Outpatient (CLI) | payer MEDICARE, SELFPAY ==
--- NOTE | 2020-03-08 09:29 | US_ITS ---
PROCEDURE: US THYROID CLINICAL INDICATION: THYROID NODULE COMPARISON: CT SOFT TISSUE NECK WO CON from 02/19/2020 FINDINGS: Both thyroid glands are of normal size and heterogeneous echogenicity. Multiple bilateral thyroid nodules are demonstrated. The right thyroid gland measures 19 millimeters X 36 millimeter x 17 millimeters and contains multiple solid and complex nodules with the dominant nodule in the right upper pole measuring 13 millimeters x 11 millimeters x 15 millimeters. The dominant nodule demonstrates mixed cystic and solid echogenicity. It is wider than tall with smooth margins and no abnormal calcifications. Left lobe: The left thyroid gland measures 14 millimeters x 38 millimeters x 12 millimeters and contains multiple solid and cystic nodules of which there is a dominant within the midpole region measuring 14 millimeters X 18 mm x 7.6 millimeters. This dominant nodule is of mixed cystic and solid echogenicity. It is wider than tall. There are no abnormal calcifications and the borders are well-defined. The isthmus measures 2.2 millimeters. IMPRESSION: Probable multinodular goiter with dominant bilateral TR 2 lesions. Follow-up ultrasound in 6 months recommended. Dictated by: Ankit Uribe 03/08/2020 11:38 Electronically signed by Ankit Uribe in [place] 03/08/2020 11:38
== END ==
PROVIDERS: PCP Internal Medicine Adolescent Medicine; Visit Provider Nurse Practitioner Family
DX: E04.1 Nontoxic single thyroid nodule (principal); I50.20 Unspecified systolic (congestive) heart failure; I48.20 Chronic atrial fibrillation, unspecified
CPT/HCPCS: 76536

== ENCOUNTER → 2020-03-09 06:48 | Outpatient (CLI) | payer MEDICARE, SELFPAY ==
--- NOTE | 2020-03-09 06:51 | NM_ITS ---
PROCEDURE: NM THYROID IMAGE UPTAKE CLINICAL INDICATION: THYROID NODULE COMPARISON: US THYROID from 03/08/2020 TECHNIQUE: Dose: 358 uCi of I 123 p.o. FINDINGS: The 24 hour radioiodine uptake is 21.9 percent. Normal is between 10 and 35 percent. There is heterogeneous activity within the right lobe of the thyroid gland which appears somewhat enlarged. There are some areas of decreased activity including the mid and upper pole on the right and lower pole on the right. These areas of decreased activity could correspond to the nodular areas noted on the ultrasound. No hyperactive nodules apparent. IMPRESSION: 1. Normal 24 hour radioiodine uptake. 2. Multinodular goiter as noted from the previous ultrasound. Some of the nodules appear somewhat hypoactive. Recommend six-month ultrasound follow-up. Dictated by: Roddy Decker MD 03/15/2020 08:53 Electronically signed by Roddy Decker MD in [place] 03/15/2020 08:53
--- NOTE | 2020-03-09 07:12 | HMH.ITSHM ---
Current Home Medications as stated by this patient Noni Trujillo or account maintenance representative. []SPIRONOLACTONE ROPINIROLE PANTOPRAZOLE ONDANSETRON NITRO METALAZONE MAGNESIUM FUROSEMIDE FLUTICASONE DIGOXIN BISOPROLOL TRAMADOL XARELTO LORATADINE CLOPIDOGREL
== END ==
PROVIDERS: PCP Internal Medicine Adolescent Medicine; Visit Provider Nurse Practitioner Family
DX: E04.1 Nontoxic single thyroid nodule (principal); I48.20 Chronic atrial fibrillation, unspecified; I50.20 Unspecified systolic (congestive) heart failure
CPT/HCPCS: 78014; A9516

== ENCOUNTER → 2020-04-13 10:55 | Outpatient (CLI) | payer MEDICARE, SELFPAY ==
[2020-04-13 14:01] LABS: Alanine Aminotransferase 23 U/L (12-78); Albumin Level 4.3 g/dl (3.5-5.0); Albumin/Globulin Ratio 1.7 (1.1-1.8); Alkaline Phosphatase 125 U/L (38-126); Amylase 70 U/L (30-110); Anion Gap 16.6 mEq/L (5-15); Aspartate Amino Transferase 27 U/L (14-36); Bilirubin,Total 0.4 mg/dl (0.2-1.3); Blood Urea Nitrogen 53 mg/dl (7-17); Calcium 9.7 mg/dl (8.4-10.2); Carbon Dioxide 33 mmol/L (22.0-30.0); Chloride 86 mmol/L (98-107); Estimated Glomerular Filt Rate 20 ml/min (>60); GFR (African American) 25 ML/MIN (>60); Globulin 2.6 g/dL (1.3-3.2); Glucose 100 mg/dl (74-100); Lipase 63 U/L (23-300); Potassium 3.6 mmoL/L (3.5-5.1); Sodium 132 mmol/L (136-145); Total Protein,Serum 6.9 g/dl (6.3-8.2)
[2020-04-13 14:22] LABS: Basophils # 0.1 K/mm3 (0-0.2); Basophils % 0.5 % (0.1-2.0); Eosinophils # 0.2 K/mm3 (0.0-0.4); Eosinophils % 1.5 % (0.1-12.0); Hematocrit 31.2 % (37.0-47.0); Hemoglobin 9.9 g/dL (12.2-16.2); Lymphocytes # 2.6 K/mm3 (0.7-4.5); Lymphocytes % 19.2 % (10-50); Mean Corpuscular HGB Conc 31.7 g/dL (31.8-35.4); Mean Corpuscular Hemoglobin 25.2 pg (27.0-31.2); Mean Corpuscular Volume 79.6 fl (81-99); Mean Platelet Volume 9.2 fl (7.4-10.4); Monocytes # 0.7 K/mm3 (0.1-1.0); Monocytes % 5.1 % (1.7-9.3); Neutrophils # 10.1 K/mm3 (1.8-7.8); Neutrophils % 73.8 % (37.0-80.0); Platelet Count 426 K/mm3 (142-424); Red Blood Count 3.92 M/mm3 (4.20-5.40); Red Cell Distribution Width 15.3 % (11.5-17.5); White Blood Count 13.6 K/mm3 (4.8-10.8)
[2020-04-13 14:32] LABS: Thyroid Stimulating Hormone 5.88 uIU/mL (0.465-4.68)
== END ==
PROVIDERS: Visit Provider Internal Medicine Adolescent Medicine
DX: R11.2 Nausea with vomiting, unspecified (principal); R63.4 Abnormal weight loss
CPT/HCPCS: 36415; 80053; 80162; 82150; 83690; 84443; 85025

== ENCOUNTER → 2020-04-28 08:28 | Outpatient (CLI) | payer MEDICARE, SELFPAY ==
[2020-04-28 09:15] LABS: Chloride 102 mmol/L (98-107); Potassium 4.8 mmoL/L (3.5-5.1); Sodium 137 mmol/L (136-145)
[2020-04-28 09:18] LABS: Anion Gap 14.8 mEq/L (5-15); Blood Urea Nitrogen 17 mg/dl (7-17); Carbon Dioxide 25 mmol/L (22.0-30.0); Estimated Glomerular Filt Rate 43 ml/min (>60); GFR (African American) 52 ML/MIN (>60)
[2020-04-28 09:19] LABS: Calcium 8.9 mg/dl (8.4-10.2); Glucose 180 mg/dl (74-100)
== END ==
PROVIDERS: Visit Provider Internal Medicine Cardiovascular Disease
DX: E78.5 Hyperlipidemia, unspecified; I25.10 Atherosclerotic heart disease of native coronary artery without angina pectoris; I42.9 Cardiomyopathy, unspecified; I48.91 Unspecified atrial fibrillation; I73.9 Peripheral vascular disease, unspecified; M79.602 Pain in left arm; R53.83 Other fatigue; R60.0 Localized edema; R94.31 Abnormal electrocardiogram [ECG] [EKG]; Z95.810 Presence of automatic (implantable) cardiac defibrillator; I11.0 Hypertensive heart disease with heart failure; I11.9 Hypertensive heart disease without heart failure
CPT/HCPCS: 36415; 80048

== ENCOUNTER → 2020-05-05 07:21 | Outpatient (CLI) | payer MEDICARE, SELFPAY ==
[2020-05-05 08:45] LABS: Chloride 91 mmol/L (98-107); Sodium 132 mmol/L (136-145)
[2020-05-05 08:46] LABS: Potassium 3.6 mmoL/L (3.5-5.1)
[2020-05-05 08:50] LABS: Blood Urea Nitrogen 45 mg/dl (7-17); Estimated Glomerular Filt Rate 24 ml/min (>60); GFR (African American) 29 ML/MIN (>60)
[2020-05-05 08:51] LABS: Anion Gap 16.6 mEq/L (5-15); Calcium 8.7 mg/dl (8.4-10.2); Carbon Dioxide 28 mmol/L (22.0-30.0); Glucose 172 mg/dl (74-100)
[2020-05-05 08:57] LABS: NT Pro Brain Natriuretic Pep. 1810 pg/mL (0-450)
== END ==
PROVIDERS: Visit Provider Internal Medicine Cardiovascular Disease
DX: E78.2 Mixed hyperlipidemia (principal); I11.0 Hypertensive heart disease with heart failure; I25.10 Atherosclerotic heart disease of native coronary artery without angina pectoris; I50.22 Chronic systolic (congestive) heart failure; R06.00 Dyspnea, unspecified; R53.82 Chronic fatigue, unspecified; I42.9 Cardiomyopathy, unspecified; I48.91 Unspecified atrial fibrillation; I73.9 Peripheral vascular disease, unspecified; R60.0 Localized edema; R94.31 Abnormal electrocardiogram [ECG] [EKG]; Z95.810 Presence of automatic (implantable) cardiac defibrillator
CPT/HCPCS: 36415; 80048; 83880

== ENCOUNTER → 2020-05-11 08:38 | Outpatient (CLI) | payer MEDICARE, SELFPAY ==
--- NOTE | 2020-05-11 08:41 | CT_ITS ---
PROCEDURE: CT ABDOMEN PELVIS WO CON CLINICAL INDICATION: NON-INTRACTABLE VOMITING W/NAUSEA, EPIGASTRIC PAIN Vomittin after eating x several weeks (Intermittent) redicat COMPARISON: No exams were available for comparison TECHNIQUE: Axial images obtained with sagittal and coronal reformats. All CT scans at the facility use one or more dose reduction, viz: automated exposure control, ma/kV adjustment per patient size (including targeted exams where dose is matched to indication, i.e. head), or iterative reconstruction technique. FINDINGS: LOWER THORAX: There are atelectatic changes/scarring in the lung bases. Artifact is present from cardiac pacemaker device. ABDOMEN & PELVIS: There is a 10 mm area of decreased attenuation in the left hepatic lobe anteriorly, segment 2 possibly due to an area focal fatty replacement.. The liver is otherwise unremarkable. The spleen, adrenal glands, have an unremarkable appearance. No obvious gallstones. There is pancreatic atrophy. There is left renal atrophy. Calcification noted in the left renal pelvis at 5 mm and may be due to vascular calcification or nonobstructing stone. There is hypertrophic changes of the right kidney. No obstructing renal or ureteral calculi. No evidence of appendicitis. There is diverticulosis of the sigmoid colon but no evidence of diverticulitis. No intestinal obstruction or free air. No pelvic mass or abnormal fluid collection. No acute bony findings. IMPRESSION: 1. No acute abdominal or pelvic findings. 2. 10 mm area of decreased attenuation anterior aspect of the left hepatic lobe possibly due to focal fatty infiltration. There is however some bulging of the contour of the liver anteriorly at this region suggesting that this is may be a true nodule. CT or MRI with hemangioma protocol may provide further evaluation. 3. Colonic diverticulosis without diverticulitis. Dictated by: Roddy Decker MD 05/12/2020 09:21 Roddy Decker MD in [place] 05/12/2020 09:21
== END ==
PROVIDERS: PCP Internal Medicine Adolescent Medicine; Visit Provider Internal Medicine Adolescent Medicine
DX: R11.2 Nausea with vomiting, unspecified (principal); R10.13 Epigastric pain; R63.4 Abnormal weight loss
CPT/HCPCS: 74176

== ENCOUNTER → 2020-05-12 08:02 | Outpatient (CLI) | payer MEDICARE, SELFPAY ==
[2020-05-12 09:09] LABS: Chloride 83 mmol/L (98-107); Potassium 4.1 mmoL/L (3.5-5.1); Sodium 131 mmol/L (136-145)
[2020-05-12 09:12] LABS: Anion Gap 16.1 mEq/L (5-15); Blood Urea Nitrogen 53 mg/dl (7-17); Calcium 9.6 mg/dl (8.4-10.2); Carbon Dioxide 36 mmol/L (22.0-30.0); Estimated Glomerular Filt Rate 22 ml/min (>60); GFR (African American) 26 ML/MIN (>60); Glucose 153 mg/dl (74-100)
== END ==
PROVIDERS: Visit Provider Internal Medicine Cardiovascular Disease
DX: E78.2 Mixed hyperlipidemia (principal); I11.0 Hypertensive heart disease with heart failure; I25.10 Atherosclerotic heart disease of native coronary artery without angina pectoris; I42.9 Cardiomyopathy, unspecified; I48.91 Unspecified atrial fibrillation; I50.22 Chronic systolic (congestive) heart failure; I63.9 Cerebral infarction, unspecified; R06.00 Dyspnea, unspecified; R53.82 Chronic fatigue, unspecified; Z95.810 Presence of automatic (implantable) cardiac defibrillator
CPT/HCPCS: 36415; 80048

== ENCOUNTER → 2020-05-19 09:52 | Outpatient (CLI) | payer MEDICARE, SELFPAY ==
[2020-05-19 11:27] LABS: Anion Gap 15.8 mEq/L (5-15); Blood Urea Nitrogen 48 mg/dl (7-17); Calcium 9.5 mg/dl (8.4-10.2); Carbon Dioxide 33 mmol/L (22.0-30.0); Chloride 88 mmol/L (98-107); Estimated Glomerular Filt Rate 17 ml/min (>60); GFR (African American) 21 ML/MIN (>60); Glucose 120 mg/dl (74-100); Potassium 4.8 mmoL/L (3.5-5.1); Sodium 132 mmol/L (136-145)
== END ==
PROVIDERS: Visit Provider Internal Medicine Cardiovascular Disease
DX: E78.5 Hyperlipidemia, unspecified (principal); I11.9 Hypertensive heart disease without heart failure; I25.10 Atherosclerotic heart disease of native coronary artery without angina pectoris; I42.9 Cardiomyopathy, unspecified; I48.91 Unspecified atrial fibrillation; I50.9 Heart failure, unspecified; I73.9 Peripheral vascular disease, unspecified; R42 Dizziness and giddiness; R53.83 Other fatigue; R60.0 Localized edema; R94.31 Abnormal electrocardiogram [ECG] [EKG]; Z95.810 Presence of automatic (implantable) cardiac defibrillator
CPT/HCPCS: 36415; 80048

== ENCOUNTER → 2020-05-26 07:41 | Outpatient (CLI) | payer MEDICARE, SELFPAY ==
[2020-05-26 09:13] LABS: Chloride 101 mmol/L (98-107); Potassium 5.6 mmoL/L (3.5-5.1); Sodium 138 mmol/L (136-145)
[2020-05-26 09:16] LABS: Blood Urea Nitrogen 35 mg/dl (7-17); Estimated Glomerular Filt Rate 24 ml/min (>60); GFR (African American) 29 ML/MIN (>60)
[2020-05-26 09:17] LABS: Anion Gap 14.6 mEq/L (5-15); Calcium 9.1 mg/dl (8.4-10.2); Carbon Dioxide 28 mmol/L (22.0-30.0); Glucose 164 mg/dl (74-100)
== END ==
PROVIDERS: Visit Provider Nurse Practitioner Family
DX: E78.5 Hyperlipidemia, unspecified (principal); I11.9 Hypertensive heart disease without heart failure; I25.10 Atherosclerotic heart disease of native coronary artery without angina pectoris; I42.9 Cardiomyopathy, unspecified; I48.91 Unspecified atrial fibrillation; I50.9 Heart failure, unspecified; I73.9 Peripheral vascular disease, unspecified; M79.602 Pain in left arm; R42 Dizziness and giddiness; R53.83 Other fatigue; R60.0 Localized edema; R94.31 Abnormal electrocardiogram [ECG] [EKG]; Z95.810 Presence of automatic (implantable) cardiac defibrillator
CPT/HCPCS: 36415; 80048

== ENCOUNTER → 2020-06-02 08:13 | Outpatient (CLI) | payer MEDICARE, SELFPAY ==
[2020-06-02 09:49] LABS: Chloride 97 mmol/L (98-107); Potassium 3.9 mmoL/L (3.5-5.1); Sodium 136 mmol/L (136-145)
[2020-06-02 09:52] LABS: Anion Gap 14.9 mEq/L (5-15); Blood Urea Nitrogen 34 mg/dl (7-17); Calcium 8.7 mg/dl (8.4-10.2); Carbon Dioxide 28 mmol/L (22.0-30.0); Estimated Glomerular Filt Rate 27 ml/min (>60); GFR (African American) 33 ML/MIN (>60); Glucose 133 mg/dl (74-100)
== END ==
PROVIDERS: Visit Provider Urology
DX: E87.5 Hyperkalemia (principal)
CPT/HCPCS: 36415; 80048

== ENCOUNTER → 2020-06-17 08:10 | Outpatient (CLI) | payer MEDICARE, SELFPAY ==
[2020-06-17 11:10] LABS: Chloride 87 mmol/L (98-107)
[2020-06-17 11:11] LABS: Potassium 3.8 mmoL/L (3.5-5.1); Sodium 132 mmol/L (136-145)
[2020-06-17 11:13] LABS: Blood Urea Nitrogen 45 mg/dl (7-17); Estimated Glomerular Filt Rate 22 ml/min (>60); GFR (African American) 26 ML/MIN (>60)
[2020-06-17 11:14] LABS: Anion Gap 15.8 mEq/L (5-15); Calcium 8.8 mg/dl (8.4-10.2); Carbon Dioxide 33 mmol/L (22.0-30.0); Glucose 165 mg/dl (74-100)
== END ==
PROVIDERS: Visit Provider Internal Medicine Cardiovascular Disease
DX: R42 Dizziness and giddiness; E78.5 Hyperlipidemia, unspecified; I11.9 Hypertensive heart disease without heart failure; I25.10 Atherosclerotic heart disease of native coronary artery without angina pectoris; I42.9 Cardiomyopathy, unspecified; I48.91 Unspecified atrial fibrillation; I50.9 Heart failure, unspecified; I73.9 Peripheral vascular disease, unspecified; M79.602 Pain in left arm; R53.83 Other fatigue; R60.0 Localized edema; R94.31 Abnormal electrocardiogram [ECG] [EKG]; Z95.810 Presence of automatic (implantable) cardiac defibrillator
CPT/HCPCS: 36415; 80048

== ENCOUNTER 2020-06-27 14:06 | Observation (INO) | payer MEDICARE, SELFPAY ==
[2020-06-27] VITALS (23 sets, daily range): BP systolic 112–158; BP diastolic 39–58; PULSE 65–87; RESP 16–20; TEMP 36.3–37.1; O2SAT 95–100; BMI 23.1; BMI 24.5
--- NOTE | 2020-06-27 14:25 | HMH.EDGENADL ---
ED Disposition Clinical Impression: Blood loss anemia, Occult blood positive stool Disposition: Admitted as Observation Condition on Discharge: Fair - Critical Care Critical Care Time: No Attestation: On 06/27/20, the high probability of a clinically significant, sudden or life threatening deterioration of the following system(s) required my full and direct attention, intervention and personal management. The time I documented below is in addition to time spent performing reported procedures but includes the following listed in this critical care notation. Medical Decision Making - Medical Records Medical records reviewed: Yes: I reviewed the patient's medical records. - Del Inquiry Pt receiving controlled substance: No Vital Signs: 06/27/20 14:23 06/27/20 14:54 06/27/20 17:00 Temperature 98.2 F 98.0 F Temperature Source Oral Oral Pulse Rate 70 Pulse Rate [Right Radial] 87 70 Respiratory Rate 20 18 20 TAR Vitals Timing Pre-Blood Vitals Blood Pressure 158/51 H Blood Pressure [Right Arm] 141/44 H 142/57 H Blood Pressure Mean 86 Blood Pressure Mean [Right Arm] 76 85 Blood Pressure Source Automatic Cuff Blood Pressure Source [Right Arm] Automatic Cuff Blood Pressure Position Sitting Blood Pressure Position [Right Arm] Sitting 02 Sat by Pulse Oximetry 95 100 99 Oxygen Delivery Method Room Air Room Air Room Air - Lab Data Lab results reviewed: Yes: I reviewed the patient's lab results. Lab Results 06/27/20 14:25: WBC 14.4 H, RBC 2.97 L, Hgb 5.9 L*, Hct 22.3 L*, MCV 76.0 L, MCH 20.3 L, MCHC 26.7 L, RDW 16.3, Plt Count 678 H, MPV 7.7, Neut % (Auto) 81.9 H, Lymph % (Auto) 11.7, [place] % (Auto) 5.4, Eos % (Auto) 0.4, Baso % (Auto) 0.5, Neut # (Auto) 11.8 H, Lymph # (Auto) 1.7, [place] # (Auto) 0.8, Eos # (Auto) 0.1, Baso # (Auto) 0.1 06/27/20 14:25: Sodium 133 L, Potassium 3.9, Chloride 93 L, Carbon Dioxide 25, Anion Gap 18.9 H, BUN 55 H, Creatinine 2.70 H, Estimated Creat Clear 16, Estimated GFR 17 L*, Est GFR ( Amer) 21 L, Glucose 153 H, Calcium 9.4, Total Bilirubin 0.4, AST 23, ALT 20, Alkaline Phosphatase 113, Troponin I < 0.01, Total Protein 7.2, Albumin 4.3, Globulin 2.9, Albumin/Globulin Ratio 1.5 06/27/20 14:25: Lactate 5.0 H 06/27/20 14:25: Digoxin 0.80 06/27/20 14:30: Urine Color Yellow, Urine Appearance Clear, Urine pH 7.0, Ur Specific [place] 1.010, Urine Protein Negative, Urine Glucose (UA) Negative, Urine Ketones Negative, Urine Blood Negative, Urine Nitrate Negative, Urine Bilirubin Negative, Urine Urobilinogen 0.2, Ur Leukocyte Esterase Negative, Urine RBC None, Urine WBC 3-5, Ur Squamous Epith Cells 10-20, Urine Bacteria None, Urine Mucus Trace 06/27/20 14:30: SARS-CoV-2 IgG Ab (Rapid) Negative, SARS-CoV-2 IgM Ab (Rapid) Negative 06/27/20 14:30: NT-Pro-B Natriuret Pep 1590 H 06/27/20 15:20: Blood Type A Negative, Antibody Screen Negative, Crossmatch (AHG) See Detail 06/27/20 15:23: Stool Occult Blood Positive A Result diagrams: 06/27/20 14:25 06/27/20 14:25 Orders (Tests/Meds): ED MEDICATIONS Generic Name Dose Route Start Last Admin Trade Name Freq PRN Reason Stop Dose Admin Acetaminophen 650 mg 06/27/20 15:37 Acetaminophen 325mg Tab PO 07/27/20 15:36 Q4HP PRN As Needed for Fever or Pain Allopurinol 100 mg 06/28/20 09:00 Allopurinol 100mg Tablet PO 07/28/20 08:59 DAILY WALT Digoxin 125 mcg 06/28/20 09:00 Digoxin 0.125mg Tablet PO 07/28/20 08:59 DAILY WALT Furosemide 40 mg 06/27/20 16:15 Furosemide 40 Mg Tablet PO 07/27/20 16:14 DIRECTED WALT Sodium Chloride 1,000 mls @ 50 mls/hr 06/27/20 15:45 Sod Chlor 0.9% 1000ml Bag IV 07/27/20 15:44 .Q20H WALT Sodium Chloride 250 mls @ 25 mls/hr 06/27/20 15:45 Sod Chlor 0.9% 250ml Bag IV 06/28/20 15:44 .Q10H WALT Metolazone 2.5 mg 06/28/20 09:00 Metolazone 2.5mg Tablet PO 07/28/20 08:59 DAILY WALT Nitroglycerin 1 each 06/28/20 09:00 N
--- NOTE | 2020-06-27 14:27 | XR_ITS ---
PROCEDURE: XR CHEST PORTABLE Referring Doctor: Declan Aviles Patient Age:79Y CLINICAL HISTORY: WEAKNESS. Nonsmoker. COMPARISON: CR CXR2V XR chest 2V from 09/05/[address] CHEST WO CON from 02/19/2020 FINDINGS: . Today's AP portable upright chest is compared to multiple studies including March 2018, and most recent August 2018 CXR. There is also CT chest from February 2020 use for comparison Linear scarring at right base has been seen previously but stable but Minimal density partially obscuring left hemidiaphragm at the left base was seen on previous study as well. No significant new findings. No pneumothorax but no pleural effusion. Chest wall in T-spine unremarkable on this portable AP CXR study The heart is normal in size but again see pacemaker/defibrillator device overlying the left chest with multiple leads and associated features again noted. Of there is also likely prior clipping of the left atrial appendage which likely accounts for the vertically oriented linear radiopaque device in this region. IMPRESSION: No acute findings. No significant new findings . Areas of scarring at the lung bases bilaterally again noted similar to previous studies. Pacemaker. Dictated by: Obed Fried MD 06/27/2020 17:47 Obed Fried MD in [place] 06/27/2020 17:47
[2020-06-27 14:40] LABS: Microscopic, Urine URINE MICROSCOPIC (MICROSCOPIC)
[2020-06-27 14:42] LABS: Appearance,Urine CLEAR (Clear); Bilirubin,Urine Negative (Negative); Blood, Urine Negative (Negative); Color,Urine YELLOW (Yellow); Glucose,Urine (UA) Negative (Negative); Ketones,Urine Negative (Negative); Leukocyte Esterase,Urine Negative (Negative); Nitrate,Urine Negative (Negative); Protein,Urine Negative (Negative); Urobilinogen,Urine 0.2 EU/dl (0.2)
[2020-06-27 14:47] LABS: Basophils # 0.1 K/mm3 (0-0.2); Basophils % 0.5 % (0.1-2.0); Eosinophils # 0.1 K/mm3 (0.0-0.4); Eosinophils % 0.4 % (0.1-12.0); Lymphocytes # 1.7 K/mm3 (0.7-4.5); Lymphocytes % 11.7 % (10-50); Mean Corpuscular HGB Conc 26.7 g/dL (31.8-35.4); Mean Corpuscular Hemoglobin 20.3 pg (27.0-31.2); Mean Platelet Volume 7.7 fl (7.4-10.4); Monocytes # 0.8 K/mm3 (0.1-1.0); Monocytes % 5.4 % (1.7-9.3); Neutrophils # 11.8 K/mm3 (1.8-7.8); Neutrophils % 81.9 % (37.0-80.0); Red Blood Count 2.97 M/mm3 (4.20-5.40); Red Cell Distribution Width 16.3 % (11.5-17.5); White Blood Count 14.4 K/mm3 (4.8-10.8)
[2020-06-27 14:50] LABS: Platelet Count 678 K/mm3 (142-424)
[2020-06-27 14:51] LABS: Hematocrit 22.3 % (37.0-47.0); Hemoglobin 5.9 g/dL (12.2-16.2)
[2020-06-27 14:52] LABS: Chloride 93 mmol/L (98-107); Potassium 3.9 mmoL/L (3.5-5.1); Sodium 133 mmol/L (136-145)
[2020-06-27 14:54] LABS: Mucus,Urine Trace /lpf
[2020-06-27 14:54] LABS: Blood Urea Nitrogen 55 mg/dl (7-17); Creatinine Clearance Estimated 16 mL/min (50-200); Estimated Glomerular Filt Rate 17 ml/min (>60); GFR (African American) 21 ML/MIN (>60)
[2020-06-27 14:55] LABS: Alanine Aminotransferase 20 U/L (12-78); Albumin Level 4.3 g/dl (3.5-5.0); Albumin/Globulin Ratio 1.5 (1.1-1.8); Alkaline Phosphatase 113 U/L (38-126); Anion Gap 18.9 mEq/L (5-15); Aspartate Amino Transferase 23 U/L (14-36); Bilirubin,Total 0.4 mg/dl (0.2-1.3); Calcium 9.4 mg/dl (8.4-10.2); Carbon Dioxide 25 mmol/L (22.0-30.0); Globulin 2.9 g/dL (1.3-3.2); Glucose 153 mg/dl (74-100); Total Protein,Serum 7.2 g/dl (6.3-8.2)
--- NOTE | 2020-06-27 15:00 | ECG_ITS ---
APPROVED REPORT Exam: Resting ECG HR:70 bpm ECG Measurements Heart Rate 70 AXES ID 80 P 88 QRSd 146 QRS -32 QT 456 T 21 QTc 492 Conclusion AV sequential or dual chamber electronic pacemaker Electronically signed by : Daniel Vicente, 06/28/2020 09:24:51
--- NOTE | 2020-06-27 15:01 | PC.NURSE ---
CRITICAL LACTIC REPORTED TO DR SHEN AT THIS TIME. NO INFECTION KNOWN AT THIS TIME. PT PENDING TYPE AND SCREEN FOR PRBC TRANSFUSION. LAB AWARE.
[2020-06-27 15:04] LABS: NT Pro Brain Natriuretic Pep. 1590 pg/mL (0-450)
[2020-06-27 15:15] LABS: Troponin I < 0.01 ng/ml (0.00-0.034)
[2020-06-27 15:15] LABS: Coronavirus 19 IgG Antibody Negative (Negative); Coronavirus 19 IgM Antibody Negative (Negative)
--- NOTE | 2020-06-27 15:19 | PC.NURSE ---
Dr Aviles spoke with Dr Beckwith. for admission
[2020-06-27 15:31] LABS: Occult Blood,Stool Positive (Negative)
--- NOTE | 2020-06-27 16:06 | PC.NURSE ---
Addendum entered by Riya Sosa RN 06/27/20 16:16: spoke with fátima dominguez Original Note: called and spoke with er. verified with them that stated that lactic was because of anemia and not infection related
[2020-06-27 17:07] LABS: Reflex Lactic Add Lactic Reflex
[2020-06-27 17:44] LABS: Lactic Acid Follow Up (RFLX 1) 2.9 mmol/L (0.7-2.1)
[2020-06-27 17:45] LABS: Reflex Lactic (2 hrs) Add Lactic Reflex
[2020-06-27 18:06] LABS: Troponin I < 0.01 ng/ml (0.00-0.034)
--- NOTE | 2020-06-27 19:50 | PC.NURSE ---
BLOOD TRANSFUSION IN PROGRESS AT THIS TIME, PT PRESENTS AO*4 ABLE TO ANSWER QUESTIONS AND FOLLOW COMMANDS, C/O GENERALIZED WEAKNESS, APPEARS PALE, WEAKNESS ON RIGHT SIDE NOTED, PT STATES THAT SHE INJURED HER RIGHT SHOULDER SOME TIME AGO, SHE IS AFEBRILE, DOES NO C/O N/V/D, 99% ON RA, LUNG SOUNDS CLEAR ON AUSCULTATION NO S/S OF TRANSFUSION REACTION, ABD SOFT AND NON-TENDER, BOWEL SOUNDS *4, NO EDEMA NOTED. PT COMFORTABLE, FAMILY AT BEDSIDE, STATES THAT HE WILL BRING IN HOME MEDS TOMORROW MORNING.
[2020-06-27 20:39] LABS: Troponin I < 0.01 ng/ml (0.00-0.034)
[2020-06-28] VITALS (25 sets, daily range): BP systolic 120–168; BP diastolic 49–95; PULSE 60–86; RESP 16–20; TEMP 36.3–37; O2SAT 93–100; BMI 24.3; BMI 24.2
[2020-06-28 01:40] LABS: Hematocrit 25.4 % (37.0-47.0); Hemoglobin 7.8 g/dL (12.2-16.2)
--- NOTE | 2020-06-28 03:14 | PC.NURSE ---
Pt is alert and oriented x4. Pt noted restless majority of this shift. Tolerated her blood transfusion of 2 units well with no complaints. Denies pain when asked by this RN. MARY ANN. Bilateral hand schedule planning manager noted equal and strong. Pt states she has limited ROM with RUE due to previous fall that resulted with a dislocation of her right shoulder. Pt continues to state she has had numerous scans/XR and PT with RUE. Facial grimacing noted to manual elevation to RUE this shift. Cap refill < 3 seconds. Tolerated RA well with no c/o SOA. Bilateral lungs noted clear t/o upon auscultation. RR noted even and unlabored. Active bowel sounds noted in all 4 quads upon auscultation. Adequate appetite noted prior to NPO status at 0000, pt tolerated well. Abdomen noted soft, non-tender and flat upon palpation. No edema noted. Pt requested to remove teds this am due to restless leg syndrome. Paced rhythm noted on phototypesetting equipment monitor t/o shift. VSS. Remains safe. Standby assist with walker to bathroom. Pt states she feels much better this am. Pt skin color noted pink this am versus pallor at beginning of shift. Call light at bedside. Will continue to monitor.
[2020-06-28 05:56] LABS: Basophils # 0.1 K/mm3 (0-0.2); Basophils % 0.5 % (0.1-2.0); Eosinophils # 0.1 K/mm3 (0.0-0.4); Hematocrit 28.4 % (37.0-47.0); Hemoglobin 8.4 g/dL (12.2-16.2); Lymphocytes # 1.7 K/mm3 (0.7-4.5); Lymphocytes % 15.1 % (10-50); Mean Corpuscular HGB Conc 29.5 g/dL (31.8-35.4); Mean Corpuscular Hemoglobin 22.8 pg (27.0-31.2); Mean Corpuscular Volume 77.1 fl (81-99); Mean Platelet Volume 7.1 fl (7.4-10.4); Monocytes # 0.6 K/mm3 (0.1-1.0); Monocytes % 5.3 % (1.7-9.3); Neutrophils # 8.7 K/mm3 (1.8-7.8); Platelet Count 472 K/mm3 (142-424); Red Blood Count 3.69 M/mm3 (4.20-5.40); Red Cell Distribution Width 16.1 % (11.5-17.5); White Blood Count 11.2 K/mm3 (4.8-10.8)
[2020-06-28 06:05] LABS: Anion Gap 13.7 mEq/L (5-15); Blood Urea Nitrogen 54 mg/dl (7-17); Carbon Dioxide 26 mmol/L (22.0-30.0); Chloride 99 mmol/L (98-107); Creatinine Clearance Estimated 20 mL/min (50-200); Estimated Glomerular Filt Rate 20 ml/min (>60); GFR (African American) 25 ML/MIN (>60); Glucose 123 mg/dl (74-100); Potassium 3.7 mmoL/L (3.5-5.1); Sodium 135 mmol/L (136-145)
--- NOTE | 2020-06-28 07:25 | HMH.PHAVTE ---
[facility] VTE Monitoring - Patient Demographics Admission date: 06/27/20 Report Date: 06/28/20 Time: 07:25 Allergies/Adverse Reactions: Patient Allergies No Known Allergies Allergy (Verified 06/10/20 10:44) Height: 1.6 m Weight: 62.369 kg Patient Problems: Current Active Problems (Last Updated 06/26/19 @ 10:15 by Henny Joe RN) Blood loss anemia (Acute) Occult blood positive stool (Acute) - VTE Risk Labs: VTE Related Lab Results Hgb 8.4 g/dL (12.2-16.2) L 06/28/20 05:16 Hct 28.4 % (37.0-47.0) L 06/28/20 05:16 Plt Count 472 K/mm3 (142-424) H D 06/28/20 05:16 BUN 54 mg/dl (7-17) H 06/28/20 05:16 Creatinine 2.30 mg/dl (0.52-1.04) H 06/28/20 05:16 Estimated Creat Clear 20 mL/min (50-200) 06/28/20 05:16 VTE Score: 6 VTE Risk Level: Moderate Risk - Prophylaxis VTE Prophylaxis Ordered?: Yes Types of VTE Prophylaxis: TEDS Knee High Location of Applied Device: Bilateral Lower Extremeties
--- NOTE | 2020-06-28 07:41 | HMH.PHAINT ---
MEDICATION RECONCILIATION COMPLETED ON PATIENT USING EXTERNAL FILL HISTORY FROM PHARMACY. -LATRICIA RAMIREZ, MADELYND
--- NOTE | 2020-06-28 08:33 | HMH.HP ---
*Admission Date: 06/27/20 *Chief complaint: Fatigue, weakness *History of present illness: Ms. Trujillo is a pleasant 79-year-old female with recurrent acute on chronic anemia. She presented to the ER yesterday due to worsening fatigue over the past few weeks. States yesterday she just could not get up and move. Tends to get like this when her blood levels are low. Has required transfusions a few times over the past year, most recent back in October. 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 Denies nausea, hematemesis, hematochezia, melenic stools, bright red blood per rectum. Patient otherwise has been feeling well. Has seen cardiology recently with multiple changes in her heart medications. Assessment in the ER positive for significant anemia, microcytic. Also positive for worsening acute on chronic kidney injury. Transfused 2 units of blood overnight. Admitted to medicine for further management. On assessment this morning, she states she feels better and is able to walk though slowly. Hemoglobin responded well to 2 units. Denies any nausea, vomiting, diarrhea. at bedside states that she looks better to him this morning with better color and energy. [facility] History I have reviewed the patient's past medical history: Yes Medical History: Reports:: Arrhythmia, Atrial Fibrillation, Cardiomyopathy, Carotid Stenosis, Congestive Heart Failure, Coronary Artery Disease, Cerebrovascular Accident, Deep Vein Thrombosis, Gastrointestinal Bleed, Heart Murmur, Hyperlipidemia, Hypertension, Internal Pacemaker, Myocardial Infarction, Palpitations, Peripheral Artery Disease, Transient Ischemic Attacks (TIA), Valvular Heart Disease Denies:: Cancer, Diabetes Mellitus Type 1, Diabetes Mellitus Type 2, MRSA, Seizures *Have you ever received a pneumonia vaccine?: No *Have you received a flu vaccine this season?: No Other Medical History: Reports: Anemia, Arthritis, Cataracts, Sinus Problems. Denies: Blood Transfusion Reaction Laterality Cases: Left: Lumpectomy, Bilateral: Breast Biopsy Other Surgeries: Yes: Angiogram, Angioplasty, Cardiac Catheterization, Cardiac Surgery, Colonoscopy, Coronary Stent, Pacemaker, Other Amputation: No Fractures: No - *Social History Last grade of school completed: High school graduate Smoking Status: Former smoker Tobacco Type: cigarettes # Packs/Day (cigarettes): 1 #Yrs smoked (if former smoker): 30 Alcohol Intake: never Alcohol Intake Frequency:: other Substance Use Type: denies use *Occupational Status:: retired Housing: house Household Members: spouse *Travel in the last 8 weeks: None Family Hx:: Heart Attack, Hypertension, Stroke Review of Systems - Review of Systems Review of systems:: pertinent systems reviewed and negative unless documented below (14 point review of systems performed, pertinent positives and negatives as per HPI) - *Neurologic Reports weakness Meds Home Medications Medication Instructions Recorded Confirmed Type Loratadine [Claritin] 10 mg PO DAILY 04/16/19 06/27/20 History bisoprolol fumarate 10 mg tablet 10 mg PO BID tab 05/29/19 06/27/20 History Clopidogrel Bisulfate [Plavix 75mg 75 mg PO DAILY 07/03/19 06/27/20 History Tab] Rivaroxaban [Xarelto] 10 mg PO PM 07/03/19 06/28/20 History fluticasone propionate 50 1 spray NS DAILY 10/22/19 06/28/20 History mcg/actuation nasal spray,suspension nitroglycerin 0.4 mg/hr 1 patch TRANSDERMA DAILY 10/22/19 06/27/20 History transdermal 24 hour patch ondansetron HCl 4 mg tablet 4 mg PO Q8HP PRN 10/22/19 06/28/20 History pantoprazole 40 mg tablet,delayed 40 mg PO DAILY 10/22/19 06/27/20 History release ropinirole 0.5 mg tablet 0.5 mg PO BIDP PRN 10/22/19 06/28/20 History Tramadol HCl [Tramadol 50mg 50 - 100 mg PO TIDP PRN 11/05/19 06/28/20 History Tab] digoxin 125 mcg (0.125 mg) tablet 125 mcg PO DA
--- NOTE | 2020-06-28 12:06 | HMH.CONS ---
*Admission Date: 06/27/20 *Reason for consult:: GI bleed *History of present illness: This is a 79-year-old female with a complicated medical history including CHF, CKD stage IV, pacemaker placement, A. fib, cardiac stent placement and an upper extremity thrombosis status post blood clot removal. The patient has been on both Xarelto and Plavix therapy. She reports that she has had episodes of anemia requiring transfusion multiple times this past year. This time she presented to the ER with complaints of weakness and dyspnea on exertion and poor appetite. She is found to be Hemoccult positive with an H&H of 5.9 and 22.3. She denies any NSAID use, alcohol use. She was on steroid pack about 4 months ago for unknown reason. The patient denies any known hematochezia or melena or abnormal bleeding anywhere else. She does report that she gets nausea and vomiting every 2 or 3 weeks. She is always associated this with dietary choices but has never had a further investigated. Patient has never had a colonoscopy or an EGD. After transfusion of 2 units of blood overnight, the patient reports she feels much better and most recent hemoglobin is 8.4. She has no other digestive complaints and is seen sitting up on the side of the bed this morning. [facility] History I have reviewed the patient's past medical history: Yes Medical History: Reports:: Arrhythmia, Atrial Fibrillation, Cardiomyopathy, Carotid Stenosis, Congestive Heart Failure, Coronary Artery Disease, Cerebrovascular Accident, Deep Vein Thrombosis, Gastrointestinal Bleed, Heart Murmur, Hyperlipidemia, Hypertension, Internal Pacemaker, Myocardial Infarction, Palpitations, Peripheral Artery Disease, Transient Ischemic Attacks (TIA), Valvular Heart Disease Denies:: Cancer, Diabetes Mellitus Type 1, Diabetes Mellitus Type 2, MRSA, Seizures *Have you ever received a pneumonia vaccine?: No *Have you received a flu vaccine this season?: No Other Medical History: Reports: Anemia, Arthritis, Cataracts, Sinus Problems. Denies: Blood Transfusion Reaction Laterality Cases: Left: Lumpectomy, Bilateral: Breast Biopsy Other Surgeries: Yes: Angiogram, Angioplasty, Cardiac Catheterization, Cardiac Surgery, Colonoscopy, Coronary Stent, Pacemaker, Other Amputation: No Fractures: No - *Social History Last grade of school completed: High school graduate Smoking Status: Former smoker Tobacco Type: cigarettes # Packs/Day (cigarettes): 1 #Yrs smoked (if former smoker): 30 Alcohol Intake: never Alcohol Intake Frequency:: other Substance Use Type: denies use *Occupational Status:: retired Housing: house Household Members: spouse *Travel in the last 8 weeks: None Family Hx:: Heart Attack, Hypertension, Stroke Review of Systems - Constitutional Reports fatigue, Reports lack of energy, Reports weakness, Denies anorexia, Denies body ache(s), Denies chills, Denies fever(s) - Eyes Denies change in vision, Denies dry eyes, Denies loss of vision - ENT Denies abnormal hearing, Denies difficulty swallowing, Denies nosebleed, Denies hoarseness, Denies pain with swallowing, Denies sore throat Comments: Denies heartburn, reflux, epigastric pain - *Cardiovascular Reports shortness of breath, Reports shortness of breath with activity, Reports irregular heart rhythm, Denies chest pain, Denies fainting - *Respiratory Denies chest congestion, Denies cough, Denies shortness of breath - *Gastrointestinal Reports nausea, Reports vomiting, Denies abdominal pain, Denies belching, Denies bloating, Denies change in bowel habits, Denies vomiting blood, Denies bright, red blood in stools, Denies black, tarry stools Comments: Nausea vomiting occur about once every 2 or 3 weeks - *Musculoskeletal Denies joint pain, Denies back pain - Integumentary/Breasts Denies bleeding lesions, Denies changing lesions, Denies yellowing of the skin - *Neurologic Reports weakness, Denies abnormal speech, Denies behavioral changes, Denies unsteadines
--- NOTE | 2020-06-28 14:56 | HMH.PROC ---
[facility] Procedure Note Procedure Note:: Upper Endoscopy Procedure Report: Esophagogastroduodenoscopy with cold biopsies Endoscopost: Tyron Deluca II, MD Referring Physician: Ignacio Aceves M.D. Date of Procedure: June 28, 2020 Equipment: Olympus GIF 180 standard upper endoscope Sedation: MAC sedation Indications: Mrs. Trujillo is a 79-year-old female who is here for diagnostic upper endoscopy and colonoscopy secondary to iron deficiency anemia and Hemoccult positive stool. She does have a complicated medical history with cardiomyopathy/CHF, atrial fibrillation and CAD with prior pacemaker and cardiac stent placement and an upper extremity thrombosis status post blood clot removal. The patient has been on both Xarelto and Plavix therapy. She reports that she has had episodes of anemia requiring transfusion multiple times this past year. This time she presented to the ER with complaints of weakness and dyspnea on exertion and poor appetite. She is found to be Hemoccult positive with an H&H of 5.9 and 22.3. She reports no NSAID use, alcohol use. She was on steroid pack about 4 months ago for unknown reason. The patient denies any known hematochezia or melena or abnormal bleeding anywhere else. She does report that she gets nausea and vomiting every 2 or 3 weeks. She is always associated this with dietary choices but has never had a further investigated. The patient has lost a moderate amount of weight. Patient has never had a colonoscopy or an EGD. After transfusion of 2 units of blood overnight, the patient reports she feels much better and most recent hemoglobin is 8.4. She has no other digestive complaints and is seen sitting up on the side of the bed this morning. Procedure: Prior to the procedure, a history and physical exam was performed, and patient's medications and allergies were reviewed. The risks, benefits and alternatives of the sedation and procedure were discussed with the patient. All questions were answered and informed consent was obtained. The patient was brought to the procedure room. Patient identification and proposed procedure were verified by the physician and the nurse. The patient was placed in a left lateral decubitus position and the scope was passed under direct vision. Throughout the procedure, the patient's blood pressure, pulse, and oxygen saturations were monitored continuously. The upper GI endoscopy was accomplished without difficulty. The patient tolerated the procedure well. Findings: The scope was passed directly into the upper esophagus and advanced to the third portion of the duodenum. The post bulbar duodenum and duodenal bulb were normal with normal mucosa and conniventes. Cold biopsies were taken from the post bulbar duodenum to rule out celiac disease. The scope was withdrawn through a normal duodenal bulb and pylorus into the stomach. There was bile reflux moderately with linear reactive gastropathy of the antrum. There was moderate chronic atrophic gastritis of the body and fundus of the stomach. Biopsies were obtained from the fundus of the stomach. Upon retroflexion there was a small sliding 1 to 2 cm hiatal hernia. The scope was then withdrawn into the esophagus. There was no evidence of reflux esophagitis. The remainder of the esophageal mucosa was normal. Impression: 1. Chronic atrophic gastritis with mild linear reactive gastropathy (bile reflux gastropathy) Plan: I do feel that some of her anemia is related to anticoagulation as well as the chronic atrophic gastritis. This would not explain the Hemoccult positive stools and severity of the anemia. I will follow-up the biopsies and proceed with diagnostic colonoscopy.
--- NOTE | 2020-06-28 15:20 | P.PCN_ITS ---
[facility] Procedure Note Procedure Note:: Colonoscopy Procedure Report: Colonoscopy with APC argon ablation and cold snare polypectomy Endoscopist: Tyron Deluca II, MD Referring physician: Ignacio Aceves M.D. Date of Procedure: June 28, 2020 Equipment: Olympus 180 variable stiffness pediatric colonoscope Sedation: MAC sedation Indication: Mrs. Trujillo is a 79-year-old female who is here for diagnostic colonoscopy secondary to iron deficiency anemia and Hemoccult positive stool. She is on Xarelto and Plavix. She presented with a hemoglobin of 5.9 and hematocrit 22.3. This did improve to hemoglobin 8.4 with 2 units of PRBCs. The patient has had reduced appetite and some weight loss. She has never had a colonoscopy. She reports no bright red rectal bleeding, melena or hematochezia. She reports no family history of colon cancer. Procedure: Prior to the procedure, a history and physical exam was performed, and patient's medications and allergies were reviewed. The risks, benefits and alternatives of the sedation and procedure were discussed with the patient. All questions were answered and informed consent was obtained. The patient was brought to the procedure room. Patient identification and proposed procedure were verified by the physician and the nurse. The patient was placed in a left lateral decubitus position and the scope was passed under direct vision. Throughout the procedure, the patient's blood pressure, pulse, and oxygen saturations were monitored continuously. The colonoscopy was accomplished without difficulty. The patient tolerated the procedure well. Findings: On digital rectal examination there was normal rectal tone. There were no external hemorrhoids. The colonoscope was introduced through the anal canal to the rectum and advanced to the cecum. The ileocecal valve and appendiceal orifice were identified. The scope was advanced a short distance into the ileum which appeared grossly normal. The scope was then withdrawn into the colon. There were 2 angiodysplasias/AVMs in the cecum and ascending colon that were ablated using APC argon laser ablation. There was a 12 mm polyp in the ascending colon and 2 additional 4 and 7 mm polyps in the descending colon. All 3 of these were removed via cold snare polypectomy. There were scattered diverticuli throughout the descending and sigmoid colon (LEFT colon). The rectum itself was normal. Upon retroflexion within the rectum there were grade 1-2 internal hemorrhoids. The preparation was good throughout with Mark Preparation Score of 8 out of 9. The cecal time was 15 minutes. Impression: 1. 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 Colonic polyps x3 (4, 7 and 12 mm) 3. Left-sided diverticulosis 4. Grade 1-2 internal hemorrhoids Plan: Certainly the AVMs/angiodysplasias may be the etiology of her anemia. Also, the largest flat polyp had some heme at the base. I do feel that the Xarelto and Plavix played some role with this. If her anemia persists, I would consider doing video capsule enteroscopy/ M2A as well. I will follow-up the polyp histology.
--- NOTE | 2020-06-28 16:23 | HMH.ANESCL ---
[facility] Anesthesia Checklist - Structural Data Admitted From: Inpatient Planned Operative Procedure/s: colonoscopy/egd Consent for Planned Operative Procedure(s) Verified: Yes - Additional verifications Anesthesia Reactions: No Hx Blood Transfusions: Yes Blood Transfusion Reaction: No - Airway Assessment C-Spine Mobility Assessed: Yes TMJ Mobility Assessed: Yes Dentition: Poor Dentition - Neurological Assessment Level of Consciousness: Awake, Alert, Appropriate - Anesthesia Plan Anesthesia Risk discussed: Yes Anesthesia Plan: Verified ASA Class: III Anesthesia Type: MAC [facility] History I have reviewed the patient's past medical history: Yes Medical History: Reports:: Arrhythmia, Atrial Fibrillation, Cardiomyopathy, Carotid Stenosis, Congestive Heart Failure, Coronary Artery Disease, Cerebrovascular Accident, Deep Vein Thrombosis, Gastrointestinal Bleed, Heart Murmur, Hyperlipidemia, Hypertension, Internal Pacemaker, Myocardial Infarction, Palpitations, Peripheral Artery Disease, Transient Ischemic Attacks (TIA), Valvular Heart Disease Denies:: Cancer, Diabetes Mellitus Type 1, Diabetes Mellitus Type 2, MRSA, Seizures *Have you ever received a pneumonia vaccine?: No *Have you received a flu vaccine this season?: No Other Medical History: Reports: Anemia, Arthritis, Cataracts, Sinus Problems. Denies: Blood Transfusion Reaction Anesthesia experience/problems:: none Laterality Cases: Left: Lumpectomy, Bilateral: Breast Biopsy Other Surgeries: Yes: Angiogram, Angioplasty, Cardiac Catheterization, Cardiac Surgery, Colonoscopy, Coronary Stent, Pacemaker, Other Amputation: No Fractures: No - *Social History Last grade of school completed: High school graduate Smoking Status: Former smoker Tobacco Type: cigarettes # Packs/Day (cigarettes): 1 #Yrs smoked (if former smoker): 30 Alcohol Intake: never Alcohol Intake Frequency:: other Substance Use Type: denies use *Occupational Status:: retired Housing: house Household Members: spouse *Travel in the last 8 weeks: None Family Hx:: Heart Attack, Hypertension, Stroke
--- NOTE | 2020-06-28 16:56 | PC.NURSE ---
A&OX4. PT HAS TOLERATED ROOM AIR WELL THROUGHOUT SHIFT. RESPIRATIONS REGULAR AND UNLABORED. LUNG SOUNDS BILATERALLY CLEAR. NO COUGH NOTED. NO EDEMA NOTED. +2 PULSES NOTED THROUGHOUT. ACTIVE BOWEL SOUNDS HEARD IN ALL 4 QUADRANTS. SOFT AND NONTENDER ABDOMEN. PT HAS HAD 1 SOFT FORMED BM AND 1 LOOSE BM. BOTH WERE LARGE. PT VOIDS PER BATHROOM. CLEAR YELLOW URINE NOTED. PT RECEIVED BOWEL PREP BEFORE COLONOSCOPY AND TOLERATED WELL. PT RECEIVED COLONOSCOPY AND EGD TODAY AND IS TOLERATING WELL THUS FAR. AT BEDSIDE. NS INFUSING AT 50ML/HR. PT IS RESTING IN BED W CALL LIGHT WITHIN REACH. BED IN LOWEST POSITION. VSS. WILL CONTINUE TO MONITOR.
--- NOTE | 2020-06-28 19:14 | PC.NURSE ---
report given to sascha
[2020-06-29] VITALS: PULSE 80
[2020-06-29 00:33] VITALS: BP 135/67; PULSE 70; RESP 16; TEMP 36.7; O2SAT 99
[2020-06-29 04:00] VITALS: PULSE 70
[2020-06-29 04:28] VITALS: BP 153/64; PULSE 71; RESP 18; TEMP 36.6; O2SAT 93
[2020-06-29 05:05] VITALS: BMI 24.3
--- NOTE | 2020-06-29 05:47 | PC.NURSE ---
Pt has been awake entire night, stating she cannot sleep until she gets home. Denies pain/soa/distress. Ambulates to bathroom well with walker with only standby assist. Pt began shift with IV in left ac and in left forearm, both infiltrated simultaneously. IV's were discontinued. Pt asks that IV not be replaced since she is supposed to go home this morning. Advised pt that should IV be needed, it should be reinitiated. pt verbalized understanding.
[2020-06-29 06:17] LABS: Chloride 99 mmol/L (98-107); Potassium 3.2 mmoL/L (3.5-5.1); Sodium 137 mmol/L (136-145)
[2020-06-29 06:19] LABS: Basophils # 0.1 K/mm3 (0-0.2); Basophils % 0.4 % (0.1-2.0); Eosinophils # 0.2 K/mm3 (0.0-0.4); Eosinophils % 1.1 % (0.1-12.0); Hematocrit 30.7 % (37.0-47.0); Hemoglobin 8.9 g/dL (12.2-16.2); Lymphocytes # 2.6 K/mm3 (0.7-4.5); Lymphocytes % 17.9 % (10-50); Mean Corpuscular HGB Conc 28.9 g/dL (31.8-35.4); Mean Corpuscular Hemoglobin 22.6 pg (27.0-31.2); Mean Corpuscular Volume 78.1 fl (81-99); Mean Platelet Volume 7.6 fl (7.4-10.4); Monocytes # 0.6 K/mm3 (0.1-1.0); Monocytes % 4.4 % (1.7-9.3); Neutrophils % 76.2 % (37.0-80.0); Platelet Count 567 K/mm3 (142-424); Red Blood Count 3.93 M/mm3 (4.20-5.40); Red Cell Distribution Width 16.6 % (11.5-17.5); White Blood Count 14.4 K/mm3 (4.8-10.8)
[2020-06-29 06:20] LABS: Anion Gap 14.2 mEq/L (5-15); Blood Urea Nitrogen 41 mg/dl (7-17); Calcium 9.4 mg/dl (8.4-10.2); Carbon Dioxide 27 mmol/L (22.0-30.0); Creatinine Clearance Estimated 24 mL/min (50-200); Estimated Glomerular Filt Rate 26 ml/min (>60); GFR (African American) 31 ML/MIN (>60); Glucose 101 mg/dl (74-100)
--- NOTE | 2020-06-29 07:38 | HMH.DCSUM ---
General - General Admission date:: 06/27/20 Discharge date: 06/29/20 HPI HPI: Ms. Trujillo is a pleasant 79-year-old female with recurrent acute on chronic anemia. She presented to the ER yesterday due to worsening fatigue over the past few weeks. States yesterday she just could not get up and move. Tends to get like this when her blood levels are low. Has required transfusions a few times over the past year, most recent back in October. 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 Denies nausea, hematemesis, hematochezia, melenic stools, bright red blood per rectum. Patient otherwise has been feeling well. Has seen cardiology recently with multiple changes in her heart medications. Assessment in the ER positive for significant anemia, microcytic. Also positive for worsening acute on chronic kidney injury. Transfused 2 units of blood overnight. Admitted to medicine for further management. On assessment this morning, she states she feels better and is able to walk though slowly. Hemoglobin responded well to 2 units. Denies any nausea, vomiting, diarrhea. at bedside states that she looks better to him this morning with better color and energy. Hospital Course Hospital Course: 79-year-old female admitted for acute on chronic anemia. Suspected secondary to GI bleed given presence of positive guaiac stool. Anticoagulation was stopped on admission and she was transfused 2 units of blood cells. GI was consulted, patient was taken for colonoscopy. See colonoscopy report for full findings, presence of AVMs and polyps. Patient's hemoglobin remained stable during hospitalization. Colonic findings were intervened on during scope. Patient remained hemodynamically stable. Diet advanced after colonoscopy and tolerated well. At this time there is no clinical indication for continuing her Xarelto in the setting of atrial appendage clipping 2 years ago. Risk outweighs benefit at this time, will plan to stop. Continue Plavix for the time being but will reevaluate in the outpatient setting if she continues to have recurring anemia suggestive of continued GI bleeds. Medically stable for discharge home. Follow-up in a week with repeat labs to monitor for stability of hemoglobin. Denies chest pain, shortness of breath, nausea, abdominal pain. Poor sleep. Still fatigued but improved from admission. Objective Vital signs: Temp Pulse Resp BP Pulse Ox 97.9 F 71 18 153/64 H 93 L 06/29/20 04:28 06/29/20 04:28 06/29/20 04:28 06/29/20 04:28 06/29/20 04:28 Narrative: - Constitutional no acute distress - *Routine HEENT Exam Head: Present: normocephalic Eye: Present: EOMI, PERRL ENT: Present: mucous membranes moist - *Routine Neck Exam Present: supple. Absent: lymphadenopathy - *Routine Respiratory Exam Present: CTA bilaterally - *Routine Cardiovascular Exam Present: RRR - *Routine Abdominal Exam Present: soft, normoactive bowel sounds. Absent: tenderness - *Routine Extremities Exam Absent: cyanosis, clubbing, edema - *Routine Skin Exam Present: pallor, warm. Absent: rash - *Routine Neurological Exam Present: alert, oriented X3 Results Labs on day of discharge: Labs from last 24 hours 06/29/20 06/29/20 05:27 05:27 WBC 14.4 H D RBC 3.93 L Hgb 8.9 L Hct 30.7 L MCV 78.1 L MCH 22.6 L MCHC 28.9 L RDW 16.6 Plt Count 567 H MPV 7.6 Neut % (Auto) 76.2 Lymph % (Auto) 17.9 [place] % (Auto) 4.4 Eos % (Auto) 1.1 Baso % (Auto) 0.4 Neut # (Auto) 11.0 H Lymph # (Auto) 2.6 [place] # (Auto) 0.6 Eos # (Auto) 0.2 Baso # (Auto) 0.1 Sodium 137 Potassium 3.2 L Chloride 99 Carbon Dioxide 27 Anion Gap 14.2 BUN 41 H Creatinine 1.90 H Estimated Creat Clear 24 Estimated GFR 26 L Est GFR ( Amer) 31 L D Glucose 1
[2020-06-29 07:53] VITALS: BP 118/54; PULSE 69; RESP 18; TEMP 36.4; O2SAT 100
== END 2020-06-29 08:55 | disposition home or self-care (01) ==
LOC: ER 15:25 → 2ND 15:47
PROVIDERS: Internal Medicine Adolescent Medicine; Internal Medicine Gastroenterology; Admitting Provider Family Medicine; Emergency Provider Emergency Medicine; PCP Internal Medicine Adolescent Medicine; Visit Provider Internal Medicine Adolescent Medicine
PROC: 0DJ08ZZ Inspection of Upper Intestinal Tract, Via Natural or Artificial Opening Endoscopic (ICD-10-PCS; CPT 43235; principal; 2020-06-28 13:30)
DX: D50.0 Iron deficiency anemia secondary to blood loss (chronic) (principal); I48.20 Chronic atrial fibrillation, unspecified; Z95.0 Presence of cardiac pacemaker; I25.2 Old myocardial infarction; Z79.01 Long term (current) use of anticoagulants; Z79.02 Long term (current) use of antithrombotics/antiplatelets; Z95.5 Presence of coronary angioplasty implant and graft; Z79.52 Long term (current) use of systemic steroids; Z79.899 Other long term (current) drug therapy; I13.0 Hypertensive heart and chronic kidney disease with heart failure and stage 1 through stage 4 chronic kidney disease, or unspecified chronic kidney disease; N18.4 Chronic kidney disease, stage 4 (severe); I50.9 Heart failure, unspecified; N17.9 Acute kidney failure, unspecified; K55.20 Angiodysplasia of colon without hemorrhage; K57.30 Diverticulosis of large intestine without perforation or abscess without bleeding; K64.1 Second degree hemorrhoids; D12.2 Benign neoplasm of ascending colon; D12.4 Benign neoplasm of descending colon; K29.40 Chronic atrophic gastritis without bleeding
CPT/HCPCS: 36430; 43239; 45385; 45388; 36415; 71045; 80048; 80053; 80162; 81001; 82272; 83605; 83880; 84484; 85014; 85018; 85025; 86328; 86850; 87040; 88305; 93005; 99285; C2618; G0328; G0378; P9016

== ENCOUNTER → 2020-07-06 11:54 | Outpatient (CLI) | payer MEDICARE, SELFPAY ==
[2020-07-06 12:45] LABS: Basophils % 0.4 % (0.1-2.0); Eosinophils # 0.2 K/mm3 (0.0-0.4); Eosinophils % 1.7 % (0.1-12.0); Hematocrit 33.1 % (37.0-47.0); Hemoglobin 9.9 g/dL (12.2-16.2); Lymphocytes # 1.5 K/mm3 (0.7-4.5); Lymphocytes % 15.3 % (10-50); Mean Corpuscular Hemoglobin 23.1 pg (27.0-31.2); Mean Platelet Volume 7.9 fl (7.4-10.4); Monocytes # 0.4 K/mm3 (0.1-1.0); Monocytes % 3.8 % (1.7-9.3); Neutrophils # 7.8 K/mm3 (1.8-7.8); Neutrophils % 78.8 % (37.0-80.0); Platelet Count 482 K/mm3 (142-424); Red Cell Distribution Width 17.5 % (11.5-17.5); White Blood Count 9.8 K/mm3 (4.8-10.8)
[2020-07-06 13:17] LABS: Chloride 96 mmol/L (98-107); Potassium 4.2 mmoL/L (3.5-5.1); Sodium 134 mmol/L (136-145)
[2020-07-06 13:19] LABS: Alanine Aminotransferase 12 U/L (12-78); Aspartate Amino Transferase 19 U/L (14-36); Blood Urea Nitrogen 43 mg/dl (7-17); Estimated Glomerular Filt Rate 25 ml/min (>60); GFR (African American) 31 ML/MIN (>60)
[2020-07-06 13:20] LABS: Albumin Level 3.9 g/dl (3.5-5.0); Albumin/Globulin Ratio 1.6 (1.1-1.8); Alkaline Phosphatase 104 U/L (38-126); Anion Gap 14.2 mEq/L (5-15); Bilirubin,Total 0.3 mg/dl (0.2-1.3); Calcium 9.5 mg/dl (8.4-10.2); Carbon Dioxide 28 mmol/L (22.0-30.0); Globulin 2.4 g/dL (1.3-3.2); Glucose 138 mg/dl (74-100); Total Protein,Serum 6.3 g/dl (6.3-8.2)
== END ==
PROVIDERS: Visit Provider Internal Medicine Adolescent Medicine
DX: D62 Acute posthemorrhagic anemia (principal)
CPT/HCPCS: 36415; 80053; 85025

== ENCOUNTER → 2020-08-05 11:18 | Outpatient (CLI) | payer MEDICARE, SELFPAY ==
[2020-08-05 11:51] LABS: Basophils # 0.1 K/mm3 (0-0.2); Basophils % 0.6 % (0.1-2.0); Eosinophils # 0.1 K/mm3 (0.0-0.4); Eosinophils % 1.2 % (0.1-12.0); Hematocrit 32.5 % (37.0-47.0); Hemoglobin 9.6 g/dL (12.2-16.2); Lymphocytes % 19.8 % (10-50); Mean Corpuscular HGB Conc 29.5 g/dL (31.8-35.4); Mean Corpuscular Hemoglobin 24.7 pg (27.0-31.2); Mean Corpuscular Volume 83.6 fl (81-99); Mean Platelet Volume 8.5 fl (7.4-10.4); Monocytes # 0.5 K/mm3 (0.1-1.0); Monocytes % 4.8 % (1.7-9.3); Neutrophils # 7.6 K/mm3 (1.8-7.8); Neutrophils % 73.6 % (37.0-80.0); Platelet Count 357 K/mm3 (142-424); Red Blood Count 3.89 M/mm3 (4.20-5.40); Red Cell Distribution Width 20.2 % (11.5-17.5); White Blood Count 10.3 K/mm3 (4.8-10.8)
[2020-08-05 12:07] LABS: Chloride 106 mmol/L (98-107); Potassium 5.4 mmoL/L (3.5-5.1); Sodium 137 mmol/L (136-145)
[2020-08-05 12:10] LABS: Anion Gap 13.4 mEq/L (5-15); Blood Urea Nitrogen 33 mg/dl (7-17); Calcium 8.8 mg/dl (8.4-10.2); Carbon Dioxide 23 mmol/L (22.0-30.0); Estimated Glomerular Filt Rate 39 ml/min (>60); GFR (African American) 48 ML/MIN (>60); Glucose 128 mg/dl (74-100)
== END ==
PROVIDERS: Visit Provider Internal Medicine Cardiovascular Disease
DX: D64.9 Anemia, unspecified (principal); E78.2 Mixed hyperlipidemia; I25.10 Atherosclerotic heart disease of native coronary artery without angina pectoris; I48.91 Unspecified atrial fibrillation; I50.9 Heart failure, unspecified; I73.9 Peripheral vascular disease, unspecified; M79.602 Pain in left arm; R06.00 Dyspnea, unspecified; R42 Dizziness and giddiness; R53.82 Chronic fatigue, unspecified; R60.0 Localized edema; R94.31 Abnormal electrocardiogram [ECG] [EKG]; Z95.810 Presence of automatic (implantable) cardiac defibrillator; I11.0 Hypertensive heart disease with heart failure
CPT/HCPCS: 36415; 80048; 85025

== ENCOUNTER → 2020-08-10 07:45 | Outpatient (CLI) | payer MEDICARE, SELFPAY ==
[2020-08-10 09:13] LABS: Chloride 103 mmol/L (98-107); Potassium 4.5 mmoL/L (3.5-5.1); Sodium 135 mmol/L (136-145)
[2020-08-10 09:16] LABS: Anion Gap 11.5 mEq/L (5-15); Blood Urea Nitrogen 32 mg/dl (7-17); Carbon Dioxide 25 mmol/L (22.0-30.0); Estimated Glomerular Filt Rate 39 ml/min (>60); GFR (African American) 48 ML/MIN (>60); Glucose 141 mg/dl (74-100)
== END ==
PROVIDERS: Visit Provider Internal Medicine Cardiovascular Disease
DX: E78.5 Hyperlipidemia, unspecified (principal); I25.10 Atherosclerotic heart disease of native coronary artery without angina pectoris; I42.9 Cardiomyopathy, unspecified; I48.91 Unspecified atrial fibrillation; I50.9 Heart failure, unspecified; I63.9 Cerebral infarction, unspecified; I73.9 Peripheral vascular disease, unspecified; R06.00 Dyspnea, unspecified; R42 Dizziness and giddiness; R53.83 Other fatigue; R60.0 Localized edema; R94.31 Abnormal electrocardiogram [ECG] [EKG]; Z95.810 Presence of automatic (implantable) cardiac defibrillator; I11.0 Hypertensive heart disease with heart failure
CPT/HCPCS: 36415; 80048

== ENCOUNTER → 2020-08-31 07:49 | Outpatient (CLI) | payer MEDICARE, SELFPAY ==
[2020-08-31 08:11] LABS: Basophils # 0.1 K/mm3 (0-0.2); Basophils % 0.6 % (0.1-2.0); Eosinophils # 0.3 K/mm3 (0.0-0.4); Eosinophils % 2.3 % (0.1-12.0); Hematocrit 30.1 % (37.0-47.0); Lymphocytes # 2.8 K/mm3 (0.7-4.5); Mean Corpuscular HGB Conc 29.8 g/dL (31.8-35.4); Mean Corpuscular Hemoglobin 23.9 pg (27.0-31.2); Mean Corpuscular Volume 80.1 fl (81-99); Mean Platelet Volume 8.8 fl (7.4-10.4); Monocytes # 0.8 K/mm3 (0.1-1.0); Monocytes % 6.2 % (1.7-9.3); Neutrophils # 8.6 K/mm3 (1.8-7.8); Neutrophils % 68.9 % (37.0-80.0); Platelet Count 374 K/mm3 (142-424); Red Blood Count 3.76 M/mm3 (4.20-5.40); Red Cell Distribution Width 18.4 % (11.5-17.5); White Blood Count 12.5 K/mm3 (4.8-10.8)
[2020-08-31 08:36] LABS: Chloride 103 mmol/L (98-107); Potassium 5.1 mmoL/L (3.5-5.1); Sodium 137 mmol/L (136-145)
[2020-08-31 08:39] LABS: Anion Gap 14.1 mEq/L (5-15); Blood Urea Nitrogen 37 mg/dl (7-17); Carbon Dioxide 25 mmol/L (22.0-30.0); Estimated Glomerular Filt Rate 36 ml/min (>60); GFR (African American) 44 ML/MIN (>60)
[2020-08-31 08:40] LABS: Calcium 9.5 mg/dl (8.4-10.2); Glucose 128 mg/dl (74-100)
== END ==
PROVIDERS: Internal Medicine Cardiovascular Disease; Visit Provider Urology
DX: I10 Essential (primary) hypertension (principal); R06.00 Dyspnea, unspecified
CPT/HCPCS: 36415; 80048; 85025

== ENCOUNTER → 2020-09-13 07:46 | Outpatient (CLI) | payer MEDICARE, SELFPAY ==
[2020-09-13 08:14] LABS: Basophils # 0.1 K/mm3 (0-0.2); Basophils % 0.5 % (0.1-2.0); Eosinophils # 0.2 K/mm3 (0.0-0.4); Eosinophils % 1.8 % (0.1-12.0); Hematocrit 28.9 % (37.0-47.0); Hemoglobin 8.7 g/dL (12.2-16.2); Lymphocytes # 2.3 K/mm3 (0.7-4.5); Lymphocytes % 17.8 % (10-50); Mean Corpuscular HGB Conc 30.2 g/dL (31.8-35.4); Mean Corpuscular Hemoglobin 23.8 pg (27.0-31.2); Mean Platelet Volume 8.5 fl (7.4-10.4); Monocytes # 0.6 K/mm3 (0.1-1.0); Monocytes % 4.8 % (1.7-9.3); Neutrophils # 9.8 K/mm3 (1.8-7.8); Neutrophils % 75.2 % (37.0-80.0); Platelet Count 422 K/mm3 (142-424); Red Blood Count 3.65 M/mm3 (4.20-5.40); Red Cell Distribution Width 17.6 % (11.5-17.5); White Blood Count 13.1 K/mm3 (4.8-10.8)
[2020-09-13 09:26] LABS: Chloride 103 mmol/L (98-107)
[2020-09-13 09:27] LABS: Sodium 136 mmol/L (136-145)
[2020-09-13 09:29] LABS: Alanine Aminotransferase 12 U/L (12-78); Alkaline Phosphatase 115 U/L (38-126); Aspartate Amino Transferase 21 U/L (14-36); Bilirubin,Total 0.3 mg/dl (0.2-1.3); Blood Urea Nitrogen 32 mg/dl (7-17); Estimated Glomerular Filt Rate 36 ml/min (>60); GFR (African American) 44 ML/MIN (>60)
[2020-09-13 09:30] LABS: Albumin Level 3.6 g/dl (3.5-5.0); Albumin/Globulin Ratio 1.4 (1.1-1.8); Carbon Dioxide 25 mmol/L (22.0-30.0); Globulin 2.6 g/dL (1.3-3.2); Glucose 153 mg/dl (74-100); Total Protein,Serum 6.2 g/dl (6.3-8.2)
[2020-09-13 10:00] LABS: Thyroid Stimulating Hormone 3.76 uIU/mL (0.465-4.68)
== END ==
PROVIDERS: Visit Provider Internal Medicine Adolescent Medicine
DX: I48.20 Chronic atrial fibrillation, unspecified (principal); D63.8 Anemia in other chronic diseases classified elsewhere
CPT/HCPCS: 36415; 80053; 84443; 85025

== ENCOUNTER → 2021-01-06 07:42 | Outpatient (CLI) | payer MEDICARE, SELFPAY ==
[2021-01-06 08:18] LABS: Basophils # 0.1 K/mm3 (0-0.2); Basophils % 0.4 % (0.1-2.0); Eosinophils # 0.3 K/mm3 (0.0-0.4); Eosinophils % 2.2 % (0.1-12.0); Hematocrit 31.7 % (37.0-47.0); Hemoglobin 9.5 g/dL (12.2-16.2); Lymphocytes # 1.9 K/mm3 (0.7-4.5); Lymphocytes % 12.4 % (10-50); Mean Corpuscular HGB Conc 29.9 g/dL (31.8-35.4); Mean Corpuscular Hemoglobin 23.6 pg (27.0-31.2); Mean Platelet Volume 7.9 fl (7.4-10.4); Monocytes # 0.5 K/mm3 (0.1-1.0); Monocytes % 3.5 % (1.7-9.3); Neutrophils # 12.3 K/mm3 (1.8-7.8); Neutrophils % 81.5 % (37.0-80.0); Platelet Count 329 K/mm3 (142-424); Red Blood Count 4.02 M/mm3 (4.20-5.40); Red Cell Distribution Width 18.5 % (11.5-17.5)
[2021-01-06 08:21] LABS: MANUAL DIFFERENTIAL MANUAL DIFFERENTIAL (MANUAL DIFF)
[2021-01-06 08:25] LABS: Chloride 96 mmol/L (98-107); Potassium 3.8 mmoL/L (3.5-5.1); Sodium 135 mmol/L (136-145)
[2021-01-06 08:28] LABS: Alanine Aminotransferase 13 U/L (12-78); Albumin Level 3.6 g/dl (3.5-5.0); Albumin/Globulin Ratio 1.6 (1.1-1.8); Alkaline Phosphatase 114 U/L (38-126); Anion Gap 13.8 mEq/L (5-15); Aspartate Amino Transferase 21 U/L (14-36); Bilirubin,Total 0.4 mg/dl (0.2-1.3); Blood Urea Nitrogen 30 mg/dl (7-17); Calcium 8.8 mg/dl (8.4-10.2); Carbon Dioxide 29 mmol/L (22.0-30.0); Estimated Glomerular Filt Rate 36 ml/min (>60); GFR (African American) 44 ML/MIN (>60); Globulin 2.3 g/dL (1.3-3.2); Glucose 289 mg/dl (74-100); Total Protein,Serum 5.9 g/dl (6.3-8.2)
[2021-01-06 08:29] LABS: Magnesium 1.4 mg/dl (1.6-2.3)
[2021-01-06 08:44] LABS: NT Pro Brain Natriuretic Pep. 686 pg/mL (0-450)
[2021-01-06 10:06] LABS: Lymphocytes % 12 % (10-50); Monocytes % 4 % (2-9); Neutrophils % 84 % (42-76); Platelet Estimate Normal; RBC Morphology Normal; Total Cells Counted 100
== END ==
PROVIDERS: Visit Provider Internal Medicine Adolescent Medicine
DX: I50.20 Unspecified systolic (congestive) heart failure (principal)
CPT/HCPCS: 36415; 80053; 83735; 83880; 85007; 85025

== ENCOUNTER → 2021-01-13 07:46 | Outpatient (CLI) | payer MEDICARE, SELFPAY ==
[2021-01-13 08:44] LABS: Basophils # 0.1 K/mm3 (0-0.2); Basophils % 0.6 % (0.1-2.0); Eosinophils # 0.4 K/mm3 (0.0-0.4); Eosinophils % 3.5 % (0.1-12.0); Hemoglobin 9.3 g/dL (12.2-16.2); Lymphocytes # 2.3 K/mm3 (0.7-4.5); Lymphocytes % 19.2 % (10-50); Mean Corpuscular Hemoglobin 24.3 pg (27.0-31.2); Mean Platelet Volume 8.7 fl (7.4-10.4); Monocytes # 0.6 K/mm3 (0.1-1.0); Monocytes % 4.9 % (1.7-9.3); Neutrophils # 8.5 K/mm3 (1.8-7.8); Neutrophils % 71.9 % (37.0-80.0); Platelet Count 315 K/mm3 (142-424); Red Blood Count 3.82 M/mm3 (4.20-5.40); Red Cell Distribution Width 18.8 % (11.5-17.5); White Blood Count 11.9 K/mm3 (4.8-10.8)
[2021-01-13 09:14] LABS: Chloride 92 mmol/L (98-107); Potassium 3.9 mmoL/L (3.5-5.1); Sodium 132 mmol/L (136-145)
[2021-01-13 09:16] LABS: Blood Urea Nitrogen 32 mg/dl (7-17); Estimated Glomerular Filt Rate 39 ml/min (>60); GFR (African American) 48 ML/MIN (>60)
[2021-01-13 09:17] LABS: Anion Gap 12.9 mEq/L (5-15); Calcium 8.6 mg/dl (8.4-10.2); Carbon Dioxide 31 mmol/L (22.0-30.0); Glucose 252 mg/dl (74-100); Magnesium 1.4 mg/dl (1.6-2.3)
== END ==
PROVIDERS: Visit Provider Internal Medicine Adolescent Medicine
DX: I50.20 Unspecified systolic (congestive) heart failure (principal)
CPT/HCPCS: 36415; 80048; 83735; 85025

== ENCOUNTER → 2021-01-31 07:36 | Outpatient (CLI) | payer MEDICARE, SELFPAY ==
[2021-01-31 15:01] LABS: Alanine Aminotransferase 15 U/L (12-78); Albumin Level 3.6 g/dl (3.5-5.0); Albumin/Globulin Ratio 1.6 (1.1-1.8); Alkaline Phosphatase 120 U/L (38-126); Anion Gap 12.3 mEq/L (5-15); Aspartate Amino Transferase 22 U/L (14-36); Bilirubin,Total 0.5 mg/dl (0.2-1.3); Blood Urea Nitrogen 35 mg/dl (7-17); Calcium 8.8 mg/dl (8.4-10.2); Carbon Dioxide 31 mmol/L (22.0-30.0); Chloride 95 mmol/L (98-107); Estimated Glomerular Filt Rate 31 ml/min (>60); GFR (African American) 38 ML/MIN (>60); Globulin 2.3 g/dL (1.3-3.2); Glucose 235 mg/dl (74-100); Magnesium 1.6 mg/dl (1.6-2.3); Potassium 4.3 mmoL/L (3.5-5.1); Sodium 134 mmol/L (136-145); Total Protein,Serum 5.9 g/dl (6.3-8.2)
[2021-01-31 15:02] LABS: Basophils # 0.1 K/mm3 (0-0.2); Basophils % 0.5 % (0.1-2.0); Eosinophils # 0.3 K/mm3 (0.0-0.4); Eosinophils % 2.3 % (0.1-12.0); Hematocrit 33.6 % (37.0-47.0); Hemoglobin 9.7 g/dL (12.2-16.2); Lymphocytes # 2.2 K/mm3 (0.7-4.5); Lymphocytes % 18.1 % (10-50); Mean Corpuscular HGB Conc 28.9 g/dL (31.8-35.4); Mean Corpuscular Hemoglobin 24.1 pg (27.0-31.2); Mean Corpuscular Volume 83.5 fl (81-99); Mean Platelet Volume 9.4 fl (7.4-10.4); Monocytes # 0.5 K/mm3 (0.1-1.0); Monocytes % 4.3 % (1.7-9.3); Neutrophils # 9.1 K/mm3 (1.8-7.8); Neutrophils % 74.8 % (37.0-80.0); Platelet Count 400 K/mm3 (142-424); Red Blood Count 4.02 M/mm3 (4.20-5.40); Red Cell Distribution Width 17.3 % (11.5-17.5); White Blood Count 12.1 K/mm3 (4.8-10.8)
== END ==
PROVIDERS: Visit Provider Internal Medicine Adolescent Medicine
DX: I50.20 Unspecified systolic (congestive) heart failure (principal); E83.42 Hypomagnesemia
CPT/HCPCS: 36415; 80053; 83735; 85025

== ENCOUNTER → 2021-02-21 07:48 | Outpatient (CLI) | payer MEDICARE, SELFPAY ==
[2021-02-21 14:29] LABS: Basophils # 0.1 K/mm3 (0-0.2); Basophils % 0.4 % (0.1-2.0); Eosinophils # 0.2 K/mm3 (0.0-0.4); Eosinophils % 1.1 % (0.1-12.0); Hematocrit 33.3 % (37.0-47.0); Hemoglobin 10.3 g/dL (12.2-16.2); Lymphocytes # 2.7 K/mm3 (0.7-4.5); Lymphocytes % 18.3 % (10-50); Mean Corpuscular Hemoglobin 25.1 pg (27.0-31.2); Mean Corpuscular Volume 80.9 fl (81-99); Mean Platelet Volume 9.2 fl (7.4-10.4); Monocytes # 0.6 K/mm3 (0.1-1.0); Monocytes % 4.1 % (1.7-9.3); Neutrophils # 11.4 K/mm3 (1.8-7.8); Neutrophils % 76.2 % (37.0-80.0); Platelet Count 379 K/mm3 (142-424); Red Blood Count 4.11 M/mm3 (4.20-5.40); White Blood Count 14.9 K/mm3 (4.8-10.8)
[2021-02-21 14:44] LABS: Alanine Aminotransferase 15 U/L (12-78); Albumin Level 3.9 g/dl (3.5-5.0); Albumin/Globulin Ratio 1.6 (1.1-1.8); Alkaline Phosphatase 122 U/L (38-126); Anion Gap 14.4 mEq/L (5-15); Aspartate Amino Transferase 23 U/L (14-36); Bilirubin,Total 0.5 mg/dl (0.2-1.3); Blood Urea Nitrogen 31 mg/dl (7-17); Calcium 8.8 mg/dl (8.4-10.2); Carbon Dioxide 29 mmol/L (22.0-30.0); Chloride 95 mmol/L (98-107); Estimated Glomerular Filt Rate 27 ml/min (>60); GFR (African American) 33 ML/MIN (>60); Globulin 2.5 g/dL (1.3-3.2); Glucose 125 mg/dl (74-100); Potassium 4.4 mmoL/L (3.5-5.1); Sodium 134 mmol/L (136-145); Total Protein,Serum 6.4 g/dl (6.3-8.2)
== END ==
PROVIDERS: Internal Medicine Adolescent Medicine; Visit Provider Internal Medicine Cardiovascular Disease
DX: I50.20 Unspecified systolic (congestive) heart failure (principal)
CPT/HCPCS: 36415; 80053; 85025

== ENCOUNTER → 2021-06-06 11:25 | Outpatient (CLI) | payer MEDICARE, SELFPAY ==
[2021-06-06 14:04] LABS: Basophils # 0.1 K/mm3 (0-0.2); Basophils % 0.5 % (0.1-2.0); Eosinophils # 0.3 K/mm3 (0.0-0.4); Eosinophils % 2.4 % (0.1-12.0); Hematocrit 33.4 % (37.0-47.0); Lymphocytes # 2.2 K/mm3 (0.7-4.5); Lymphocytes % 19.4 % (10-50); Mean Corpuscular Hemoglobin 26.3 pg (27.0-31.2); Mean Corpuscular Volume 87.8 fl (81-99); Mean Platelet Volume 9.3 fl (7.4-10.4); Monocytes # 0.5 K/mm3 (0.1-1.0); Monocytes % 4.6 % (1.7-9.3); Neutrophils # 8.5 K/mm3 (1.8-7.8); Neutrophils % 73.1 % (37.0-80.0); Platelet Count 318 K/mm3 (142-424); Red Cell Distribution Width 14.6 % (11.5-17.5); White Blood Count 11.6 K/mm3 (4.8-10.8)
[2021-06-06 14:15] LABS: Chloride 103 mmol/L (98-107); Potassium 4.4 mmoL/L (3.5-5.1); Sodium 140 mmol/L (136-145)
[2021-06-06 14:18] LABS: Alanine Aminotransferase 12 U/L (12-78); Albumin Level 3.3 g/dl (3.5-5.0); Albumin/Globulin Ratio 1.3 (1.1-1.8); Alkaline Phosphatase 103 U/L (38-126); Anion Gap 15.4 mEq/L (5-15); Aspartate Amino Transferase 19 U/L (14-36); Bilirubin,Total < 0.1 mg/dl (0.2-1.3); Blood Urea Nitrogen 26 mg/dl (7-17); Calcium 8.6 mg/dl (8.4-10.2); Carbon Dioxide 26 mmol/L (22.0-30.0); Estimated Glomerular Filt Rate 36 ml/min (>60); GFR (African American) 44 ML/MIN (>60); Globulin 2.5 g/dL (1.3-3.2); Glucose 149 mg/dl (74-100); Total Protein,Serum 5.8 g/dl (6.3-8.2)
== END ==
PROVIDERS: Visit Provider Internal Medicine Adolescent Medicine
DX: I10 Essential (primary) hypertension (principal); D72.829 Elevated white blood cell count, unspecified; I48.20 Chronic atrial fibrillation, unspecified; D63.8 Anemia in other chronic diseases classified elsewhere
CPT/HCPCS: 36415; 80053; 83735; 85025

== ENCOUNTER → 2021-07-05 18:48 | Outpatient (CLI) | payer MEDICARE, SELFPAY ==
[2021-07-05 19:16] LABS: Basophils # 0.1 K/mm3 (0-0.2); Basophils % 0.6 % (0.1-2.0); Eosinophils # 0.3 K/mm3 (0.0-0.4); Eosinophils % 2.5 % (0.1-12.0); Hematocrit 35.1 % (37.0-47.0); Hemoglobin 10.1 g/dL (12.2-16.2); Lymphocytes # 1.6 K/mm3 (0.7-4.5); Lymphocytes % 15.4 % (10-50); Mean Corpuscular HGB Conc 28.7 g/dL (31.8-35.4); Mean Corpuscular Volume 90.9 fl (81-99); Mean Platelet Volume 9.6 fl (7.4-10.4); Monocytes # 0.6 K/mm3 (0.1-1.0); Monocytes % 5.7 % (1.7-9.3); Neutrophils # 7.8 K/mm3 (1.8-7.8); Neutrophils % 75.9 % (37.0-80.0); Platelet Count 328 K/mm3 (142-424); Red Blood Count 3.86 M/mm3 (4.20-5.40); Red Cell Distribution Width 14.7 % (11.5-17.5); White Blood Count 10.2 K/mm3 (4.8-10.8)
[2021-07-05 19:56] LABS: Alanine Aminotransferase 19 U/L (12-78); Albumin Level 3.3 g/dl (3.5-5.0); Albumin/Globulin Ratio 1.3 (1.1-1.8); Alkaline Phosphatase 100 U/L (38-126); Anion Gap 10.4 mEq/L (5-15); Aspartate Amino Transferase 28 U/L (14-36); Blood Urea Nitrogen 30 mg/dl (7-17); Calcium 8.7 mg/dl (8.4-10.2); Carbon Dioxide 28 mmol/L (22.0-30.0); Chloride 104 mmol/L (98-107); Estimated Glomerular Filt Rate 39 ml/min (>60); GFR (African American) 48 ML/MIN (>60); Globulin 2.5 g/dL (1.3-3.2); Glucose 142 mg/dl (74-100); Magnesium 1.4 mg/dl (1.6-2.3); Potassium 4.4 mmoL/L (3.5-5.1); Sodium 138 mmol/L (136-145); Total Protein,Serum 5.8 g/dl (6.3-8.2)
[2021-07-05 20:01] LABS: Bilirubin,Total < 0.1 mg/dl (0.2-1.3)
== END ==
PROVIDERS: Visit Provider Internal Medicine Adolescent Medicine
DX: I50.20 Unspecified systolic (congestive) heart failure (principal); I48.20 Chronic atrial fibrillation, unspecified; E83.42 Hypomagnesemia
CPT/HCPCS: 80053; 83735; 85025

== ENCOUNTER → 2021-10-10 10:18 | Outpatient (CLI) | payer MEDICARE, SELFPAY ==
[2021-10-10 16:26] LABS: Basophils # 0.1 K/mm3 (0-0.2); Basophils % 0.4 % (0.1-2.0); Eosinophils # 0.2 K/mm3 (0.0-0.4); Hematocrit 38.6 % (37.0-47.0); Hemoglobin 11.9 g/dL (12.2-16.2); Lymphocytes # 1.6 K/mm3 (0.7-4.5); Lymphocytes % 11.1 % (10-50); Mean Corpuscular HGB Conc 30.7 g/dL (31.8-35.4); Mean Corpuscular Hemoglobin 27.4 pg (27.0-31.2); Mean Corpuscular Volume 89.2 fl (81-99); Mean Platelet Volume 9.9 fl (7.4-10.4); Monocytes # 0.5 K/mm3 (0.1-1.0); Monocytes % 3.5 % (1.7-9.3); Neutrophils # 11.9 K/mm3 (1.8-7.8); Neutrophils % 83.9 % (37.0-80.0); Platelet Count 391 K/mm3 (142-424); Red Blood Count 4.33 M/mm3 (4.20-5.40); Red Cell Distribution Width 17.6 % (11.5-17.5); White Blood Count 14.2 K/mm3 (4.8-10.8)
[2021-10-10 16:27] LABS: Alanine Aminotransferase 14 U/L (12-78); Albumin Level 3.8 g/dl (3.5-5.0); Albumin/Globulin Ratio 1.6 (1.1-1.8); Alkaline Phosphatase 120 U/L (38-126); Anion Gap 15.7 mEq/L (5-15); Aspartate Amino Transferase 24 U/L (14-36); Bilirubin,Total 0.3 mg/dl (0.2-1.3); Blood Urea Nitrogen 38 mg/dl (7-17); Calcium 8.6 mg/dl (8.4-10.2); Carbon Dioxide 27 mmol/L (22.0-30.0); Chloride 94 mmol/L (98-107); Estimated Glomerular Filt Rate 39 ml/min (>60); GFR (African American) 48 ML/MIN (>60); Globulin 2.4 g/dL (1.3-3.2); Glucose 168 mg/dl (74-100); Magnesium 1.4 mg/dl (1.6-2.3); Potassium 3.7 mmoL/L (3.5-5.1); Sodium 133 mmol/L (136-145); Total Protein,Serum 6.2 g/dl (6.3-8.2)
[2021-10-10 16:56] LABS: Thyroid Stimulating Hormone 7.96 uIU/mL (0.465-4.68)
== END ==
PROVIDERS: Visit Provider Internal Medicine Adolescent Medicine
DX: I25.10 Atherosclerotic heart disease of native coronary artery without angina pectoris (principal); I50.20 Unspecified systolic (congestive) heart failure
CPT/HCPCS: 36415; 80053; 83735; 84443; 85025

== ENCOUNTER → 2021-11-07 10:46 | Outpatient (CLI) | payer MEDICARE, SELFPAY ==
[2021-11-07 11:07] LABS: Coronavirus 19, PCR Not Detected (NotDetected); Influenza A, PCR Not Detected (NotDetected); Influenza B, PCR Not Detected (NotDetected)
[2021-11-07 11:45] LABS: Basophils # 0.1 K/mm3 (0-0.2); Basophils % 0.5 % (0.1-2.0); Eosinophils # 0.2 K/mm3 (0.0-0.4); Eosinophils % 1.6 % (0.1-12.0); Hematocrit 40.5 % (37.0-47.0); Hemoglobin 12.2 g/dL (12.2-16.2); Lymphocytes % 15.1 % (10-50); Mean Corpuscular Hemoglobin 26.7 pg (27.0-31.2); Mean Corpuscular Volume 88.8 fl (81-99); Mean Platelet Volume 9.1 fl (7.4-10.4); Monocytes # 0.6 K/mm3 (0.1-1.0); Monocytes % 4.7 % (1.7-9.3); Neutrophils # 10.1 K/mm3 (1.8-7.8); Neutrophils % 78.2 % (37.0-80.0); Platelet Count 352 K/mm3 (142-424); Red Blood Count 4.56 M/mm3 (4.20-5.40); Red Cell Distribution Width 15.8 % (11.5-17.5); White Blood Count 12.9 K/mm3 (4.8-10.8)
[2021-11-07 12:31] LABS: Chloride 100 mmol/L (98-107); Sodium 133 mmol/L (136-145)
[2021-11-07 12:32] LABS: Potassium 4.8 mmoL/L (3.5-5.1)
[2021-11-07 12:35] LABS: Anion Gap 9.8 mEq/L (5-15); Blood Urea Nitrogen 24 mg/dl (7-17); Calcium 8.5 mg/dl (8.4-10.2); Carbon Dioxide 28 mmol/L (22.0-30.0); Estimated Glomerular Filt Rate 39 ml/min (>60); GFR (African American) 48 ML/MIN (>60); Glucose 136 mg/dl (74-100)
== END ==
PROVIDERS: Physician Assistant; PCP Internal Medicine Adolescent Medicine; Visit Provider Nurse Practitioner
DX: E78.2 Mixed hyperlipidemia (principal); I11.0 Hypertensive heart disease with heart failure; I25.10 Atherosclerotic heart disease of native coronary artery without angina pectoris; I42.9 Cardiomyopathy, unspecified; I47.2 Ventricular tachycardia; I48.19 Other persistent atrial fibrillation; I50.22 Chronic systolic (congestive) heart failure; I73.9 Peripheral vascular disease, unspecified; R42 Dizziness and giddiness; R53.82 Chronic fatigue, unspecified; R55 Syncope and collapse; R60.0 Localized edema; R94.31 Abnormal electrocardiogram [ECG] [EKG]; Z95.810 Presence of automatic (implantable) cardiac defibrillator; Z01.812 Encounter for preprocedural laboratory examination; Z11.52 Encounter for screening for COVID-19; I63.9 Cerebral infarction, unspecified
CPT/HCPCS: 80048; 85025; C9803; U0003; U0005

== ENCOUNTER 2021-11-09 07:35 | Day surgery (SDC) | payer MEDICARE, SELFPAY ==
[2021-11-09] VITALS (20 sets, daily range): BP systolic 130–160; BP diastolic 59–88; PULSE 78–83; RESP 16–19; O2SAT 94–100; BMI 25.5
--- NOTE | 2021-11-09 07:02 | IR_ITS ---
APPROVED REPORT Patient Location: Outpatient Administrative Assistant Office Manager: BRUNA Gibbs RT (R) PROCEDURES Left heart catheterization Left ventriculogram Selective coronary angiogram INDICATION History of systolic congestive heart failure, New onset nonsustained ventricular tachycardia, possibly ischemic, History of coronary artery disease, New onset syncope Informed consent was obtained prior to the procedure. COMPLICATIONS None Estimated Blood Loss: Less than 10 mls TECHNIQUE One percent lidocaine was used to anesthetize the right groin. The right femoral artery was accessed via the Seldinger technique. A 4-Danish sheath was placed in the right femoral artery. The JL-4 and JR-4 catheter was also used to perform left heart catheterization left ventriculogram and selective coronary angiogram. At the end of the procedure the patient was transferred to the post-op holding area in stable condition for arterial sheath removal. ANGIOGRAPHIC RESULTS The left main artery Normal The left anterior descending artery Has proximal eccentric 20 to 30% stenoses with mid vessel 10 to 20% stenosis The circumflex artery Is nondominant and has 20 to 30% stenosis in the proximal large first obtuse marginal artery The right coronary artery Is a dominant vessel and has proximal partly concentric but mostly eccentric 40% stenosis with mild 10% luminal irregularities distally The ADRIAN ventriculogram reveals Dilated ventricle with ejection fraction of 35 to 40% The left ventricular end-diastolic pressure Low at 5 mmHg IMPRESSION Coronary disease as described above which is effectively unchanged from 2018 Ejection fraction as described above Low LVEDP which is possibly the etiology for patient's symptoms/syncope PLAN 1. Medical management for both coronary artery disease and systolic heart failure 2. It may be reasonable to decrease diuretics given patient's syncope in which slight dehydration could be the etiology for the syncope Electronically signed by : Danilo Adan MD 11/09/2021 10:02:03
== END 2021-11-09 13:40 | disposition home or self-care (01) ==
LOC: CATHLAB 07:36
PROVIDERS: PCP Internal Medicine Adolescent Medicine; Visit Provider Internal Medicine
DX: E78.2 Mixed hyperlipidemia (principal); I11.0 Hypertensive heart disease with heart failure; I25.10 Atherosclerotic heart disease of native coronary artery without angina pectoris; I42.9 Cardiomyopathy, unspecified; I47.2 Ventricular tachycardia; I48.19 Other persistent atrial fibrillation; I50.22 Chronic systolic (congestive) heart failure; I73.9 Peripheral vascular disease, unspecified; R94.31 Abnormal electrocardiogram [ECG] [EKG]; Z95.810 Presence of automatic (implantable) cardiac defibrillator; Z79.899 Other long term (current) drug therapy; I65.9 Occlusion and stenosis of unspecified precerebral artery
CPT/HCPCS: 93458; 99152; C1725; C1769; J1644; Q9967

== ENCOUNTER → 2022-03-21 08:04 | Outpatient (CLI) | payer MEDICARE, SELFPAY ==
[2022-03-21 08:07] LABS: MANUAL DIFFERENTIAL MANUAL DIFFERENTIAL (MANUAL DIFF)
[2022-03-21 14:22] LABS: Basophils # 0.1 K/mm3 (0-0.2); Basophils % 0.4 % (0.1-2.0); Eosinophils # 0.2 K/mm3 (0.0-0.4); Eosinophils % 1.6 % (0.1-12.0); Hematocrit 40.4 % (37.0-47.0); Hemoglobin 12.8 g/dL (12.2-16.2); Lymphocytes # 1.7 K/mm3 (0.7-4.5); Lymphocytes % 14.9 % (10-50); Mean Corpuscular HGB Conc 31.7 g/dL (31.8-35.4); Mean Corpuscular Hemoglobin 27.6 pg (27.0-31.2); Mean Corpuscular Volume 87.1 fl (81-99); Mean Platelet Volume 9.4 fl (7.4-10.4); Monocytes # 0.6 K/mm3 (0.1-1.0); Monocytes % 5.5 % (1.7-9.3); Neutrophils # 8.8 K/mm3 (1.8-7.8); Neutrophils % 77.5 % (37.0-80.0); Platelet Count 353 K/mm3 (142-424); Red Blood Count 4.63 M/mm3 (4.20-5.40); Red Cell Distribution Width 15.4 % (11.5-17.5); White Blood Count 11.3 K/mm3 (4.8-10.8)
[2022-03-21 14:31] LABS: Alanine Aminotransferase 19 U/L (12-78); Albumin Level 3.6 g/dl (3.5-5.0); Albumin/Globulin Ratio 1.4 (1.1-1.8); Alkaline Phosphatase 127 U/L (38-126); Anion Gap 12.2 mEq/L (5-15); Aspartate Amino Transferase 25 U/L (14-36); Bilirubin,Total 0.3 mg/dl (0.2-1.3); Blood Urea Nitrogen 36 mg/dl (7-17); Calcium 9.5 mg/dl (8.4-10.2); Carbon Dioxide 27 mmol/L (22.0-30.0); Chloride 102 mmol/L (98-107); Estimated Glomerular Filt Rate 33 ml/min (>60); GFR (African American) 40 ML/MIN (>60); Globulin 2.5 g/dL (1.3-3.2); Glucose 151 mg/dl (74-100); Potassium 4.2 mmoL/L (3.5-5.1); Sodium 137 mmol/L (136-145); Total Protein,Serum 6.1 g/dl (6.3-8.2)
[2022-03-21 14:33] LABS: Eosinophils % 1 % (0-3); Lymphocytes % 16 % (10-50); Monocytes % 7 % (2-9); Neutrophils % 76 % (42-76); Platelet Estimate Normal; Total Cells Counted 100
[2022-03-21 14:34] LABS: Anisocytosis 1+; Hypochromasia 1+; Ovalocytes 1+
== END ==
PROVIDERS: Visit Provider Internal Medicine Adolescent Medicine
DX: I50.9 Heart failure, unspecified (principal); N18.9 Chronic kidney disease, unspecified; N17.9 Acute kidney failure, unspecified
CPT/HCPCS: 36415; 80053; 80162; 85007; 85014; 85018; 85048; 85049

== ENCOUNTER → 2022-05-25 06:14 | Outpatient (CLI) | payer MEDICARE, SELFPAY ==
[2022-05-25 18:38] LABS: Basophils # 0.1 K/mm3 (0-0.2); Basophils % 0.6 % (0.1-2.0); Eosinophils # 0.2 K/mm3 (0.0-0.4); Eosinophils % 1.3 % (0.1-12.0); Hemoglobin 13.3 g/dL (12.2-16.2); Lymphocytes # 1.5 K/mm3 (0.7-4.5); Lymphocytes % 12.6 % (10-50); Mean Corpuscular Hemoglobin 28.5 pg (27.0-31.2); Mean Corpuscular Volume 91.9 fl (81-99); Mean Platelet Volume 10.1 fl (7.4-10.4); Monocytes # 0.6 K/mm3 (0.1-1.0); Monocytes % 4.5 % (1.7-9.3); Neutrophils # 9.9 K/mm3 (1.8-7.8); Neutrophils % 80.9 % (37.0-80.0); Platelet Count 434 K/mm3 (142-424); Red Blood Count 4.68 M/mm3 (4.20-5.40); Red Cell Distribution Width 15.4 % (11.5-17.5); White Blood Count 12.2 K/mm3 (4.8-10.8)
[2022-05-25 18:41] LABS: Anion Gap 11.3 mEq/L (5-15); Blood Urea Nitrogen 28 mg/dl (7-17); Calcium 8.8 mg/dl (8.4-10.2); Carbon Dioxide 26 mmol/L (22.0-30.0); Chloride 104 mmol/L (98-107); Estimated Glomerular Filt Rate 43 ml/min (>60); GFR (African American) 52 ML/MIN (>60); Glucose 134 mg/dl (74-100); Potassium 4.3 mmoL/L (3.5-5.1); Sodium 137 mmol/L (136-145)
== END ==
PROVIDERS: PCP Internal Medicine Adolescent Medicine; Visit Provider Internal Medicine Adolescent Medicine
DX: R42 Dizziness and giddiness (principal); I50.22 Chronic systolic (congestive) heart failure
CPT/HCPCS: 80048; 85025

== ENCOUNTER 2023-04-17 22:02 | Emergency (ER) | payer MEDICARE, SELFPAY ==
[2023-04-17 22:02] VITALS: BP 142/72; PULSE 84; RESP 16; TEMP 36.8; O2SAT 98; BMI 28.1
--- NOTE | 2023-04-17 22:11 | PC.NURSE ---
in room talking with patient at this time.
--- NOTE | 2023-04-17 22:14 | XR_ITS ---
PROCEDURE INFORMATION: Exam: XR Right Hip Exam date and time: 04/17/2023 11:04 PM Age: 82 years old Clinical indication: Hip pain; Right hip; Additional info: R hip pain radiating down R leg TECHNIQUE: Imaging protocol: Radiologic exam of the right hip. Views: 2 or 3 views hip with pelvis when performed. COMPARISON: CT ABDOMEN PELVIS WO CON 05/11/2020 9:34 AM FINDINGS: Bones/joints: Unremarkable. No acute fracture. Soft tissues: Unremarkable. IMPRESSION: No acute findings.
--- NOTE | 2023-04-17 22:14 | XR_ITS ---
PROCEDURE INFORMATION: Exam: XR Right Femur Exam date and time: 04/17/2023 11:06 PM Age: 82 years old Clinical indication: Pain; Thigh; Right; Patient HX: Denies any injury; Additional info: R hip pain radiating down R leg TECHNIQUE: Imaging protocol: Radiologic exam of the right femur. Views: 2 views. COMPARISON: LEOTJW/ORT MRI-LOW EXT OTH THN JNT W/O-RT 08/31/2016 2:10 PM FINDINGS: Bones/joints: Unremarkable. No acute fracture. Soft tissues: Unremarkable. IMPRESSION: No acute findings.
--- NOTE | 2023-04-17 22:17 | HMH.EDGENADL ---
Discharge Plan Disposition Patient Disposition: Home, Self-Care Condition: Good Chief Complaint: PAIN Prescriptions Prescriptions: No Action bisoprolol fumarate 10 mg tablet 10 mg PO BID digoxin 125 mcg (0.125 mg) tablet 125 mcg PO DAILY Patient Comments: Take on Sun/Sun/Sunday only fluticasone propionate 50 mcg/actuation spray,suspension 1 spray NS DAILY ondansetron HCl [Zofran] 4 mg tablet 4 mg PO Q8HP PRN (Reason: Nausea) ropinirole 0.5 mg tablet 0.5 mg PO BIDP PRN (Reason: RLS) nitroglycerin 0.4 mg/hr patch 24 hour 1 patch TRANSDERMA DAILY Rx Instructions: allow nitrate-free interval of approx. 10-12 hrs per 24-hour period pantoprazole [Protonix] 40 mg tablet,delayed release (DR/EC) 40 mg PO DAILY allopurinol 100 mg tablet 100 mg PO DAILY furosemide 40 mg tablet 40 mg PO DAILY Rx Instructions: One daily Sunday through Sunday magnesium oxide 400 mg magnesium capsule 400 mg PO BID multivitamin with minerals Tablet 1 tab PO DAILY erythromycin 5 mg/gram (0.5 %) ointment OP Rx Instructions: one application weekly Zyrtec 10 mg capsule 10 mg PO DAILY PRN spironolactone 50 mg tablet 50 mg PO DAILY levothyroxine 25 mcg tablet 25 mcg PO DAILY 90 Days Qty: 90 0RF clopidogrel 75 MG tablet 75 mg PO DAILY tramadol 50 MG tablet 50 - 100 mg PO TIDP PRN (Reason: Moderate Pain) Referrals Follow up/Referrals: JIAN PAGE MD [Primary Care Provider] - See instructions Activity Restrictions/Add. Instructions Additional Instructions/Restrictions: At this time is felt you are safe to be discharged home. If new or worsening symptoms please do not hesitate to return to the emergency department. Clinical Impressions Clinical Impression: Acute hip pain Discharge ED Provider: Tona Mcwilliams General Adult HPI <Tona Mcwilliams DO - Last Filed: 04/17/23 23:02> General Chief complaint: PAIN Stated complaint: leg pain Time Seen by Provider: 04/17/23 22:02 Mode of Arrival: EMS Source of Information: Patient Limitations: No Limitations Description of Symptoms (Recalled from ER Triage Doc. by RN): Pt advises around 430 this afternoon while she was walking into the house she started having some pain in her right hip that was shooting down her whole leg. PT denies any injury or recent falls. Advises as the night went on the pain has increasingly gotten worse. No abnormalilites noted during assessment. EMS gave 100mcg of fentanyl and 4mg of zofran History of Present Illness HPI narrative: This patient is an 82-year-old female who has a history of CVA, hypertension, CAD, CHF, cardiomyopathy status post ICD placement, peripheral arterial disease, and gout presenting to the emergency department for evaluation with concern for right hip pain that shoots down her entire leg to her toes. She states that this started around 4:30 PM while she was walking through the house. No known injuries or strains. She denies any new strenuous activity. She denies any associated back pain, numbness, tingling, saddle anesthesia, incontinence, or other concerns. Her pain got better with fentanyl provided by EMS. She also notes that she had a similar pain in her left lower leg yesterday, which she thought was a muscle cramp. It resolved spontaneously. She denies any fevers, chills, or other concerns. Related Data Home Medications Medication Instructions Recorded Confirmed bisoprolol fumarate 10 mg tablet 10 mg PO BID High blood pressure 05/29/19 05/25/22 clopidogrel 75 mg tablet 75 mg PO DAILY PLATELET INHIBITOR 07/03/19 05/25/22 fluticasone propionate 50 1 spray intranasal DAILY Allergy 10/22/19 05/25/22 mcg/actuation nasal symptoms spray,suspension nitroglycerin 0.4 mg/hr 1 patch transdermal DAILY Chest 10/22/19 05/25/22 transdermal 24 hour patch pain ondansetron HCl 4 mg tablet 4 mg PO Q8HP PRN Nausea
[2023-04-17 22:22] LABS: Basophils % 0.4 % (0.1-2.0); Eosinophils # 0.2 K/mm3 (0.0-0.4); Hematocrit 44.7 % (37.0-47.0); Hemoglobin 13.9 g/dL (12.2-16.2); Lymphocytes # 2.3 K/mm3 (0.7-4.5); Mean Corpuscular Hemoglobin 27.7 pg (27.0-31.2); Mean Corpuscular Volume 89.5 fl (81-99); Mean Platelet Volume 8.9 fl (7.4-10.4); Monocytes # 0.7 K/mm3 (0.1-1.0); Monocytes % 6.9 % (1.7-9.3); Neutrophils # 7.1 K/mm3 (1.8-7.8); Neutrophils % 68.6 % (37.0-80.0); Platelet Count 305 K/mm3 (142-424); Red Cell Distribution Width 14.9 % (11.5-17.5); White Blood Count 10.4 K/mm3 (4.8-10.8)
[2023-04-17 22:23] LABS: Chloride 104 mmol/L (98-107); Potassium 4.5 mmoL/L (3.5-5.1); Sodium 138 mmol/L (136-145)
[2023-04-17 22:25] LABS: Blood Urea Nitrogen 41 mg/dl (7-17)
[2023-04-17 22:26] LABS: Alanine Aminotransferase 34 U/L (12-78); Albumin Level 3.8 g/dl (3.5-5.0); Albumin/Globulin Ratio 1.2 (1.1-1.8); Alkaline Phosphatase 146 U/L (38-126); Anion Gap 13.5 mEq/L (5-15); Aspartate Amino Transferase 36 U/L (14-36); Bilirubin,Total 0.4 mg/dl (0.2-1.3); Calcium 9.5 mg/dl (8.4-10.2); Carbon Dioxide 25 mmol/L (22.0-30.0); Creatinine Clearance Estimated 34 mL/min (50-200); Estimated Glomerular Filt Rate 33 ml/min (>60); GFR (African American) 40 ML/MIN (>60); Globulin 3.1 g/dL (1.3-3.2); Glucose 123 mg/dl (74-100); Magnesium 1.9 mg/dl (1.6-2.3); Total Protein,Serum 6.9 g/dl (6.3-8.2)
[2023-04-17 22:30] VITALS: BP 130/82; RESP 14
[2023-04-17 23:00] VITALS: BP 128/67; PULSE 90; RESP 18; O2SAT 95
--- NOTE | 2023-04-17 23:05 | PC.NURSE ---
Rounded on pt and updated her and on POC. No new needs at this time
--- NOTE | 2023-04-17 23:10 | PC.NURSE ---
patient gone to RAD at this time.
--- NOTE | 2023-04-17 23:24 | PC.NURSE ---
patient back in room at this time.
[2023-04-17 23:30] VITALS: BP 117/63; PULSE 100; RESP 14; O2SAT 96
[2023-04-18] VITALS: BP 115/65; PULSE 83; RESP 16; O2SAT 96
--- NOTE | 2023-04-18 00:09 | PC.NURSE ---
Rounded on pt. Pt was able to stand and ambulate in room with no pain at this time. MD notified.
[2023-04-18 00:34] VITALS: BP 115/65; PULSE 81; RESP 14; TEMP 36.7; O2SAT 96
== END 2023-04-18 00:43 | disposition home or self-care (01) ==
PROVIDERS: Emergency Provider Emergency Medicine; PCP Internal Medicine Adolescent Medicine
DX: M25.551 Pain in right hip (principal); I11.0 Hypertensive heart disease with heart failure; I50.9 Heart failure, unspecified; I25.10 Atherosclerotic heart disease of native coronary artery without angina pectoris; I42.9 Cardiomyopathy, unspecified; I48.91 Unspecified atrial fibrillation; E78.5 Hyperlipidemia, unspecified; I73.9 Peripheral vascular disease, unspecified; Z86.73 Personal history of transient ischemic attack (TIA), and cerebral infarction without residual deficits
CPT/HCPCS: 73502; 73552; 80053; 83735; 85025; 96374; 99285

== ENCOUNTER → 2023-06-05 14:56 | Outpatient (CLI) | payer MEDICARE, SELFPAY ==
[2023-06-05 15:21] LABS: Basophils # 0.1 K/mm3 (0-0.2); Basophils % 0.6 % (0.1-2.0); Eosinophils # 0.3 K/mm3 (0.0-0.4); Eosinophils % 2.6 % (0.1-12.0); Hematocrit 47.7 % (37.0-47.0); Hemoglobin 14.5 g/dL (12.2-16.2); Lymphocytes # 2.2 K/mm3 (0.7-4.5); Lymphocytes % 19.2 % (10-50); Mean Corpuscular HGB Conc 30.3 g/dL (31.8-35.4); Mean Corpuscular Hemoglobin 27.8 pg (27.0-31.2); Mean Corpuscular Volume 91.7 fl (81-99); Mean Platelet Volume 9.1 fl (7.4-10.4); Monocytes # 0.6 K/mm3 (0.1-1.0); Monocytes % 5.4 % (1.7-9.3); Neutrophils # 8.2 K/mm3 (1.8-7.8); Neutrophils % 72.2 % (37.0-80.0); Platelet Count 350 K/mm3 (142-424); Red Blood Count 5.21 M/mm3 (4.20-5.40); Red Cell Distribution Width 16.2 % (11.5-17.5); White Blood Count 11.3 K/mm3 (4.8-10.8)
--- NOTE | 2023-06-05 15:22 | CT_ITS ---
FINAL REPORT CLINICAL HISTORY: VISUAL DISTURBANCE,MEMORY LOSS FINDINGS: Axial imaging of the head was obtained with contrast. This study was performed with techniques to keep radiation doses as low as reasonably achievable, (ALARA). Individualized dose reduction techniques using automated exposure control or adjustment of mA and/or kV according to the patient's size were employed. There is mild atrophy. There is diffuse decreased attenuation in the deep white matter. There is abnormal decreased attenuation throughout the left occipital lobe that appears to represent a subacute ischemic infarct. There is no encephalomalacia. There is mild persistent mass effect on the posterior horn of the left lateral ventricle. The ventricles are normal size. There is no intracranial hemorrhage. There is no mass. There is no abnormal contrast enhancement. IMPRESSION: Subacute appearing ischemic infarct in the left occipital lobe. Extensive changes of chronic ischemia. Reviewed, Interpreted and Dictated by Wyatt Abdul MD Transcribed by Isaak Wu Authenticated and [facility]
[2023-06-05 15:24] LABS: Chloride 104 mmol/L (98-107); Sodium 139 mmol/L (136-145)
[2023-06-05 15:25] LABS: Potassium 4.5 mmoL/L (3.5-5.1)
[2023-06-05 15:27] LABS: Alanine Aminotransferase 26 U/L (12-78); Albumin Level 3.8 g/dl (3.5-5.0); Albumin/Globulin Ratio 1.1 (1.1-1.8); Alkaline Phosphatase 133 U/L (38-126); Anion Gap 15.5 mEq/L (5-15); Aspartate Amino Transferase 35 U/L (14-36); Bilirubin,Total 0.4 mg/dl (0.2-1.3); Blood Urea Nitrogen 39 mg/dl (7-17); Carbon Dioxide 24 mmol/L (22.0-30.0); Cholesterol 204 mg/dl (140-200); Estimated Glomerular Filt Rate 31 ml/min (>60); GFR (African American) 37 ML/MIN (>60); Globulin 3.5 g/dL (1.3-3.2); Total Protein,Serum 7.3 g/dl (6.3-8.2); Triglycerides 184 mg/dl (30-150); VLDL Cholesterol 37 mg/dL (0-40)
[2023-06-05 15:28] LABS: Calcium 9.3 mg/dl (8.4-10.2); Chol/HDL Ratio 4.9 (1-3.5); Glucose 146 mg/dl (74-100); HDL Cholesterol 42 mg/dl (40-60)
[2023-06-05 15:39] LABS: Direct LDL Cholesterol 94.05 mg/dL (100-129)
[2023-06-05 16:27] LABS: Triiodothryronine (T3) Uptake 36 % (23.5-40.5)
[2023-06-05 16:28] LABS: Free Thyroxine Index 3.7 ug/dL (5.93-13.13); T4 (Thyroxine) 10.4 ug/dl (5.53-11.0)
[2023-06-05 16:42] LABS: Thyroid Stimulating Hormone 2.49 uIU/mL (0.465-4.68)
[2023-06-05 16:53] LABS: 25-OH Vitamin D, Total 28.2 ng/mL (30-100)
[2023-06-05 18:28] LABS: Vitamin B12 850 pg/mL (239-931)
== END ==
PROVIDERS: PCP Internal Medicine Adolescent Medicine; Visit Provider Internal Medicine Adolescent Medicine
DX: H53.9 Unspecified visual disturbance (principal); I25.10 Atherosclerotic heart disease of native coronary artery without angina pectoris; R41.3 Other amnesia; E55.9 Vitamin D deficiency, unspecified; E03.9 Hypothyroidism, unspecified
CPT/HCPCS: 36415; 70460; 80053; 80061; 82306; 82607; 84436; 84443; 84479; 85025

== ENCOUNTER 2023-07-23 11:00 | Outpatient (RCR) | payer MEDICARE, SELFPAY ==
--- NOTE | 2023-06-13 12:17 | HMH.PTOPEV ---
PT Outpatient Evaluation Rehab PT Outpatient Evaluation Start: 06/13/23 11:43 Freq: Status: Active Protocol: Document 06/13/23 11:47 PDESEROURadha (Rec: 06/13/23 12:16 PDESEROUX [id number]) E-signed By Nikko Martinez, PT Outpatient Therapy Subjective History Subjective History Pt. is a 82 year old female who presents to [facility] Outpatient Physical Therapy Services in [place] for the initial evaluation this date(06/13/23) w/ c/o acute and constant R- sided weakness, numbness, and imbalance secondary to a CVA two weeks ago. Pt. unable to recall specificity of CVA secondary to memory loss, but vocalizes having it two weeks ago. Pt. reports PMHX of a prior CVA that affected the L side. Pt. reports ambulating w / rollator prior to recent CVA . Pt. reports IND. w/ ADLs at home, but states her is near by just in case. Pt. reports having difficulties w / standing up out of a chair, balance, and walking secondary to weakness and numbness. Pt. reports having 1 major fall years ago that dislocated my shoulder. (RUE) Pt. unable to recall RTMD date, unable to recall medication names at this time. PMH includes CVA, Hypertension, RUE shldr. dislocation. New diagnosis of cancer in past 12 No months? Chief Complaint Pain,Stiff,Gives out/Unstable, Paresthesia,Weakness,Decreased Coordination Symptom Type Ache,Burning,Numbness,Other Symptoms Relieved By Rest/Positioning,Brace/Support ,Prescription Meds Symptoms Aggravated By Standing,Bending/Stooping, Physical Activity,Twisting, Walking Prior Functional Limitations None Current Functional Limitations Housework,Standing,Squatting, Recreation Activity,Walking, Stairs,Balance Symptom Description Con
== END 2023-08-13 11:45 | disposition home or self-care (01) ==
LOC: PT 11:00
PROVIDERS: PCP Internal Medicine Adolescent Medicine; Visit Provider Internal Medicine Adolescent Medicine
DX: R26.89 Other abnormalities of gait and mobility (principal); H53.9 Unspecified visual disturbance
CPT/HCPCS: 97110; 97163; 97164; 97530

== ENCOUNTER 2023-12-02 12:06 | Emergency (ER) | payer MEDICARE, SELFPAY ==
[2023-12-02] VITALS (16 sets, daily range): BP systolic 132–169; BP diastolic 54–83; PULSE 60–76; RESP 12–18; TEMP 36.5–36.7; O2SAT 96–100; BMI 28.5
--- NOTE | 2023-12-02 12:13 | ECG_ITS ---
APPROVED REPORT Exam: Resting ECG HR:77 bpm ECG Measurements Heart Rate 77 AXES NJ 140 P -75 QRSd 138 QRS 175 QT 421 T -3 QTc 453 Conclusion ELECTRONIC ATRIAL PACEMAKER ELECTRONIC VENTRICULAR PACEMAKER Electronically signed by : VA MARTINEZ, 12/02/2023 15:36:02
--- NOTE | 2023-12-02 12:14 | XR_ITS ---
PROCEDURE INFORMATION: Exam: XR Chest Exam date and time: 12/02/2023 12:26 PM Age: 83 years old Clinical indication: Other: Defibrillator fired, feeling unwell; Prior surgery; Surgery date: 6+ months TECHNIQUE: Imaging protocol: Radiologic exam of the chest. Views: 1 view. COMPARISON: CR XR CHEST PORTABLE 06/27/2020 2:45 PM FINDINGS: Tubes, catheters and devices: A pulse generator device is present, and its leads are in appropriate position. Lungs: Patchy and consolidative airspace opacity. Pleural spaces: Unremarkable. No pleural effusion. No pneumothorax. Heart/Mediastinum: There is a left atrial appendage clip Bones/joints: Unremarkable. IMPRESSION: Right lower lobe pneumonia.
[2023-12-02 12:28] LABS: Basophils # 0.1 K/mm3 (0-0.2); Basophils % 0.8 % (0.1-2.0); Eosinophils # 0.3 K/mm3 (0.0-0.4); Eosinophils % 3.6 % (0.1-12.0); Hematocrit 43.5 % (37.0-47.0); Hemoglobin 13.6 g/dL (12.2-16.2); Lymphocytes # 2.1 K/mm3 (0.7-4.5); Lymphocytes % 30.5 % (10-50); Mean Corpuscular HGB Conc 31.2 g/dL (31.8-35.4); Mean Corpuscular Volume 102.5 fl (81-99); Mean Platelet Volume 9.7 fl (7.4-10.4); Monocytes # 0.4 K/mm3 (0.1-1.0); Monocytes % 5.6 % (1.7-9.3); Neutrophils # 4.1 K/mm3 (1.8-7.8); Neutrophils % 59.7 % (37.0-80.0); Platelet Count 255 K/mm3 (142-424); Red Blood Count 4.24 M/mm3 (4.20-5.40); Red Cell Distribution Width 13.7 % (11.5-17.5); White Blood Count 6.9 K/mm3 (4.8-10.8)
--- NOTE | 2023-12-02 12:30 | PC.NURSE ---
spoke with James the rep for, transmission machine for pt defibrillator is not transmitting, pt has a phone at home that connects to the defibrillator, family is bringing the device
[2023-12-02 12:37] LABS: Chloride 107 mmol/L (98-107); Potassium 3.9 mmoL/L (3.5-5.1); Sodium 137 mmol/L (136-145)
[2023-12-02 12:39] LABS: Alanine Aminotransferase 20 U/L (12-78); Alkaline Phosphatase 104 U/L (38-126); Aspartate Amino Transferase 33 U/L (14-36); Bilirubin,Total 0.6 mg/dl (0.2-1.3); Blood Urea Nitrogen 27 mg/dl (7-17); Creatinine Clearance Estimated 36 mL/min (50-200); Estimated Glomerular Filt Rate 36 ml/min (>60); GFR (African American) 43 ML/MIN (>60)
[2023-12-02 12:40] LABS: Albumin Level 3.5 g/dl (3.5-5.0); Albumin/Globulin Ratio 1.3 (1.1-1.8); Anion Gap 9.9 mEq/L (5-15); Calcium 9.4 mg/dl (8.4-10.2); Carbon Dioxide 24 mmol/L (22.0-30.0); Globulin 2.6 g/dL (1.3-3.2); Glucose 106 mg/dl (74-100); Total Protein,Serum 6.1 g/dl (6.3-8.2)
--- NOTE | 2023-12-02 12:46 | HMH.EDGENADL ---
Discharge Plan Disposition Patient Disposition: Xfer Other Prescriptions Prescriptions: No Action bisoprolol fumarate 10 mg tablet 10 mg PO BID digoxin 125 mcg (0.125 mg) tablet 125 mcg PO DAILY Patient Comments: Take on Sun/Sun/Sunday only fluticasone propionate 50 mcg/actuation spray,suspension 1 spray NS DAILY ondansetron HCl [Zofran] 4 mg tablet 4 mg PO Q8HP PRN (Reason: Nausea) ropinirole 0.5 mg tablet 0.5 mg PO BIDP PRN (Reason: RLS) nitroglycerin 0.4 mg/hr patch 24 hour 1 patch TRANSDERMA DAILY Rx Instructions: allow nitrate-free interval of approx. 10-12 hrs per 24-hour period pantoprazole [Protonix] 40 mg tablet,delayed release (DR/EC) 40 mg PO DAILY allopurinol 100 mg tablet 100 mg PO DAILY furosemide 40 mg tablet 40 mg PO DAILY Rx Instructions: One daily Sunday through Sunday magnesium oxide 400 mg magnesium capsule 400 mg PO BID multivitamin with minerals Tablet 1 tab PO DAILY erythromycin 5 mg/gram (0.5 %) ointment OP Rx Instructions: one application weekly Zyrtec 10 mg capsule 10 mg PO DAILY PRN spironolactone 50 mg tablet 50 mg PO DAILY levothyroxine 25 mcg tablet 25 mcg PO DAILY 90 Days Qty: 90 0RF clopidogrel 75 MG tablet 75 mg PO DAILY tramadol 50 MG tablet 50 - 100 mg PO TIDP PRN (Reason: Moderate Pain) Referrals Follow up/Referrals: Ignacio Aceves MD [Primary Care Provider] - See instructions Clinical Impressions Clinical Impression: AICD discharge, Non-ST elevation NH (NSTEMI), Right lower lobe consolidation Discharge ED Provider: Tona Mcwilliams General Adult HPI <Tona Mcwilliams DO - Last Filed: 12/02/23 15:32> General Chief complaint: Arrhythmia/Palpitations Stated complaint: pacemaker went off Time Seen by Provider: 12/02/23 12:12 Mode of Arrival: Wheelchair Source of Information: Patient and Spouse Limitations: No Limitations Description of Symptoms (Recalled from ER Triage Doc. by RN): pt presents to ED for evaluation. pt reports she was cooking breakfast this morning and her pacemaker/defibrilator went off . pt reports feeling a shock. pt follows with dr polk in [place]. pt has had similar episode one other time. History of Present Illness HPI narrative: This patient is an 83-year-old female with a history of CAD, chronic systolic heart failure, V. tach, atrial fibrillation, cardiomyopathy, hypertension, hyperlipidemia, and CVA with [place] pacemaker/defibrillator in place presenting with concern that her defibrillator went off this morning. She states that she has been in her usual state of health with no acute concerns over the last several days, including this morning. This morning, she was feeling fine and was in the kitchen cooking breakfast when she fell to go off. She states that since it went off this morning, she has not felt right. She does note the last time it went off was approximately 3 to 4 years ago. she denies any chest pain, shortness of breath, or other concerns. She notes that she just had the battery changed and her device about a month ago. Related Data Home Medications Medication Instructions Recorded Confirmed bisoprolol fumarate 10 mg tablet 10 mg PO BID High blood pressure 05/29/19 05/25/22 clopidogrel 75 mg tablet 75 mg PO DAILY PLATELET INHIBITOR 07/03/19 05/25/22 fluticasone propionate 50 1 spray intranasal DAILY Allergy 10/22/19 05/25/22 mcg/actuation nasal symptoms spray,suspension nitroglycerin 0.4 mg/hr 1 patch transdermal DAILY Chest 10/22/19 05/25/22 transdermal 24 hour patch pain ondansetron HCl 4 mg tablet 4 mg PO Q8HP PRN Nausea 10/22/19 05/25/22 (Zofran) pantoprazole 40 mg tablet,delayed 40 mg PO DAILY GERD 10/22/19 05/25/22 release (Protonix) ropinirole 0.5 mg tablet 0.5 mg PO BIDP PRN RLS 10/22/19 05/25/22 tramadol 50 mg tablet 50 - 100 mg PO TIDP PRN Moderate 11/05/19 05/25/22 Pain digoxin 125 mcg (0.125 mg) tablet 125 mcg PO DAILY HEART RATE 02/19/20 05/25/22 allopurinol 100 mg tablet 100 mg PO DAILY GOUT 04/22/20 05/25/22 cetirizine 10 mg capsule (Zyrtec) 10 mg PO DAILY PRN 03/16/22 05/25/22 erythromycin 5 mg/gram (0.5 %) eye ophthalmic (eye) 03/16/22 05/25/22 ointment furosemide 40 mg tablet 40 mg PO DAILY Edema 03/16/22 05/25/22 magnesium oxide 400 mg PO BID 03/16/22 05/25/22 multivitamin with minerals 1 tab PO DAILY 03/16/22 05/25/22 spironolactone 50 mg tablet 50 mg PO DAILY 05/25/22 05/25/22 Previous Rx's Medication Instructions Recorded levothyroxine 25 mcg tablet 25 mcg PO DAILY thyroid 90 days 05/18/22 #90 tabs Allergies Allergy/AdvReac Type Severity Reaction Status Date / Time No Known Allergies Allergy Verified 04/17/23 22:11 [facility] <Tona Mcwilliams DO - Last Filed: 12/02/23 15:32> [facility] Disclaimer: The information contained in this section may have been updated after the patient was seen, as this information can be updated by other users. Medical History Near syncope Dizziness V-tach Dyspnea Left arm pain Abnormal EKG Right arm pain Defibrillator discharge PAD (peripheral artery disease) Pulmonary hypertension Automatic implantable cardioverter-defibrillator in situ Cardiomyopathy Bilateral edema of lower extremity A-fib HHD (hypertensive heart disease) CAD (coronary artery disease) HLD (hyperlipidemia) CVA (cerebral vascular accident) Surgical History History of lumpectomy of left breast Social History Smoking Status: Former smoker tobacco type: cigarettes packs per day: 1 second hand exposure: No alcohol intake: never substance use type: denies use current occupational status: retired Travel in the last 8 weeks: None household members: spouse housing: house marital status: current occupational exposures/hazards: No caffeine: No <Tona Mcwilliams DO - Last Filed: 12/02/23 15:32> ROS Obtained: Yes All systems reviewed & no additional complaints except as documented Physical Exam <Tona Mcwilliams DO - Last Filed: 12/02/23 15:32> General General appearance: alert and in no apparent distress Head Head exam: atraumatic and normocephalic Eye Eye exam: Present normal appearance, PERRL and EOMI ENT ENT exam: Present normal exam, normal oropharynx, mucous membranes moist and normal external ear exam Neck Neck exam: Present normal inspection, full ROM and trachea midline; Absent tenderness Chest Chest inspection: Present normal inspection and symmetric chest wall rise; Absent tenderness Respiratory Respiratory exam: Present normal lung sounds bilaterally; Absent respiratory distress, wheezes, stridor or accessory muscle use Cardiovascular Cardiovascular exam: Present regular rate, normal rhythm, Pacemaker w/paced rhythm and Pacemaker/defibrillator Abdominal Exam Abdominal exam: Present soft; Absent distention, tenderness or guarding Extremities Exam Extremities exam: Present normal inspection, full ROM and normal capillary refill; Absent tenderness or edema Back Exam Back exam: Present normal inspection and full ROM; Absent tenderness Neurological Exam Neurological exam: Present alert, oriented X3, CN II-XII intact and normal gait; Absent motor sensory deficit Psychiatric Psychiatric exam: Present normal affect and normal mood Skin Skin exam: Present warm and dry Medical Decision Making <Tona Mcwilliams, DO - Last Filed: 12/02/23 15:32> Medical Records Medical records reviewed: Yes I reviewed the patient's medical records. Del Inquiry Pt receiving controlled substance: No Vital Signs: 12/02/23 12:07 12/02/23 12:12 12/02/23 12:30 Temperature 98.0 F Temperature Source Oral Pulse Rate 73 75 Pulse Rate [Left Radial] 70 Respiratory Rate 16 12 Blood Pressure 154/75 H 151/69 H Blood Pressure [Right Arm] 154/75 H Blood Pressure Mean Blood Pressure Mean [Right Arm] 101 02 Sat by Pulse Oximetry 98 97 98 Oxygen Delivery Method Room Air Room Air 12/02/23 13:00 12/02/23 13:30 12/02/23 14:00 Temperature Temperature Source Pulse Rate 73 72 73 Pulse Rate [Left Radial] Respiratory Rate 14 12 15 Blood Pressure 145/66 H 145/69 H 157/83 H Blood Pressure [Right Arm] Blood Pressure Mean Blood Pressure Mean [Right Arm] 02 Sat by Pulse Oximetry 100 100 100 Oxygen Delivery Method Room Air Room Air Room Air 12/02/23 14:30 12/02/23 15:01 12/02/23 15:39 Temperature Temperature Source Pulse Rate 60 74 Pulse Rate [Left Radial] Respiratory Rate 16 18 16 Blood Pressure 144/71 H 136/74 150/54 H Blood Pressure [Right Arm] Blood Pressure Mean 111 Blood Pressure Mean [Right Arm] 02 Sat by Pulse Oximetry 97 99 Oxygen Delivery Method 12/02/23 16:00 12/02/23 16:30 12/02/23 17:01 Temperature Temperature Source Pulse Rate 73 76 70 Pulse Rate [Left Radial] Respiratory Rate 16 18 16 Blood Pressure 138/59 L 132/63 133/56 L Blood Pressure [Right Arm] Blood Pressure Mean 97 98 Blood Pressure Mean [Right Arm] 02 Sat by Pulse Oximetry 100 100 99 Oxygen Delivery Method Room Air Lab Data Lab results reviewed: Yes I reviewed the patient's lab results. Lab Results 12/02/23 12:19: WBC 6.9, RBC 4.24, Hgb 13.6, Hct 43.5, MCV 102.5 H, MCH 32.0 H, MCHC 31.2 L, RDW 13.7, Plt Count 255, MPV 9.7, Neut % (Auto) 59.7, Lymph % (Auto) 30.5, [place] % (Auto) 5.6, Eos % (Auto) 3.6, Baso % (Auto) 0.8, Neut # (Auto) 4.1, Lymph # (Auto) 2.1, [place] # (Auto) 0.4, Eos # (Auto) 0.3, Baso # (Auto) 0.1, Sodium 137, Potassium 3.9, Chloride 107, Carbon Dioxide 24, Anion Gap 9.9, BUN 27 H, Creatinine 1.40 H, Estimated Creat Clear 36, Estimated GFR 36 L, Est GFR ( Amer) 43 L, Glucose 106 H, Calcium 9.4, Magnesium 1.5 L, Total Bilirubin 0.6, AST 33, ALT 20, Alkaline Phosphatase 104, Troponin I < 0.01, NT-Pro-B Natriuret Pep 3230 H, Total Protein 6.1 L, Albumin 3.5, Globulin 2.6, Albumin/Globulin Ratio 1.3, TSH 1.90, Thyroxine (T4) 11.6 H 12/02/23 15:19: Troponin I 0.10 H 12/02/23 12:19 12/02/23 12:19 Orders (Tests/Meds): ED MEDICATIONS Discontinued Medications Generic Name Dose Route Start Last Admin Trade Name Freq PRN Reason Stop Dose Admin Aspirin 324 mg 12/02/23 12:15 12/02/23 12:48 Aspirin 81mg Chewable Tablet PO 12/02/23 12:16 324 mg ONCE ONE Administration ORDERS Category Date Time Status CT angio chest PE protocol Stat Cat Scan 12/02/23 17:22 Ordered XR chest portable Stat Exams 12/02/23 12:14 Completed Brain Natriuretic Peptide Stat Lab 12/02/23 12:19 Completed Complete Blood Count Auto Diff Stat Lab 12/02/23 12:19 Completed Comprehensive Metabolic Panel Stat Lab 12/02/23 12:19 Completed Magnesium Stat Lab 12/02/23 12:19 Completed T4 (Thyroxine) Stat Lab 12/02/23 12:19 Completed Thyroid Stimulating Hormone Stat Lab 12/02/23 12:19 Completed Troponin I Q3H Lab 12/02/23 15:19 Completed Troponin I Q3H Lab 12/02/23 18:15 Ordered Troponin I Stat Lab 12/02/23 12:19 Completed ECG Data Tracing #1: I reviewed this ECG and interpreted as documented below: Atrial and ventricular paced rhythm with a ventricular rate of 77 bpm. No STEMI criteria ECG initial impression date: 12/02/23 ECG initial impression time: 12:14 Medical Decision Narrative: In summary, this patient is a 83-year-old female presenting to the Emergency Department for evaluation after her defibrillator went off this morning. Differential diagnoses considered include but are not limited to dysrhythmia, ACS, electrolyte derangements, device malfunction. Ruling out the most morbid conditions drove assessment. On exam, the patient is alert and oriented with no concerns or complaints at this time except for feeling off. Vitals are reassuring on cardiac telemetry. Cardiopulmonary exam is reassuring. Workup included CBC, CMP, magnesium, troponin, BNP, chest x-ray, and EKG. We reached out to [facility] device patient service representative for assistance with interrogating the patient's device. EKG is reassuring. Labs are reassuring with negative initial troponin. BNP is mildly elevated. On multiple subsequent reassessments, the patient is resting comfortably with reassuring vital signs and no concerns or complaints. She states that she is feeling fine. At 1330, patient was placed in ED observation status pending second troponin and results from her device interrogation to determine whether or not the patient would be appropriate for discharge versus admission. The patient was provided serial reevaluations and cardiac monitoring while awaiting ultimate disposition. Patient care signed out to the oncoming provider, Dr. Verma. Ruby Verma MD - Last Filed: 12/02/23 17:36> Vital Signs: 12/02/23 12:07 12/02/23 12:12 12/02/23 12:30 Temperature 98.0 F Temperature Source Oral Pulse Rate 73 75 Pulse Rate [Left Radial] 70 Respiratory Rate 16 12 Blood Pressure 154/75 H 151/69 H Blood Pressure [Right Arm] 154/75 H Blood Pressure Mean Blood Pressure Mean [Right Arm] 101 02 Sat by Pulse Oximetry 98 97 98 Oxygen Delivery Method Room Air Room Air 12/02/23 13:00 12/02/23 13:30 12/02/23 14:00 Temperature Temperature Source Pulse Rate 73 72 73 Pulse Rate [Left Radial] Respiratory Rate 14 12 15 Blood Pressure 145/66 H 145/69 H 157/83 H Blood Pressure [Right Arm] Blood Pressure Mean Blood Pressure Mean [Right Arm] 02 Sat by Pulse Oximetry 100 100 100 Oxygen Delivery Method Room Air Room Air Room Air 12/02/23 14:30 12/02/23 15:01 12/02/23 15:39 Temperature Temperature Source Pulse Rate 60 74 Pulse Rate [Left Radial] Respiratory Rate 16 18 16 Blood Pressure 144/71 H 136/74 150/54 H Blood Pressure [Right Arm] Blood Pressure Mean 111 Blood Pressure Mean [Right Arm] 02 Sat by Pulse Oximetry 97 99 Oxygen Delivery Method 12/02/23 16:00 12/02/23 16:30 12/02/23 17:01 Temperature Temperature Source Pulse Rate 73 76 70 Pulse Rate [Left Radial] Respiratory Rate 16 18 16 Blood Pressure 138/59 L 132/63 133/56 L Blood Pressure [Right Arm] Blood Pressure Mean 97 98 Blood Pressure Mean [Right Arm] 02 Sat by Pulse Oximetry 100 100 99 Oxygen Delivery Method Room Air Lab Data Lab Results 12/02/23 12:19: WBC 6.9, RBC 4.24, Hgb 13.6, Hct 43.5, MCV 102.5 H, MCH 32.0 H, MCHC 31.2 L, RDW 13.7, Plt Count 255, MPV 9.7, Neut % (Auto) 59.7, Lymph % (Auto) 30.5, [place] % (Auto) 5.6, Eos % (Auto) 3.6, Baso % (Auto) 0.8, Neut # (Auto) 4.1, Lymph # (Auto) 2.1, [place] # (Auto) 0.4, Eos # (Auto) 0.3, Baso # (Auto) 0.1, Sodium 137, Potassium 3.9, Chloride 107, Carbon Dioxide 24, Anion Gap 9.9, BUN 27 H, Creatinine 1.40 H, Estimated Creat Clear 36, Estimated GFR 36 L, Est GFR ( Amer) 43 L, Glucose 106 H, Calcium 9.4, Magnesium 1.5 L, Total Bilirubin 0.6, AST 33, ALT 20, Alkaline Phosphatase 104, Troponin I < 0.01, NT-Pro-B Natriuret Pep 3230 H, Total Protein 6.1 L, Albumin 3.5, Globulin 2.6, Albumin/Globulin Ratio 1.3, TSH 1.90, Thyroxine (T4) 11.6 H 12/02/23 15:19: Troponin I 0.10 H Orders (Tests/Meds): ED MEDICATIONS Discontinued Medications Generic Name Dose Route Start Last Admin Trade Name Freq PRN Reason Stop Dose Admin Aspirin 324 mg 12/02/23 12:15 12/02/23 12:48 Aspirin 81mg Chewable Tablet PO 12/02/23 12:16 324 mg ONCE ONE Administration ORDERS Category Date Time Status CT angio chest PE protocol Stat Cat Scan 12/02/23 17:22 Ordered XR chest portable Stat Exams 12/02/23 12:14 Completed Brain Natriuretic Peptide Stat Lab 12/02/23 12:19 Completed Complete Blood Count Auto Diff Stat Lab 12/02/23 12:19 Completed Comprehensive Metabolic Panel Stat Lab 12/02/23 12:19 Completed Magnesium Stat Lab 12/02/23 12:19 Completed T4 (Thyroxine) Stat Lab 12/02/23 12:19 Completed Thyroid Stimulating Hormone Stat Lab 12/02/23 12:19 Completed Troponin I Q3H Lab 12/02/23 15:19 Completed Troponin I Q3H Lab 12/02/23 18:15 Ordered Troponin I Stat Lab 12/02/23 12:19 Completed Medical Decision Narrative: In summary, this patient is a 83-year-old female presenting to the Emergency Department for evaluation after her defibrillator went off this morning. Differential diagnoses considered include but are not limited to dysrhythmia, ACS, electrolyte derangements, device malfunction. Ruling out the most morbid conditions drove assessment. On exam, the patient is alert and oriented with no concerns or complaints at this time except for feeling off. Vitals are reassuring on cardiac telemetry. Cardiopulmonary exam is reassuring. Workup included CBC, CMP, magnesium, troponin, BNP, chest x-ray, and EKG. We reached out to [facility] device patient service representative for assistance with interrogating the patient's device. EKG is reassuring. Labs are reassuring with negative initial troponin. BNP is mildly elevated. On multiple subsequent reassessments, the patient is resting comfortably with reassuring vital signs and no concerns or complaints. She states that she is feeling fine. At 1330, patient was placed in ED observation status pending second troponin and results from her device interrogation to determine whether or not the patient would be appropriate for discharge versus admission. The patient was provided serial reevaluations and cardiac monitoring while awaiting ultimate disposition. Patient care signed out to the oncoming provider, Dr. Verma. Reassessment 5:[address] Verma took over from Dr. Mcwilliams. Second troponin did come back elevated. Results from interrogation from her AICD were performed which demonstrated atrial fibrillation with RVR no ventricular dysrhythmia. It is unclear as to whether or not she had an NH that preceded that event or was secondary to that event and a type II NSTEMI. Additionally patient has a right lower lobe consolidation that was read by radiology as pneumonia but she has had no signs or symptoms of pneumonia I am concerned this may also be a malignancy. CT scan with contrast is being performed but I am currently not treating with antibiotics as this does not make sense clinically at the moment. Patient needs to be admitted for further evaluation and treatment and she refused admission at [facility] and specifically asked to be transferred to [facility] where her valve pipe irrigator Dr. Polk practices. I did initially speak to Dr. Amaya with hospital medicine here who accepted the patient but no admission orders were placed upon patient telling me she did not want to be admitted here. An addendum will be added if her disposition changes outside of [place]' of transfer. Critical Care <Tona Mcwilliams DO - Last Filed: 12/02/23 15:32> Critical Care Time Critical Care Time: No <Ramonita Verma MD - Last Filed: 12/02/23 17:36> Critical Care Time Critical Care Time: Yes Attestation: On 12/02/23, the high probability of a clinically significant, sudden or life threatening deterioration of the following system(s) required my full and direct attention, intervention and personal management. The time I documented below is in addition to time spent performing reported procedures but includes the following listed in this critical care notation. Total Time Total Critical Care Time: 35
[2023-12-02] MEDS: ASPIRIN 81MG CHEWABLE TABLET 324 MG PO (12:48)
[2023-12-02 12:58] LABS: Magnesium 1.5 mg/dl (1.6-2.3)
[2023-12-02 13:09] LABS: NT Pro Brain Natriuretic Pep. 3230 pg/mL (0-450)
[2023-12-02 13:14] LABS: Troponin I < 0.01 ng/ml (0.00-0.034)
[2023-12-02 13:16] LABS: T4 (Thyroxine) 11.6 ug/dl (5.53-11.0)
--- NOTE | 2023-12-02 14:00 | PC.NURSE ---
device arrived at facility, spoke with James, information transmitted through phone.
--- NOTE | 2023-12-02 14:10 | PC.NURSE ---
James the rep will fax over information and call back
--- NOTE | 2023-12-02 15:02 | PC.NURSE ---
re sent information of pt defibrillator to James per his request
--- NOTE | 2023-12-02 16:40 | PC.NURSE ---
spoke with the [employer] rep Ramirez who says after reviewing the pt chart it looks like she was in a-fib with a high ventricular rate that could of caused the shock she felt. aware
--- NOTE | 2023-12-02 17:03 | PC.NURSE ---
rounded on pt states no needs at this time. and call light at bs
--- NOTE | 2023-12-02 17:22 | CT_ITS ---
PROCEDURE INFORMATION: Exam: CTA Chest With Contrast Exam date and time: 12/02/2023 6:06 PM Age: 83 years old Clinical indication: Abnormal findings; Abnormal radiologic exam of lung or chest; Additional info: F/u abnormal cxr TECHNIQUE: Imaging protocol: Computed tomographic angiography of the chest with contrast. Exam focused on the arteries. 3D rendering (Not supervised by radiologist): MIP and/or 3D reconstructed images were created by the technologist. Radiation optimization: All CT scans at this facility use at least one of these dose optimization techniques: automated exposure control; mA and/or kV adjustment per patient size (includes targeted exams where dose is matched to clinical indication); or iterative reconstruction. Contrast material: ISOVUE; Contrast volume: 75 ml; Contrast route: INTRAVENOUS (IV); COMPARISON: CT CHEST WO CON 02/19/2020 2:17 PM FINDINGS: Tubes, catheters and devices: A pulse generator device is present, and its leads are in appropriate position. Pulmonary arteries: No evidence of filling defects to suggest pulmonary emboli. Aorta: Aorta is nonaneurysmal. Advanced noncalcific upper abdominal aorta calcifications. Celiac trunk and mesenteric arteries: [id number] narrowing at the origin of celiac axis and superior mesenteric artery. Thyroid: 1.1 cm right thyroid nodule. Trachea: Main airways are patent. Lungs: There is redemonstration of patchy and coalescent opacity in right lower lobe suspicious for pneumonia. Radiographic follow-up is recommended to exclude the possibility of underlying lesion. Mucous plugs noted along the bronchus intermedius. Pleural spaces: Small right parapneumonic effusion. Heart: Cardiomegaly attributable to multi cardiac chamber enlargement. Heart RV/LV ratio: The RV/LV ratio is less than 1. Lymph nodes: Unremarkable. No enlarged lymph nodes. Bones/joints: . No acute osseous abnormality. Soft tissues: Unremarkable. IMPRESSION: 1. No evidence of filling defects to suggest pulmonary emboli. 2. There is redemonstration of patchy and coalescent opacity in right lower lobe suspicious for pneumonia. Radiographic follow-up is recommended to exclude the possibility of underlying lesion. 3. Advanced noncalcific upper abdominal aorta calcifications. [id number] narrowing at the origin of celiac axis and superior mesenteric artery. COMMENTS: Consistent with the [employer]'s Incidental Findings Committee white paper (J Am Rae Radiol 2015): In patients aged 35 years and older with an incidental thyroid nodule equal to or greater than 1.[address], MRI or extrathyroidal US, further evaluation with dedicated thyroid US is recommended for patients with normal life expectancy and without comorbidities. For smaller nodules without suspicious features, no further evaluation or follow up is recommended.
--- NOTE | 2023-12-02 17:32 | PC.NURSE ---
pt requesting that she transfer to [facility] for her scraper burrer
--- NOTE | 2023-12-02 17:37 | PC.NURSE ---
place call to [facility] for admission for cardiology. they will page MD and call back
[2023-12-02] MEDS: RINGERS SOLUTION,LACTATED 500 ML 250 ML IV (17:48)
--- NOTE | 2023-12-02 17:57 | PC.NURSE ---
Dr Verma speaking to [facility]
--- NOTE | 2023-12-02 18:02 | PC.NURSE ---
Dr Herr accepted Pt at [facility], they will call back when bed availability
[2023-12-02] MEDS: IOPAMIDOL-370 (76%);100ML BOTTLE 75 ML IV (18:16)
[2023-12-02] MEDS: SODIUM CHLORIDE 0.9% 10ML SYR (RAD ONLY) 10 ML IV (18:16)
[2023-12-02] MEDS: 0.9 % SODIUM CHLORIDE 50 ML VIAL IV (18:16)
--- NOTE | 2023-12-02 18:45 | PC.NURSE ---
[facility] called with bed assignment
--- NOTE | 2023-12-02 18:46 | PC.NURSE ---
assisted pt to bathroom with wheelchair, tolerated well, stated she was a little weak still
--- NOTE | 2023-12-02 18:49 | PC.NURSE ---
called EMS for transfer
--- NOTE | 2023-12-02 18:52 | PC.NURSE ---
report called to lani at [facility]. pts room in on [address], number to call [phone]
--- NOTE | 2023-12-02 18:54 | PC.NURSE ---
updated pt and about having a bed at [facility] and we were working on paperwork and she should be leaving soon
== END 2023-12-02 19:27 | disposition other institution (70) ==
PROVIDERS: Emergency Provider Emergency Medicine; PCP Internal Medicine Adolescent Medicine
DX: I21.4 Non-ST elevation (NSTEMI) myocardial infarction (principal); T82.897A Other specified complication of cardiac prosthetic devices, implants and grafts, initial encounter; I11.0 Hypertensive heart disease with heart failure; I50.22 Chronic systolic (congestive) heart failure; I25.10 Atherosclerotic heart disease of native coronary artery without angina pectoris; I48.91 Unspecified atrial fibrillation; I42.9 Cardiomyopathy, unspecified; E78.5 Hyperlipidemia, unspecified; Z86.73 Personal history of transient ischemic attack (TIA), and cerebral infarction without residual deficits; I27.20 Pulmonary hypertension, unspecified; I73.9 Peripheral vascular disease, unspecified; Z87.891 Personal history of nicotine dependence
CPT/HCPCS: 71045; 71275; 80053; 83735; 83880; 84436; 84443; 84484; 85025; 93005; 96361; 96365; 99291; Q9967

== ENCOUNTER 2024-01-01 11:54 | Outpatient (CLI) | payer MEDICARE, SELFPAY ==
--- NOTE | 2024-01-01 | XR_ITS ---
FINAL REPORT CLINICAL HISTORY: LT LEG PAIN,LEG SWELLING COMPARISON: None FINDINGS: Two images of the left femur were obtained. There is no evidence of fracture or dislocation. The joint spaces are intact. There is no soft tissue abnormality identified. IMPRESSION: No acute bony abnormality. Reviewed, Interpreted and Dictated by Wyatt Abdul MD Transcribed by Pema Langley Authenticated and [facility]
--- NOTE | 2024-01-01 | XR_ITS ---
FINAL REPORT CLINICAL HISTORY: LT LEG PAIN,LEG SWELLING COMPARISON: None FINDINGS: Two images of the left hip were obtained. There is no evidence of fracture or dislocation. The joint spaces are intact. There is no soft tissue abnormality identified. IMPRESSION: No acute bony abnormality. Reviewed, Interpreted and Dictated by Wyatt Abdul MD Transcribed by Pema Langley Authenticated and [facility]
--- NOTE | 2024-01-01 12:52 | CA_ITS ---
FINAL REPORT TECHNIQUE: Bilateral lower extremity venous duplex was performed with augmentation and compression. CLINICAL HISTORY: PAIN AND EDEMA LEFT MORE THAN RIGHT,REDNESS LEFT LE,PT ON PLAVIX, HX DVT FINDINGS: Proper flow is seen throughout the deep venous systems bilaterally. There is no evidence of deep venous thrombosis. IMPRESSION: No evidence of deep venous thrombosis. Reviewed, Interpreted and Dictated by Wyatt Abdul MD Transcribed by Kriss Lockwood Authenticated and [facility]
== END 2024-01-01 23:59 | disposition home or self-care (01) ==
LOC: RT 11:56
PROVIDERS: PCP Internal Medicine Adolescent Medicine; Visit Provider Internal Medicine Adolescent Medicine
DX: M79.605 Pain in left leg (principal); M79.89 Other specified soft tissue disorders
CPT/HCPCS: 73502; 73552; 93970

== ENCOUNTER 2024-01-15 22:29 | Emergency (ER) | payer MEDICARE, SELFPAY ==
[2024-01-15 22:30] VITALS: BP 148/92; PULSE 82; RESP 12; TEMP 36.9; O2SAT 98; BMI 28.6
--- NOTE | 2024-01-15 22:34 | ECG_ITS ---
APPROVED REPORT Exam: Resting ECG HR:77 bpm ECG Measurements Heart Rate 77 AXES ND 100 P -31 QRSd 64 QRS -57 QT 376 T -5 QTc 408 Conclusion SINUS RHYTHM WITH SHORT ND INTERVAL WITH OCCASIONAL VENTRICULAR PREMATURE COMPLEXES POSSIBLE RIGHT ATRIAL ENLARGEMENT [0.25mV P-WAVE] LOW QRS VOLTAGE IN PRECORDIAL LEADS [QRS DEFLECTION < 1.0 mV IN CHEST LEADS] POSSIBLE RIGHT VENTRICULAR CONDUCTION DELAY [RSR (QR) IN V1/V2] INFERIOR MYOCARDIAL INFARCTION , PROBABLY OLD [40+ ms Q WAVE AND/OR ST/T ABNORMALITY IN II/aVF] ANTEROLATERAL MYOCARDIAL INFARCTION , OF INDETERMINATE AGE [40+ ms Q WAVE IN I/aVL/V3-V6] ST DEPRESSION, CONSIDER SUBENDOCARDIAL INJURY [0.1+ mV ST DEPRESSION] ABNORMAL ECG Electronically signed by : JUSTO OROZCO, 01/16/2024 07:23:40
[2024-01-15 22:35] VITALS: BP 148/92; PULSE 69; RESP 14; O2SAT 100
--- NOTE | 2024-01-15 22:41 | ED_ITS ---
<Statement entered by Ramonita Verma MD - 01/15/24 23:09> I was consulted by the TEOFILO, and we discussed the complexity of the problems being addressed. I approved the treatment and management plan for this patient's care in the emergency department, thus performing a substantive portion of the medical decision making. Ramonita Verma MD, RADHA, FACEP Discharge Plan Prescriptions Prescriptions: No Action digoxin 125 mcg (0.125 mg) tablet 125 mcg PO DAILY Patient Comments: Take on Sun/Sun/Sunday only fluticasone propionate 50 mcg/actuation spray,suspension 1 spray NS DAILY ondansetron HCl [Zofran] 4 mg tablet 4 mg PO Q8HP PRN (Reason: Nausea) ropinirole 0.5 mg tablet 0.5 mg PO BIDP PRN (Reason: RLS) nitroglycerin 0.4 mg/hr patch 24 hour 1 patch TRANSDERMA DAILY Rx Instructions: allow nitrate-free interval of approx. 10-12 hrs per 24-hour period pantoprazole [Protonix] 40 mg tablet,delayed release (DR/EC) 40 mg PO DAILY allopurinol 100 mg tablet 100 mg PO DAILY furosemide 40 mg tablet 40 mg PO DAILY Rx Instructions: One daily Sunday through Sunday magnesium oxide 400 mg magnesium capsule 400 mg PO BID multivitamin with minerals Tablet 1 tab PO DAILY erythromycin 5 mg/gram (0.5 %) ointment OP Rx Instructions: one application weekly Zyrtec 10 mg capsule 10 mg PO DAILY PRN spironolactone 50 mg tablet 50 mg PO DAILY amiodarone 200 mg tablet 200 mg PO DAILY levothyroxine 25 mcg tablet 25 mcg PO DAILY 90 Days Qty: 90 0RF clopidogrel 75 MG tablet 75 mg PO DAILY tramadol 50 MG tablet 50 - 100 mg PO TIDP PRN (Reason: Moderate Pain) Referrals Follow up/Referrals: Ignacio Aceves MD [Primary Care Provider] - See instructions Discharge ED Provider: Ramonita Verma HPI General Stated Complaint: vomiting, pcemaker went off Time Seen by Provider: 01/15/24 22:38 History of Present Illness HPI narrative: Patient presents for evaluation of a pacemaker shock. Patient reports that she has been nauseated all day and then actually had an episode of emesis and then her pacemaker shocked her. This is the first time that she has had shock from his pacemaker and it was put in in October. Patient currently reports no nausea now. She denies chest pain shortness of breath fever chills hemoptysis hematochezia melena diarrhea. 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 Related Data Home Medications Medication Instructions Recorded Confirmed clopidogrel 75 mg tablet 75 mg PO DAILY PLATELET INHIBITOR 07/03/19 01/15/24 fluticasone propionate 50 1 spray intranasal DAILY Allergy 10/22/19 01/15/24 mcg/actuation nasal symptoms spray,suspension nitroglycerin 0.4 mg/hr 1 patch transdermal DAILY Chest 10/22/19 01/15/24 transdermal 24 hour patch pain ondansetron HCl 4 mg tablet 4 mg PO Q8HP PRN Nausea 10/22/19 01/15/24 (Zofran) pantoprazole 40 mg tablet,delayed 40 mg PO DAILY GERD 10/22/19 01/15/24 release (Protonix) ropinirole 0.5 mg tablet 0.5 mg PO BIDP PRN RLS 10/22/19 01/15/24 tramadol 50 mg tablet 50 - 100 mg PO TIDP PRN Moderate 11/05/19 01/15/24 Pain digoxin 125 mcg (0.125 mg) tablet 125 mcg PO DAILY HEART RATE 02/19/20 01/15/24 allopurinol 100 mg tablet 100 mg PO DAILY GOUT 04/22/20 01/15/24 cetirizine 10 mg capsule (Zyrtec) 10 mg PO DAILY PRN 03/16/22 01/15/24 erythromycin 5 mg/gram (0.5 %) eye ophthalmic (eye) 03/16/22 01/15/24 ointment furosemide 40 mg tablet 40 mg PO DAILY Edema 03/16/22 01/15/24 magnesium oxide 400 mg PO BID 03/16/22 01/15/24 multivitamin with minerals 1 tab PO DAILY 03/16/22 01/15/24 spironolactone 50 mg tablet 50 mg PO DAILY 05/25/22 01/15/24 amiodarone 200 mg tablet 200 mg PO DAILY 01/15/24 01/15/24 Previous Rx's Medication Instructions Recorded levothyroxine 25 mcg tablet 25 mcg PO DAILY thyroid 90 days 05/18/22 #90 tabs Allergies Allergy/AdvReac Type Severity Reaction Status Date / Time No Known Allergies Allergy Verified 01/15/24 10:09 [facility] Disclaimer: The information contained in this section may have been updated after the patient was seen, as this information can be updated by other users. Medical History Near syncope Dizziness V-tach Dyspnea Left arm pain Abnormal EKG Right arm pain Defibrillator discharge PAD (peripheral artery disease) Pulmonary hypertension Automatic implantable cardioverter-defibrillator in situ Cardiomyopathy Bilateral edema of lower extremity A-fib HHD (hypertensive heart disease) CAD (coronary artery disease) HLD (hyperlipidemia) CVA (cerebral vascular accident) Surgical History History of lumpectomy of left breast Social History Smoking Status: Former smoker tobacco type: cigarettes packs per day: 1 second hand exposure: No alcohol intake: never substance use type: denies use current occupational status: retired Travel in the last 8 weeks: None household members: spouse housing: house marital status: current occupational exposures/hazards: No caffeine: No ROS Obtained: Yes Systems reviewed as appropriate & no additional complaints except as documented Physical Exam General General appearance: alert and in no apparent distress Head Head exam: atraumatic and normal inspection Eye Eye exam: Present normal appearance, PERRL and EOMI ENT ENT exam: Present normal exam, normal oropharynx and mucous membranes moist Neck Neck exam: Present normal inspection, full ROM and trachea midline; Absent lymphadenopathy Chest Chest inspection: Present normal inspection and symmetric chest wall rise Respiratory Respiratory exam: Present normal lung sounds bilaterally; Absent accessory muscle use Cardiovascular Cardiovascular exam: Present regular rate, normal rhythm, normal heart sounds, +S1 and +S2 Abdominal Exam Abdominal exam: Present soft and normal bowel sounds; Absent tenderness, guarding or rebound Extremities Exam Extremities exam: Present normal inspection and full ROM Neurological Exam Neurological exam: Present alert, oriented X3 and CN II-XII intact Psychiatric Psychiatric exam: Present normal affect and normal mood Skin Skin exam: Present warm, dry and normal color Lymphatic Lymphatic Findings: no adenopathy HEART Score HEART Score HEART Score assessment performed?: No Critical Care Critical Care Time Critical Care Time: No Medical Decision Making Medical Records Medical records reviewed: Yes I reviewed the patient's medical records. Del Inquiry Pt receiving controlled substance: No Lab Data Lab results reviewed: Yes I reviewed the patient's lab results. MDM Narrative Medical Decision Narrative: In summary patient is a 83-year-old female who presents to the emergency department for evaluation of AICD firing. Patient is hemodynamically stable upon arrival, febrile. Sickle exam is unremarkable and nonfocal currently. P [place] has no belly pain in her EKG appears to be normal sinus rhythm with pacer spikes on the bedside monitor. Differential diagnosis includes ACS versus NSTEMI versus gastroenteritis etc. Initial workup will be conducted with twelve-lead EKG, hematologic labs, plain film chest x-ray. Initial interventions include antiemetics fluid bolus. Initial workup initiated and pending at the time of handoff to the oncoming provider at 2300 hrs.
--- NOTE | 2024-01-15 22:47 | XR_ITS ---
PROCEDURE INFORMATION: Exam: XR Chest Exam date and time: 01/15/2024 11:00 PM Age: 83 years old Clinical indication: Device placement; Other: Aicd fired TECHNIQUE: Imaging protocol: Radiologic exam of the chest. Views: 1 view. COMPARISON: CT ANGIO CHEST PE PROTOCOL 12/02/2023 6:06 PM FINDINGS: Tubes, catheters and devices: 3 lead AICD device grossly in place. Lungs: Similar right lower lobar opacity obscured by pleural effusion. Pleural spaces: [id number] right pleural effusion. Heart/Mediastinum: Cardiomegaly. Bones/joints: Unremarkable. IMPRESSION: 1. Right pleural effusion. 2. Similar right lower lobar opacity. 3. AICD grossly in place.
[2024-01-15 22:57] LABS: Basophils # 0.1 K/mm3 (0-0.2); Basophils % 0.6 % (0.1-2.0); Eosinophils # 0.1 K/mm3 (0.0-0.4); Eosinophils % 1.8 % (0.1-12.0); Hematocrit 44.7 % (37.0-47.0); Hemoglobin 13.8 g/dL (12.2-16.2); Lymphocytes # 1.8 K/mm3 (0.7-4.5); Lymphocytes % 22.2 % (10-50); Mean Corpuscular Hemoglobin 31.1 pg (27.0-31.2); Mean Corpuscular Volume 100.3 fl (81-99); Mean Platelet Volume 9.5 fl (7.4-10.4); Monocytes # 0.4 K/mm3 (0.1-1.0); Monocytes % 5.6 % (1.7-9.3); Neutrophils # 5.5 K/mm3 (1.8-7.8); Neutrophils % 69.8 % (37.0-80.0); Platelet Count 277 K/mm3 (142-424); Red Blood Count 4.45 M/mm3 (4.20-5.40); Red Cell Distribution Width 14.5 % (11.5-17.5); White Blood Count 7.9 K/mm3 (4.8-10.8)
[2024-01-15 22:59] VITALS: BP 141/69; PULSE 73; RESP 14; O2SAT 98
[2024-01-15 23:00] LABS: Chloride 102 mmol/L (98-107); Potassium 3.5 mmoL/L (3.5-5.1); Sodium 138 mmol/L (136-145)
[2024-01-15 23:02] LABS: Blood Urea Nitrogen 17 mg/dl (7-17); Creatinine Clearance Estimated 34 mL/min (50-200); Estimated Glomerular Filt Rate 33 ml/min (>60); GFR (African American) 40 ML/MIN (>60)
[2024-01-15 23:03] LABS: Alanine Aminotransferase 28 U/L (12-78); Albumin Level 3.9 g/dl (3.5-5.0); Albumin/Globulin Ratio 1.4 (1.1-1.8); Alkaline Phosphatase 148 U/L (38-126); Anion Gap 8.5 mEq/L (5-15); Aspartate Amino Transferase 37 U/L (14-36); Bilirubin,Total 0.8 mg/dl (0.2-1.3); Calcium 9.8 mg/dl (8.4-10.2); Carbon Dioxide 31 mmol/L (22.0-30.0); Globulin 2.8 g/dL (1.3-3.2); Glucose 115 mg/dl (74-100); Total Protein,Serum 6.7 g/dl (6.3-8.2)
[2024-01-15 23:04] LABS: Magnesium 1.6 mg/dl (1.6-2.3)
[2024-01-15 23:15] LABS: Troponin I 0.03 ng/ml (0.00-0.034)
[2024-01-15] MEDS: ONDANSETRON 4MG ODT 4 MG SL (23:19)
[2024-01-15 23:30] VITALS: BP 137/72; PULSE 73; RESP 14; O2SAT 100
[2024-01-16] VITALS (15 sets, daily range): BP systolic 107–139; BP diastolic 49–72; PULSE 66–83; RESP 12–16; TEMP 36.7; O2SAT 88–98
--- NOTE | 2024-01-16 01:45 | PC.NURSE ---
PC to [facility] re transfer to their facility, hospitalist being paged and will call back
--- NOTE | 2024-01-16 01:56 | PC.NURSE ---
ED doctor on phone with [facility]
--- NOTE | 2024-01-16 02:03 | PC.NURSE ---
patient accepted by Dr. Alaina Guaman, hospitalist at [facility], no beds available at this time
--- NOTE | 2024-01-16 02:56 | PC.NURSE ---
rounded on patient, recliner placed in room for patients , patient and spouse given blankets and lights turned down for comfort
--- NOTE | 2024-01-16 03:54 | PC.NURSE ---
pc to [facility] for update on bed assignment, no bed available at this time,
--- NOTE | 2024-01-16 06:34 | PC.NURSE ---
Tona from [facility] transfer called. pt going JUANI @ [facility] [phone]
--- NOTE | 2024-01-16 06:36 | PC.NURSE ---
Attempted report to [facility] requested a return call in 10 minutes as staff were all currently engaged in patient care.
[2024-01-16 06:53] LABS: Troponin I 0.11 ng/ml (0.00-0.034)
--- NOTE | 2024-01-16 06:54 | PC.NURSE ---
[facility]
== END 2024-01-16 07:46 | disposition other institution (70) ==
PROVIDERS: Physician Assistant; Emergency Provider Emergency Medicine; PCP Internal Medicine Adolescent Medicine
DX: I21.4 Non-ST elevation (NSTEMI) myocardial infarction (principal); I47.10 Supraventricular tachycardia, unspecified; R11.2 Nausea with vomiting, unspecified; I49.3 Ventricular premature depolarization; I73.9 Peripheral vascular disease, unspecified; I11.9 Hypertensive heart disease without heart failure; I25.10 Atherosclerotic heart disease of native coronary artery without angina pectoris; E78.5 Hyperlipidemia, unspecified; Z95.810 Presence of automatic (implantable) cardiac defibrillator
CPT/HCPCS: 71045; 80053; 83735; 84484; 85025; 93005; 99291

== ENCOUNTER 2024-02-28 11:30 | Emergency (ER) | payer MEDICARE, SELFPAY ==
[2024-02-28] VITALS (8 sets, daily range): BP systolic 75–148; BP diastolic 44–99; PULSE 53–74; RESP 14–20; TEMP 36.7; O2SAT 86–100; BMI 25.7
[2024-02-28] MEDS: LACTATED RINGERS 1000ML 1,000 ML 999 ML IV ×2 (12:05→16:28)
[2024-02-28 12:13] LABS: Basophils # 0.1 K/mm3 (0-0.2); Basophils % 0.9 % (0.1-2.0); Eosinophils # 0.1 K/mm3 (0.0-0.4); Hematocrit 51.5 % (37.0-47.0); Hemoglobin 16.3 g/dL (12.2-16.2); Lymphocytes # 1.1 K/mm3 (0.7-4.5); Lymphocytes % 17.3 % (10-50); Mean Corpuscular HGB Conc 31.6 g/dL (31.8-35.4); Mean Corpuscular Hemoglobin 31.4 pg (27.0-31.2); Mean Corpuscular Volume 99.4 fl (81-99); Mean Platelet Volume 10.9 fl (7.4-10.4); Monocytes # 0.3 K/mm3 (0.1-1.0); Monocytes % 5.3 % (1.7-9.3); Neutrophils # 4.7 K/mm3 (1.8-7.8); Neutrophils % 75.5 % (37.0-80.0); Platelet Count 135 K/mm3 (142-424); Red Blood Count 5.18 M/mm3 (4.20-5.40); Red Cell Distribution Width 14.9 % (11.5-17.5); White Blood Count 6.2 K/mm3 (4.8-10.8)
[2024-02-28 12:16] LABS: Chloride 99 mmol/L (98-107); Potassium 4.5 mmoL/L (3.5-5.1); Sodium 133 mmol/L (136-145)
[2024-02-28 12:19] LABS: Alanine Aminotransferase 133 U/L (12-78); Albumin/Globulin Ratio 1.3 (1.1-1.8); Alkaline Phosphatase 110 U/L (38-126); Anion Gap 15.5 mEq/L (5-15); Aspartate Amino Transferase 104 U/L (14-36); Bilirubin,Total 0.7 mg/dl (0.2-1.3); Blood Urea Nitrogen 69 mg/dl (7-17); Calcium 9.9 mg/dl (8.4-10.2); Carbon Dioxide 23 mmol/L (22.0-30.0); Creatinine Clearance Estimated 14 mL/min (50-200); Estimated Glomerular Filt Rate 14 ml/min (>60); GFR (African American) 17 ML/MIN (>60); Glucose 105 mg/dl (74-100)
--- NOTE | 2024-02-28 13:35 | CT_ITS ---
FINAL REPORT CLINICAL HISTORY: abd pain, n/v COMPARISON: None FINDINGS: Axial CT images of the abdomen and pelvis were obtained without intravenous contrast. Coronal and sagittal reformatted images were also obtained.This study was performed with techniques to keep radiation doses as low as reasonably achievable (ALARA). Individualized dose reduction techniques using automated exposure control or adjustment of mA and/or kV according to the patient's size were employed. Abdomen: There is a 3.3 cm mass in the anterior aspect of the right lower lobe worrisome for neoplasm. There is no evidence of renal stone or hydronephrosis. There is severe left renal atrophy present. Stones versus sludge are present in the gallbladder. The liver, spleen and pancreas have an unremarkable, unenhanced appearance. No mass or adenopathy is seen. No inflammatory process is identified. Severe vascular calcifications are noted. Pelvis: Images of the pelvis reveal no evidence of ureteral dilation or ureteral stone.No mass or abnormal fluid collection is identified. Diverticulosis of the sigmoid colon is noted. A moderate amount of stool is present in the colon. IMPRESSION: 3.3 cm mass in the anterior right lower lobe worrisome for neoplasm. Recommend PET/CT and biopsy. Stones versus sludge present in the gallbladder, consider right upper quadrant ultrasound. Severe left renal atrophy. Sigmoid diverticulosis without acute inflammatory change. Reviewed, Interpreted and Dictated by Ned Bentley III, MD Transcribed by Pema Langley Authenticated and [facility]
--- NOTE | 2024-02-28 13:42 | XR_ITS ---
FINAL REPORT CLINICAL HISTORY: shoulder/humerus pain COMPARISON: None FINDINGS: RIGHT HUMERUS: 2 images of the right humerus were obtained. There is no evidence of fracture or dislocation. There is moderate degenerative change of the right shoulder. There is no soft tissue abnormality identified. IMPRESSION: No acute bony abnormality. Reviewed, Interpreted and Dictated by Ned Bentley III, MD Transcribed by Pema Langley Authenticated and [facility]
--- NOTE | 2024-02-28 13:42 | XR_ITS ---
FINAL REPORT CLINICAL HISTORY: right shoulder pain COMPARISON: None FINDINGS: RIGHT SHOULDER: 3 views of the right shoulder were obtained. There is no acute fracture or dislocation. Moderate degenerative changes present in the right shoulder. There is no soft tissue abnormality. IMPRESSION: No acute fracture Moderate degenerative change right shoulder. Reviewed, Interpreted and Dictated by Ned Bentley III, MD Transcribed by Pema Langley Authenticated and [facility]
--- NOTE | 2024-02-28 13:42 | HMH.EDGENADL ---
Discharge Plan Disposition Patient Disposition: Home, Self-Care Prescriptions Prescriptions: No Action digoxin 125 mcg (0.125 mg) tablet 125 mcg PO DAILY Patient Comments: Take on Sun/Sun/Sunday only fluticasone propionate 50 mcg/actuation spray,suspension 1 spray NS DAILY ondansetron HCl [Zofran] 4 mg tablet 4 mg PO Q8HP PRN (Reason: Nausea) ropinirole 0.5 mg tablet 0.5 mg PO BIDP PRN (Reason: RLS) nitroglycerin 0.4 mg/hr patch 24 hour 1 patch TRANSDERMA DAILY Rx Instructions: allow nitrate-free interval of approx. 10-12 hrs per 24-hour period pantoprazole [Protonix] 40 mg tablet,delayed release (DR/EC) 40 mg PO DAILY allopurinol 100 mg tablet 100 mg PO DAILY furosemide 40 mg tablet 40 mg PO DAILY Rx Instructions: One daily Sunday through Sunday magnesium oxide 400 mg magnesium capsule 400 mg PO BID multivitamin with minerals Tablet 1 tab PO DAILY erythromycin 5 mg/gram (0.5 %) ointment OP Rx Instructions: one application weekly Zyrtec 10 mg capsule 10 mg PO DAILY PRN spironolactone 50 mg tablet 50 mg PO DAILY amiodarone 200 mg tablet 200 mg PO DAILY levothyroxine 25 mcg tablet 25 mcg PO DAILY 90 Days Qty: 90 0RF clopidogrel 75 MG tablet 75 mg PO DAILY tramadol 50 MG tablet 50 - 100 mg PO TIDP PRN (Reason: Moderate Pain) Referrals Follow up/Referrals: Ignacio Aceves MD [Primary Care Provider] - See instructions Activity Restrictions/Add. Instructions Additional Instructions/Restrictions: At this time is felt you are safe to be discharged home. If new or worsening symptoms please do not hesitate to return the emergency department. You were offered admission today and did not want to stay, due to this please follow-up in [address] Aceves to recheck your labs. Clinical Impressions Clinical Impression: Nausea & vomiting, ADELE (acute kidney injury), Abnormal transaminases, Dehydration, severe Instructions Patient Instructions: DI for Diarrhea and Traveler's Diarrhea -- Adult, DI for Diarrhea and Traveler's Diarrhea -- Child, DI for Nausea -- Adult, DI for Nausea -- Child Discharge ED Provider: Akbar Byers General Adult HPI <J Joseph Verma MD - Last Filed: 02/28/24 14:55> General Chief complaint: Nausea/Vomiting/Diarrhea Stated complaint: fluids Time Seen by Provider: 02/28/24 13:27 Mode of Arrival: Wheelchair Source of Information: Patient and Spouse Limitations: No Limitations Description of Symptoms (Recalled from ER Triage Doc. by RN): Reports being sent from Dr. Aceves's office for vomiting for 2 weeks, weakness and right shoulder pain. Per family she was sent here for fluids. History of Present Illness HPI narrative: 83-year-old female presenting today with nausea and vomiting for the last 2 weeks also complains of some right shoulder pain. No falls or injuries to the right arm as she is aware of. States she recently had a PET scan but symptoms have gone before that. She denies any abdominal pain or diarrhea. No chest pain or shortness of breath. Related Data Home Medications Medication Instructions Recorded Confirmed clopidogrel 75 mg tablet 75 mg PO DAILY PLATELET INHIB[employer]OR 07/03/19 01/15/24 fluticasone propionate 50 1 spray intranasal DAILY Allergy 10/22/19 01/15/24 mcg/actuation nasal symptoms spray,suspension nitroglycerin 0.4 mg/hr 1 patch transdermal DAILY Chest 10/22/19 01/15/24 transdermal 24 hour patch pain ondansetron HCl 4 mg tablet 4 mg PO Q8HP PRN Nausea 10/22/19 01/15/24 (Zofran) pantoprazole 40 mg tablet,delayed 40 mg PO DAILY GERD 10/22/19 01/15/24 release (Protonix) ropinirole 0.5 mg tablet 0.5 mg PO BIDP PRN RLS 10/22/19 01/15/24 tramadol 50 mg tablet 50 - 100 mg PO TIDP PRN Moderate 11/05/19 01/15/24 Pain digoxin 125 mcg (0.125 mg) tablet 125 mcg PO DAILY HEART RATE 02/19/20 01/15/24 allopurinol 100 mg tablet 100 mg PO DAILY GOUT 04/22/20 01/15/24 cetirizine 10 mg capsule (Zyrtec) 10 mg PO DAILY PRN 03/16/22 01/15/24 erythromycin 5 mg/gram (0.5 %) eye ophthalmic (eye) 03/16/22 01/15/24 ointment furosemide 40 mg tablet 40 mg PO DAILY Edema 03/16/22 01/15/24 magnesium oxide 400 mg PO BID 03/16/22 01/15/24 multivitamin with minerals 1 tab PO DAILY 03/16/22 01/15/24 spironolactone 50 mg tablet 50 mg PO DAILY 05/25/22 01/15/24 amiodarone 200 mg tablet 200 mg PO DAILY 01/15/24 01/15/24 Previous Rx's Medication Instructions Recorded levothyroxine 25 mcg tablet 25 mcg PO DAILY thyroid 90 days 05/18/22 #90 tabs Allergies Allergy/AdvReac Type Severity Reaction Status Date / Time No Known Allergies Allergy Verified 01/15/24 10:09 [facility] <Ramonita Verma MD - Last Filed: 02/28/24 14:55> [facility] Disclaimer: The information contained in this section may have been updated after the patient was seen, as this information can be updated by other users. Medical History Near syncope Dizziness V-tach Dyspnea Left arm pain Abnormal EKG Right arm pain Defibrillator discharge PAD (peripheral artery disease) Pulmonary hypertension Automatic implantable cardioverter-defibrillator in situ Cardiomyopathy Bilateral edema of lower extremity A-fib HHD (hypertensive heart disease) CAD (coronary artery disease) HLD (hyperlipidemia) CVA (cerebral vascular accident) Surgical History History of lumpectomy of left breast Social History Smoking Status: Never smoker second hand exposure: No alcohol intake: never substance use type: denies use current occupational status: retired Travel in the last 8 weeks: None household members: spouse housing: house marital status: current occupational exposures/hazards: No caffeine: No <Ramonita Verma MD - Last Filed: 02/28/24 14:55> ROS Obtained: Yes All systems reviewed & no additional complaints except as documented Physical Exam <Ramonita Verma MD - Last Filed: 02/28/24 14:55> General General appearance: alert and in no apparent distress Respiratory Respiratory exam: Present normal lung sounds bilaterally Cardiovascular Cardiovascular exam: Present regular rate Abdominal Exam Abdominal exam: Present soft and tenderness (Patient is tender throughout the abdomen on my exam no rebound or guarding) Neurological Exam Neurological exam: Present alert and oriented X3 Medical Decision Making <J Joseph Verma MD - Last Filed: 02/28/24 14:55> [place] Pt receiving controlled substance: No Vital Signs: 02/28/24 11:31 02/28/24 12:30 02/28/24 13:01 Temperature 98.0 F Temperature Source Oral Pulse Rate 73 53 L Pulse Rate [Radial] 73 Respiratory Rate 18 18 14 Blood Pressure 75/44 L 115/99 H Blood Pressure [Left Arm] 148/76 H Blood Pressure Mean [Left Arm] 100 Blood Pressure Source [Left Arm] Automatic Cuff Blood Pressure Position [Left Arm] Sitting 02 Sat by Pulse Oximetry 99 100 98 Oxygen Delivery Method Room Air 02/28/24 13:31 02/28/24 14:31 02/28/24 15:00 Temperature Temperature Source Pulse Rate 73 73 Pulse Rate [Radial] Respiratory Rate 20 17 17 Blood Pressure 109/67 L 132/63 124/72 Blood Pressure [Left Arm] Blood Pressure Mean [Left Arm] Blood Pressure Source [Left Arm] Blood Pressure Position [Left Arm] 02 Sat by Pulse Oximetry 86 L 97 98 Oxygen Delivery Method 02/28/24 15:30 Temperature Temperature Source Pulse Rate Pulse Rate [Radial] Respiratory Rate 16 Blood Pressure 116/61 Blood Pressure [Left Arm] Blood Pressure Mean [Left Arm] Blood Pressure Source [Left Arm] Blood Pressure Position [Left Arm] 02 Sat by Pulse Oximetry 98 Oxygen Delivery Method Lab Data Lab results reviewed: Yes I reviewed the patient's lab results. Lab Results 02/28/24 11:46: WBC 6.2, RBC 5.18, Hgb 16.3 H, Hct 51.5 H, MCV 99.4 H, MCH 31.4 H, MCHC 31.6 L, RDW 14.9, Plt Count 135 L, MPV 10.9 H, Neut % (Auto) 75.5, Lymph % (Auto) 17.3, [place] % (Auto) 5.3, Eos % (Auto) 1.0, Baso % (Auto) 0.9, Neut # (Auto) 4.7, Lymph # (Auto) 1.1, [place] # (Auto) 0.3, Eos # (Auto) 0.1, Baso # (Auto) 0.1, Sodium 133 L, Potassium 4.5, Chloride 99, Carbon Dioxide 23, Anion Gap 15.5 H, BUN 69 H, Creatinine 3.20 H, Estimated Creat Clear 14, Estimated GFR 14 L*, Est GFR ( Amer) 17 L*, Glucose 105 H, Calcium 9.9, Total Bilirubin 0.7, AST 104 H, ALT 133 H, Alkaline Phosphatase 110, Total Protein 7.0, Albumin 4.0, Globulin 3.0, Albumin/Globulin Ratio 1.3, Lipase 52 02/28/24 13:43: Urine Color Yellow, Urine Appearance Sl cloudy, Urine pH 8.0, Ur Specific [place] 1.010, Urine Protein Negative, Urine Glucose (UA) Negative, Urine Ketones Negative, Urine Blood Negative, Urine Nitrate Negative, Urine Bilirubin Negative, Urine Urobilinogen 0.2, Ur Leukocyte Esterase 1+ A, Urine RBC None, Urine WBC 3-5, Ur Squamous Epith Cells 3-5, Urine Bacteria Trace 02/28/24 11:46 02/28/24 11:46 Orders (Tests/Meds): ED MEDICATIONS Discontinued Medications Generic Name Dose Route Start Last Admin Trade Name Freq PRN Reason Stop Dose Admin Lactated Ringer's 1,000 mls @ 999 mls/hr 02/28/24 12:04 02/28/24 12:05 Lactated Ringer's 1000 Ml Bag IV 02/28/24 13:04 999 mls/hr .Q1H1M ONE Administration ORDERS Category Date Time Status CT abdomen pelvis wo con Stat Cat Scan 02/28/24 13:35 Completed Humerus XR right [XR humerus RT] Stat Exams 02/28/24 13:42 Completed POCUS Point of Care (ER Only) Stat Exams 02/28/24 13:36 Completed Shoulder XR right miminum 2 views [XR shoulder RT min Exams 02/28/24 13:42 Completed 2V] Stat Complete Blood Count Auto Diff Stat Lab 02/28/24 11:46 Completed Comprehensive Metabolic Panel Stat Lab 02/28/24 11:46 Completed Lipase Stat Lab 02/28/24 11:46 Completed UA [Urinalysis and Microscopic] Stat Lab 02/28/24 13:43 Completed Urine Culture Stat Micro 02/28/24 13:43 Received Medical Decision Narrative: 83-year-old nausea and vomiting that is been intermittent for the last several weeks she has elevated LFTs on her labs also has acute kidney injury that is significant but will require admission. Given the fact that she has acute kidney injury cannot give contrasted CT will get a noncontrasted CT for further evaluation of the abdomen. Also will get right upper quadrant ultrasound as her LFTs are elevated. Cholecystitis on the differential as would be bowel obstruction etc. Limited bedside ultrasound was unremarkable. Labs do demonstrate elevated LFTs which are nonspecific at this point lipase is returned unremarkable. T. bili is not elevated. Awaiting CT scan read for final disposition and make sure she does not need any type of surgical intervention. Care will be transitioned to Dr. Elia Byers 3 PM for final disposition of the CT read. <Akbar Byers MD - Last Filed: 02/28/24 16:25> Vital Signs: 02/28/24 11:31 02/28/24 12:30 02/28/24 13:01 Temperature 98.0 F Temperature Source Oral Pulse Rate 73 53 L Pulse Rate [Radial] 73 Respiratory Rate 18 18 14 Blood Pressure 75/44 L 115/99 H Blood Pressure [Left Arm] 148/76 H Blood Pressure Mean [Left Arm] 100 Blood Pressure Source [Left Arm] Automatic Cuff Blood Pressure Position [Left Arm] Sitting 02 Sat by Pulse Oximetry 99 100 98 Oxygen Delivery Method Room Air 02/28/24 13:31 02/28/24 14:31 02/28/24 15:00 Temperature Temperature Source Pulse Rate 73 73 Pulse Rate [Radial] Respiratory Rate 20 17 17 Blood Pressure 109/67 L 132/63 124/72 Blood Pressure [Left Arm] Blood Pressure Mean [Left Arm] Blood Pressure Source [Left Arm] Blood Pressure Position [Left Arm] 02 Sat by Pulse Oximetry 86 L 97 98 Oxygen Delivery Method 02/28/24 15:30 Temperature Temperature Source Pulse Rate Pulse Rate [Radial] Respiratory Rate 16 Blood Pressure 116/61 Blood Pressure [Left Arm] Blood Pressure Mean [Left Arm] Blood Pressure Source [Left Arm] Blood Pressure Position [Left Arm] 02 Sat by Pulse Oximetry 98 Oxygen Delivery Method Lab Data Lab Results 02/28/24 11:46: WBC 6.2, RBC 5.18, Hgb 16.3 H, Hct 51.5 H, MCV 99.4 H, MCH 31.4 H, MCHC 31.6 L, RDW 14.9, Plt Count 135 L, MPV 10.9 H, Neut % (Auto) 75.5, Lymph % (Auto) 17.3, [place] % (Auto) 5.3, Eos % (Auto) 1.0, Baso % (Auto) 0.9, Neut # (Auto) 4.7, Lymph # (Auto) 1.1, [place] # (Auto) 0.3, Eos # (Auto) 0.1, Baso # (Auto) 0.1, Sodium 133 L, Potassium 4.5, Chloride 99, Carbon Dioxide 23, Anion Gap 15.5 H, BUN 69 H, Creatinine 3.20 H, Estimated Creat Clear 14, Estimated GFR 14 L*, Est GFR ( Amer) 17 L*, Glucose 105 H, Calcium 9.9, Total Bilirubin 0.7, AST 104 H, ALT 133 H, Alkaline Phosphatase 110, Total Protein 7.0, Albumin 4.0, Globulin 3.0, Albumin/Globulin Ratio 1.3, Lipase 52 02/28/24 13:43: Urine Color Yellow, Urine Appearance Sl cloudy, Urine pH 8.0, Ur Specific [place] 1.010, Urine Protein Negative, Urine Glucose (UA) Negative, Urine Ketones Negative, Urine Blood Negative, Urine Nitrate Negative, Urine Bilirubin Negative, Urine Urobilinogen 0.2, Ur Leukocyte Esterase 1+ A, Urine RBC None, Urine WBC 3-5, Ur Squamous Epith Cells 3-5, Urine Bacteria Trace Orders (Tests/Meds): ED MEDICATIONS Discontinued Medications Generic Name Dose Route Start Last Admin Trade Name Freq PRN Reason Stop Dose Admin Lactated Ringer's 1,000 mls @ 999 mls/hr 02/28/24 12:04 02/28/24 12:05 Lactated Ringer's 1000 Ml Bag IV 02/28/24 13:04 999 mls/hr .Q1H1M ONE Administration ORDERS Category Date Time Status CT abdomen pelvis wo con Stat Cat Scan 02/28/24 13:35 Completed Humerus XR right [XR humerus RT] Stat Exams 02/28/24 13:42 Completed POCUS Point of Care (ER Only) Stat Exams 02/28/24 13:36 Completed Shoulder XR right miminum 2 views [XR shoulder RT min Exams 02/28/24 13:42 Completed 2V] Stat Complete Blood Count Auto Diff Stat Lab 02/28/24 11:46 Completed Comprehensive Metabolic Panel Stat Lab 02/28/24 11:46 Completed Lipase Stat Lab 02/28/24 11:46 Completed UA [Urinalysis and Microscopic] Stat Lab 02/28/24 13:43 Completed Urine Culture Stat Micro 02/28/24 13:43 Received Medical Decision Narrative: 83-year-old nausea and vomiting that is been intermittent for the last several weeks she has elevated LFTs on her labs also has acute kidney injury that is significant but will require admission. Given the fact that she has acute kidney injury cannot give contrasted CT will get a noncontrasted CT for further evaluation of the abdomen. Also will get right upper quadrant ultrasound as her LFTs are elevated. Cholecystitis on the differential as would be bowel obstruction etc. Limited bedside ultrasound was unremarkable. Labs do demonstrate elevated LFTs which are nonspecific at this point lipase is returned unremarkable. T. bili is not elevated. Awaiting CT scan read for final disposition and make sure she does not need any type of surgical intervention. Care will be transitioned to Dr. Elia Byers 3 PM for final disposition of the CT read. Akbar Byers upon assumption of care patient was hemodynamically stable. Workup reviewed by me, hematologic labs are remarkable for ADELE on CKD, there is also transaminitis without elevated lipase. Urinalysis interpreted by me and not consistent with infection. Preliminary read CT abdomen pelvis shows 3.3 cm mass in the anterior aspect of the right lower lobe worsening for neoplasm without evidence of renal stone or hydronephrosis. Stone versus sludge in the gallbladder without evidence of cholecystitis. Patient has no elevated bilirubin or lipase is suspect choledocholithiasis. Plain films show no acute process. Upon repeat evaluation patient was well-appearing, no tachycardia. Her symptoms are not modified by p.o. intake so I doubt symptomatic cholelithiasis at this time. I offered her inpatient admission, patient refused. Given this shared decision-making discussion was had and patient will be given a second liter of crystalloid prior to discharge and will follow-up with Dr. Aceves within 48 hours to check her creatinine. Given their longstanding excellent relationship with Dr. Regalado I feel goals of care discussions more appropriate had with him in his office and will defer at this time. Procedures <Ramonita Verma MD - Last Filed: 02/28/24 14:55> Miscellaneous Procedure Procedure Performed: Limited RUQ ultrasound Indication: Abdominal pain Identified structures: -Gallbladder -Gallbladder wall -Common bile duct -Liver Findings: Patient breathing rapidly images were difficult to obtain but there is no evidence of gallstones into gallbladder wall was visualized and not abnormal no pericholecystic fluid negative sonographic Shipley's I was unable to visualize the common bile duct Impression: Normal gallbladder but unable to visualize common bile duct Images were saved to permanent archive The study was technically adequate CPT 28513-61 This study was performed by me, and I personally interpreted all images/videos. Based on my clinical judgement, these images were adequate and did necessitate further imaging. Critical Care <Ramonita Verma MD - Last Filed: 02/28/24 14:55> Critical Care Time Critical Care Time: No
[2024-02-28 14:05] LABS: Lipase 52 U/L (23-300)
--- NOTE | 2024-02-28 14:32 | PC.NURSE ---
I rounded on the pt. no new complaints at this time. pt is visiting with her . deandre.
[2024-02-28 15:11] LABS: Microscopic, Urine URINE MICROSCOPIC (MICROSCOPIC)
[2024-02-28 15:13] LABS: Appearance,Urine SL CLOUDY (Clear); Bilirubin,Urine Negative (Negative); Blood, Urine Negative (Negative); Color,Urine YELLOW (Yellow); Glucose,Urine (UA) Negative (Negative); Ketones,Urine Negative (Negative); Leukocyte Esterase,Urine 1+ (Negative); Nitrate,Urine Negative (Negative); Protein,Urine Negative (Negative); Urobilinogen,Urine 0.2 EU/dl (0.2)
[2024-02-28 15:29] LABS: Bacteria,Urine Trace /lpf
== END 2024-02-28 16:52 | disposition home or self-care (01) ==
PROVIDERS: Student in an Organized Health Care Education/Training Program; Emergency Provider Emergency Medicine; PCP Internal Medicine Adolescent Medicine
DX: E86.0 Dehydration (principal); R74.01 Elevation of levels of liver transaminase levels; N17.8 Other acute kidney failure; R11.2 Nausea with vomiting, unspecified; E87.1 Hypo-osmolality and hyponatremia; B96.89 Other specified bacterial agents as the cause of diseases classified elsewhere; I73.89 Other specified peripheral vascular diseases; E78.5 Hyperlipidemia, unspecified; I11.9 Hypertensive heart disease without heart failure; I25.10 Atherosclerotic heart disease of native coronary artery without angina pectoris; Z86.73 Personal history of transient ischemic attack (TIA), and cerebral infarction without residual deficits; Z79.01 Long term (current) use of anticoagulants
CPT/HCPCS: 73030; 73060; 74176; 80053; 81001; 83690; 85025; 87086; 96360; 96361; 99285; J7120

== ENCOUNTER 2024-04-01 06:47 | Outpatient (CLI) | payer MEDICARE, SELFPAY ==
[2024-04-01] VITALS (14 sets, daily range): BP systolic 95–141; BP diastolic 47–76; PULSE 72–84; RESP 16–18; O2SAT 95–100; BMI 28.3
--- NOTE | 2024-04-01 06:52 | CT_ITS ---
FINAL REPORT CLINICAL HISTORY: right lower lobe biopsy FINDINGS: CT GUIDE LUNG BIOPSY. HISTORY: Lung mass ATTENDING PHYSICIAN: Dr. Cano PHYSICIAN FOURTH MATE: Vladimir Mcneill PA-C PROCEDURE: After informed consent was obtained and a timeout was performed, the patient was prepped and draped in usual sterile fashion over the left upper anterior chest. Utilizing local anesthesia and sterile technique with a coaxial system, access to lesion was obtained. 5 20-gauge core biopsy passes were made. Post biopsy films demonstrate no pneumothorax. The patient received mild procedural sedation. The patient tolerated the procedure well and left the department in good condition. IMPRESSION: Status post CT-guided biopsy of a lung nodule. PROCEDURAL SEDATION: 2 mg of IV Versed and 50 mcg of Fentanyl were administered. Continuous vital sign monitoring was used. An RN was present during the sedation process. Overall sedation time was 30 minutes. Films reviewed , interpreted and dictated by Dr. Laila Cano. Transcribed by Vladimir Mcneill PA-C. Reviewed, Interpreted and Dictated by Laila Cano MD Transcribed by ELIJAH Wahl Authenticated and [facility]
[2024-04-01] MEDS: LACTATED RINGERS 1000ML 1,000 ML 25 ML IV (07:19)
[2024-04-01 07:33] LABS: Basophils # 0.1 K/mm3 (0-0.2); Basophils % 0.8 % (0.1-2.0); Eosinophils # 0.2 K/mm3 (0.0-0.4); Eosinophils % 2.8 % (0.1-12.0); Hematocrit 37.2 % (37.0-47.0); Hemoglobin 11.7 g/dL (12.2-16.2); Lymphocytes # 1.7 K/mm3 (0.7-4.5); Mean Corpuscular HGB Conc 31.5 g/dL (31.8-35.4); Mean Corpuscular Hemoglobin 31.9 pg (27.0-31.2); Mean Corpuscular Volume 101.2 fl (81-99); Mean Platelet Volume 9.7 fl (7.4-10.4); Monocytes # 0.5 K/mm3 (0.1-1.0); Monocytes % 6.2 % (1.7-9.3); Neutrophils # 5.8 K/mm3 (1.8-7.8); Neutrophils % 70.2 % (37.0-80.0); Platelet Count 222 K/mm3 (142-424); Red Blood Count 3.67 M/mm3 (4.20-5.40); Red Cell Distribution Width 15.9 % (11.5-17.5); White Blood Count 8.3 K/mm3 (4.8-10.8)
[2024-04-01 07:40] LABS: Activated Partial Thrombo Time 25.1 seconds (22.8-30.6); INR 0.91 (0.9-1.1); Prothrombin Time 10.3 seconds (10.1-12.5)
--- NOTE | 2024-04-01 09:52 | XR_ITS ---
FINAL REPORT CLINICAL HISTORY: post lung biopsy right lower lobe biopsy COMPARISON: 01/15/2024 FINDINGS: PA and lateral views of the chest were obtained. The cardiac and mediastinal silhouettes are within normal limits. CT. Right lower lung mass is identified. There has been interval improvement in the bibasilar opacities and bilateral effusions since the prior exam. There is no pneumothorax after biopsy. No acute osseous abnormality is identified. IMPRESSION: No pneumothorax after biopsy. Interval improvement in the bibasilar opacities and effusions. Reviewed, Interpreted and Dictated by Laila Cano MD Transcribed by Kriss Lockwood Authenticated and [facility]
[2024-04-01] MEDS: ACETAMINOPHEN 325MG TAB 650 MG (10:38)
--- NOTE | 2024-04-01 11:50 | XR_ITS ---
FINAL REPORT CLINICAL HISTORY: post lung biopsy COMPARISON: 2 hours prior FINDINGS: PA and lateral views of the chest were obtained. The cardiac and mediastinal silhouettes are within normal limits. There is no change in the support lines and tubes. There is a lesion in the right lower lung. There is no pneumothorax post biopsy. There is no pleural effusion. No acute osseous abnormality is identified. IMPRESSION: No pneumothorax post biopsy. Reviewed, Interpreted and Dictated by Laila Cano MD Transcribed by Kriss Lockwood Authenticated and . [facility]
== END 2024-04-01 12:40 | disposition home or self-care (01) ==
PROVIDERS: PCP Internal Medicine Adolescent Medicine; Referring Provider Internal Medicine Medical Oncology; Visit Provider Internal Medicine Pulmonary Disease
DX: R91.8 Other nonspecific abnormal finding of lung field (principal); Z79.899 Other long term (current) drug therapy; C34.31 Malignant neoplasm of lower lobe, right bronchus or lung
CPT/HCPCS: 32408; 71046; 77012; 85025; 85610; 85730; 87070; 87102; 87116; 87186; 87205; 87206; 88305; 88341; 88342; 88360; J2250; J3010; J7120

== ENCOUNTER 2025-03-17 12:51 | Observation (INO) | payer MEDICARE, SELFPAY ==
[2025-03-17] VITALS (19 sets, daily range): BP systolic 97–124; BP diastolic 37–66; PULSE 73–84; RESP 11–24; TEMP 36.6–36.9; O2SAT 92–100; BMI 36.6; BMI 27.4
--- NOTE | 2025-03-17 12:56 | ECG_ITS ---
APPROVED REPORT Exam: Resting ECG HR:72 bpm ECG Measurements Heart Rate 72 AXES OK 140 P 159 QRSd 160 QRS 191 QT 466 T -3 QTc 491 Conclusion ELECTRONIC ATRIAL PACEMAKER ELECTRONIC VENTRICULAR PACEMAKER ABNORMAL RHYTHM ECG UNCONFIRMED REPORT Electronically signed by : Oscar Verma, 03/18/2025 21:38:54
--- OUTSIDE RECORDS SUMMARY | 2025-03-17 12:56 | XMS_ITS | Data Portability ---
Author Organization [place] - [facility] & LILA Bradshaw ADMIN Address [address] [place] [address] Care Team Providers Care Employee Benefits Insurance Agent Name Role Phone LILLY SHOEMAKER Radiation Oncologist REYNALDO ZIMMER Professor Of Chemistry Assessment Encounter Date Assessment Date Assessment LastModified by Organization Details LastModified Time 05/06/2024 05/06/2024 Treatment summary: Patient was treated with SBRT technique utilizing 6 mV flattening filter treated by 2 arcs delivering a dose of 5000 cGy by 5 fractions between 04/30/2024 and completed on 05/06/2024 was well tolerated without significant side effects she will return to see us in 1 month for a follow-up with repeat chest x-ray. Thanks for allowing us participate in the care of this pleasant patient. wshehata Not available 05/06/2024 10:55:11 06/10/2024 06/10/2024 Patient will follow with her dental work she will return to see us in 3 months for a follow-up just before her appointment she was scheduled for a PET-CT scan to evaluate the response for therapy and to rule out other sites of metastasis. Interval lasted for 30 minutes. Thanks for allowing us participate in the care of this pleasant patient. wshehata Not available 06/10/2024 09:31:21 09/18/2024 09/18/2024 Patient is doing well no new symptoms at PET CT scan showed no evidence of progression or recurrence no new lesions. Interview lasted for 30 minutes. She will return to see us in 3 months for a follow-up. Thanks for allowing us participate in the care of this pleasant patient. wshehata Not available 09/18/2024 11:51:20 12/17/2024 12/17/2024 patient doing quite well no evidence for recurrence or metastasis will have a routine chest x-ray today. she will return to see us in 6 months for a follow-up. interview and review of records lasted for 30 minutes. thanks for allowing us participate in the care of this pleasant patient. wshehata Not available 12/17/2024 11:27:16 01/20/2025 01/20/2025 Patient is doing quite well no evidence for recurrence or metastasis we discussed results of recent workup she was followed by her family physician return to see us in 6 months for a follow-up. Interview and review her records lasted for 30 minutes. Thanks for allowing us participate in the care of this pleasant patient. wshehata Not available 01/20/2025 10:33:27 Plan of Treatment Reminders Order Date Submit Date Provider Last Modified By Organization Details Last Modified Time Details Appointments OV EST 15 2024 11:00A Juana Shoemaker MD Not available Not available Not available OV EST 15 2024 10:30A Juana Shoemaker MD Not available Not available Not available Lab None recorde d. Referral None recorde d. Procedures None recorde d. Surgeries None recorde d. Imaging XR, chest, 2 view 2024 025 [facility] (Registration ), [address] [place] [address] [place], [address], 12/24/2024 15:20:17 PET-CT, skull base to mid-thi gh scan - TO BE COMPLET ED IN 3 MONTHS 2023 024 [facility] (Centralized Scheduling), [address] [place] [address] [place], [address], 09/02/2024 08:59:26 Medication Orders None recorde d. Patient TargetsNo targets recorded. Patient InstructionsNo instructions recorded. Reason for Referral None Reported. Results Created Date Observation Date Name Description Value Unit Range Abnormal Flag Note LastModifiedBy Organization Detail LastModifiedTime 06/09/20 24 06/09/2024 XR, chest , 2 view [facility] Name: Win SWEET AM [address] Phys: Laura fitzgerald MD,[place] [address] : 1939 Age: 83 Sex: F Acct: [id number] Loc: BESSIE PHONE #: [phone] Exam Date: 2023 Status : REG CLI FAX #: Rad# [id number] Unit# [id number] Admit Date: 2023 EXAMS: CPT CODE: [id number] 906 CHEST 2 VIEWS 47207 PA AND LATERA L CHEST, 024: CLINIC AL HISTOR Y: 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 COMPAR SADE: Radiat ion planni ng chest CT, 024 FINDIN GS: The cardio medias tinal silhou ette is within normal limits with a 3-lead pacema ker in place. Lungs are hyperi nflate d with a 3.6 x 2.7 cm mass in the anteri or basal segmen t of the right lower lobe. There is no pneumo dariel or pleura l fluid. No suspic ious osseou s lesion is identi fied. IMPRES FILIBERTO: 1. 3.6 cm right lower lobe mass withou t eviden ce of acute cardio pulmon eric diseas e. Electr onical ly Signed by MICHELE BUCIO MD on 2023 at 1007 Report ed and signed by: MICHELE BUCIO MD CC: Richard Aceves MD; Lilly fitzgerald MD Dictat ed Date/T mayelin: 2023 (1007) Techno logist : CHARLES MARADIAGAET T Transc ribed Date/T mayelin: 2023 (1007) Transc riptio nist: DR.HAG JON Garcia onic Signat ure Date/T mayelin: 2023 (1007) Printe d Date/T mayelin: 2023 (1010) BATCH NO: N/A PAGE 1 Signed Report CC'ed Logic: Orderi ng Provid er: LAURA CARR Attend ing Provid er: LAURA CARR Referr ing Provid er: LAURA CARR Consul ting Provid er: JIAN dominguez [address] , [place], [address], 06/10/2024 08:35:01 09/03/20 24 09/02/2024 PET-C T, skull base to mid-t high scan No observ ation record ed. [facility] [address] [facility] [address], [place], [address], 10/09/2024 14:31:42 12/25/19 25 12/17/2024 XR, chest , 2 view No observ ation record ed. [address] , [place], [address], 12/25/2024 07:51:17 01/05/20 25 01/04/2025 PET-C T, skull base to mid-t high scan [facility] Name: Win SWEET [facility] [employer] Phys: Laura fitzgerald MD,[facility]icky [facility] [place] [address] : 1939 Age: 84 Sex: F Acct: [id number] Loc: G.PET PHONE #: [phone] Exam Date: 2024 Status : DEP CLI FAX #: Rad# [id number] Unit# [id number] Admit Date: 2024 EXAMS: CPT CODE: [id number] 974 PET W/CT SKULL- MID THIGH 14126 EXAMIN ATION: SKULL BASE TO MID THIGH F-18 FDG PET/CT CLINIC AL INDICA TION: Female , 84 years old. SEE TECHNI QUE: Low dose, non-di agnost ic qualit y CT images were acquir ed from the skull base to the mid thighs for attenu ation correc tion and anatom ic locali zation . This was follow ed by positr on emissi on tomogr aphy (PET) imagin g in the same distri bution . [id number] . Radiop harmac eutica l: Not provid ed to me at time of dictat ion. Recent blood sugar level: Not provid ed Uptake time: Not provid ed COMPAR SADE: Chest x-ray December 17, 2024. FINDIN GS: No histor y provid ed other than SEE . HEAD/N ROB: Physio logic uptake within the brain. There is an area of decrea sed uptake in the left occipi naresh lobe possib ly second eric to enceph alomal acia from old infarc t. No prior brain imagin g availa ble. Normal physio logic uptake within the paraph arynge al soft tissue s. There is physio logic uptake in parasp inal muscul ature. No mass or adenop athy. Enlarg ed nodula r right thyroi d lobe. CHEST: Physio logic uptake in upper chest muscul ature. Note made of pacema ker left upper chest wall. Cardio megaly with murillo ry athero sclero tic calcif icatio ns. No enlarg ed or hyperm etabol ic medias tinal/ hilar lymph nodes. Consol idatio n with air bronch ograms in the right lower lobe. Low level uptake within this consol idated lung, max SUV 6.1. Small layeri ng right pleura l effusi on. Trace left effusi on. Scarri ng or atelec tasis in the right middle lobe. ABDOME N/PELV IS: Normal physio logic GI and uptake . No pathol ogic hyperm etabol ic activi ty. Aortic and iliac athero sclero tic diseas e. Atroph ic left kidney . PAGE 1 Signed Report (JOSE LUIS NUED) [facility] Name: Win SWEET [facility] [employer] Phys: Laura fitz[place] [address] : 1939 Age: 84 Sex: F Acct: [id number] Loc: G.PET PHONE #: [phone] Exam Date: 2024 Status : DEP CLI FAX #: Rad# [id number] Unit# [id number] Admit Date: 2024 EXAMS: CPT CODE: [id number] 974 PET W/CT SKULL- MID THIGH 77467 BONES: Uptake surrou nding the right should er consis tent with chroni c degene rative joint diseas e. Also presen t on the left to a lesser degree . No focal or acute osseou s abnorm ality. IMPRES FILIBERTO: Massli ke area of consol idatio n in the right lower lobe with air bronch ograms demons tratin g low level FDG uptake . Findin gs suspic ious for pneumo dariel. Diffic ult to differ entiat e betwee n infect ion/in flamma tion and neopla stic proces s based on this exam. Query, does the patien t have a histor y of malign gabrielle? Only histor y provid ed was SEE . Scatte red areas of physio logic muscul ar uptake . Cardio megaly . Right- sided goiter . Area of decrea sed uptake within the left occipi naresh lobe. Correl ate with histor y of infarc t. Electr onical ly signed by: Dennis Ulloa MD 2024 02:15 PM EDT RP Workst ation: [id number] Electr onical ly Signed by DENNIS ULLOA MD on 2024 at 1401 Report ed and signed by: Wilmer ULLOA MD CC: Richard Aceves MD; Lilly fitzgerald MD Dictat ed Date/T mayelin: 2024 (1401) Techno logist : CONTRA CTED PET TECHNO LOGIST Transc ribed Date/T mayelin: 2024 (1401) Transc riptio nist: DR.KIN CAAL Electr onic Signat ure Date/T mayelin: 2024 (1401) Printe d Date/T mayelin: 2024 (1418) BATCH NO: N/A PAGE 2 Signed Report CC'ed Logic: Orderi ng Provid er: LAURA CARR Attend ing Provid er: LAURA CARR Referr ing Provid er: LAURA CARR Consul ting Provid er: JIAN dominguez [address] [place], [address], 01/05/2025 07:49:34 01/07/20 25 12/17/2024 XR, chest , 2 view [facility] Name: Win SWEET [facility] [address] Phys: Laura fitzgerald MD,[place] [address] : 1939 Age: 84 Sex: F Acct: [id number] Loc: GThomasRAD PHONE #: Exam Date: 2024 Status : DEP CLI FAX #: Rad# [id number] Unit# [id number] Admit Date: 2024 EXAMS: CPT CODE: [id number] 756 CHEST 2 VIEWS 51025 PA and latera l chest: 2 Views CLINIC AL INDICA TION: Female , 84 years old. MALIGN ANT NEOPLA SM COMPAR SADE: Septem jaylyn 2023 Findin gs: Trache a and medias tinum are midlin e. Cardia c silhou ette is within normal limits . Lungs are hypere xpande d. There is a right lower lung mass. There is also infilt rate at the left lung base. Left AICD device is noted in place. Impres filiberto: 1. Right lower lung mass. 2. Left lower lung infilt rate. 3. COPD. Electr onical ly signed by: Manju Rivera MD 2024 07:51 PM EDT RP Workst ation: [id number] Electr onical ly Signed by MANJU RIVERA on 2024 at 1950 Report ed and signed by: Win RIVERA CC: Richard Aceves MD; Lilly fitzgerald MD Dictat ed Date/T mayelin: 2024 (1949) Techno logist : MAI WHITETN R Transc ribed Date/T mayelin: 2024 (1949) Transc riptio nist: DR.BAT NIKKI Garcia onic Signat ure Date/T mayelin: 2024 (1949) Printe d Date/T mayelin: 2024 (1599) BATCH NO: N/A PAGE 1 Signed Report CC'ed Logic: Orderi ng Provid er: LAURA CARR Attend ing Provid er: LAURA CARR Referr ing Provid er: LAURA CARR Consul ting Provid er: JIAN Nuñez wshehata [address] , [place], [address], 01/07/2025 08:14:04 01/19/20 25 01/18/2025 PET-C T, skull base to mid-t high scan [facility] Name: Win SWEET [facility] [address] Phys: Laura fitzgerald MD,Vicky [facility] [place] [address] : 1939 Age: 84 Sex: F Acct: [id number] Loc: G.PET PHONE #: Exam Date: 2024 Status : DEP CLI FAX #: Rad# [id number] Unit# [id number] Admit Date: 2024 Report Has Been Amende d EXAMS: CPT CODE: [id number] 974 PET W/CT SKULL- MID THIGH 58040 Addend um - 2024 SIGNED 2024 ADDEND UM: [id number] 974 PET/WC TSKMT ADDEND UM #1 Addend um: After the initia l dictat ion, the doses were provid ed. 12.2 mCi FDG-18 F Blood sugar 90 Uptake time 46 minute s. Electr onical ly signed by: Dennis Ulloa MD 2024 10:02 AM EDT RP Workst ation: SMICWR [id number] ORIGIN AL REPORT EXAMIN ATION: SKULL BASE TO MID THIGH F-18 FDG PET/CT CLINIC AL INDICA TION: Female , 84 years old. SEE TECHNI QUE: Low dose, non-di agnost ic qualit y CT images were acquir ed from the skull base to the mid thighs for attenu ation correc tion and anatom ic locali zation . This was follow ed by positr on emissi on tomogr aphy (PET) imagin g in the same distri bution . IT0045 . Radiop harmac eutica l: Not provid ed to me at time of dictat ion. Recent blood sugar level: Not provid ed Uptake time: Not provid ed COMPAR SADE: Chest x-ray December 17, 2024. FINDIN GS: No histor y provid ed other than SEE . HEAD/N ROB: Physio logic uptake within the brain. There is an area of decrea sed PAGE 1 Signed Report (JOSE LUIS NUED) [facility] Name: Win SWEET [employer] [facility] [employer] Phys: Laura fitzgerald [place] [address] : 1939 Age: 84 Sex: F Acct: [id number] Loc: G.PET PHONE #: Exam Date: 2024 Status : DEP CLI FAX #: Rad# [id number] Unit# [id number] Admit Date: 2024 Report Has Been Amende d EXAMS: CPT CODE: [id number] 974 PET W/CT SKULL- MID THIGH 06900 uptake in the left occipi naresh lobe possib ly second eric to enceph alomal acia from old infarc t. No prior brain imagin g availa ble. Normal physio logic uptake within the paraph arynge al soft tissue s. There is physio logic uptake in parasp inal muscul ature. No mass or adenop athy. Enlarg ed nodula r right thyroi d lobe. CHEST: Physio logic uptake in upper chest muscul ature. Note made of pacema ker left upper chest wall. Cardio megaly with murillo ry athero sclero tic calcif icatio ns. No enlarg ed or hyperm etabol ic medias tinal/ hilar lymph nodes. Consol idatio n with air bronch ograms in the right lower lobe. Low level uptake within this consol idated lung, max SUV 6.1. Small layeri ng right pleura l effusi on. Trace left effusi on. Scarri ng or atelec tasis in the right middle lobe. ABDOME N/PELV IS: Normal physio logic GI and uptake . No pathol ogic hyperm etabol ic activi ty. Aortic and iliac athero sclero tic diseas e. Atroph ic left kidney . BONES: Uptake surrou nding the right should er consis tent with chroni c degene rative joint diseas e. Also presen t on the left to a lesser degree . No focal or acute osseou s abnorm ality. IMPRES FILIBERTO: Massli ke area of consol idatio n in the right lower lobe with air bronch ograms demons tratin g low level FDG uptake . Findin gs suspic ious for pneumo dariel. Diffic ult to differ entiat e betwee n infect ion/in flamma tion and neopla stic proces s based on this exam. Query, does the patien t have a histor y of malign gabrielle? Only histor y provid ed was SEE . Scatte red areas of physio logic muscul ar uptake . Cardio megaly . Right- sided goiter . PAGE 2 Signed Report (JOSE LUIS NUED) [facility] Name: Win SWEET [facility] Phys: Laura fitzgerald MD,[place] [address] : 1939 Age: 84 Sex: F Acct: [id number] Loc: G.PET PHONE #: Exam Date: 2024 Status : DEP CLI FAX #: Rad# [id number] Unit# [id number] Admit Date: 2024 Report Has Been Amende d EXAMS: CPT CODE: [id number] 974 PET W/CT SKULL- MID THIGH 65243 Area of decrea sed uptake within the left occipi naresh lobe. Correl ate with histor y of infarc t. Electr onical ly signed by: Dennis Ulloa MD 2024 02:15 PM EDT RP Workst ation: SMICWR [id number] Electr onical ly Signed by DENNIS ULLOA MD on 2024 at 1001 Report ed and signed by: Wilmer ULLOA MD Dictat ed Date/T mayelin: 2024 (1001) Transc ribed: 2024 (1001) DR.KIN CAAL Report EXAMIN ATION: SKULL BASE TO MID THIGH F-18 FDG PET/CT CLINIC AL INDICA TION: Female , 84 years old. SEE TECHNI QUE: Low dose, non-di agnost ic qualit y CT images were acquir ed from the skull base to the mid thighs for attenu ation correc tion and anatom ic locali zation . This was follow ed by positr on emissi on tomogr aphy (PET) imagin g in the same distri bution . [id number] . Radiop harmac eutica l: Not provid ed to me at time of dictat ion. Recent blood sugar level: Not provid ed Uptake time: Not provid ed COMPAR SADE: Chest x-ray December 17, 2024. FINDIN GS: No histor y provid ed other than SEE . HEAD/N ROB: Physio logic uptake within the brain. There is an area of decrea sed uptake in the left occipi naresh lobe possib ly second eric to enceph alomal acia from old infarc t. No prior brain imagin g availa ble. Normal physio logic uptake within the paraph arynge al soft tissue s. There is physio logic uptake in parasp inal muscul ature. PAGE 3 Signed Report (JOSE LUIS NUED) [facility] Name: Win SWEET [address] [employer] Phys: Laura fitzgerald [place] [address] : 1939 Age: 84 Sex: F Acct: [id number] Loc: G.PET PHONE #: Exam Date: 2024 Status : DEP CLI FAX #: Rad# [id number] Unit# [id number] Admit Date: 2024 Report Has Been Amende d EXAMS: CPT CODE: [id number] 974 PET W/CT SKULL- MID THIGH 88274 No mass or adenop athy. Enlarg ed nodula r right thyroi d lobe. CHEST: Physio logic uptake in upper chest muscul ature. Note made of pacema ker left upper chest wall. Cardio megaly with murillo ry athero sclero tic calcif icatio ns. No enlarg ed or hyperm etabol ic medias tinal/ hilar lymph nodes. Consol idatio n with air bronch ograms in the right lower lobe. Low level uptake within this consol idated lung, max SUV 6.1. Small layeri ng right pleura l effusi on. Trace left effusi on. Scarri ng or atelec tasis in the right middle lobe. ABDOME N/PELV IS: Normal physio logic GI and uptake . No pathol ogic hyperm etabol ic activi ty. Aortic and iliac athero sclero tic diseas e. Atroph ic left kidney . BONES: Uptake surrou nding the right should er consis tent with chroni c degene rative joint diseas e. Also presen t on the left to a lesser degree . No focal or acute osseou s abnorm ality. IMPRES FILIBERTO: Massli ke area of consol idatio n in the right lower lobe with air bronch ograms demons tratin g low level FDG uptake . Findin gs suspic ious for pneumo dariel. Diffic ult to differ entiat e betwee n infect ion/in flamma tion and neopla stic proces s based on this exam. Query, does the patien t have a histor y of malign gabrielle? Only histor y provid ed was SEE . Scatte red areas of physio logic muscul ar uptake . Cardio megaly . Right- sided goiter . Area of decrea sed uptake within the left occipi naresh lobe. Correl ate with histor y of infarc t. Electr onical ly signed by: Dennis Ulloa MD 2024 02:15 PM EDT PAGE 4 Signed Report (JOSE LUIS NUED) [facility] Ce Name: Win SWEET [address] [place] [address] Drive Phys: [place] [address] : 1939 Age: 84 Sex: F Acct: [id number] Loc: G.PET PHONE #: [phone] Exam Date: 2024 Status : DEP CLI FAX #: [phone] Rad# [id number] Unit# [id number] Admit Date: 2024 Report Has Been Amende d EXAMS: CPT CODE: [id number] 974 PET W/CT SKULL- MID THIGH 26559 RP Workst ation: SMIWR [id number] Electr onical ly Signed by DENNIS ULLOA MD on 2024 at 1401 Report ed and signed by: Wilmer ULLOA MD CC: Richard Aceves MD; Lilly fitzgerald MD Dictat ed Date/T mayelin: 2024 (1401) Techno logist : CONTRA CTED PET TECHNO LOGIST Transc ribed Date/T mayelin: 2024 (1401) Transc riptio nist: DR.KIN CAAL Electr onic Signat ure Date/T mayelin: 2024 (1401) Printe d Date/T mayelin: 2024 (1006) BATCH NO: N/A PAGE 5 Signed Report CC'ed Logic: Orderi ng Provid er: LAURA CARR Attend ing Provid er: LAURA CARR Referr ing Provid er: LAURA CARR Consul ting Provid er: JIAN dominguez [address] [place], [address], 01/18/2025 10:25:50 Result Notes Documentation Provider Name and Address Organization Details Recorded Time Xr, Chest, 2 View : [facility] Ce Name: RYAN SWEET [address] Phys: Sahara WINTER,[place] [address] : 1940 Age: 83 Sex: F Acct: [id number] Loc: BESSIE PHONE #: Exam Date: 06/09/2024 Status: REG CLI FAX #: Rad# [id number] Unit# [id number] Admit Date: 06/09/2024 EXAMS: CPT CODE: [id number] CHEST 2 VIEWS 91867 PA AND LATERAL CHEST, 06/09/2024: CLINICAL HISTORY: 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 COMPARISON: Radiation planning chest CT, 04/29/2024 FINDINGS: The cardiomediastinal silhouette is within normal limits with a 3-lead pacemaker in place. Lungs are hyperinflated with a 3.6 x 2.7 cm mass in the anterior basal segment of the right lower lobe. There is no pneumonia or pleural fluid. No suspicious osseous lesion is identified. IMPRESSION: 1. 3.6 cm right lower lobe mass without evidence of acute cardiopulmonary disease. at 1007 Reported and signed by: COLTON DONIS MD CC: Ignacio Aceves MD; Lilly Shoemaker MD Dictated Date/Time: 06/09/2024 (1007) Technologist: CHARLES BLACK Transcribed Date/Time: 06/09/2024 (1007) Scada Operator: Electronic Signature Date/Time: 06/09/2024 (1007) Printed Date/Time: 06/09/2024 (1010) BATCH NO: N/A PAGE 1 Signed Report CC'ed Logic: Ordering Provider: SAHARA CARR Attending Provider: SAHARA CARR Referring Provider: SAHARA CARR Consulting Provider: JIAN Shoemaker MD [address] [facility],[address], [place], [address], [facility] & [place] 06/10/2024 08:35:01 Pet-ct, Skull Base To Mid-thigh Scan : [facility] Ce Name: NONI SWEET [facility] Phys: Sahara WINTER,[place] [address] : 1940 Age: 84 Sex: F Acct: [id number] Loc: Armida.PET PHONE #: Exam Date: 01/03/2025 Status: DEP CLI FAX #: Rad# [id number] Unit# [id number] Admit Date: 01/03/2025 EXAMS: CPT CODE: [id number] PET W/CT SKULL-MID THIGH 01960 EXAMINATION: SKULL BASE TO MID THIGH F-18 FDG PET/CT CLINICAL INDICATION: Female, 84 years old. SEE TECHNIQUE: Low dose, non-diagnostic quality CT images were acquired from the skull base to the mid thighs for attenuation correction and anatomic localization. This was followed by positron emission tomography (PET) imaging in the same distribution. [id number]. Radiopharmaceutical: Not provided to me at time of dictation. Recent blood sugar level: Not provided Uptake time: Not provided COMPARISON: Chest x-ray December 17, 2024. FINDINGS: No history provided other than SEE . HEAD/NECK: Physiologic uptake within the brain. 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 No prior brain imaging available. Normal physiologic uptake within the parapharyngeal soft tissues. There is physiologic uptake in paraspinal musculature. No mass or adenopathy. Enlarged nodular right thyroid lobe. CHEST: Physiologic uptake in upper chest musculature. Note made of pacemaker left upper chest wall. Cardiomegaly with coronary atherosclerotic calcifications. No enlarged or hypermetabolic mediastinal/hilar lymph nodes. Consolidation with air bronchograms in the right lower lobe. Low level uptake within this consolidated lung, max SUV 6.1. Small layering right pleural effusion. Trace left effusion. Scarring or atelectasis in the right middle lobe. ABDOMEN/PELVIS: Normal physiologic GI and uptake. No pathologic hypermetabolic activity. Aortic and iliac atherosclerotic disease. Atrophic left kidney. PAGE 1 Signed Report (CONTINUED) [facility] Ce Name: NONI SWEET [facility] Phys: [place] [address] : 1940 Age: 84 Sex: F Acct: [id number] Loc: AkashPET PHONE #: Exam Date: 01/03/2025 Status: BYRON CLI FAX #: Rad# [id number] Unit# [id number] Admit Date: 01/03/2025 EXAMS: CPT CODE: [id number] PET W/CT SKULL-MID THIGH 47536 BONES: Uptake surrounding the right shoulder consistent with chronic degenerative joint disease. Also present on the left to a lesser degree. No focal or acute osseous abnormality. IMPRESSION: Masslike area of consolidation in the right lower lobe with air bronchograms demonstrating low level FDG uptake. Findings suspicious for pneumonia. Difficult to differentiate between infection/inflammation and neoplastic process based on this exam. Query, does the patient have a history of malignancy? Only history provided was SEE . Scattered areas of physiologic muscular uptake. Cardiomegaly. Right-sided goiter. Area of decreased uptake within the left occipital lobe. Correlate with history of infarct. Electronically signed by: Cesar Ulloa MD 01/04/2025 02:15 PM EDT RP at 1401 Reported and signed by: CESAR ULLOA MD CC: Ignacio Aceves MD; Lilly Shoemaker MD Dictated Date/Time: 01/04/2025 (1401) Technologist: CONTRACTED VEGETABLE BUNCHER Transcribed Date/Time: 01/04/2025 (1401) Scada Operator: Electronic Signature Date/Time: 01/04/2025 (1401) Printed Date/Time: 01/04/2025 (1418) BATCH NO: N/A PAGE 2 Signed Report CC'ed Logic: Ordering Provider: SAHARA CARR Attending Provider: SAHARA CARR Referring Provider: SAHARA CARR Consulting Provider: JIAN Shoemaker MD [address] [place] [address],[address], [place], [address], [facility] & [place] 01/05/2025 07:49:34 Xr, Chest, 2 View : [facility] Ce Name: NONI SWEET [address] [facility] Phys: Sahara WINTER,[place] [address] : 1940 Age: 84 Sex: F Acct: [id number] Loc: BESSIE PHONE #: Exam Date: 12/17/2024 Status: DEP CLI FAX #: Rad# [id number] Unit# [id number] Admit Date: 12/17/2024 EXAMS: CPT CODE: [id number] CHEST 2 VIEWS 32497 PA and lateral chest: 2 Views CLINICAL INDICATION: Female, 84 years old. MALIGNANT NEOPLASM COMPARISON: June 09, 2024 Findings: Trachea and mediastinum are midline. Cardiac silhouette is within normal limits. Lungs are hyperexpanded. There is a right lower lung mass. There is also infiltrate at the left lung base. Left AICD device is noted in place. Impression: 1. Right lower lung mass. 2. Left lower lung infiltrate. 3. COPD. Electronically signed by: Karel Rivera MD 12/17/2024 07:51 PM EDT at 1950 Reported and signed by: KAREL RIVERA CC: Ignacio Aceves MD; Lilly Shoemaker MD Dictated Date/Time: 12/17/2024 (1949) Technologist: MAI FOREMAN Transcribed Date/Time: 12/17/2024 (1949) Scada Operator: Electronic Signature Date/Time: 12/17/2024 (1949) Printed Date/Time: 01/06/2025 (1599) BATCH NO: N/A PAGE 1 Signed Report CC'ed Logic: Ordering Provider: SAHARA CARR Attending Provider: SAHARA CARR Referring Provider: SAHARA CARR Consulting Provider: JIAN Shoemaker MD [address] [facility],[address], [place], [address] & [place] 01/07/2025 08:14:04 Pet-ct, Skull Base To Mid-thigh Scan : [facility] Ce Name: NONI SWEET [facility] Phys: Sahara WINTERNvyang Harjit [place] [id number] : 1940 Age: 84 Sex: F Acct: [id number] Loc: Armida.PET PHONE #: Exam Date: 01/03/2025 Status: DEP CLI FAX #: Rad# [id number] Unit# [id number] Admit Date: 01/03/2025 Report Has Been Amended EXAMS: CPT CODE: [id number] PET W/CT SKULL-MID THIGH 00854 Addendum - 01/18/2025 SIGNED 01/18/2025 ADDENDUM: [id number] PET/WCTSKMT ADDENDUM #1 Addendum: After the initial dictation, the doses were provided. 12.2 mCi FDG-18 F Blood sugar 90 Uptake time 46 minutes. Electronically signed by: Cesar Ulloa MD 01/18/2025 10:02 AM EDT RP ORIGINAL REPORT EXAMINATION: SKULL BASE TO MID THIGH F-18 FDG PET/CT CLINICAL INDICATION: Female, 84 years old. SEE TECHNIQUE: Low dose, non-diagnostic quality CT images were acquired from the skull base to the mid thighs for attenuation correction and anatomic localization. This was followed by positron emission tomography (PET) imaging in the same distribution. [id number]. Radiopharmaceutical: Not provided to me at time of dictation. Recent blood sugar level: Not provided Uptake time: Not provided COMPARISON: Chest x-ray December 17, 2024. FINDINGS: No history provided other than SEE . HEAD/NECK: Physiologic uptake within the brain. 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 No prior brain imaging available. Normal physiologic uptake within the parapharyngeal soft tissues. There is physiologic uptake in paraspinal musculature. No mass or adenopathy. Enlarged nodular right thyroid lobe. CHEST: Physiologic uptake in upper chest musculature. Note made of pacemaker left upper chest wall. Cardiomegaly with coronary atherosclerotic calcifications. No enlarged or hypermetabolic mediastinal/hilar lymph nodes. Consolidation with air bronchograms in the right lower lobe. Low level uptake within this consolidated lung, max SUV 6.1. Small layering right pleural effusion. Trace left effusion. Scarring or atelectasis in the right middle lobe. ABDOMEN/PELVIS: Normal physiologic GI and uptake. No pathologic hypermetabolic activity. Aortic and iliac atherosclerotic disease. Atrophic left kidney. BONES: Uptake surrounding the right shoulder consistent with chronic degenerative joint disease. Also present on the left to a lesser degree. No focal or acute osseous abnormality. IMPRESSION: Masslike area of consolidation in the right lower lobe with air bronchograms demonstrating low level FDG uptake. Findings suspicious for pneumonia. Difficult to differentiate between infection/inflammation and neoplastic process based on this exam. Query, does the patient have a history of malignancy? Only history provided was SEE . Scattered areas of physiologic muscular uptake. Cardiomegaly. Right-sided goiter. PAGE 2 Signed Report (CONTINUED) [facility] Ce Name: NONI SWEET [address] [place] [address] Phys: [place] [address] : 1940 Age: 84 Sex: F Acct: [id number] Loc: Armida.PET PHONE #: Exam Date: 01/03/2025 Status: DEP CLI FAX #: Rad# [id number] Unit# [id number] Admit Date: 01/03/2025 Report Has Been Amended EXAMS: CPT CODE: [id number] PET W/CT SKULL-MID THIGH 14354 Area of decreased uptake within the left occipital lobe. Correlate with history of infarct. Electronically signed by: Cesar Ulloa MD 01/04/2025 02:15 PM EDT at 1001 Reported and signed by: CESAR ULLOA MD Dictated Date/Time: 01/18/2025 (1001) Transcribed: 01/18/2025 (1001) Report EXAMINATION: SKULL BASE TO MID THIGH F-18 FDG PET/CT CLINICAL INDICATION: Female, 84 years old. SEE TECHNIQUE: Low dose, non-diagnostic quality CT images were acquired from the skull base to the mid thighs for attenuation correction and anatomic localization. This was followed by positron emission tomography (PET) imaging in the same distribution. ST0393. Radiopharmaceutical: Not provided to me at time of dictation. Recent blood sugar level: Not provided Uptake time: Not provided COMPARISON: Chest x-ray December 17, 2024. FINDINGS: No history provided other than SEE . HEAD/NECK: Physiologic uptake within the brain. 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 No prior brain imaging available. Normal physiologic uptake within the parapharyngeal soft tissues. There is physiologic uptake in paraspinal musculature. PAGE 3 Signed Report (CONTINUED) [facility] Ce Name: NONI SWEET [address] [place] [address] Phys: Sahara WINTER,[place] [address] : 1940 Age: 84 Sex: F Acct: [id number] Loc: G.PET PHONE #: Exam Date: 01/03/2025 Status: DEP CLI FAX #: Rad# [id number] Unit# [id number] Admit Date: 01/03/2025 Report Has Been Amended EXAMS: CPT CODE: [id number] PET W/CT SKULL-MID THIGH 46410 No mass or adenopathy. Enlarged nodular right thyroid lobe. CHEST: Physiologic uptake in upper chest musculature. Note made of pacemaker left upper chest wall. Cardiomegaly with coronary atherosclerotic calcifications. No enlarged or hypermetabolic mediastinal/hilar lymph nodes. Consolidation with air bronchograms in the right lower lobe. Low level uptake within this consolidated lung, max SUV 6.1. Small layering right pleural effusion. Trace left effusion. Scarring or atelectasis in the right middle lobe. ABDOMEN/PELVIS: Normal physiologic GI and uptake. No pathologic hypermetabolic activity. Aortic and iliac atherosclerotic disease. Atrophic left kidney. BONES: Uptake surrounding the right shoulder consistent with chronic degenerative joint disease. Also present on the left to a lesser degree. No focal or acute osseous abnormality. IMPRESSION: Masslike area of consolidation in the right lower lobe with air bronchograms demonstrating low level FDG uptake. Findings suspicious for pneumonia. Difficult to differentiate between infection/inflammation and neoplastic process based on this exam. Query, does the patient have a history of malignancy? Only history provided was SEE . Scattered areas of physiologic muscular uptake. Cardiomegaly. Right-sided goiter. Area of decreased uptake within the left occipital lobe. Correlate with history of infarct. Electronically signed by: Cesar Ulloa MD 01/04/2025 02:15 PM EDT PAGE 4 Signed Report (CONTINUED) [facility] Ce Name: NONI SWEET [address] [place] [address] Phys: Sahara WINTER,[place] [address] : 1940 Age: 84 Sex: F Acct: [id number] Loc: G.PET PHONE #: Exam Date: 01/03/2025 Status: DEP CLI FAX #: [facility]# [id number] Unit# [id number] Admit Date: 01/03/2025 Report Has Been Amended EXAMS: CPT CODE: [id number] PET W/CT SKULL-MID THIGH 42642 at 1401 Reported and signed by: CESAR ULLOA MD CC: Ignacio Aceves MD; Lilly Shoemaker MD Dictated Date/Time: 01/04/2025 (1401) Technologist: CONTRACTED VEGETABLE BUNCHER Transcribed Date/Time: 01/04/2025 (1401) Scada Operator: Electronic Signature Date/Time: 01/04/2025 (1401) Printed Date/Time: 01/18/2025 (1006) BATCH NO: N/A PAGE 5 Signed Report CC'ed Logic: Ordering Provider: SAHARA CARR Attending Provider: SAHARA CARR Referring Provider: SAHARA CARR Consulting Provider: JIAN Shoemaker MD [address] [facility],[address], [place], [address], [place] - [facility] - [place] & [place] 01/18/2025 10:25:50 Problems Name Problem SNOMED Code Status Onset Date Resolution Date Notes Provider Name and Address Organization Details Recorded Time Malignant neoplasm of lower lobe of right lung 991701136 Active 024 Lilly Shoemaker MD [address] [facility],[address], [place], [address], [place] - [facility] - [place] & [place] 14:11:26 Problem Notes None recorded. Procedures Surgical History Date Name Laterality Status Provider Name and Address Organization Details Recorded Time cardiac pacemaker procedure completed Camillera Shweta JOSHI - [facility] & [place] 04/14/2024 10:09:39 cardiac catheterization completed Camille JOSHI - [facility] & [place] 04/14/2024 10:10:05 biopsy of breast completed Camille JOSHI - [facility] & [place] 04/14/2024 10:10:12 Imaging Results None recorded. Procedure Notes None recorded. Medical Equipment None Reported. Allergies No known drug allergies Medications Name Sig Start Date Stop Date Status Note LastModified by Organization Details LastModified Time atorvastati n 40 mg tablet active Not Available Not Available Not Available doxycycline hyclate 100 mg capsule 04/14 completed Not Available Not Available Not Available metoprolol tartrate 100 mg tablet active Not Available Not Available Not Available amiodarone 200 mg tablet 04/14 completed Not Available Not Available Not Available metoprolol succinate ER 100 mg tablet,exte nded release 24 hr active Not Available Not Available Not Available triamcinolo ne acetonide 0.5 % topical ointment active Not Available Not Available Not Available clopidogrel 75 mg tablet 01/20 completed Not Available Not Available Not Available allopurinol 100 mg tablet active Not Available Not Available Not Available tramadol 50 mg tablet TAKE 1 TO 2 TABLETS BY MOUTH THREE TIMES DAILY NEEDED FOR PAIN active Not Available Not Available No t Available spironolact one 25 mg tablet active Not Available Not Available Not Available levothyroxi ne 25 mcg tablet TAKE 1 TABLET BY MOUTH ONCE DAILY IN THE MORNING ON AN EMPTY STOMACH active Not Available Not Available No t Available bisoprolol fumarate 10 mg tablet 04/14 completed Not Available Not Available Not Available nitroglycer in 0.4 mg/hr transdermal 24 hour patch APPLY 1 PATCH TOPICALLY ONCE DAILY active Not Available Not Available No t Available amiodarone 400 mg tablet active Not Available Not Available Not Available levothyroxi ne 50 mcg tablet TAKE 1 TABLET BY MOUTH ONCE DAILY active Not Available Not Available No t Available pantoprazol e 40 mg tablet,pebbles yed release active Not Available Not Available Not Available ropinirole 0.5 mg tablet TAKE 1 TABLET BY MOUTH TWICE DAILY NEEDED active Not Available Not Available No t Available mupirocin 2 % topical ointment active Not Available Not Available Not Available furosemide 20 mg tablet active Not Available Not Available Not Available azelastine 137 mcg (0.1 %) nasal spray active Not Available Not Available Not Available cefdinir 300 mg capsule 04/14 completed Not Available Not Available Not Available fluticasone propionate 50 mcg/actuati on nasal spray,suspe nsion active Not Available Not Available Not Available spironolact one 50 mg tablet 04/14 completed Not Available Not Available Not Available memantine 5 mg tablet active Not Available Not Available No t Available metoprolol tartrate 25 mg tablet active Not Available Not Available No t Available levocetiriz ine 5 mg tablet active Not Available Not Available Not Available Entresto 97 mg-103 mg tablet TAKE 1 TABLET BY MOUTH TWICE DAILY active Not Available Not Available No t Available Entresto 49 mg-51 mg tablet 04/14 completed Not Available Not Available Not Available Lactobacill us acidophilus 0.5 mg (100 million cell) tablet active Not Available Not Available Not Available Vitals Date Recorded Body height Body temperature Oxygen saturation Oxygen saturation in Arterial blood by Pulse oximetry Heart rate Respiratory rate Systolic blood pressure Diastolic blood pressure Provider Name and Address Organization Details Last Updated DateTime 5 162.56 cm 97.2 [degF] 99 % 99 % 73 /min 17 /min 147 mm[Hg] 72 mm[Hg] Analisareyna JOSHI [facility] & [place] 5 11:04:24 Date Recorded Body height Body temperature Oxygen saturation Oxygen saturation in Arterial blood by Pulse oximetry Heart rate Respiratory rate Systolic blood pressure Diastolic blood pressure Provider Name and Address Organization Details Last Updated DateTime 5 162.56 cm 97.9 [degF] 99 % 99 % 73 /min 17 /min 142 mm[Hg] 65 mm[Hg] Analisareyna JOSHI [facility] & [place] 5 11:17:57 Date Recorded Body height Body temperature Oxygen saturation Oxygen saturation in Arterial blood by Pulse oximetry Heart rate Respiratory rate Systolic blood pressure Diastolic blood pressure Provider Name and Address Organization Details Last Updated DateTime 5 162.56 cm 97.2 [degF] 98 % 98 % 74 /min 17 /min 136 mm[Hg] 63 mm[Hg] Analisa Hunter Cassandra JOSHI [facility] & [place] 5 10:24:46 Date Recorded Body height Body temperature Heart rate Respiratory rate Systolic blood pressure Diastolic blood pressure Provider Name and Address Organization Details Last Updated DateTime 4 162.56 cm 97.2 [degF] 76 /min 17 /min 138 mm[Hg] 70 mm[Hg] Analisa Hunter Cassandra JOSHI [facility] & [place] 4 09:20:24 Social History Question Answer Notes LastModified by Organizat ion Details LastModified Time Tobacco Smoking Status Former Smoker Camille foreman, [facility] & [place] 04/14/2024 10:09:28 When Did You Quit Smoking? 16+yearssi kristin pascual Pt Stated She Quit Smoking Approximately 30 Years Ago And Did Not Smoke Long Before Quitting. GEM PierceN, RN 1009 04/14/2024 heydi Information not available 04/14/2024 Sex: Unknown Functional Status None recorded. Mental Status None recorded. Family History Relationship Description Onset Age of this Age Resolved Age Notes LastModified by Organization Details LastModified Time Mother Heart disease heydi Not available 2023 10:08:35 Medical History No medical history recorded. Gynecological HistoryNo gynecological history recorded. Obstetrics History GPAL:G 0 P 0 0 0 0 Past Encounters Encounter ID Performer Location Encounter Start Date Encounter Closed Date Diagnosis/Indication Diagnosis SNOMED-CT Code Diagnosis ICD10 Code Diagnosis Note [id number] Lilly Shoemaker MD [place] [address] [address] 04/14/2024 09:17:51 04/14/2024 10:28:57 Primary malignant neoplasm of lung 60141881 C34.31 [id number] [facility] [place] [phone] 04/29/2024 09:54:43 04/29/2024 11:54:35 Malignant neoplasm of lower lobe of right lung 304246056 C34.31 [id number] Lilly Shoemaker MD [place] [phone] 04/30/2024 10:46:31 04/30/2024 11:43:25 Malignant neoplasm of lower lobe of right lung 890277915 C34.31 [id number] [facility] [place] [id number] 05/01/2024 11:38:19 05/01/2024 13:15:03 Malignant neoplasm of lower lobe of right lung 013284411 C34.31 [id number] Lilly Shoemaker MD [place] [phone] 05/02/2024 10:32:24 05/02/2024 11:18:40 Malignant neoplasm of lower lobe of right lung 745646324 C34.31 [id number] Lilly Shoemaker MD [address] [address] 05/05/2024 11:00:35 05/05/2024 13:13:01 Malignant neoplasm of lower lobe of right lung 328782835 C34.31 [id number] Lilly Shoemaker MD [place] [id number] 05/06/2024 10:46:17 05/06/2024 11:29:55 Malignant neoplasm of lower lobe of right lung 233026193 C34.31 [id number] Lilly Shoemaker MD [place] [address] 8 06/10/2024 09:18:33 06/10/2024 10:16:55 Malignant neoplasm of lower lobe of right lung 150307709 C34.31 [id number] Lilly Shoemaker MD [place] [address] 8 09/18/2024 10:43:40 09/18/2024 11:27:11 Malignant neoplasm of lower lobe of right lung 028918300 C34.31 [id number] Lilly Shoemaker MD [place] [address] 8 12/17/2024 11:03:01 12/17/2024 12:04:36 Malignant neoplasm of lower lobe of right lung 405621912 C34.31 [id number] Lilly Shoemaker MD [place] [address] 8 01/20/2025 10:06:20 01/20/2025 10:45:44 Malignant neoplasm of lower lobe of right lung 658737274 C34.31 Health Concerns Section Related Observation LastModified by Organization Detai ls LastModified Time None Recorded Concern Status LastModified by Organization Details LastModified Time None Recorded Advance Directives Directive None Recorded Payers Insurance Date Sequence Insurance Name Policy Number Policy Reynoso Covered Member ID Reynoso Member ID Guarantor Name 04/14/2024 2 BRITTNEYA Noni Sweet [id number] Noni Sweet 04/14/2024 1 [employer] [id number] Noni Sweet [id number] Noni Sweet 01/20/2025 1 [employer] (MEDICARE REPLACEMENT/A DVANTAGE - PPO) Noni Shipman Cassandra [id number] Noni Jo Cassandra Notes Date Note Type Note Provider Name and Address Organization Details Recorded Time 05/06/2024 text/html patient complete d her radiation therapy today was well tolerated she will return to see us in 1 month for a follow-up with repeat chest x-ray.She presented with 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 Lilly Shoemaker MD [address] [facility],[address], [place], [address], [facility] 05/06/2024 10:57:25 06/10/2024 text/html Patient is here for a follow-up with a history of moderately-different iated adenocarcinoma of the right lower lung PET positive 4.1 cm biopsy-proven 40% PD-L1 expression stage T2 a N0 M0 stage IIA she has not a candidate for resection or adjuvant chemotherapy history of AFib cardiac stents and defibrillator left upper chest wall area she completed SBRT radiation for a dose of 5000 cGy delivered by 5 fractions completed on 05/06/2024 this was well tolerated chest x-ray taken on 06/09/2024 showed infiltrative the site of the original tumor about 3.6 cm right lower lobe no evidence of acute cardiopulmonary disease reviewing the shadow on chest x-ray appeared to be infiltrate post radiation effects. At patient has no cough no dysphagia she lost some weight because she had all her lower teeth extracted April of this year she is waiting for implant of a bridge and dentures expected to continue lose weight and was advised about diet and food supplements. Lilly Shoemaker MD [address] [place] [address],[address], [place], [address], [facility] 06/10/2024 09:31:37 09/18/2024 text/html Patient is here for a follow-up with a history of moderately-different iated adenocarcinoma of the right lower lung PET positive 4.1 cm biopsy-proven 40% PD-L1 expression stage T2 a N0 M0 stage IIA she was not a candidate for resection or adjuvant chemotherapy with a history of a fib cardiac stents and defibrillator left upper chest wall she completed SBRT radiation to the right lower lung for a dose of 5000 cGy delivered by 5 fractions completed on 05/06/2024 SHE DID WELL WITH NO NEW SYMPTOMS AND NO MORE SMOKING AT PET-CT SCAN ON 09/02/2024 SHOWED THE INTERSTITIAL CHANGES IN THE TREATED AREA LEFT UPPER LUNG POST RADIATION EFFECT . PATIENT IS FOLLOWED BY HER KIER OPERATOR AND FAMILY PHYSICIAN. Lilly Shoemaker MD [address] [place] [address],[address], [place], [address], [place] - [facility] & [place] 10/10/2024 08:04:13 12/17/2024 text/html patient is here for a follow-up with a history of moderately-different iated adenocarcinoma of the right lower lung PET-CT positive 4.1 cm biopsy-proven 40% PD-L1 expression stage T2a N0 M0 stage IIA she was not a candidate for resection or adjuvant chemotherapy with a history of AFib cardiac stents and defibrillator she completed SBRT radiation to the right lower lung for a dose of 5000 cGy delivered by 5 fractions completed on 05/06/2024 subsequent PET-CT scan in August 2024 showed no evidence of progression or recurrence no new lesions had occasional cough in the morning no SOB she has not having other complaints except slow walking with a walking card because of arthritis she is not having any further screening mammograms or colonoscopy. Lilly Shoemaker MD [address] [place] [address] Drive,[address], [place], [address], [place] - [facility] & [place] 12/17/2024 11:27:29 01/20/2025 text/html Patient is here for a follow-up with a history of moderately-different iated adenocarcinoma of the right lower lung PET-CT scan positive 4.1 cm biopsy-proven 40% PDL 1 expression stage T2a N0 M0 stage II A he was not a candidate for resection or adjuvant chemotherapy with a history of AFib cardiac stents and defibrillator he completed a course of radiation to the right lower lung by SBRT technique for a dose of 5000 cGy delivered by 5 fractions completed on 05/06/2024 subsequent PET-CT scan in August 2024 showed no evidence of progression or recurrence no new lesions she had routine chest x-ray in 12/17/2024 showed right lower lung infiltrative because of history of previous lung radiation SBRT a PET-CT scan was done on 01/18/2025 showed masslike area of consolidation in the right lower lobe knowing that the patient has history of malignancy radiation therapy it probably post radiation effects the patient came today with his to discuss results of recent workup.She is doing well apart from occasional cough not bothering her she has no weight loss no dysphagia no pain no headaches she has a workup with her family physician regarding possible renal insufficiency.Patien t quit smoking 15 years ago she never had any colonoscopy for screening. Lilly Shoemaker MD [address] [facility],[address], [place], [address], [facility] - [facility] & [place] 01/20/2025 10:33:36 OBGyn Episode No OBEpisode recorded.
--- OUTSIDE RECORDS SUMMARY | 2025-03-17 12:57 | XMS_ITS | Continuity of Care Document ---
Author Organization [place] - [place] - [place] & [facility] Address [address] [place] [address] Care Team Providers Care Coater Helper Name Role Phone LILLY SHOEMAKER Radiation Oncologist [phone] REYNALDO ZIMMER Cnc Grinder Assessment Encounter Date Assessment Date Assessment LastModified by Organization Details LastModified Time 01/20/2025 01/20/2025 Patient is doing quite well [...] Modified Time Details Appointments OV EST 15 025 11:00AM Lilly Shoemaker MD Not available Not available Not available OV EST 15 025 10:30AM Lilly Shoemaker MD Not available Not available Not available Lab None record ed. Referral None record ed. Procedures None record ed. Surgeries None record ed. Imaging None record ed. Medication Orders None record ed. Patient TargetsNo targets recorded. Patient InstructionsNo instructions recorded. Reason for Referral None Reported. Results Created Date Observation Date Name Description Value Unit Range Abnormal Flag Note LastModifiedBy Organization Detail LastModifiedTime 12/25/19 25 12/17/2024 XR, chest , 2 view No observ ation record ed. [facility] [address] , [place], [address], 12/25/2024 07:51:17 01/05/20 25 01/04/2025 PET-C T, skull base to mid-t high scan [facility] Name: Win SWEET [employer] Phys: Laura fitzgerald [place] [address] : 1939 Age: 84 Sex: F Acct: [id number] Loc: G.PET PHONE #: Exam Date: 2024 Status : DEP CLI FAX #: [phone] Rad# [id number] Unit# [id number] Admit Date: 2024 EXAMS: CPT CODE: [id number] 974 PET W/CT SKULL- MID THIGH 39202 EXAMIN ATION: SKULL BASE TO MID THIGH [...] g in the same distri bution . UT6551 . Radiop harmac eutica l: Not provid [...] left kidney . PAGE 1 Signed Report (JOSEL UIS NUMIRIAN) [facility] Name: Win SWEET [employer] Phys: Laura fitzgerald MD,Wayogesh [place] [place] [address] : 1939 Age: 84 Sex: F Acct: [id number] Loc: G.PET PHONE #: [phone] Exam Date: 2024 Status : DEP CLI FAX #: [phone] Rad# [id number] Unit# [id number] Admit Date: 2024 EXAMS: CPT CODE: [id number] 974 PET W/CT SKULL- MID THIGH 45859 BONES: Uptake surrou nding the right should [...] 2024 02:15 PM EDT RP [facility] [id number] Electr onical ly Signed by DENNIS [...] CARR Consul ting Provid er: JIAN dominguez [address] , [place], [address], 01/05/2025 07:49:34 01/07/20 25 12/17/2024 XR, chest , 2 view [facility] Name: Win SWEET [facility] [employer] Phys: Laura fitzgerald MD,Vicky Harj[place] [address] : 1939 Age: 84 Sex: F Acct: [id number] Loc: AkashRAD PHONE #: [phone] Exam Date: 2024 Status : DEP CLI FAX #: Rad# [id number] Unit# [id number] Admit Date: 2024 EXAMS: CPT CODE: [id number] 756 CHEST 2 VIEWS 475[address] PA and latera l chest: 2 Views [...] mayelin: 2024 (1949) Techno logist : MAI Guillen Transc ribed Date/T mayelin: 2024 (1949) Transc riptio nist: DR.BAT JORDAN Electr onic Signat ure Date/T mayelin: 2024 (1949) Printe d Date/T mayelin: 2024 (1599) BATCH NO: N/A PAGE 1 Signed Report CC'ed Logic: Orderi ng Provid er: LAURA CARR Attend ing Provid er: LAURA CARR Referr ing Provid er: LAURA CARR Consul ting Provid er: JIAN dominguez [address] , [place], [address], 01/07/2025 08:14:04 01/19/20 25 01/18/2025 PET-C T, skull base to mid-t high scan [facility] Name: Win SWEET [facility] [address] Phys: Laura fitzgerald MD,[place] [address] : 1939 Age: 84 Sex: F Acct: [id number] Loc: Yogesh.PET PHONE #: Exam Date: 2024 Status : DEP CLI FAX #: Rad# [id number] Unit# [id number] Admit Date: 2024 Report Has Been Amende d EXAMS: CPT CODE: [id number] 974 PET W/CT SKULL- MID THIGH 98969 Addend um - 2024 SIGNED 2024 ADDEND UM: [id number] 974 PET/WC TSKMT ADDEND UM #1 Addend [...] g in the same distri bution . AE2980 . Radiop harmac eutica l: Not provid [...] PAGE 1 Signed Report (JOSE LUIS NUED) [facility] Name: Win SWEET [address] [employer] Phys: Laura fitzgerald MD,[place] [address] : 1939 Age: 84 Sex: F Acct: [id number] Loc: Yogesh.PET PHONE #: Exam Date: 2024 Status : DEP CLI FAX #: [phone] Rad# [id number] Unit# [id number] Admit Date: 2024 Report Has Been Amende d EXAMS: CPT CODE: [id number] 974 PET W/CT SKULL- MID THIGH 43261 uptake in the left occipi naresh lobe [...] PAGE 2 Signed Report (JOSE LUIS NUED) [facility] Name: Win SWEET [employer] Phys: Laura fitzgerald [place] [address] : 1939 Age: 84 Sex: F Acct: [id number] Loc: G.PET PHONE #: Exam Date: 2024 Status : DEP CLI FAX #: [phone] Rad# [id number] Unit# [id number] Admit Date: 2024 Report Has Been Amende d EXAMS: CPT CODE: [id number] 974 PET W/CT SKULL- MID THIGH 49593 Area of decrea sed uptake within the left occipi naresh lobe. Correl ate with histor y of infarc t. Electr onical ly signed by: Dennis Ulloa MD 2024 02:15 PM EDT RP Workst ation: SMIWR S43RD7 Electr onical [...] g in the same distri bution . UJ6239 . Radiop harmac eutica l: Not provid [...] ature. PAGE 3 Signed Report (JOSE LUIS NUMIRIAN) [facility] Name: Win SWEET [employer] Phys: Laura fitzgerald MD,Wag [facility]. [place] [facility] [place] [address] : 1939 Age: 84 Sex: F Acct: [id number] Loc: G.PET PHONE #: Exam Date: 2024 Status : DEP CLI FAX #: [phone] Rad# [id number] Unit# [id number] Admit Date: 2024 Report Has Been Amende d EXAMS: CPT CODE: [id number] 974 PET W/CT SKULL- MID THIGH 92263 No mass or adenop athy. Enlarg ed [...] EDT PAGE 4 Signed Report (JOSE LUIS NUMIRIAN) [facility] Name: Win SWEET [facility] Medica [employer] Phys: Laura fitzgerald MD,[place] [address] : 1939 Age: 84 Sex: F Acct: [id number] Loc: G.PET PHONE #: Exam Date: 2024 Status : DEP CLI FAX #: Rad# [id number] 20 Unit# [id number] Admit Date: 2024 Report Has Been Amende d EXAMS: CPT CODE: [id number] 974 PET W/CT SKULL- MID THIGH 76452 RP Workst ation[facility] S43RD7 Electr onical ly Signed by DENNIS ULLOA MD on 04/20/ 2025 at 1401 Report ed and signed by: Wilmer ULLOA MD CC: Richard Aceves MD; Lilly fitzgerald MD Dictat ed Date/T mayelin: 2024 (1401) Techno logist : CONTRA CTED PET TECHNO LOGIST Transc ribed Date/T mayelin: 2024 (1401) Transc riptio nist: DR.KIN AFUA Garcia onic Signat ure Date/T mayelin: 2024 (1401) Printe d Date/T mayelin: 2024 (1006) BATCH NO: N/A PAGE 5 Signed Report CC'ed Logic: Orderi ng Provid er: LAURA CARR Attend ing Provid er: LAURA CARR Referr ing Provid er: LAURA CARR Consul ting Provid er: JIAN dominguez [address], [place], [address], 01/18/2025 10:25:50 Result Notes None recorded. 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 Procedures Surgical History Date Name Laterality Status Provider Name and Address Organization Details Recorded Time cardiac pacemaker procedure completed Camille SHARP [facility] & [place] 04/14/2024 10:09:39 cardiac catheterization completed Camille SHARP [facility] & [place] 04/14/2024 10:10:05 biopsy of breast completed Camille SHARP [facility] & [place] 04/14/2024 10:10:12 Imaging Results None recorded. Procedure [...] and Address Organization Details Last Updated DateTime 162.56 cm 97.2 [degF] 98 % 98 % 74 /min 17 /min 136 mm[Hg] 63 mm[Hg] Analisa Sweet [facility] & [place] 10:24:46 Social History Question Answer Notes LastModified by Organizat ion Details LastModified Time Tobacco Smoking Status Former Smoker Camille foreman, [facility] & [place] 04/14/2024 10:09:28 When Did You Quit Smoking? 16+yearssi ncelastjennie pascual Pt Stated She Quit Smoking Approximately 30 Years Ago And Did Not Smoke Long Before Quitting. Rocio Rock BSN, RN 1009 04/14/2024 kcornette Information not available 04/14/2024 Sex: Unknown Functional Status None recorded. Mental Status None recorded. Family History Relationship Description Onset Age of this Age Resolved Age Notes LastModified by Organization Details LastModified Time Mother Heart disease kcornette Not available 2023 10:08:35 Medical History No medical history recorded. Gynecological HistoryNo gynecological history recorded. 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 Lilly Shoemaker MD [address] [facility],[address], [place], [address], [facility] - [facility] & [place] 01/20/2025 10:33:36 OBGyn Episode No OBEpisode recorded.
--- OUTSIDE RECORDS SUMMARY | 2025-03-17 12:57 | XMS_ITS | Clinical Summary ---
Author Organization Healthcare Address [address] [place] [address] Care Team Providers Care Loan Secretary Name Role Phone Ignacio Aceves MD Primary Care Provider [phone] Shira Stringer MD Unavailable [phone] Family History Medical History Relation Name Comments Conversions - Other Father Medical history unknown Cardiac disorder Mother Heart attack Mother Hypertension Mother Stroke Mother Relation Name Status Comments Father Mother Social History Tobacco Use Types Packs/Day Years Used Date Smoking Tobacco: Former Alcohol Use Standard Drinks/Week Comments No 0 (1 standard drink = 0.6 oz pur e alcohol) Comments Unknown Sex and Gender Information Value Date Recorded Sex Assigned at Not on file Legal Sex Female 6:58 PM EDT Gender Identity Not on file Sexual Orientation Not on file Last Filed Vital Signs Vital Sign Reading Time Taken Comments Blood Pressure 146/81 09/18/2019 10:00 AM EST Pulse 71 09/18/2019 10:00 AM EST Temperature 36.7 C (98 F) 03/07/2019 9:33 AM EDT Respiratory Rate - - Oxygen Saturation - - Inhaled Oxygen Concentration - - Weight 74.4 kg (164 lb) 09/18/2019 9:57 AM EST Height 162.6 cm (5' 4 ) 09/18/2019 9:57 AM EST Body Mass Index 28.15 09/18/2019 9:57 AM EST Plan of Treatment Health Maintenance Due Date Last Done Comments [facility]-Bone Density Scan 1940 [facility]-Depression Screening 1940 [facility]-Medicare Annual Wellness (AWV) 1940 [facility]-/Child/Adol SDOH Screenings 1940 [facility]- SDOH Screenings 1958 [facility]-Adult SDOH Screenings 1958 [facility]-DTaP,Tdap,and Td Vaccines (1 - Tdap) 1959 [facility]-Zoster Vaccines (1 of 2) 1990 [facility]-Pneumococcal Vaccine: 50+ Years (2 of 2 - PPSV23) 04/24/2019 04/24/2018 [id number] Vaccine ( season) 2024 07/12/2023, 06/20/2022, 12/27/2021, Additional history exists [facility]-Influenza Vaccine (Season Ended) 2025 05/22/2017 [facility]-Hepatitis A Vaccines Aged Out 10/01/2018 No longer eligible based on patient's age to complete this topic [facility]-RSV Vaccine: 60+ Years or Completed 08/02/2023 HPV Vaccines Aged Out No longer eligi ble based on patient's age to complete this topic [facility]-HIB Vaccines Aged Out No longer e ligible based on patient's age to complete this topic [facility]-IPV Vaccines Aged Out No longer e ligible based on patient's age to complete this topic [facility]-Rotavirus Vaccines Aged Out No lo nger eligible based on patient's age to complete this topic Insurance HUMANA MEDICARE Care Teams Loan Secretary Relationship Specialty Start Date End Date Ignacio Aceves MD [address] [place] [address] PCP - General 01/28/21 Shira Stringer MD [address] [address] Medical Oncologist Hematology and Oncology 12/11/23
--- OUTSIDE RECORDS SUMMARY | 2025-03-17 12:57 | XMS_ITS | Referral Summary ---
Author Organization [employer] ([place], [place], [place], [place]) Address [address] [place] [address] Care Team Providers Care Dough Mixer Helper Name Role Phone Ignacio Aceves MD Primary Care Provider [phone] Allergies No known active allergies Medications allopurinoL (ZYLOPRIM) 100 MG tablet Take 1 tablet (100 mg total) by mouth daily. Active fluticasone propionate (FLONASE) 50 mcg/actuation nasal spray 1 spray by Nasal route daily. Active magnesium oxide (MAG-OX) 400 mg (241.3 mg magnesium) tablet Take 1 tablet (400 mg total) by mouth 2 (two) times daily. Active nitroglycerin (NITROSTAT) 0.[address] 0.4 mg under the tongue every 5 (five) minutes as needed Put 1 pill under tongue every 5min as needed for chest pain.No more than 3 doses in 15min.Call 911 if pain unrelieved 5min after 1st dose. Active pantoprazole (PROTONIX) 40 MG tablet Take 1 tablet (40 mg total) by mouth daily. Active levothyroxine (SYNTHROID, LEVOTHROID) 25 MCG tablet Take 1 tablet (25 mcg total) by mouth Every morning on an empty stomach. Active traMADoL (ULTRAM) 50 mg tablet Take 1 tablet (50 mg total) by mouth 3 (three) times daily as needed for Pain. Active sacubitriL-vals abraham (Entresto) 97-103 mg tablet Take 1 tablet by mouth 2 (two) times daily. Active memantine (NAMENDA) 5 MG tablet Take 1 tablet (5 mg total) by mouth 2 (two) times daily. Active nitroglycerin (NITRODUR) 0.4 mg/hr patch Place 1 patch onto the skin daily Apply at 2000 and remove at 0800. Active rOPINIRole (REQUIP) 0.5 MG tablet Take 1 tablet (0.5 mg total) by mouth 2 (two) times daily. Active clopidogreL (PLAVIX) 75 mg tablet Take 1 tablet (75 mg total) by mouth daily. Active furosemide (LASIX) 20 MG tablet Take 1 tablet (20 mg total) by mouth daily. Active aspirin 81 MG EC tablet Take 1 tablet (81 mg total) by mouth daily. Active spironolactone (ALDACTONE) 25 MG tablet Take 1 tablet (25 mg total) by mouth daily. Active atorvastatin (LIPITOR) 40 MG tablet Take 1 tablet (40 mg total) by mouth daily. 30 tablet Active Active Problems Problem Noted Date Diagnosed Date SVT (supraventricular tachycardia) 01/16/2024 Dislocation of right shoulder joint 01/16/2024 01/16/2024 Automatic implantable cardioverter-defibrillator in situ 01/16/2024 01/16/2024 Edema of both lower extremities 01/16/2024 01/16/2024 Dizziness 01/16/2024 01/16/2024 Fatigue 01/16/2024 01/16/2024 HHD (hypertensive heart disease) 01/16/2024 01/16/2024 History of arterial thrombosis 01/16/2024 0 01/16/2024 PAD (peripheral artery disease) 01/16/2024 01/16/2024 Pulmonary hypertension 01/16/2024 Renal insufficiency 01/16/2024 01/16/2024 Coronary atherosclerosis of [place] coronary ander ry 01/16/2024 01/16/2024 CHF (congestive heart failure), NYHA class II 01/16/2024 Gout attack 01/16/2024 01/16/2024 HTN (hypertension) 01/16/2024 01/16/2024 HLD (hyperlipidemia) 01/16/2024 01/16/2024 V-tach 01/16/2024 01/16/2024 Mitral valve regurgitation 01/16/202401/15 Pain 12/02/2023 NSTEMI (non-ST elevated myocardial infarction) 0 12/02/2023 Gout Anemia Tachycardia Hypothyroidism Hypertension Hyperlipidemia GERD (gastroesophageal reflux disease) Edema CHF (congestive heart failure) Chest pain Cardiomyopathy CAD (coronary artery disease) A-fib Social History Tobacco Use Types Packs/Day Years Used Date Smoking Tobacco: Former Smokeless Tobacco: Never Tobacco Cessation:Counseling Given: Not Answered Comments:smoked from age 30 to 45 Alcohol Use Standard Drinks/Week Comments Never 0 (1 standard drink = 0.6 oz pur e alcohol) Utilities Answer Date Recorded In the past 12 months, has t he electric, gas, oil, or water Medic Trace threatened to shut off services in your home? No 01/17/2024 Food Insecurity Answer Date Recorded Within the past 12 months, y ou worried that your food would run out before you got money to buy more. Never true 01/17/2024 Within the past 12 months, t he food you bought just didn't last and you didn't have money to get more. Never true 01/17/2024 Transportation Needs Answer Date Record ed In the past 12 months, has l ack of reliable transportation kept you from medical appointments, meetings, work or from getting things needed for daily living? No 01/17/2024 Financial Resource Strain Answer Date R ecorded How hard is it for you to pa y for the very basics like food, housing, medical care, and heating? Would you say it is: Not hard at all 01/17/2024 Employment Answer Date Recorded Do you want help finding or keeping work or a job? I do not need or want help 01/17/2024 Family and Community Support Answer Deonte e Recorded If for any reason you need h elp with day-to-day activities such as bathing, preparing meals, shopping, managing finances, etc., do you get the help you need? I get all the help I need 01/17/2024 Feeling Lonely or Isolated 0 01/16 Educational Attainment Answer Date Ortiz rded Do you speak a language other than German at ho me? No 01/17/2024 Do you want help with school or training? For example, starting or completing job training or getting a high school diploma, GED or equivalent. No 01/17/2024 Physical Activity Answer Date Recorded Number of minutes of exercise per week 420 01/17/2024 Substance Use Answer Date Recorded How many times in the past y ear have you used prescription drugs for non-medical reasons? Never 01/17/2024 How many times in the past year have you used [place] legal drugs? Never 01/17/2024 Comments No Sex and Gender Information Value Date Recorded Sex Assigned at Female 12/02/2023 8:59 PM CDT Legal Sex Female 1:46 PM CDT Gender Identity Female 12/02/2023 8:59 PM CDT Sexual Orientation Straight 12/02/2023 8: 59 PM CDT Last Filed Vital Signs Vital Sign Reading Time Taken Comments Blood Pressure 117/71 01/22/2024 8:10 AM EDT Pulse 36 01/22/2024 8:21 AM EDT Temperature 36.5 C (97.7 F) 01/22/2024 8:10 AM EDT Respiratory Rate 17 01/22/2024 4:52 AM EDT Oxygen Saturation 77% 01/22/2024 8:21 AM EDT Inhaled Oxygen Concentration - - Weight 71.3 kg (157 lb 4 oz) 01/22/2024 6:00 AM EDT Height 162.6 cm (5' 4 ) 01/16/2024 9:17 AM EDT Body Mass Index 26.99 01/16/2024 9:17 AM EDT Plan of Treatment Not on file Medical Devices Implanted Type Area Judicial Clerk Device Identifier Shelf Expiration Date Model / Serial / Lot Icd-04/11/2018 Implanted: 018 (Quantity not on file) ICD ROSADO DI[employer]NOSTIC QUADRA ASSURA 3365-40Q / [id number] / Defibrillator Roach Hf Icd [id number] - [id number] Implanted:Qty: 1 on 10/29/2023 at [facility] PACEMAKER/ ICD BI VALVE DEVICE Chest Wall ST K[facility] MED:CARDIAC RHYM MGMT [id number] / [id number] / Insurance [employer] MEDICARE PFFS Member Subscriber Plan / Payer (Ef fective 2018-Present) Name:Noni Trujillo Relation to Subscriber:Self Name:Noni Trujillo Payer ID:[id number] Type:Not on file Address: [place] [id number] HU[employer]NA MEDICARE PPO Advance Directives For more information, please contact: [phone] * Full Code (Latest Code Status on File) Date Activated Date Inactivated Comments 01/16/2024 8:47 AM 01/22/2024 1:04 PM * Full Code Date Activated Date Inactivated Comments 12/02/2023 7:34 PM 12/05/2023 5:03 PM Care Teams Dough Mixer Helper Relationship Specialty Start Date End Date Ignacio Aceves MD [address] [place] [address] [place] [address] PCP - General Adolescent Medicine 06/09/22
--- OUTSIDE RECORDS SUMMARY | 2025-03-17 12:57 | XMS_ITS | Clinical Summary ---
Author Organization [employer] ([place], [place], [place], [place]) Address [address] [place] [address] Care Team Providers Care Data Security Coordinator Name Role Phone Ignacio Aceves MD Primary Care Provider [phone] Allergies No known active allergies Medications allopurinoL [...] Renal insufficiency 01/16/2024 01/16/2024 Coronary atherosclerosis of [place] coronary ander ry 01/16/2024 01/16/2024 CHF (congestive [...] pain Cardiomyopathy CAD (coronary artery disease) A-fib Family History Medical History Relation Name Comments Heart disease Mother Hypertension Mother Stroke Mother Relation Name Status Comments Mother Social History Tobacco Use Types Packs/Day Years Used Date Smoking Tobacco: Former Smokeless Tobacco: Never Tobacco Cessation:Counseling Given: Not Answered Comments:smoked from age 30 to 45 Alcohol Use Standard Drinks/Week Comments Never 0 (1 standard drink = 0.6 oz pur e alcohol) Utilities Answer Date Recorded In the past 12 months, has t he electric, gas, oil, or water company threatened to shut off services in your [...] Do you speak a language other than Lithuanian at [facility]? No 01/17/2024 Do you want help with [...] 01/16/2024 9:17 AM EDT Plan of Treatment Health Maintenance Due Date Last Done Comments DXA SCAN 1940 Depression Screening (12+) 1952 DTAP/TDAP/TD VACCINES (1 - Tdap) 1959 Shingles Vaccine (Zoster) (1 of 2) 1990 Respiratory Syncytial Virus (RSV) Adult or (1 - 1-dose 75+ series) 2015 Pneumococcal 50+ years (2 of 2 - PPSV23) 06/19/2018 04/24/2018 Medicare Initial AWV [id number] 09/18/2019 COVID-19 VACCINE (6 - 2023-2 5 season) 2024 06/20/2022, 12/27/2021, 05/26/2021, Additional history exists Falls Risk Screening 09/17/2024 Tobacco Cessation Counseling and Screening (12+) 10/29/2024 10/29/2023 Influenza Vaccine (Season Ended) 2025 07/05/2021, 07/13/2020, 06/30/2019, Additional history exists Medical Devices Implanted Type Area Mat Packer Device Identifier Shelf Expiration Date Model / Serial / Lot Icd-04/11/2018 Implanted: 018 (Quantity not on file) ICD ROSADO DI[employer]NO[employer] QUADRA ASSURA 3365-40Q / [id number] / Defibrillator [place] Hf Icd [id number] - [id number] Implanted:Qty: 1 on 10/29/2023 at [facility] PACEMAKER/ ICD BI VALVE DEVICE Chest Wall ST KENZIE MED:CARDIAC RHYM MGMT [id number] / [id number] / Insurance [employer]NA MEDICARE PPO Advance Directives For more information, please contact: [phone] * Full Code (Latest Code Status on File) Date Activated Date Inactivated Comments 01/16/2024 8:47 AM 01/22/2024 1:04 PM * Full Code Date Activated Date Inactivated Comments 12/02/2023 7:34 PM 12/05/2023 5:03 PM Care Teams Data Security Coordinator Relationship Specialty Start Date End Date Ignacio Aceves MD [address] [place] [address] PCP - General Adolescent Medicine 06/09/22
--- OUTSIDE RECORDS SUMMARY | 2025-03-17 12:57 | XMS_ITS | Data Portability ---
Author Organization [facility] RICKY Mancera CHATHAM CLOSED Address [address] [place] [address] Care Team Providers Care Teaching Supervisor Name Role Phone MATT VILLAR Primary Care Provider Assessment Encounter Date Assessment Date Assessment LastModified by Organization Details LastModified Time 01/02/2024 01/02/2024 Impression: 1. Coronary artery disease s/p OMAYRA to RCA and LAD 11/13/2017: Chronic problem, stable without angina. 2. LV dysfunction: Chronic problem, stable ECHO 08/22/2023: Normal LV chamber size, biplane EF 35-40%. 3. Implantable cardioverter-defib rillator in situ. 4. Dyslipidemia: Chronic problem, not currently on any lipid-lowering therapy 5. Atrial fibrillation: Chronic problem with history of CHIKIS occlusion 05/2018 S/P left mini thoracotomy and clipping of left atrial appendage using a [address] Kyle on 05/22/2018. 6. History of stroke 05/2023: Subacute ischemic infarct in the left occipital lobe 7. LLE cellulitis Plan: Mrs. Trujillo was seen today for a followup re: multiple cardiovascular issues as summarized above. As previously discussed, she is not using her BLENDING MACHINE OPERATOR optimally, and has not responded to attempts to increase AV pamela blockade via beta-joel dosing. After discussion of her case with Dr. Bolton, we have decided to try the addition of amiodarone to see if this will improve her BLENDING MACHINE OPERATOR pacing utilization. Medication changes: START amiodarone 200 mg twice daily x 2 weeks and then once daily RTC: We will plan to follow-up in about 4 weeks, or sooner if needed. [email or web address] Not available 01/03/2024 09:55:24 01/30/2024 01/30/2024 Impression: 1. Coronary artery disease s/p OMAYRA to RCA and LAD 11/13/2017: Chronic problem, stable without angina. 2. LV dysfunction: Chronic problem, stable ECHO 08/22/2023: Normal LV chamber size, biplane EF 35-40%. 3. Implantable cardioverter-defib rillator in situ. 4. Dyslipidemia: Chronic problem, not currently on any lipid-lowering therapy 5. Atrial fibrillation: Chronic problem with history of CHIKIS occlusion 05/2018, unstable S/P left mini thoracotomy and clipping of left atrial appendage using a [address] Kyle on 05/22/2018. 6. History of stroke 05/2023: Subacute ischemic infarct in the left occipital lobe Plan: Mrs. Trujillo was recently hospitalized January 15-2023. As previously discussed, she is not using her BLENDING MACHINE OPERATOR optimally, and has not responded to attempts to increase AV pamela blockade via beta-joel dosing. After discussion of her case with Dr. Bolton, we decided to try the addition of amiodarone to see if this will improve her BLENDING MACHINE OPERATOR pacing utilization. At today's visit, her atrial fibrillation discrimination algorithm was reprogrammed to avoid additional shock delivery. Medication changes: REDUCE amiodarone to 200 mg once daily. Her med list currently lists both metoprolol succinate and bisoprolol, and her discharge summary mentioned Metoprolol tartrate. I asked them to call my office once they return home to verify which of these 3 medicines she has been taking. RTC: We will plan to follow-up in about months, or sooner if needed. [email or web address] Not available 02/02/2024 06:08:34 05/27/2024 05/27/2024 Impression: 1. Coronary artery disease s/p OMAYRA to RCA and LAD 11/13/2017: Chronic problem, stable without angina. 2. LV dysfunction: Chronic problem, stable ECHO 08/22/2023: Normal LV chamber size, biplane EF 35-40%. 3. Implantable cardioverter-defib rillator in situ. 4. Dyslipidemia: Chronic problem, not currently on any lipid-lowering therapy 5. Atrial fibrillation: Chronic problem with history of CHIKIS occlusion 05/2018, unstable S/P left mini thoracotomy and clipping of left atrial appendage using a [address] Kyle on 05/22/2018. 6. History of stroke 05/2023: Subacute ischemic infarct in the left occipital lobe Plan: Mrs. Trujillo was recently hospitalized January 152023. As previously discussed, she was not using her BLENDING MACHINE OPERATOR optimally, and had not responded to attempts to increase AV pamela blockade via beta-joel dosing. After discussion of her case with Dr. Bolton, we decided to try the addition of amiodarone to see if this will improve her BLENDING MACHINE OPERATOR pacing utilization. She has now BiV pacing 99% of the time. Medication changes: None RTC: We will plan to follow-up in about 3 months with same-day echo. Testing at next visit: Transthoracic echocardiogram to assess LV function and RVSP in the context of BiV pacing. [email or web address] Not available 05/27/2024 20:49:43 08/28/2024 08/28/2024 Impression: 1. Coronary artery disease s/p OMAYRA to RCA and LAD 11/13/2017: Chronic problem, stable without angina. 2. LV dysfunction: Chronic problem, stable ECHO 08/22/2023: Normal LV chamber size, biplane EF 35-40%. 3. Implantable cardioverter-defib rillator in situ. 4. Dyslipidemia: Chronic problem, not currently on any lipid-lowering therapy 5. Atrial fibrillation: Chronic problem with history of CHIKIS occlusion 05/2018, unstable S/P left mini thoracotomy and clipping of left atrial appendage using a [address] Kyle on 05/22/2018. 6. History of stroke 05/2023: Subacute ischemic infarct in the left occipital lobe Plan: Mrs. Trujillo was recently hospitalized January 152023. Medication changes: STOP Spironolactone 25mg daily due to c/o postural lightheadedness Monitor daily weights. If weight increases by 3 pounds over 24 hours, or by 5 pounds over a week, patient is to resume use of Spironolactone until weight returns to the target weight. RTC: We will plan to follow-up in about 4 months. [email or web address] Not available 08/29/2024 06:16:51 01/02/2025 01/02/2025 Impression: 1. Coronary artery disease s/p OMAYRA to RCA and LAD 11/13/2017: Chronic problem, stable without angina. 2. LV dysfunction: Chronic problem, stable ECHO 08/22/2023: Normal LV chamber size, biplane EF 35-40%. 3. Implantable cardioverter-defib rillator in situ. 4. Dyslipidemia: Chronic problem, not currently on any lipid-lowering therapy 5. Atrial fibrillation: Chronic problem with history of CHIKIS occlusion 05/2018 S/P left mini thoracotomy and clipping of left atrial appendage using a [address] Kyle on 05/22/2018. 6. History of stroke 05/2023: Subacute ischemic infarct in the left occipital lobe Plan: Medication changes: None. RTC: We will plan to follow-up in about 4 months, or sooner if needed. Testing at next visit: In-office [facility] device check. Not available 01/04/2025 14:31:04 Plan of Treatment Reminders Order Date Submit Date Provider Last Modified By Organization Details Last Modified Time Details Appointments RECHECK 2024 11:30A M REYNALDO ZIMMER MD Not available Not available Not available Lab None recorded. Referral None recorded. Procedures implantab le defibrill ator programmi ng, multiple lead (PROC) 2023 024 [facility], [address] , [facility], [place], [address], 02/04/2024 07:44:56 Surgeries None recorded. Imaging None recorded. Medication Orders amiodaron e 200 mg tablet 2023 024 [facility], [address] [place], [address], 01/02/2024 10:56:00 Patient TargetsNo targets recorded. Patient Instructions Encounter Date Encounter Id Patient Instructions Last Modified By Organization Details Last Modified Time 08/28/2024 [id number] - Monitor for an y signs of swelling or sudden weight gain. If observed, contact your healthcare provider. - Remain hydrated, maintaining current fluid intake unless otherwise directed. - Note any changes in dizziness after stopping spironolactone; report significant issues. - Continue current medications, excluding spironolactone, as directed until next visit. - Attend follow-up appointments to reassess the management plan and physical status. [email or web address] Not available 08/28/2024 14:36:56 Reason for Referral None Reported. Results Created Date Observation Date Name Description Value Unit Range Abnormal Flag Note LastModifiedBy Organization Detail LastModifiedTime 12/03/19 24 11/30/2023 remot e devic e inter rogat ion (PROC ) No observ ation record ed. [email or web address] Not Available 2023 21:32:33 12/03/19 24 12/01/2023 remot e devic e inter rogat ion (PROC ) No observ ation record ed. [email or web address] Not Available 2023 21:33:27 12/03/19 24 12/02/2023 remot e devic e inter rogat ion (PROC ) No observ ation record ed. [email or web address] Not Available 2023 21:38:02 12/03/19 24 12/02/2023 remot e devic e inter rogat ion (PROC ) No observ ation record ed. [email or web address] Not Available 2023 21:40:09 12/06/19 24 12/05/2023 remot e devic e inter rogat ion (PROC ) No observ ation record ed. [email or web address] Not Available 2023 16:29:01 12/10/19 24 12/08/2023 remot e devic e inter rogat ion (PROC ) No observ ation record ed. [email or web address] Not Available 2023 22:20:30 12/10/19 24 12/02/2023 remot e devic e inter rogat ion (PROC ) No observ ation record ed. [email or web address] Not Available 2023 22:23:43 12/12/19 24 12/12/2023 remot e devic e inter rogat ion (PROC ) No observ ation record ed. [email or web address] Not Available 2023 20:19:21 12/13/19 24 12/13/2023 remot e devic e inter rogat ion (PROC ) No observ ation record ed. [email or web address] Not Available 2023 23:56:21 12/14/19 24 12/13/2023 remot e devic e inter rogat ion (PROC ) No observ ation record ed. [email or web address] Not Available 2023 08:14:48 12/14/19 24 12/13/2023 remot e devic e inter rogat ion (PROC ) No observ ation record ed. [email or web address] Not Available 2023 09:08:50 12/14/19 24 12/13/2023 remot e devic e inter rogat ion (PROC ) No observ ation record ed. [email or web address] Not Available 2023 11:56:54 12/14/19 24 12/13/2023 remot e devic e inter rogat ion (PROC ) No observ ation record ed. [email or web address] Not Available 2023 16:18:04 12/14/19 24 12/14/2023 remot e devic e inter rogat ion (PROC ) No observ ation record ed. [email or web address] Not Available 2023 16:18:27 12/14/19 24 12/13/2023 remot e devic e inter rogat ion (PROC ) No observ ation record ed. [email or web address] Not Available 2023 23:09:43 12/20/19 24 12/15/2023 remot e devic e inter rogat ion (PROC ) No observ ation record ed. [email or web address] Not Available 2023 09:47:17 12/20/19 24 12/16/2023 remot e devic e inter rogat ion (PROC ) No observ ation record ed. [email or web address] Not Available 2023 09:48:27 12/20/19 24 12/17/2023 remot e devic e inter rogat ion (PROC ) No observ ation record ed. [email or web address] Not Available 2023 09:49:32 12/20/19 24 12/18/2023 remot e devic e inter rogat ion (PROC ) No observ ation record ed. [email or web address] Not Available 2023 09:50:34 12/20/19 24 12/19/2023 remot e devic e inter rogat ion (PROC ) No observ ation record ed. [email or web address] Not Available 2023 09:51:38 12/20/19 24 12/20/2023 remot e devic e inter rogat ion (PROC ) No observ ation record ed. [email or web address] Not Available 2023 09:52:48 12/23/19 24 12/21/2023 remot e devic e inter rogat ion (PROC ) No observ ation record ed. [email or web address] Not Available 2023 08:27:38 12/24/19 24 12/22/2023 remot e devic e inter rogat ion (PROC ) No observ ation record ed. [email or web address] Not Available 2023 17:55:46 12/24/19 24 12/23/2023 remot e devic e inter rogat ion (PROC ) No observ ation record ed. [email or web address] Not Available 2023 17:56:46 12/24/19 24 12/24/2023 remot e devic e inter rogat ion (PROC ) No observ ation record ed. [email or web address] Not Available 2023 17:57:48 12/25/19 24 12/25/2023 remot e devic e inter rogat ion (PROC ) No observ ation record ed. [email or web address] Not Available 2023 20:00:44 12/26/19 24 12/26/2023 remot e devic e inter rogat ion (PROC ) No observ ation record ed. [email or web address] Not Available 2023 16:30:55 12/27/19 24 12/13/2023 remot e devic e inter rogat ion (PROC ) No observ ation record ed. [email or web address] Not Available 2023 15:00:59 12/27/19 24 12/13/2023 remot e devic e inter rogat ion (PROC ) No observ ation record ed. [email or web address] Not Available 2023 20:56:24 12/27/19 24 12/27/2023 remot e devic e inter rogat ion (PROC ) No observ ation record ed. [email or web address] Not Available 2023 20:56:19 12/28/19 24 12/13/2023 remot e devic e inter rogat ion (PROC ) No observ ation record ed. [email or web address] Not Available 2023 08:12:04 12/28/19 24 12/13/2023 remot e devic e inter rogat ion (PROC ) No observ ation record ed. [email or web address] Not Available 2023 14:47:34 12/29/19 24 12/13/2023 remot e devic e inter rogat ion (PROC ) No observ ation record ed. [email or web address] Not Available 2023 00:49:23 12/29/19 24 12/13/2023 remot e devic e inter rogat ion (PROC ) No observ ation record ed. [email or web address] Not Available 2023 14:49:52 12/31/19 24 12/13/2023 remot e devic e inter rogat ion (PROC ) No observ ation record ed. [email or web address] Not Available 2023 13:40:59 12/31/19 24 12/13/2023 remot e devic e inter rogat ion (PROC ) No observ ation record ed. [email or web address] Not Available 2023 18:37:40 12/31/19 24 12/28/2023 remot e devic e inter rogat ion (PROC ) No observ ation record ed. [email or web address] Not Available 2023 18:37:48 12/31/19 24 12/29/2023 remot e devic e inter rogat ion (PROC ) No observ ation record ed. [email or web address] Not Available 2023 18:38:55 12/31/19 24 12/30/2023 remot e devic e inter rogat ion (PROC ) No observ ation record ed. [email or web address] Not Available 2023 18:39:57 12/31/19 24 12/31/2023 remot e devic e inter rogat ion (PROC ) No observ ation record ed. [email or web address] Not Available 2023 18:41:03 12/31/19 24 12/13/2023 remot e devic e inter rogat ion (PROC ) No observ ation record ed. [email or web address] Not Available 2023 23:58:25 01/01/20 24 12/13/2023 remot e devic e inter rogat ion (PROC ) No observ ation record ed. [email or web address] Not Available 2023 02:30:24 01/01/20 24 12/13/2023 remot e devic e inter rogat ion (PROC ) No observ ation record ed. [email or web address] Not Available 2023 03:08:44 01/01/20 24 12/13/2023 remot e devic e inter rogat ion (PROC ) No observ ation record ed. [email or web address] Not Available 2023 03:43:23 01/01/20 24 01/01/2024 remot e devic e inter rogat ion (PROC ) No observ ation record ed. [email or web address] Not Available 2023 22:42:45 01/02/20 24 01/02/2024 remot e devic e inter rogat ion (PROC ) No observ ation record ed. [email or web address] Not Available 2023 19:09:33 01/07/20 24 12/13/2023 remot e devic e inter rogat ion (PROC ) No observ ation record ed. [email or web address] Not Available 2023 16:58:37 01/08/20 24 12/13/2023 remot e devic e inter rogat ion (PROC ) No observ ation record ed. [email or web address] Not Available 2023 04:56:48 01/08/20 24 01/05/2024 remot e devic e inter rogat ion (PROC ) No observ ation record ed. [email or web address] Not Available 2023 04:58:23 01/08/20 24 01/06/2024 remot e devic e inter rogat ion (PROC ) No observ ation record ed. [email or web address] Not Available 2023 04:59:21 01/08/20 24 01/07/2024 remot e devic e inter rogat ion (PROC ) No observ ation record ed. [email or web address] Not Available 2023 05:00:28 01/08/20 24 01/02/2024 elect vandana taveras am No observ ation record ed. BARCODE Not Available 2023 07:56:19 01/08/20 24 12/13/2023 remot e devic e inter rogat ion (PROC ) No observ ation record ed. [email or web address] Not Available 2023 09:36:32 01/08/20 24 12/13/2023 remot e devic e inter rogat ion (PROC ) No observ ation record ed. [email or web address] Not Available 2023 14:25:47 01/08/20 24 12/13/2023 remot e devic e inter rogat ion (PROC ) No observ ation record ed. [email or web address] Not Available 2023 22:58:14 01/09/20 24 12/13/2023 remot e devic e inter rogat ion (PROC ) No observ ation record ed. [email or web address] Not Available 2023 01:43:10 01/09/20 24 01/08/2024 remot e devic e inter rogat ion (PROC ) No observ ation record ed. [email or web address] Not Available 2023 07:31:29 01/09/20 24 01/09/2024 remot e devic e inter rogat ion (PROC ) No observ ation record ed. [email or web address] Not Available 2023 13:47:46 01/10/20 24 01/10/2024 remot e devic e inter rogat ion (PROC ) No observ ation record ed. [email or web address] Not Available 2023 18:03:55 01/11/20 24 01/11/2024 remot e devic e inter rogat ion (PROC ) No observ ation record ed. [email or web address] Not Available 2023 18:07:24 01/15/20 24 01/12/2024 remot e devic e inter rogat ion (PROC ) No observ ation record ed. [email or web address] Not Available 2023 23:06:52 01/15/20 24 01/13/2024 remot e devic e inter rogat ion (PROC ) No observ ation record ed. [email or web address] Not Available 2023 23:13:34 01/15/20 24 01/14/2024 remot e devic e inter rogat ion (PROC ) No observ ation record ed. [email or web address] Not Available 2023 23:18:31 01/15/20 24 01/15/2024 remot e devic e inter rogat ion (PROC ) No observ ation record ed. [email or web address] Not Available 2023 23:24:20 01/16/20 24 01/13/2024 remot e devic e inter rogat ion (PROC ) No observ ation record ed. [email or web address] Not Available 2023 22:27:26 01/16/20 24 01/14/2024 remot e devic e inter rogat ion (PROC ) No observ ation record ed. [email or web address] Not Available 2023 22:31:58 01/16/20 24 01/15/2024 remot e devic e inter rogat ion (PROC ) No observ ation record ed. [email or web address] Not Available 2023 22:37:40 01/17/20 24 01/13/2024 remot e devic e inter rogat ion (PROC ) No observ ation record ed. [email or web address] Not Available 2023 13:47:53 01/17/20 24 01/14/2024 remot e devic e inter rogat ion (PROC ) No observ ation record ed. [email or web address] Not Available 2023 13:52:47 01/17/20 24 01/15/2024 remot e devic e inter rogat ion (PROC ) No observ ation record ed. [email or web address] Not Available 2023 13:58:10 01/17/20 24 01/13/2024 remot e devic e inter rogat ion (PROC ) No observ ation record ed. [email or web address] Not Available 2023 23:59:56 01/17/20 24 01/14/2024 remot e devic e inter rogat ion (PROC ) No observ ation record ed. [email or web address] Not Available 2023 00:04:31 01/18/20 24 01/15/2024 remot e devic e inter rogat ion (PROC ) No observ ation record ed. [email or web address] Not Available 2023 00:10:18 01/18/20 24 01/15/2024 remot e devic e inter rogat ion (PROC ) No observ ation record ed. [email or web address] Not Available 2023 00:15:08 01/18/20 24 01/13/2024 remot e devic e inter rogat ion (PROC ) No observ ation record ed. [email or web address] Not Available 2023 06:21:41 01/18/20 24 01/15/2024 remot e devic e inter rogat ion (PROC ) No observ ation record ed. [email or web address] Not Available 2023 06:26:33 01/18/20 24 01/13/2024 remot e devic e inter rogat ion (PROC ) No observ ation record ed. [email or web address] Not Available 2023 10:03:27 01/18/20 24 01/15/2024 remot e devic e inter rogat ion (PROC ) No observ ation record ed. [email or web address] Not Available 2023 10:09:22 01/31/20 24 01/30/2024 devic e check (PROC ) No observ ation record ed. [email or web address] Not Available 2023 04:02:12 02/13/20 24 02/13/2024 remot e devic e inter rogat ion (PROC ) No observ ation record ed. [email or web address] Not Available 2023 22:17:49 05/14/20 24 05/14/2024 remot e devic e inter rogat ion (PROC ) No observ ation record ed. [email or web address] Not Available 2023 08:29:24 05/29/20 24 05/27/2024 elect vandana taveras am No observ ation record ed. BARCODE Not Available 2023 09:05:23 08/13/20 24 08/13/2024 remot e devic e inter rogat ion (PROC ) No observ ation record ed. [email or web address] Not Available 2023 18:24:57 08/28/20 24 08/28/2024 US, doppl er echoc ardio gram, w/ color flow No observ ation record ed. [email or web address] [facility] [address], [place], [address], 08/29/2024 05:21:39 09/03/20 24 08/28/2024 elect rocar diogr am No observ ation record ed. BARCODE Not Available 2023 09:15:31 11/18/19 25 11/12/2024 remot e devic e inter rogat ion (PROC ) No observ ation record ed. [email or web address] Not Available 2024 06:35:49 12/04/19 25 12/02/2024 remot e devic e inter rogat ion (PROC ) No observ ation record ed. [email or web address] Not Available 2024 19:03:12 01/06/20 25 01/02/2025 elect rocar diogr am No observ ation record ed. BARCODE Not Available 2024 08:35:57 02/17/20 25 02/11/2025 remot e devic e inter rogat ion (PROC ) No observ ation record ed. [email or web address] Not Available 2024 13:40:02 Result Notes None recorded. Problems No Known Problems Procedures Surgical History Date Name Laterality Status Provider Name and Address Organization Details Recorded Time 5 EKG completed Lukasz Rivera [facility] 01/02/2025 11:40:21 4 EKG completed Amanda Muller [facility] 08/28/2024 13:42:27 4 EKG completed REYNALDO ZIMMER MD [address] [place] [address] [place], [address], [facility] 05/27/2024 20:49:50 4 EKG completed [facility] [place], [address], [facility] 01/02/2024 11:26:07 4 Device Check completed Deysi Joseph [facility] 11/06/2023 16:11:22 3 EKG completed Parvez Tomlin [facility] 01/11/2023 10:28:50 [facility] 14:05:00 [facility] 14:05:10 [facility]pect[facility] of [facility] 14:05:38 Imaging Results None recorded. Procedure Notes None recorded. Medical Equipment Implant MIGUEL ÁNGEL Issuing Agency Serial Number Lot Number Status Provider Name and Address Organization Details Recorded Time evidanza [id number] N [facility] 13:24:36 [employer] [id number] Y Deysi Joseph [facility] 10/29/2023 13:25:14 Medications Name Sig Start Date Stop Date Status Note LastModified by Organization Details LastModified Time furosemide 40 mg tablet Take 1 tablet every day by oral route. 05/09 completed Not Available Not Available Not Available Digoxin-Tab 0.125 mg tablet Take 1 tablet every day by oral route. 05/09 completed Not Available Not Available Not Available amiodarone 200 mg tablet Take 1 tablet twice a day by oral route. 2023 active Not Available Not Available Not Avai lable metoprolol succinate ER 100 mg tablet,exte nded release 24 hr Take 1 tablet every day by oral route. 2023 active Not Available Not Available Not Avai lable clopidogrel 75 mg tablet Take 1 tablet every day by oral route. active Not Available Not Available No t Available allopurinol 100 mg tablet Take 1 tablet every day by oral route. active Not Available Not Available No t Available tramadol 50 mg tablet Take 1 tablet every 6 hours by oral route. active Not Available Not Available No t Available levothyroxi ne 25 mcg tablet Take 1 tablet every day by oral route. active Not Available Not Available No t Available bisoprolol fumarate 10 mg tablet Take 1 tablet every day by oral route. 01/30 completed Not Available Not Available Not Available nitroglycer in 0.4 mg/hr transdermal 24 hour patch Apply 1 patch every day by transderm al route. active Not Available Not Available No t Available pantoprazol e 40 mg tablet,pebbles yed release Take 1 tablet every day by oral route. active Not Available Not Available No t Available ropinirole 0.5 mg tablet Take 1 tablet as needed by oral route. active Not Available Not Available No t Available fluticasone propionate 50 mcg/actuati on nasal spray,suspe nsion [place] 1 spray every day by intranasa l route. active Not Available Not Available No t Available spironolact one 50 mg tablet Take 0.5 tablets every day by oral route. active Not Available Not Available No t Available ICaps as directed active Not Available Not Available No t Available Belsomra 20 mg tablet Take 1 tablet every day by oral route at bedtime. 05/09 completed Not Available Not Available Not Available Entresto 97 mg-103 mg tablet Take 1 tablet by mouth twice daily 2024 active Not Available Not Available Not Avai lable Entresto 49 mg-51 mg tablet Take 1 tablet twice a day by oral route. 08/22 completed Not Available Not Available Not Available Entresto 24 mg-26 mg tablet Take 1 tablet twice a day by oral route. 05/09 completed Not Available Not Available Not Available magnesium 400 mg (as magnesium oxide) tablet Take 1 tablet every day by oral route. active Not Available Not Available No t Available aspirin 81 mg capsule Take 1 capsule every day by oral route. active Not Available Not Available No t Available Vitals Date Recorded Body height Oxygen saturation Oxygen saturation in Arterial blood by Pulse oximetry Heart rate Body mass index (BMI) Body weight Systolic blood pressure Diastolic blood pressure Provider Name and Address Organization Details Last Updated DateTime 4 162.56 cm 99 % 99 % 92 /min 29.2 kg/m2 81238.7 g 102 mm[Hg] 66 mm[Hg] Soo Vangz [facility] 4 10:21:56 Date Recorded Body height Body mass index (BMI) Body weight Heart rate Oxygen saturation Oxygen saturation in Arterial blood by Pulse oximetry Systolic blood pressure Diastolic blood pressure Provider Name and Address Organization Details Last Updated DateTime 5 162.56 cm 29.3 kg/m2 66751.8 6 g 73 /min 98 % 98 % 138 mm[Hg] 80 mm[Hg] Lukasz Lucerosan[facility] 5 12:05:39 Date Recorded Body height Oxygen saturation Oxygen saturation in Arterial blood by Pulse oximetry Heart rate Body mass index (BMI) Body weight Systolic blood pressure Diastolic blood pressure Provider Name and Address Organization Details Last Updated DateTime 4 162.56 cm 99 % 99 % 73 /min 27.4 kg/m2 16530.3 4 g 104 mm[Hg] 64 mm[Hg] [facility] 4 15:34:17 Date Recorded Body height Body mass index (BMI) Body weight Heart rate Oxygen saturation Oxygen saturation in Arterial blood by Pulse oximetry Systolic blood pressure Diastolic blood pressure Provider Name and Address Organization Details Last Updated DateTime 4 162.56 cm 27.4 kg/m2 73236.9 9 g 70 /min 95 % 95 % 110 mm[Hg] 64 mm[Hg] [facility] 4 13:53:29 Date Recorded Body height Body mass index (BMI) Body weight Oxygen saturation Oxygen saturation in Arterial blood by Pulse oximetry Heart rate Systolic blood pressure Diastolic blood pressure Provider Name and Address Organization Details Last Updated DateTime 4 162.56 cm 28.8 kg/m2 01996.5 2 g 92 % 92 % 73 /min 132 mm[Hg] 80 mm[Hg] Amanda Ren[facility] 4 14:07:00 Social History Question Answer Notes LastModified by Organizat ion Details LastModified Time Tobacco Smoking Status Never Smoker Lukasz Lucerosanjuanita [facility] 01/02/2025 11:40:54 What Was The Date Of Your Most Recent Tobacco Screening? 01/02/2025 [email or web address] Information not available 01/02/2025 What Is Your Relationship Status? [email or web address] Information not available 01/11/2023 Sex: Unknown Functional Status Question Answer Note LastModified by Organization D etails LastModified Time Are you currently employed? No [email or web address] Information not available 06/20/2023 Mental Status None recorded. Family History Nothing Reported. Medical History No medical history recorded. Gynecological HistoryNo gynecological history recorded. Obstetrics History GPAL:G 0 P 0 0 0 0 Past Encounters Encounter ID Performer Location Encounter Start Date Encounter Closed Date Diagnosis/Indication Diagnosis SNOMED-CT Code Diagnosis ICD10 Code Diagnosis Note [id number] REYNALDO ZIMMER MD CARDIOLOG Y [address] [place], [place] [id number] 5 01/11/2023 10:07:00 01/11/2023 11:12:40 History of cerebrovascular accident 093053868 Z86.73 Permanent atrial fibrillation 800830379 I48.21 Atheroscle rosis of coronary artery without angina pectoris 7952653635 32558 I25.10 Automatic implantable cardiac defibrillator in situ 856591219 Z95.810 Hypothyroidism 17809266 E03.9 [id number] REYNALDO ZIMMER MD CARDIOLOG Y [address] [place]OD,[address] [place] [address] 5 04/12/2023 10:00:40 04/12/2023 10:48:43 Atherosclerosis of coronary artery without angina pectoris 2181225992 33073 I25.10 Automatic implantable cardiac defibrillator in situ 932570922 Z95.810 Permanent atrial fibrillation 844961394 I48.21 History of cerebrovascular accident 246262544 Z86.73 Hypothyroidism 75203704 E03.9 Left ventr icular systolic dysfunction 039955965 I50.20 [id number] REYNALDO ZIMMER MD CARDIOLOG Y [address] [place] [address] 05/09/2023 11:12:26 05/09/2023 12:06:16 Atherosclerosis of coronary artery without angina pectoris 9815783175 26076 I25.10 Automatic implantable cardiac defibrillator in situ 825287892 Z95.810 Permanent atrial fibrillation 301219621 I48.21 History of cerebrovascular accident 863514709 Z86.73 Hypothyroidism 36529208 E03.9 Left ventr icular systolic dysfunction 550301214 I50.20 [id number] REYNALDO ZIMMER MD CARDIOLOG Y [address] [place] [address] 06/20/2023 10:33:40 06/20/2023 11:22:01 Atherosclerosis of coronary artery without angina pectoris 7301048477 54829 I25.10 Automatic implantable cardiac defibrillator in situ 155951943 Z95.810 Permanent atrial fibrillation 282676174 I48.21 History of cerebrovascular accident 276123647 Z86.73 Hypothyroidism 70143478 E03.9 Left ventr icular systolic dysfunction 548972483 I50.20 [id number] REYNALDO ZIMMER MD CARDIOLOG Y [address] [place]OD,[address] [place] [address] 08/22/2023 12:46:24 08/22/2023 14:41:02 Atherosclerosis of coronary artery without angina pectoris 0128116028 37547 I25.10 Automatic implantable cardiac defibrillator in situ 887082360 Z95.810 Permanent atrial fibrillation 304542735 I48.21 History of cerebrovascular accident 381532746 Z86.73 Hypothyroidism 86019349 E03.9 Left ventr icular systolic dysfunction 619295229 I50.20 04/12/2023: Entresto 24 26 initiated: Entresto 49 51 initiated1 : Entresto 97 103 initiated ECHO 08/22/2023: Normal LV chamber size, biplane EF 35-40%. [id number] REYNALDO ZIMMER MD CARDIOLOG Y [address] [place] [address] 5 10/23/2023 13:28:22 10/23/2023 14:20:37 Atherosclerosis of coronary artery without angina pectoris 3729308755 64739 I25.10 Automatic implantable cardiac defibrillator in situ 855418858 Z95.810 Permanent atrial fibrillation 952163182 I48.21 History of cerebrovascular accident 552019141 Z86.73 Hypothyroidism 97775016 E03.9 Left ventr icular systolic dysfunction 647649182 I50.20 04/12/2023: Entresto 24 26 initiated: Entresto 49 51 initiated1 : Entresto 97 103 initiated ECHO 08/22/2023: Normal LV chamber size, biplane EF 35-40%. [id number] RICARDO BOLTON MD CARDIOLOG Y [address] [place]OD,[address] [place] [address] 11/06/2023 13:00:00 11/06/2023 16:14:08 [id number] REYNALDO ZIMMER MD CARDIOLOG Y [address],[facility] [place] [address] 11/21/2023 08:14:45 11/21/2023 09:51:32 Atherosclerosis of coronary artery without angina pectoris 6383116912 57210 I25.10 Automatic implantable cardiac defibrillator in situ 999414538 Z95.810 [facility] Implantabl e cardiovert er-defibri llator Generator change 10/29/[address] [employer] generator model [id number] serial number [id number] was attached to the leads.The chronic RA lead, implanted 04.11.2018 = [employer] model [id number] serial number [id number]. The chronic RV lead, implanted 04.11.2018 = [employer] model [id number] serial number [id number]. The chronic LV lead, implanted 04.11.2018 = [employer] model 1458Q serial number [id number]. Permanent atrial fibrillation 189815634 I48.21 11/21/2023: Stop Bisoprolol , start metoprolol succinate 100 mg daily (to increase AV block and BIV pacing utilizatio n) History of cerebrovascular accident 261699055 Z86.73 Left ventr icular systolic dysfunction 544761681 I50.20 04/12/2023: Entresto 24 26 initiated: Entresto 49 51 initiated1 : Entresto 97 103 initiated ECHO 08/22/2023: Normal LV chamber size, biplane EF 35-40%. [id number] REYNALDO ZIMMER MD CARDIOLOG Y [address] [place] [address] 01/02/2024 09:57:17 01/02/2024 11:00:22 Permanent atrial fibrillation 723782015 I48.21 11/21/2023: Stop Bisoprolol , start metoprolol succinate 100 mg daily (to increase AV block and BIV pacing utilizatio n) 01/02/2024: Start Amiodarone . Left ventr icular systolic dysfunction 431332598 I50.20 04/12/2023: Entresto 24 26 initiated: Entresto 49 51 initiated1 : Entresto 97 103 initiated ECHO 08/22/2023: Normal LV chamber size, biplane EF 35-40%. Atheroscle rosis of coronary artery without angina pectoris 9979533941 91535 I25.10 Automatic implantable cardiac defibrillator in situ 509601307 Z95.810 [facility] Implantabl e cardiovert er-defibri llator Generator change 10/29/[address] [employer] generator model [id number] serial number [id number] was attached to the leads.The chronic RA lead, implanted 04.11.2018 = [employer] model [id number] serial number [id number]. The chronic RV lead, implanted 04.11.2018 = [employer] model [id number] serial number [id number]. The chronic LV lead, implanted 04.11.2018 = [employer] model 1458Q serial number [id number]. History of cerebrovascular accident 911479872 Z86.73 [id number] REYNALDO ZIMMER MD CARDIOLOG Y [address] [place] [address] 5 01/30/2024 14:33:18 01/30/2024 16:08:41 Permanent atrial fibrillation 082052779 I48.21 11/21/2023: Stop Bisoprolol , start metoprolol succinate 100 mg daily (to increase AV block and BIV pacing utilizatio n) 01/02/2024: Start Amiodarone . Left ventr icular systolic dysfunction 030390454 I50.20 04/12/2023: Entresto 24 26 initiated: Entresto 49 51 initiated1 : Entresto 97 103 initiated ECHO 08/22/2023: Normal LV chamber size, biplane EF 35-40%. 01/16/2024 EC Echo Complete, ECHO COMPLETE (DOPPLER / COLOR) W OR WO CONTRAST.# ########## ########## ########## #########N ormal sized left ventricle. Mild left ventricula r hypertroph y.Ejection fraction 30% +/- 5%, a significan t change from her previous echo on 12/03/23.Re strictive filling pattern consistent with severely increased LV filling pressure (Grade III Diastolic dysfunctio n).Biatria l enlargemen t.Severe tricuspid regurgitat ion. RVSP-54mmH gModerate pulmonic regurgitat ion.###### ########## ########## ########## #### Atheroscle rosis of coronary artery without angina pectoris 7952718942 80797 I25.10 Automatic implantable cardiac defibrillator in situ 560653437 Z95.810 [employer] Implantabl e cardiovert er-defibri llator Generator change 10/29/[address] [employer] generator model [id number] serial number [id number] was attached to the leads.The chronic RA lead, implanted 04.11.2018 = [employer] model [id number] serial number [id number]. The chronic RV lead, implanted 04.11.2018 = [employer] model [id number] serial number [id number]. The chronic LV lead, implanted 04.11.2018 = [employer] model 1458Q serial number [id number]. History of cerebrovascular accident 103685683 Z86.73 [id number] REYNALDO ZIMMER MD CARDIOLOG Y [address] [place] [address] 05/27/2024 13:37:40 06/02/2024 08:00:51 Left ventricular systolic dysfunction 425339673 I50.20 04/12/2023: Entresto 24 26 initiated: Entresto 49 51 initiated1 : Entresto 97 103 initiated ECHO 08/22/2023: Normal LV chamber size, biplane EF 35-40%. 01/16/2024 EC Echo Complete, ECHO COMPLETE (DOPPLER / COLOR) W OR WO CONTRAST.# ########## ########## ########## #########N ormal sized left ventricle. Mild left ventricula r hypertroph y.Ejection fraction 30% +/- 5%, a significan t change from her previous echo on 12/03/23.Re strictive filling pattern consistent with severely increased LV filling pressure (Grade III Diastolic dysfunctio n).Biatria l enlargemen t.Severe tricuspid regurgitat ion. RVSP-54mmH gModerate pulmonic regurgitat ion.###### ########## ########## ########## #### Atheroscle rosis of coronary artery without angina pectoris 2373237109 74162 I25.10 Automatic implantable cardiac defibrillator in situ 083366954 Z95.810 [employer] Implantabl e cardiovert er-defibri llator Generator change 10/29/[address] [employer] generator model [id number] serial number [id number] was attached to the leads.The chronic RA lead, implanted 04.11.2018 = [employer] model [id number] serial number [id number]. The chronic RV lead, implanted 04.11.2018 = [employer] model EIP589A serial number [id number]. The chronic LV lead, implanted 04.11.2018 = [employer] model 1458Q serial number [id number]. History of cerebrovascular accident 348795650 Z86.73 Paroxysmal atrial fibrillation 577177136 I48.0 11/21/2023: Stop Bisoprolol , start metoprolol succinate 100 mg daily (to increase AV block and BIV pacing utilizatio n) 01/02/2024: Start Amiodarone . [id number] REYNALDO ZIMMER MD CARDIOLOG Y [address] ,[address] [place] [address] 08/28/2024 11:59:21 08/28/2024 14:36:35 Left ventricular systolic dysfunction 183081339 I50.20 04/12/2023: Entresto 24 26 initiated: Entresto 49 51 initiated1 : Entresto 97 103 initiated ECHO 08/22/2023: Normal LV chamber size, biplane EF 35-40%. 01/16/2024 EC Echo Complete, ECHO COMPLETE (DOPPLER / COLOR) W OR WO CONTRAST.# ########## ########## ########## #########N ormal sized left ventricle. Mild left ventricula r hypertroph y.Ejection fraction 30% +/- 5%, a significan t change from her previous echo on 12/03/23.Re strictive filling pattern consistent with severely increased LV filling pressure (Grade III Diastolic dysfunctio n).Biatria l enlargemen t.Severe tricuspid regurgitat ion. RVSP-54mmH gModerate pulmonic regurgitat ion.###### ########## ########## ########## #### Atheroscle rosis of coronary artery without angina pectoris 9307766344 89867 I25.10 Automatic implantable cardiac defibrillator in situ 805717560 Z95.810 [employer] Implantabl e cardiovert er-defibri llator Generator change 10/29/[address] [employer] generator model [id number] serial number [id number] was attached to the leads.The chronic RA lead, implanted 04.11.2018 = [employer] model [id number] serial number [id number]. The chronic RV lead, implanted 04.11.2018 = [employer] model EDX266Q serial number [id number]. The chronic LV lead, implanted 04.11.2018 = [employer] model 1458Q serial number [id number]. History of cerebrovascular accident 555078653 Z86.73 Paroxysmal atrial fibrillation 506904867 I48.0 11/21/2023: Stop Bisoprolol , start metoprolol succinate 100 mg daily (to increase AV block and BIV pacing utilizatio n) 01/02/2024: Start Amiodarone . 08/28/2024 : No episodes reported since midJanuary 2024; monitoring through the cardiac device in place and no changes recommende d at the present time. Lightheadedness 53623623 8 R42 The dizziness could potentiall y be linked to medication , specifical ly spironolac tone.STOP spironolac tone to assess if dizziness improves, with careful monitoring for any signs of fluid retention or worsening heart failure. [id number] REYNALDO ZIMMER MD CARDIOLOG Y [address] [place] [address],[address] [place] [address] 01/02/2025 11:13:34 01/02/2025 12:26:38 Left ventricular systolic dysfunction 872956927 I50.20 04/12/2023: Entresto 24 26 initiated: Entresto 49 51 initiated1 : Entresto 97 103 initiated ECHO 08/22/2023: Normal LV chamber size, biplane EF 35-40%. 01/16/2024 EC Echo Complete, ECHO COMPLETE (DOPPLER / COLOR) W OR WO CONTRAST.# ########## ########## ########## #########N ormal sized left ventricle. Mild left ventricula r hypertroph y.Ejection fraction 30% +/- 5%, a significan t change from her previous echo on 12/03/23.Re strictive filling pattern consistent with severely increased LV filling pressure (Grade III Diastolic dysfunctio n).Biatria l enlargemen t.Severe tricuspid regurgitat ion. RVSP-54mmH gModerate pulmonic regurgitat ion.###### ########## ########## ########## #### Atheroscle rosis of coronary artery without angina pectoris 1893985649 54651 I25.10 Automatic implantable cardiac defibrillator in situ 427287724 Z95.810 [facility] Implantabl e cardiovert er-defibri llator Generator change 10/29/[address] [employer] generator model [id number] serial number [id number] was attached to the leads.The chronic RA lead, implanted 04.11.2018 = [employer] model [id number] serial number [id number]. The chronic RV lead, implanted 04.11.2018 = [employer] model [id number] serial number [id number]. The chronic LV lead, implanted 04.11.2018 = [facility] model 1458Q serial number [id number]. History of cerebrovascular accident 689966626 Z86.73 Paroxysmal atrial fibrillation 034198538 I48.0 11/21/2023: Stop Bisoprolol , start metoprolol succinate 100 mg daily (to increase AV block and BIV pacing utilizatio n) 01/02/2024: Start Amiodarone . 08/28/2024 : No episodes reported since mid-January 2024; monitoring through the cardiac device in place and no changes recommende d at the present time. Health Concerns Section Related Observation LastModified by Organization Detai ls LastModified Time None Recorded Concern Status LastModified by Organization Details LastModified Time None Recorded Advance Directives Directive None Recorded Payers Insurance Date Sequence Insurance Name Policy Number Policy Reynoso Covered Member ID Reynoso Member ID Guarantor Name 12/30/2024 [employer] (MEDICARE REPLACEMENT/A DVANTAGE - PPO) Noni Trujillo [id number] Noni Trujillo 05/27/2024 1 [employer] (PPO) Noni Trujillo [id number] Noin Trujillo 02/16/2025 1 [employer] (MEDICARE REPLACEMENT/A DVANTAGE - PPO) Noni Trujillo [id number] Noni Trujillo Notes Date Note Type Note Provider Name and Address Organization Details Recorded Time 4 text/html CARDIOVASCULAR HISTORY:# Coronary artery disease s/p PCIa. OMAYRA to RCA and LAD Oct 2017 (verified per patient stent cards) 01/25/2023 ECHO1. Normal LV chamber size with mildly reduced left ventricular systolic function.2. Biplane MOD ejection fraction 35-40%.3. Biatrial enlargement.4. Abnormal global RV function (based on TAPSE <17mm). Pacer wire seen in the RV.5. Grade Il diastolic dysfunction, suggesting elevated LV filling pressures.6. Moderate MR. TR.7. Estimated RVSP 40-45mmHg. 08/22/2023 LIMITED ECHO:1. Normal LV chamber size.2. Mildly reduced left ventricular systolic function with ejection fraction 35-40% (biplane MOD).3. Septal motion is abnormal (consistent with conduction abnormality).4. A pacing lead is present in the RV cavity. # [employer] Implantable cardioverter-defibrillatora . Generator change 10/29/[address] [employer] generator model [id number] serial number [id number] was attached to the leads.The chronic RA lead, implanted 04.11.2018 = [employer] model [id number] serial number [id number].The chronic RV lead, implanted 04.11.2018 = [employer] model [id number] serial number [id number].The chronic LV lead, implanted 04.11.2018 = [employer] model 1458Q serial number [id number]. # Per prior cardiology office note Hx of right arm arterial clot (data deficient) # History of stroke (data deficient, ?admission at [facility] 2017) # Permanent atrial fibrillationa. Underwent a left mini thoracotomy and clipping of left atrial appendage using a [address] Kyle on 05/22/2018. She also had lysis of pleural adhesions performed at the same time. # Dyslipidemia 11/21/2023: Followup visita. ASCVD s/p OMAYRA to RCA and LAD Oct 2017b. LV dysfunction s/p JUNE AICD (Dr Adan), generator change 10/29/2023.ProBNP 01/11/2023: 1427.ECHO 01/25/2023: EF 35-40%c. Permanent AFib s/p CHIKIS ligation ([address] Kyle 05/22/2018)Mrs. Trujillo underwent uncomplicated generator change 10/29/2023. She reports that she has been feeling well overall, did not raise any new cardiovascular concerns.Stable dyspnea. No cough. No PND or orthopnea.No palpitations. We discussed that she is using biventricular pacing approximately 70% of the time. This is suboptimal, and ideally biventricular pacing/cardiac resynchronization rates should excess 95% to obtain clinical benefit. We discussed increasing her AV pamela blockade by switching from bisoprolol to metoprolol. If this fails to control her rates, AV node ablation may need to be considered. This would eliminate intrinsic conduction and would result in ventricular pacing 100 percent of the time. We reviewed her carotid duplex findings at today's visit.There is no evidence of significant plaque disease, and reassurance was provided. 01/02/2024: Short interval followup visita. ASCVD s/p OMAYRA to RCA and LAD Oct 2017b. LV dysfunction s/p [facility] AICD (Dr Adan), generator change 10/29/2023.ProBNP 01/11/2023: 1427.ECHO 01/25/2023: EF 35-40%c. Permanent AFib s/p CHIKIS ligation ([address] Kyle 05/22/2018)Mrs. Trujillo was accompanied by her today as she has been having increasing confusion and memory loss. She was apparently seen by her PCP yesterday regarding bilateral lower extremity swelling. She was referred for duplex testing (completed yesterday afternoon), but has not heard any results yet. She reports that she has been feeling well overall, did not raise any new cardiovascular concerns.Stable dyspnea. No cough. No PND or orthopnea.No palpitations. I discussed her case with Dr Bolton (re: suboptimal BiV pacing). We discussed that she is not using biventricular pacing optimally (ideally biventricular pacing/BLENDING MACHINE OPERATOR rates should exceed 95% to obtain clinical benefit). She has been unresponsive to attempts to increase her AV pamela blockade. He advised a trial of Amiodarone. 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 I discussed all this with her and her today. We reviewed the risk, and risks associated with amiodarone. It does not appear that she has used this in the past. After consideration of the risks and potential benefits, they are agreeable to starting this medicine, with plan for a short interval followup. Recent CMP 12/03/23 was reviewed. EKG today: Atrial fibrillationVentricular Rate: 92bpm.Nonspecific IVCD with QRS duration 131 and QTc 434ms. REYNALDO ZIMMER MD [address] [place], [address], [facility] 01/03/2024 09:55:41 4 text/html CARDIOVASCULAR HISTORY:# Coronary artery disease s/p PCIa. OMAYRA to RCA and LAD Oct 2017 (verified per patient stent cards) 01/25/2023 ECHO1. Normal LV chamber size with mildly reduced left ventricular systolic function.2. Biplane MOD ejection fraction 35-40%.3. Biatrial enlargement.4. Abnormal global RV function (based on TAPSE <17mm). Pacer wire seen in the RV.5. Grade Il diastolic dysfunction, suggesting elevated LV filling pressures.6. Moderate MR. TR.7. Estimated RVSP 40-45mmHg. 08/22/2023 LIMITED ECHO:1. Normal LV chamber size.2. Mildly reduced left ventricular systolic function with ejection fraction 35-40% (biplane MOD).3. Septal motion is abnormal (consistent with conduction abnormality).4. A pacing lead is present in the RV cavity. # [employer] Implantable cardioverter-defibrillatora . Generator change 10/29/[address] [employer] generator model [id number] serial number [id number] was attached to the leads.The chronic RA lead, implanted 04.11.2018 = [employer] model [id number] serial number [id number].The chronic RV lead, implanted 04.11.2018 = [employer] model SSY098Y serial number [id number].The chronic LV lead, implanted 04.11.2018 = [employer] model 1458Q serial number [id number]. # Per prior cardiology office note Hx of right arm arterial clot (data deficient) # History of stroke (data deficient, ?admission at [facility] 2017) # Permanent atrial fibrillationa. Underwent a left mini thoracotomy and clipping of left atrial appendage using a [address] Kyle on 05/22/2018. She also had lysis of pleural adhesions performed at the same time. # Dyslipidemia 01/02/2024: Short interval followup visita. ASCVD s/p OMARYA to RCA and LAD Oct. LV dysfunction s/p [facility] AICD (Dr Adan), generator change 10/29/2023.ProBNP 01/11/2023: 1427.ECHO 01/25/2023: EF 35-40%c. Permanent AFib s/p CHIKIS ligation ([address] Kyle 05/22/2018)Mrs. Trujillo was accompanied by her today as she has been having increasing confusion and memory loss. She was apparently seen by her PCP yesterday regarding bilateral lower extremity swelling. She was referred for duplex testing (completed yesterday afternoon), but has not heard any results yet. She reports that she has been feeling well overall, did not raise any new cardiovascular concerns.Stable dyspnea. No cough. No PND or orthopnea.No palpitations. I discussed her case with Dr Bolton (re: suboptimal BiV pacing). We discussed that she is not using biventricular pacing optimally (ideally biventricular pacing/BLENDING MACHINE OPERATOR rates should exceed 95% to obtain clinical benefit). She has been unresponsive to attempts to increase her AV pamela blockade. He advised a trial of Amiodarone. 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 I discussed all this with her and her today. We reviewed the risk, and risks associated with amiodarone. It does not appear that she has used this in the past. After consideration of the risks and potential benefits, they are agreeable to starting this medicine, with plan for a short interval followup. Recent CMP 12/03/23 was reviewed. EKG today: Atrial fibrillationVentricular Rate: 92bpm.Nonspecific IVCD with QRS duration 131 and QTc 434ms. 01/30/2024: Short interval followup visita. ASCVD s/p OMAYRA to RCA and LAD Oct. LV dysfunction s/p [facility] AICD (Dr Adan), generator change 10/29/2023.ECHO 01/25/2023: EF 35-40%ECHO 01/16/2024: EF 30%c. Permanent AFib s/p CHIKIS ligation ([address] Kyle 05/22/2018)Mrs. Trujillo was recently admitted to [facility] (January 15-2023).External records were reviewed. She reports that she has been feeling okay since discharge.+ Stable dyspnea. No cough. No PND or orthopnea.No awareness of palpitations.She had some infiltration of IV amiodarone. Her skin discoloration has resolved.She has lost about 10 pounds of weight since last visit. No edema. Her pacemaker system was interrogated at today's visit, and I reviewed the findings with her. See scanned document for complete results. Device: Pelsor HF BLENDING MACHINE OPERATOR TImplant: 10/29/2023 Mode: DDDR 70 Pacing: AP 25% BiV pacin% Programming: AF discrimination was reprogrammed. DATA REVIEWED:Discharge summary CBC: Hemoglobin 12.7/39.3, platelets 232BMP: Creatinine 1.44, potassium 4.2ProBNP (pg/mL) 4,310TSH: 4.400 01/16/2024 EC Echo Complete, ECHO COMPLETE (DOPPLER / COLOR) W OR WO CONTRAST.################## ######################Kasey l sized left ventricle. Mild left ventricular hypertrophy.Ejection fraction 30% +/- 5%, a significant change from her previous echo on 12/03/23.Restrictive filling pattern consistent with severely increased LV filling pressure (Grade III Diastolic dysfunction).Biatrial enlargement.Severe tricuspid regurgitation. RVSP-54mmHgModerate pulmonic regurgitation.############# ########################### REYNALDO ZIMMER MD [address] [place] [address], [phone], [facility] 02/02/2024 06:09:28 4 text/html CARDIOVASCULAR HISTORY:# Coronary artery disease s/p PCIa. OMAYRA to RCA and LAD Oct 2017 (verified per patient stent cards) 01/25/2023 ECHO1. Normal LV chamber size with mildly reduced left ventricular systolic function.2. Biplane MOD ejection fraction 35-40%.3. Biatrial enlargement.4. Abnormal global RV function (based on TAPSE <17mm). Pacer wire seen in the RV.5. Grade Il diastolic dysfunction, suggesting elevated LV filling pressures.6. Moderate MR. TR.7. Estimated RVSP 40-45mmHg. 08/22/2023 LIMITED ECHO:1. Normal LV chamber size.2. Mildly reduced left ventricular systolic function with ejection fraction 35-40% (biplane MOD).3. Septal motion is abnormal (consistent with conduction abnormality).4. A pacing lead is present in the RV cavity. # [facility] Implantable cardioverter-defibrillatora . Generator change 10/29/[address] [employer] generator model [id number] serial number [id number] was attached to the leads.The chronic RA lead, implanted 04.11.2018 = [facility] model [id number] serial number [id number].The chronic RV lead, implanted 04.11.2018 = SJM model [id number] serial number [id number].The chronic LV lead, implanted 04.11.2018 = SJM model 1458Q serial number [id number]. # Per prior cardiology office note Hx of right arm arterial clot (data deficient) # History of stroke (data deficient, ?admission at [facility] 2018) # Permanent atrial fibrillationa. Underwent a left mini thoracotomy and clipping of left atrial appendage using a [address] Kyle on 05/22/2018. She also had lysis of pleural adhesions performed at the same time. # Dyslipidemia 01/02/2024: Short interval followup visita. ASCVD s/p OMAYRA to RCA and LAD Oct 2017b. LV dysfunction s/p [facility] AICD (Dr Adan), generator change 10/29/2023.ProBNP 01/11/2023: 1427.ECHO 01/25/2023: EF 35-40%c. Permanent AFib s/p CHIKIS ligation ([address] Kyle 05/22/2018)Mrs. Trujillo was accompanied by her today as she has been having increasing confusion and memory loss. She was apparently seen by her PCP yesterday regarding bilateral lower extremity swelling. She was referred for duplex testing (completed yesterday afternoon), but has not heard any results yet. She reports that she has been feeling well overall, did not raise any new cardiovascular concerns.Stable dyspnea. No cough. No PND or orthopnea.No palpitations. I discussed her case with Dr Bolton (re: suboptimal BiV pacing). We discussed that she is not using biventricular pacing optimally (ideally biventricular pacing/BLENDING MACHINE OPERATOR rates should exceed 95% to obtain clinical benefit). She has been unresponsive to attempts to increase her AV pamela blockade. He advised a trial of Amiodarone. 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 I discussed all this with her and her today. We reviewed the risk, and risks associated with amiodarone. It does not appear that she has used this in the past. After consideration of the risks and potential benefits, they are agreeable to starting this medicine, with plan for a short interval followup. Recent CMP 12/03/23 was reviewed. EKG today: Atrial fibrillationVentricular Rate: 92bpm.Nonspecific IVCD with QRS duration 131 and QTc 434ms. 01/30/2024: Short interval followup visita. ASCVD s/p OMAYRA to RCA and LAD Oct. LV dysfunction s/p [facility] AICD (Dr Adan), generator change 10/29/2023.ECHO 01/25/2023: EF 35-40%ECHO 01/16/2024: EF 30%c. Permanent AFib s/p CHIKIS ligation ([address] Kyle 05/22/2018)Mrs. Trujillo was recently admitted to [facility] (January 15-2023).External records were reviewed. She reports that she has been feeling okay since discharge.+ Stable dyspnea. No cough. No PND or orthopnea.No awareness of palpitations.She had some infiltration of IV amiodarone. Her skin discoloration has resolved.She has lost about 10 pounds of weight since last visit. No edema. Her pacemaker system was interrogated at today's visit, and I reviewed the findings with her.See scanned document for complete results.Device: Pelsor HF BLENDING MACHINE OPERATOR TImplant: 10/29/2023Mode: DDDR 70Pacing: AP 25% BiV pacin%Programming: AF discrimination was reprogrammed. DATA REVIEWED:Discharge summary CBC: Hemoglobin 12.7/39.3, platelets 232BMP: Creatinine 1.44, potassium 4.2ProBNP (pg/mL) 4,310TSH: 4.400 01/16/2024 EC Echo Complete, ECHO COMPLETE (DOPPLER / COLOR) W OR WO CONTRAST.################## ######################Kasey l sized left ventricle. Mild left ventricular hypertrophy.Ejection fraction 30% +/- 5%, a significant change from her previous echo on 12/03/23.Restrictive filling pattern consistent with severely increased LV filling pressure (Grade III Diastolic dysfunction).Biatrial enlargement.Severe tricuspid regurgitation. RVSP-54mmHgModerate pulmonic regurgitation.############# ########################### 05/26/2024: Short interval followup visita. ASCVD s/p OMAYRA to RCA and LAD Oct 2017b. LV dysfunction s/p [facility] AICD (Dr Adan), generator change 10/29/2023.ECHO 01/25/2023: EF 35-40%ECHO 01/16/2024: EF 30%c. Permanent AFib s/p CHIKIS ligation ([address] Kyle 05/22/2018)Mrs. Trujillo reports generally stable health. She looks stronger and healthier today than she has at prior office visits this year. She tells me that she completed 5 treatments of radiation to address her lung cancer. She apparently tolerated this well without any side effects. She has a follow-up with radiation oncology on June 10. + Stable dyspnea. No cough. No PND or orthopnea.No awareness of palpitations.Her weight has remained stable since last visit. No edema. EKG today: Dual-chamber pacingVentricular Rate: 74bpm.IVCD with QRS duration 170 and QTc 512ms. REYNALDO ZIMMER MD [address] [place] [address], [phone], [facility] 05/27/2024 20:50:02 4 text/html CARDIOVASCULAR HISTORY:# Coronary artery disease s/p PCIa. OMAYRA to RCA and LAD Oct 2017 (verified per patient stent cards) 01/16/2024 EC Echo Complete, ECHO COMPLETE (DOPPLER / COLOR) W OR WO CONTRAST.################## ######################Kasey l sized left ventricle. Mild left ventricular hypertrophy.Ejection fraction 30% +/- 5%, a significant change from her previous echo on 12/03/23.Restrictive filling pattern consistent with severely increased LV filling pressure (Grade III Diastolic dysfunction).Biatrial enlargement.Severe tricuspid regurgitation. RVSP-54mmHgModerate pulmonic regurgitation.############# ########################### # [facility] Implantable cardioverter-defibrillatora . Generator change 10/29/[address] [employer] generator model [id number] serial number [id number] was attached to the leads.The chronic RA lead, implanted 04.11.2018 = [facility] model [id number] serial number [id number].The chronic RV lead, implanted 04.11.2018 = [facility] model [id number] serial number [id number].The chronic LV lead, implanted 04.11.2018 = [facility] model 1458Q serial number [id number]. # Per prior cardiology office note Hx of right arm arterial clot (data deficient) # History of stroke (data deficient, ?admission at [facility] 2017) # Permanent atrial fibrillationa. Underwent a left mini thoracotomy and clipping of left atrial appendage using a [address] Kyle on 05/22/2018. She also had lysis of pleural adhesions performed at the same time. # Dyslipidemia 08/28/2024: Short interval followup visita. ASCVD s/p OMAYRA to RCA and LAD Oct. LV dysfunction s/p [facility] AICD (Dr Adan), generator change 10/29/2023.ECHO 01/25/2023: EF 35-40%ECHO 01/16/2024: EF 30%c. Permanent AFib s/p CHIKIS ligation ([address] Kyle 05/22/2018)Mrs. Trujillo and her report generally stable health. She continues to feel better today than she has at prior office visits this year. + Stable dyspnea. No cough. No PND or orthopnea.No awareness of palpitations.Her weight has remained stable since last visit. No edema. She had one episode of chest pain occurred a day or two before and has not been recurrent. She reports daily mild lightheadedness that occurs primarily when standing or walking, improving upon sitting down. It is noted to be persistent but varies in intensity. We discussed that spironolactone may be contributing to dizziness. She denies current edema in the lower extremities, and her weight gain has been gradual. Home monitoring showed a blood pressure of 132/80, and fluid intake is approximately 64 ounces daily. Her device indicates that she has not had any further atrial fibrillation since January 29. Lastly, we reviewed her echo findings. Her LV function appears to have improved, and reassurance was provided. REYNALDO ZIMMER MD [address] [place] [address], [phone], [facility] 08/29/2024 06:17:38 text/html CARDIOVASCULAR HISTORY:# Coronary artery disease s/p PCIa. OMAYRA to RCA and LAD Oct 2017 (verified per patient stent cards) 01/16/2024 EC Echo Complete, ECHO COMPLETE (DOPPLER / COLOR) W OR WO CONTRAST.################## ######################Kasey l sized left ventricle. Mild left ventricular hypertrophy.Ejection fraction 30% +/- 5%, a significant change from her previous echo on 12/03/23.Restrictive filling pattern consistent with severely increased LV filling pressure (Grade III Diastolic dysfunction).Biatrial enlargement.Severe tricuspid regurgitation. RVSP-54mmHgModerate pulmonic regurgitation.############# ########################### # [facility] Implantable cardioverter-defibrillatora . Generator change 10/29/[address] [employer] generator model [id number] serial number [id number] was attached to the leads.The chronic RA lead, implanted 04.11.2018 = [facility] model [id number] serial number [id number].The chronic RV lead, implanted 04.11.2018 = [facility] model [id number] serial number [id number].The chronic LV lead, implanted 04.11.2018 = [facility] model 1458Q serial number [id number]. # Per prior cardiology office note Hx of right arm arterial clot (data deficient) # History of stroke (data deficient, ?admission at [facility] 2017) # Permanent atrial fibrillationa. Underwent a left mini thoracotomy and clipping of left atrial appendage using a [address] Kyle on 05/22/2018. She also had lysis of pleural adhesions performed at the same time. # Dyslipidemia 08/28/2024: Short interval followup visita. ASCVD s/p OMAYRA to RCA and LAD Oct. LV dysfunction s/p [facility] AICD (Dr Adan), generator change 10/29/2023.ECHO 01/25/2023: EF 35-40%ECHO 01/16/2024: EF 30%c. Permanent AFib s/p CHIKIS ligation ([address] Kyle 05/22/2018)Mrs. Trujillo and her report generally stable health. She continues to feel better today than she has at prior office visits this year. + Stable dyspnea. No cough. No PND or orthopnea.No awareness of palpitations.Her weight has remained stable since last visit. No edema. She had one episode of chest pain occurred a day or two before and has not been recurrent. She reports daily mild lightheadedness that occurs primarily when standing or walking, improving upon sitting down. It is noted to be persistent but varies in intensity. We discussed that spironolactone may be contributing to dizziness. She denies current edema in the lower extremities, and her weight gain has been gradual. Home monitoring showed a blood pressure of 132/80, and fluid intake is approximately 64 ounces daily. Her device indicates that she has not had any further atrial fibrillation since January 29.Lastly, we reviewed her echo findings. Her LV function appears to have improved, and reassurance was provided. 01/02/2025: Short interval followup visita. ASCVD s/p OMAYRA to RCA and LAD Oct. LV dysfunction s/p [facility] AICD (Dr Adan), generator change 10/29/2023.ECHO 01/25/2023: EF 35-40%ECHO 01/16/2024: EF 30%c. Permanent AFib s/p CHIKIS ligation ([address] Kyle 05/22/2018)Mrs. Trujillo and her report generally stable health, and feel that she has been doing well over the past 6 months. 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 She is being followed by Dr. Chelsea Shoemaker MD. She was not a candidate for resection or adjuvant chemotherapy, but she has she completed SBRT radiation to the right lower lung for a dose of 5000 cGy delivered by 5 fractions. This was completed on 05/06/2024. Subsequent PET-CT scan in August 2024 reportedly showed no evidence of progression or new lesions. + Stable dyspnea.+ Stable, nonproductive cough that was present before XRT; he states this has been there for about 2 years.She denies any WOODS, PND or orthopnea.No awareness of palpitations.Her weight has remained stable since last visit. Mild swelling in the left ankle, stable. EKG today: AV pacedVentricular Rate: 73bpm.QRS duration 166 and QTc 470ms. Her device was not interrogated today, as the device rep was not available. REYNALDO ZIMMER MD [address] [place] [address], [phone], [facility] 01/04/2025 14:31:22 OBGyn Episode No OBEpisode recorded.
--- NOTE | 2025-03-17 13:15 | XR_ITS ---
FINAL REPORT CLINICAL HISTORY: Shortness of breath COMPARISON: 04/01/2024 FINDINGS: CHEST 1 VIEW There is mild cardiomegaly. There is a biventricular pacer present. The mediastinum is normal. There is pleural and parenchymal scarring at the right base, which is increased over previous. The left lung is clear. There is no pneumothorax. There is no osseous abnormality. IMPRESSION: Increased opacity at the right base most consistent with pleural-parenchymal scarring. Reviewed, Interpreted and Dictated by Wyatt Abdul MD Transcribed by Vandana Liz Authenticated and . [facility]
--- NOTE | 2025-03-17 13:16 | ED_ITS ---
<Statement entered by Ramonita Verma MD - 03/18/25 21:33> I was consulted by the TEOFILO, and we discussed the complexity of the problems being addressed. I approved the treatment and management plan for this patient's care in the emergency department, thus performing a substantive portion of the medical decision making. Ramonita Verma MD, RADHA, FACEP Discharge Plan Disposition Patient Disposition: Admitted Condition: Fair Clinical Impressions Clinical Impression: Pneumonia Discharge ED Provider: Ramonita Verma General Adult HPI General Chief complaint: Shortness of Breath/Dyspnea Stated complaint: Chest Pain Time Seen by Provider: 03/17/25 13:07 Mode of Arrival: Family Vehicle Source of Information: Patient Description of Symptoms (Recalled from ER Triage Doc. by RN): Sent from pcp's office for weakness and near syncopal episode in the office. reported SBP of 80's. Pt reports cough x 2 days. No fever History of Present Illness HPI narrative: pt is a 84 year old female PMHx AICD, CVA, Hx cardaic arrythmias, HTN, PAD, CHF, HLD & A-fib who presents to the ED with spouse for SOA x 3-4 days. Patient states she is having significant episodes of coughing with phlegm, has difficulty catching her breath after these episodes. Related Data Home Medications ?Medication ?Instructions ?Recorded ?Confirmed clopidogrel 75 mg tablet 75 mg PO DAILY PLATELET INHI BITOR 07/03/19 04/08/24 fluticasone propionate 50 1 spray intranasal DAILY All ergy 10/22/19 04/08/24 mcg/actuation nasal symptoms spray,suspension nitroglycerin 0.4 mg/hr 1 patch transdermal DAILY Ch est 10/22/19 04/08/24 transdermal 24 hour patch pain pantoprazole 40 mg tablet,delayed 40 mg PO DAILY GERD 10/22/19 04/08/24 release (Protonix) ropinirole 0.5 mg tablet 0.5 mg PO BIDP PRN RLS 10/2204/08/24 tramadol 50 mg tablet 50 - 100 mg PO TIDP PRN Mode rate 11/05/19 04/08/24 Pain erythromycin 5 mg/gram (0.5 %) eye 5 mg ophthalmic (ey e) DAILY 03/16/22 04/08/24 ointment amiodarone 400 mg tablet 400 mg PO DAILY 03/07/24 atorvastatin 40 mg tablet 40 mg PO DAILY 03/07/2403/18 furosemide 20 mg tablet 20 mg PO DAILY 03/07/2403/18 memantine 5 mg tablet 5 mg PO DAILY 03/07/2404/08 metoprolol tartrate 25 mg tablet 25 mg PO DAILY 04/08/24 sacubitril 97 mg-valsartan 103 mg 1 tab PO ONCE 04/08/24 tablet (Entresto) spironolactone 25 mg tablet 25 mg PO DAILY 03/07/24 Previous Rx's ?Medication ?Instructions ?Recorded levothyroxine 25 mcg tablet 25 mcg PO DAILY thyroid 90 days 05/18/22 #90 tabs Allergies Allergy/AdvReac Type Severity Reaction Status Date / Time No Known Allergies Allergy Verified 04/08/24 10:22 [facility] Disclaimer: The information contained in this section may have been updated after the patient was seen, as this information can be updated by other users. Medical History Near syncope Dizziness V-tach Dyspnea Left arm pain Abnormal EKG Right arm pain Defibrillator discharge PAD (peripheral artery disease) Pulmonary hypertension Automatic implantable cardioverter-defibrillator in situ Cardiomyopathy Bilateral edema of lower extremity A-fib HHD (hypertensive heart disease) CAD (coronary artery disease) HLD (hyperlipidemia) CVA (cerebral vascular accident) Surgical History History of lumpectomy of left breast Family History Other Family history of myocardial infarction Social History Smoking Status: Never smoker second hand exposure: No alcohol intake: never substance use type: denies use current occupational status: retired Travel in the last 8 weeks?: None household members: spouse housing: house marital status: current occupational exposures/hazards: No caffeine: No Have you lived/traveled outside [place] in past 30 days?: No Contact w/someone who lives/traveled outside [place] past 30 days?: No Exposure to someone with infectious disease in past 14 days?: No Do you have a fever (greater than 100.4 F or 38 C)?: No Have you tested positive for COVID-19?: No Exposed to someone with COVID-19 in past 14 days?: No Do you have a sore throat?: No Do you have a cough?: No Do you have any weakness?: No Do you have any diarrhea?: No Are you experiencing any unusual bleeding?: No Do you have any muscle aches/pain?: No Do you have any abdominal pain?: No Are you experiencing loss of taste or smell?: No Other Medical History Have you received the Flu Vaccine for this season: No Have you received the Pneumonia Vaccine: Yes ROS Obtained: Yes Systems reviewed as appropriate & no additional complaints except as documented Physical Exam General General appearance: alert Head Head exam: atraumatic and normocephalic Eye Eye exam: Present normal appearance and PERRL ENT ENT exam: Present normal exam Neck Neck exam: Present normal inspection Chest Chest inspection: Present normal inspection and symmetric chest wall rise; Absent tenderness Respiratory Respiratory exam: Present other (Lung sounds present bilaterally, mild tachypnea) Cardiovascular Cardiovascular exam: Present regular rate Abdominal Exam Abdominal exam: Present soft and normal bowel sounds; Absent tenderness Extremities Exam Extremities exam: Present normal inspection and full ROM Back Exam Back exam: Present normal inspection and full ROM Neurological Exam Neurological exam: Present alert and oriented X3 Psychiatric Psychiatric exam: Present normal affect and normal mood Skin Skin exam: Present warm and dry Medical Decision Making Medical Records Screening: Per USPSTF and CDC recommendations, given the prevalence of disease in our region, it is our hospital?s policy to screen for HIV and viral Hepatitis for all patients aged 18 and over and those with ongoing risk factors. Del Inquiry Pt receiving controlled substance: No Del was queried for this patient: No Vital Signs: 03/17/25 13:00 03/17/25 13:00 03/17/25 13:15 Temperature 98.1 F Temperature Source Oral Pulse Rate 84 73 Pulse Rate [Apical] 73 Respiratory Rate 20 24 13 Blood Pressure 124/52 L Blood Pressure [Right Arm] 124/52 L Blood Pressure Mean 77 Blood Pressure Mean [Right Arm] 76 Blood Pressure Source [Right Arm] Automatic Cuff Blood Pressure Position [Right Arm] Sitting 02 Sat by Pulse Oximetry 100 99 95 Oxygen Delivery Method Room Air Room Air Room Air 03/17/25 13:31 03/17/25 14:00 03/17/25 14:30 Temperature Temperature Source Pulse Rate 73 73 73 Pulse Rate [Apical] Respiratory Rate 17 11 L 16 Blood Pressure 108/37 L 118/47 L 110/50 L Blood Pressure [Right Arm] Blood Pressure Mean Blood Pressure Mean [Right Arm] Blood Pressure Source [Right Arm] Blood Pressure Position [Right Arm] 02 Sat by Pulse Oximetry 100 96 96 Oxygen Delivery Method 03/17/25 15:00 03/17/25 15:30 03/17/25 16:00 Temperature Temperature Source Pulse Rate 73 73 73 Pulse Rate [Apical] Respiratory Rate 17 14 17 Blood Pressure 105/48 L 117/50 L 106/51 L Blood Pressure [Right Arm] Blood Pressure Mean Blood Pressure Mean [Right Arm] Blood Pressure Source [Right Arm] Blood Pressure Position [Right Arm] 02 Sat by Pulse Oximetry 99 99 93 L Oxygen Delivery Method Lab Data Lab Results 03/17/25 12:57: WBC 10.6, RBC 3.61 L, Hgb 11.4 L, Hct 33.0 L, MCV 91.4, MCH 31.6 H, MCHC 34.5, RDW 14.6, Plt Count 494 H, MPV 11.5 H, Neut % (Auto) 80.8 H, Lymph % (Auto) 11.6, [place] % (Auto) 5.9, Eos % (Auto) 0.7, Baso % (Auto) 0.3, Neut # (Auto) 8.6 H, Lymph # (Auto) 1.2, [place] # (Auto) 0.6, Eos # (Auto) 0.1, Baso # (Auto) 0.0, PT 11.2, INR 1.01, APTT 25.4, D-Dimer 1.73 H, Sodium 136, Potassium 3.9, Chloride 100, Carbon Dioxide 23, Anion Gap 16.9 H, BUN 50 H, Creatinine 2.20 H, Estimated Creat Clear 27, Estimated GFR 21 L, Est GFR ( Amer) 26 L, Glucose 110 H, Calcium 8.7, Total Bilirubin 1.0, AST 90 H, ALT 56, Alkaline Phosphatase 176 H, Troponin I 0.02, NT-Pro-B Natriuret Pep 5480 H, Total Protein 6.0 L, Albumin 3.3 L, Globulin 2.7, Albumin/Globulin Ratio 1.2 03/17/25 13:15: VBG pH 7.41, VBG pCO2 29.1 L, VBG pO2 33.5, VBG HCO3 18.1 L, VBG Total CO2 19.0 L, VBG O2 Saturation 69.4, VBG Base Excess -6.5 L, VBG Lactic Acid 3.0 H 03/17/25 12:57 03/17/25 12:57 Orders (Tests/Meds): ED MEDICATIONS Generic Name Dose Route Start Last Admin Trade Name Freannette PRN Reason Stop Dose Admin Acetaminophen 650 mg 03/17/25 15:32 Acetaminophen 325mg Tab PO 04/16/25 15:31 Q4HP PRN Fever or Mild Pain (1-3) Hydrocodone Bitart/Acetaminophen 1 tab 03/17/25 15:32 Hydrocodone/Apap 5/325 Mg Tablet PO 04/16/25 15:31 Q4HP PRN Moderate to Severe Pain (4-10) Heparin Sodium (Porcine) 5,000 unit 03/17/25 21:00 Heparin Sodium 5,000 Unit/Ml Vial SUBCUT 04/16/25 20:59 TID WALT Vancomycin/PEG/NADA/Lysine/Water 1.5 gm in 300 mls @ 150 mls/hr 03/17/25 15:30 Vancomycin 1.5gm/300ml (Peg) Premix IV 03/17/25 17:29 ONCE ONE Piperacillin Sod/Tazobactam 50 mls @ 100 mls/hr 03/17/25 15:30 03/17/25 15:47 Sod 3.375 gm/ Sodium Chloride IV 03/27/25 15:29 100 mls/hr Q6H WALT Administration Miscellaneous 1 each 03/17/25 15:30 Vancomycin Consult Request NOTAPPLIC 04/16/25 15:29 CONSULT PHARMACY WALT Discontinued Medications Generic Name Dose Route Start Last Admin Trade Name Freq PRN Reason Stop Dose Admin Bumetanide 1 mg 03/17/25 15:34 03/17/25 15:46 Bumetanide 1mg/4ml Vial IV 03/17/25 15:35 1 mg ONCE ONE Administration ORDERS Category Date Time Status CT chest wo con Stat Cat Scan 03/17/25 14:06 Completed Pulmonology Consult [Consult to Pulmonology] [CONS] Cons 03/17/25 15:34 Active Routine XR chest portable Stat Exams 03/17/25 13:15 Completed Activated Partial Thrombo Time Stat Lab 03/17/25 12:57 Completed Complete Blood Count Auto Diff AMLAB Lab 03/18/25 06:00 Ordered Complete Blood Count Auto Diff Stat Lab 03/17/25 12:57 Completed Comprehensive Metabolic Panel AMLAB Lab 03/18/25 06:00 Ordered Comprehensive Metabolic Panel Stat Lab 03/17/25 12:57 Completed D-Dimer Stat Lab 03/17/25 12:57 Completed HIV Combo Stat Lab 03/17/25 12:57 Received Hepatitis C Ab Qual. W/ RFX Stat Lab 03/17/25 12:57 Received Magnesium AMLAB Lab 03/18/25 06:00 Ordered NT Pro Brain Natriuretic Pep. Stat Lab 03/17/25 12:57 Completed Prothrombin Time INR Stat Lab 03/17/25 12:57 Completed Troponin I Q3H Lab 03/17/25 16:15 Ordered Troponin I Q3H Lab 03/17/25 19:15 Ordered Troponin I Stat Lab 03/17/25 12:57 Completed Blood Culture Stat Micro 03/17/25 15:24 Received Venous Blood Gas Stat RT 03/17/25 13:15 Completed CA echo doppler complete Routine Y 03/17/25 15:34 Completed Medical Decision Narrative: In summary, pt is a 84 year old female PMHx AICD, CVA, Hx cardaic arrythmias, HTN, PAD, CHF, HLD & A-fib who presents to the ED with spouse for SOA x 3-4 days. Patient states she is having significant episodes of coughing with phlegm, has difficulty catching her breath after these episodes. She states that she has intermittent chest pain during coughing episodes. Patient has a history of lung cancer however states she is in remission after completing chemo. She denies any additional symptoms. Denies fever, chills, bodyaches, headache, abdominal pain, nausea, vomiting, dysuria. Upon initial evaluation patient is alert, oriented and cooperative. Upon exam she is tachypneic, able to speak in full sentences. Afebrile. Lung sounds present bilaterally. Decreased on the right side. Bilateral lower extremity edema, worse on left. Differential diagnosis include pneumonia, pneumothorax, lung mass, effusion, sepsis, among others. Discussed with patient we will proceed with lab work and scan. Blood cultures obtained. CBC unremarkable for any leukocytosis, stable H&H. D-dimer 1.73, PT, INR, APTT normal. VBG CO2 29.1, HCO3 18.1, lactic acid 3. CMP remarkable for BUN 50, creatinine 2.20, this appears to be improved from previous, GFR 21. BNP 5480. Final read of the chest x-ray increased opacity at the right base most consistent with pleural parenchymal scarring. Will proceed with chest CT. Started IV antibiotics. Patient had to have noncontrasted CT scan due to GFR. CT formal read remarkable for interval increase of the right pleural effusion, increased opacity at the right base which may represent a combination of solid mass and consolidation, recommends PET scan. Discussed findings with patient's fire tender who recommends admission and possible thoracentesis tomorrow. I discussed the findings with patient, she will need admitted. Discussed with hospitalist who accepts patient to their services. Patient and family agreeable to admission, she remained hemodynamically stable while in the ED. Critical Care Critical Care Time Critical Care Time: No
[2025-03-17 13:23] LABS: VBG HCO3 18.1 mmol/L (23-30); VBG PCO2 29.1 mmol/L (35-51); VBG PH 7.41 mmol/L (7.31-7.41); VBG PO2 33.5 mmol/L (28-40)
[2025-03-17 13:24] LABS: Lactate Venous 3.0 mmol/L (0.4-2.0)
[2025-03-17 13:29] LABS: Albumin Level 3.3 g/dl (3.5-5.0); Chloride 100 mmol/L (98-107); Sodium 136 mmol/L (136-145)
[2025-03-17 13:30] LABS: Potassium 3.9 mmoL/L (3.5-5.1)
[2025-03-17 13:32] LABS: Alanine Aminotransferase 56 U/L (12-78); Anion Gap 16.9 mEq/L (5-15); Aspartate Amino Transferase 90 U/L (14-36); Blood Urea Nitrogen 50 mg/dl (7-17); Carbon Dioxide 23 mmol/L (22.0-30.0); Creatinine Clearance Estimated 27 mL/min (50-200); Creatinine,Serum 2.20 mg/dl (0.52-1.04); Estimated Glomerular Filt Rate 21 ml/min (>60); GFR (African American) 26 ML/MIN (>60)
[2025-03-17 13:33] LABS: Albumin/Globulin Ratio 1.2 (1.1-1.8); Alkaline Phosphatase 176 U/L (38-126); Bilirubin,Total 1.0 mg/dl (0.2-1.3); Calcium 8.7 mg/dl (8.4-10.2); Globulin 2.7 g/dL (1.3-3.2); Glucose 110 mg/dl (74-100); Total Protein,Serum 6.0 g/dl (6.3-8.2)
[2025-03-17 13:40] LABS: Hematocrit 33.0 % (37.0-47.0); Hemoglobin 11.4 g/dL (12.2-16.2); Immature Granulocytes % 0.7 %; Mean Corpuscular HGB Conc 34.5 g/dL (31.8-35.4); Mean Corpuscular Hemoglobin 31.6 pg (27.0-31.2); Mean Corpuscular Volume 91.4 fl (81-99); Nucleated Red Blood Cells % 0 %; Platelet Count 494 K/mm3 (142-424); Red Blood Count 3.61 M/mm3 (4.20-5.40); Red Cell Distribution Width-SD 49.0 fL; White Blood Count 10.6 K/mm3 (4.8-10.8)
[2025-03-17 13:42] LABS: NT Pro Brain Natriuretic Pep. 5480 pg/mL (0-450)
[2025-03-17 13:44] LABS: Troponin I 0.02 ng/ml (0.00-0.034)
[2025-03-17 13:47] LABS: Activated Partial Thrombo Time 25.4 seconds (22.8-30.6); INR 1.01 (0.9-1.1); Prothrombin Time 11.2 seconds (10.1-12.5)
--- NOTE | 2025-03-17 14:06 | CT_ITS ---
FINAL REPORT TECHNIQUE: Axial images were obtained from the lung apex to the mid abdomen by computed tomography. Coronal reformatted images were obtained. This study was performed with techniques to keep radiation doses as low as reasonably achievable, (ALARA). Individualized dose reduction techniques using automated exposure control or adjustment of mA and/or kV according to the patient's size were employed. CLINICAL HISTORY: Shortness of breath HX LUNG CANCER COMPARISON: 12/02/2023 FINDINGS: There are lobular masses within the inferior right lobe of the thyroid. These masses appear slightly larger than on the prior exam, thyroid ultrasound recommended. The heart size is normal. There is a left upper anterior chest wall pacemaker with streak artifact. A moderate right pleural effusion is present, which is significantly increased in size from the prior exam. This right effusion measures up to 6.0 cm in depth. The patchy airspace opacity at the right base appears larger than on previous exam measuring 4.6 x 3.8 cm. There may be an associated solid component. There is scarring at both lung bases. Limited images of the upper abdomen are unremarkable. No suspicious infiltrate or nodule identified. IMPRESSION: Interval increase in size of the right pleural effusion. Increased opacity at the right base which may represent a combination of solid mass and consolidation. PET scan could better characterize. Increased size of the nodules in the right lobe of the thyroid. Dedicated thyroid ultrasound is recommended. Reviewed, Interpreted and Dictated by Wyatt Abdul MD Transcribed by Vandana Liz Authenticated and [facility]
[2025-03-17 14:11] LABS: D-Dimer 1.73 ug/mL (0.0-0.5)
--- NOTE | 2025-03-17 15:02 | PC.NURSE ---
paged pulmonology at this time
--- NOTE | 2025-03-17 15:34 | CA_ITS ---
APPROVED REPORT EXAM: Comprehensive 2D, Doppler, and color-flow Echocardiogram Line Up Examiner: Madelyn Montoya RT(R) Ht: 5 ft 2 in Wt: 200lbs BSA: 1.91 BP: 124/52 mmHg Indications: history of HFrEF, AFIB, CHIKIS clip, hx lung cancer, right pleural effusion, Shortness of breath, hypertension, hyperlipidemia, history of CVA. 2D Dimensions LVEF (Vasquez's) 53.90 % F: 54 - 74 LV Volume 73.60 mL F: 46 - 106 LV Volume Index 38.5 mL/m2 F: 29 - 61 LA Volume 63.60 mL LA Volume Index 33.30 mL/m2 (M/F) 16-34 EF AP4 58.40 % EF AP2 48.2 % EF BP 53.9 % GL Strain -14.7 % M-Mode Dimensions RVDd 3.36 cm (0.9-2.6) LA Diam 4.38 cm (1.9-4.0) LVDd 4.76 cm (3.5-5.7) LVDs 3.22 cm (3.5-5.7) IVSd 0.75 cm (0.6-1.1) PWd 0.75 cm (0.6-1.1) EF (Teich) 60.50% FS 32.40% EDV (Teich) 105.40 mL ESV (Teich) 41.60 mL LV Diastology E Decel Time 220 (160-240 msec) E/A Ratio 1.53 Aortic Valve SHANA Index 0.81 cm2/m2 AoV Peak Matt. 169.0 (50-130 cm/s) AO Peak GR. 11.40 mmHg AO Mean GR. 5.60 (<5 mmHg) AO VTI 34.2 (18-25 cm) SHANA (VTI) 1.59 (2.5-4.5 cm2) Mitral Valve MV A Velocity 51.0 (40-130 cm/s) E/A Ratio 1.53 Tricuspid Valve TR P. Velocity 301.00 cm/s RAP Estimate 10.00 mmHg RVSP 46.20 mmHg Left Ventricle The left ventricle is normal size. The left ventricular systolic function is normal. The left ventricular ejection fraction is within the normal range. Proximal septal thickening is present. There is normal LV segmental wall motion. Diastolic function is indeterminate. LVEF is 60%. Right Ventricle Right ventricle is mildly dilated. The right ventricular systolic function is normal. There is a device lead in the right ventricle. Atria The left atrium is mildly dilated. Right atrium is mildly dilated. There is no Doppler evidence of interatrial shunt. Aortic Valve The aortic valve is mildly thickened. There is no aortic valvular stenosis. Trace aortic regurgitation. Mitral Valve The mitral valve is normal in structure. No evidence of mitral valve stenosis. Mild mitral regurgitation. Tricuspid Valve Tricuspid valve is grossly normal in structure and function. Moderate tricuspid regurgitation. RVSP is 40-45 mmHg. Pulmonic Valve The pulmonary valve is normal in structure. Mild pulmonic regurgitation. Great Vessels The aortic root is normal in size. IVC is normal in size and collapses >50% with inspiration. Pericardium There is no pericardial effusion. Other Information Study Quality: Fair Conclusion Normal biventricular systolic function. Mild RV dilation. Biatrial dilation. Moderate TR. Mild MR. Elevated RVSP 40-45 mmHg. Electronically signed by : Angela Gore MD 03/18/2025 00:16:46
--- NOTE | 2025-03-17 15:35 | EXP.HP ---
History of Present Illness *Admission Date: 03/17/25 *Reason for visit:: dyspnea *History of present illness: 84-year-old female with history of AICD, CVA, hypertension, CHF, lung cancer. Presented to the ER because of worsening shortness of breath over 3 to 4 days. Complains of dry nonproductive cough. Denies fever. Feels short of breath with exertion. Increased swelling in the legs over the past several weeks. Diuretics were stopped 6 months ago. Workup in the ER with chest imaging found large right-sided effusion with suspected pneumonia. BNP elevated as well as 5500. Initiated on antibiotics with vancomycin and Zosyn. Medicine consulted for admission for further management of pleural effusion and treatment of respiratory distress. On further evaluation after arriving to the floor, patient states she was diagnosed with lung cancer a year ago and underwent chemotherapy infusions. She follows with cardiology in [place]. Has been on Entresto with improvement in her ejection fraction, slowly worsening kidney function which is why her diuretics were stopped. at bedside. Patient denies chest pain, just dry nonproductive cough. No nausea or vomiting. Oriented at baseline. [facility] Disclaimer: The information contained in this section may have been updated after the patient was seen, as this information can be updated by other users. Medical History Near syncope Dizziness V-tach Dyspnea Left arm pain Abnormal EKG Right arm pain Defibrillator discharge PAD (peripheral artery disease) Pulmonary hypertension Automatic implantable cardioverter-defibrillator in situ Cardiomyopathy Bilateral edema of lower extremity A-fib HHD (hypertensive heart disease) CAD (coronary artery disease) HLD (hyperlipidemia) CVA (cerebral vascular accident) Surgical History History of left atrial appendage closure History of lumpectomy of left breast Family History Other Family history of myocardial infarction Social History Smoking Status: Former smoker tobacco type: cigarettes packs per day: 1 second hand exposure: No alcohol intake: never substance use type: denies use current occupational status: retired Travel in the last 8 weeks?: None household members: spouse housing: house marital status: current occupational exposures/hazards: No caffeine: No Have you lived/traveled outside US in past 30 days?: No Contact w/someone who lives/traveled outside US past 30 days?: No Exposure to someone with infectious disease in past 14 days?: No Do you have a fever (greater than 100.4 F or 38 C)?: No Have you tested positive for COVID-19?: No Exposed to someone with COVID-19 in past 14 days?: No Do you have a sore throat?: No Do you have a cough?: No Do you have any weakness?: No Do you have any diarrhea?: No Are you experiencing any unusual bleeding?: No Do you have any muscle aches/pain?: No Do you have any abdominal pain?: No Are you experiencing loss of taste or smell?: No Other Medical History Have you received the Flu Vaccine for this season: No Have you received the Pneumonia Vaccine: Yes Review of Systems Review of Systems Review of systems (narrative): 14 point review of systems performed, pertinent positives and negatives as per [facility] Meds Home Medications and Allergies Home Medications ?Medication ?Instructions ?Recorded ?Confirmed ?Type tramadol 50 mg tablet 50 mg PO TIDP PRN Moderate Pain 11/05/19 03/17/25 History amiodarone 400 mg tablet 400 mg PO DAILY 03/07/24 03/17/25 History furosemide 20 mg tablet 20 mg PO DAILY 03/07/24 03/17/25 History memantine 5 mg tablet 5 mg PO DAILY 03/07/24 03/17/25 History bumetanide 1 mg tablet 1 mg PO DAILY 03/17/25 03/17/25 History carbidopa ER 25 mg-levodopa 100 mg 1 tab PO DAILY 03/17/25 03/17/25 History tablet,extended release levothyroxine 25 mcg tablet 50 mcg PO DAILY thyroid 03/17/25 03/17/25 History nitroglycerin 0.4 mg/hr 0.4 mg transdermal DAILY 03/17/25 03/17/25 History transdermal 24 hour patch ropinirole 0.5 mg tablet 0.5 mg PO BID 03/17/25 03/17/25 History sacubitril 97 mg-valsartan 103 mg 1 tab PO BID 03/17/25 03/17/25 History tablet (Entresto) New Prescriptions to Start Prescriptions: Allergies Allergy/AdvReac Type Severity Reaction Status Date / Time No Known Allergies Allergy Verified 04/08/24 10:22 Exam Data for Last 24 hours Vital signs and Labs for Last 24 Hours: Temp Pulse Resp BP Pulse Ox O2 Del Method 98.1 F 73 17 105/48 L 99 Room Air 03/17/25 13:00 03/17/25 15:00 03/17/25 15:00 03/17/25 15:00 03/17/25 15:00 03/17/25 13:15 Laboratory Results - last 24 hr 03/17/25 12:57: WBC 10.6, RBC 3.61 L, Hgb 11.4 L, Hct 33.0 L, MCV 91.4, MCH 31.6 H, MCHC 34.5, RDW 14.6, Plt Count 494 H, MPV 11.5 H, Neut % (Auto) 80.8 H, Lymph % (Auto) 11.6, [place] % (Auto) 5.9, Eos % (Auto) 0.7, Baso % (Auto) 0.3, Neut # (Auto) 8.6 H, Lymph # (Auto) 1.2, [place] # (Auto) 0.6, Eos # (Auto) 0.1, Baso # (Auto) 0.0, PT 11.2, INR 1.01, APTT 25.4, D-Dimer 1.73 H, Sodium 136, Potassium 3.9, Chloride 100, Carbon Dioxide 23, Anion Gap 16.9 H, BUN 50 H, Creatinine 2.20 H, Estimated Creat Clear 27, Estimated GFR 21 L, Est GFR ( Amer) 26 L, Glucose 110 H, Calcium 8.7, Total Bilirubin 1.0, AST 90 H, ALT 56, Alkaline Phosphatase 176 H, Troponin I 0.02, NT-Pro-B Natriuret Pep 5480 H, Total Protein 6.0 L, Albumin 3.3 L, Globulin 2.7, Albumin/Globulin Ratio 1.2 03/17/25 13:15: VBG pH 7.41, VBG pCO2 29.1 L, VBG pO2 33.5, VBG HCO3 18.1 L, VBG Total CO2 19.0 L, VBG O2 Saturation 69.4, VBG Base Excess -6.5 L, VBG Lactic Acid 3.0 H I & O for Last 24 hours: Intake & Output 03/14/25 03/15/25 03/16/25 03/17/25 23:59 23:59 23:59 23:59 Weight 90.718 kg Constitutional Constitutional: mild distress, average body habitus, chronically ill appearing and cooperative *Routine HEENT Exam Head: Present normocephalic Eye: Present EOMI and PERRL ENT: Present mucous membranes moist *Routine Neck Exam Neck: Present supple; Absent lymphadenopathy *Routine Respiratory Exam Respiratory: Present crackles (right lung base), distant breath sounds, diminished air movement (worse on right) and normal respiratory effort; Absent rhonchi *Routine Cardiovascular Exam Cardiovascular: Present RRR *Routine Abdominal Exam Abdominal: Present soft and normoactive bowel sounds; Absent tenderness *Routine Rectal Exam Rectal:: deferred *Routine Genitalia Exam Genitalia:: deferred *Routine Extremities Exam Extremities: Present edema (2+ to knees); Absent cyanosis or clubbing *Routine Skin Exam Skin: Present intact and warm; Absent rash *Routine Neurological Exam Neurological: Present alert, oriented X3 and moving all extremities; Absent altered mental status Assessment and Plan *Assessment and plan (1) Acute on chronic heart failure with preserved ejection fraction (HFpEF): Status: Acute Category: Medical Code(s): I50.33 - Acute on chronic diastolic (congestive) heart failure (2) Primary cancer of right lower lobe of lung: Status: Acute Category: Medical Code(s): C34.31 - Malignant neoplasm of lower lobe, right bronchus or lung (3) Bilateral lower extremity edema: Status: Chronic Category: Medical Code(s): R60.0 - Localized edema (4) HTN (hypertension): Status: Chronic Qualifiers: Hypertension type: essential hypertension Qualified Code(s): I10 - Essential (primary) hypertension Category: Medical Code(s): I10 - Essential (primary) hypertension (5) Automatic implantable cardioverter-defibrillator in situ: Status: Chronic Category: Medical Code(s): Z95.810 - Presence of automatic (implantable) cardiac defibrillator (6) HLD (hyperlipidemia): Status: Chronic Qualifiers: Hyperlipidemia type: mixed hyperlipidemia Qualified Code(s): E78.2 - Mixed hyperlipidemia Category: Medical Code(s): E78.5 - Hyperlipidemia, unspecified (7) CAD (coronary artery disease): Status: Chronic Qualifiers: Coronary Disease-Associated Artery/Lesion type: [place] artery [place] vs. transplanted heart: [place] heart Associated angina: without angina Qualified Code(s): I25.10 - Atherosclerotic heart disease of [place] coronary artery without angina pectoris Category: Medical Code(s): I25.10 - Atherosclerotic heart disease of [place] coronary artery without angina pectoris (8) Pneumonia: Status: Suspected Category: Medical Code(s): J18.9 - Pneumonia, unspecified organism (9) Pleural effusion: Status: Acute Category: Medical Code(s): J90 - Pleural effusion, not elsewhere classified Plan 84-year-old female with coronary artery disease, history of heart failure with recovered EF, and recent history of lung cancer treated within the past year in right lower lobe. Presented with worsening shortness of breath over the past few weeks. Workup in the ER with right-sided pleural effusion and elevated BNP. Differential includes HFpEF exacerbation, volume overload, malignant effusion, pneumonia with parapneumonic effusion. Discussed case with ER provider, request admission for further treatment and definitive management of effusion along with thoracentesis for diagnosis. NSTEMI to admit for IV antibiotics, diuresis, pulmonology consult. Admitted to stepdown due to risk for decompensation with initiation of diuretics. Continues to require pressure management. Problems addressed as follows: Moderate to large right-sided effusion Right lung mass with consolidation Suspected pneumonia Acute on chronic HFpEF - Previous echo in 2019 with normal EF but elevated RVSP 40 to 50 mmHg. Repeat echo obtained this visit, preliminary read shows preserved EF approximately 50%. Significant diastolic dysfunction - Per my review of chest CT, has masslike lesion in right lung consistent with her known lung cancer. Consolidation around mass suspicious for atelectasis versus pneumonia. Effusion of moderate size - Stable on room air. Goal sats greater 90%. - Initiated on vancomycin and Zosyn, continue Zosyn IV every 6 hours for least 48 hours pending workup for possible pneumonia - White count normal at 10.6. BNP elevated at approximately 5500 - Initiate Bumex 1 mg IV once, monitor for negative volume status. States her diuretics were stopped about 6 months ago due to some worsening kidney function - Cultures obtained, results pending. Repeat CBC, CMP, magnesium ordered for the morning - Resume Entresto at low-dose for heart failure continue amiodarone 400 - Blood gas with normal pH 7.4, PCO2 of 29 on VBG mg daily, - Pulmonology consulted to evaluate the morning and consider thoracentesis. BUN 50, creatinine 2.2. Creatinine 1.4-1.6 little over a year ago. No other recent labs. 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 midnight Heparin 5000 units SQ 3 times daily
--- NOTE | 2025-03-17 15:41 | PC.NURSE ---
Pt going to room 261 SD
[2025-03-17] MEDS: BUMETANIDE 1MG/4ML VIAL 1 MG IV (15:46)
[2025-03-17] MEDS: PIPERCILLIN/TAZO 3.375 GM in 0.9 % SODIUM CHLORIDE 50 ML IV ×2 (15:47→21:31)
--- NOTE | 2025-03-17 15:58 | PC.NURSE ---
report called to Tianna COBB
--- NOTE | 2025-03-17 16:30 | PC.NURSE ---
Patient arrived to room 261 at this time. Continuation of care plan.
[2025-03-17 17:25] LABS: Reflex Lactic Add Lactic Reflex
[2025-03-17 17:51] LABS: Lactic Acid Follow Up (RFLX 1) 0.9 mmol/L (0.7-2.1)
[2025-03-17 18:05] LABS: Troponin I 0.01 ng/ml (0.00-0.034)
[2025-03-17 18:06] LABS: Hepatitis C Ab Qual. W/ RFX NEGATIVE (Negative)
[2025-03-17] MEDS: VANCOMYCIN CONSULT REQUEST 1 EACH NOTAPPLIC (19:07)
[2025-03-17] MEDS: VANCOMYCIN/WATER FOR INJ (PEG) 1.5 GM/300 ML PIGGYBACK IV (19:08)
[2025-03-17] MEDS: HEPARIN SODIUM 5,000 UNIT/ML VIAL 5000 UNIT SUBCUT (21:29)
[2025-03-17] MEDS: SACUBITRIL/VALSARTAN 24-26MG TABLET 1 EACH PO (21:30)
[2025-03-17 22:14] LABS: Troponin I < 0.01 ng/ml (0.00-0.034)
[2025-03-18] VITALS (23 sets, daily range): BP systolic 81–125; BP diastolic 40–71; PULSE 70–74; RESP 12–20; TEMP 36.3–36.6; O2SAT 88–97; BMI 27.4
--- NOTE | 2025-03-18 02:31 | PC.NURSE ---
Silicone border dressing applied to bilateral heels and coccyx to prevent any PI. bilateral Heels as well as coccyx are red but blanchable. Patient's skin tear to the right hand area cleaned with NS and non-adhesive dressing applied, wrapped in kerlex and secured with tape. Bilateral heels and Lower extremities elevated and maintained elevated on pillows to aid in decreasing edema. IS brought to bedside and initial instruction provided, patient was able to get and maintain 1000 on IS and tolerated well. NAD and VSS, yet noted when patient is being turned onto the right side patient's O@ saturation maintain's around 90-91 from 91-92% on room air. no c/o SOA expressed and no c/o pain.
[2025-03-18] MEDS: PIPERCILLIN/TAZO 3.375 GM in 0.9 % SODIUM CHLORIDE 50 ML IV ×3 (04:10→15:51)
[2025-03-18 04:28] LABS: Hematocrit 29.0 % (37.0-47.0); Immature Granulocytes % 1.0 %; Mean Corpuscular HGB Conc 34.5 g/dL (31.8-35.4); Mean Corpuscular Hemoglobin 31.5 pg (27.0-31.2); Mean Corpuscular Volume 91.5 fl (81-99); Nucleated Red Blood Cells % 0 %; Platelet Count 406 K/mm3 (142-424); Red Blood Count 3.17 M/mm3 (4.20-5.40); Red Cell Distribution Width-SD 49.1 fL; White Blood Count 7.8 K/mm3 (4.8-10.8)
[2025-03-18 04:43] LABS: Albumin Level 2.6 g/dl (3.5-5.0); Chloride 102 mmol/L (98-107); Potassium 3.8 mmoL/L (3.5-5.1); Sodium 134 mmol/L (136-145)
[2025-03-18 04:45] LABS: Blood Urea Nitrogen 47 mg/dl (7-17); Creatinine Clearance Estimated 23 mL/min (50-200); Creatinine,Serum 2.10 mg/dl (0.52-1.04); Estimated Glomerular Filt Rate 22 ml/min (>60); GFR (African American) 27 ML/MIN (>60)
[2025-03-18 04:46] LABS: Alanine Aminotransferase 35 U/L (12-78); Albumin/Globulin Ratio 1.1 (1.1-1.8); Alkaline Phosphatase 159 U/L (38-126); Anion Gap 11.8 mEq/L (5-15); Aspartate Amino Transferase 64 U/L (14-36); Bilirubin,Total 0.7 mg/dl (0.2-1.3); Calcium 7.6 mg/dl (8.4-10.2); Carbon Dioxide 24 mmol/L (22.0-30.0); Globulin 2.4 g/dL (1.3-3.2); Glucose 89 mg/dl (74-100); Magnesium 1.7 mg/dl (1.6-2.3); Total Protein,Serum 5.0 g/dl (6.3-8.2)
[2025-03-18 05:04] LABS: Hemoglobin 9.9 g/dL (12.2-16.2)
[2025-03-18] MEDS: ACETAMINOPHEN 325MG TAB 650 MG PO (05:59)
--- NOTE | 2025-03-18 06:30 | PC.NURSE ---
With 0600 rounds patient had noted to not voided. Upon further assessment, patient did have some bladder distention, bladder scanned and a volume of 500ml noted, patient was not able to void with purwick in place at this time, patient assisted up to the bedside commode and was able void 350. A PVR obtained and a reading of 219. Patient returned to bed and Bilateral lower extremities elevated. Patient's WNL on RA at this time and returned to RA. Patient is able to move more lung sound in the left lung but still diminished in the right. Encouraged PCT to continue to pass in her report to ensure that patient's suction is not higher than 120 on suction to ensure no irritation to skyla region.
--- NOTE | 2025-03-18 06:41 | PC.NURSE ---
Patient's pox noted to drop to 88-89% on room air, O2 replaced on 2L/NC and an increase to 93-95%.
[2025-03-18] MEDS: LEVOTHYROXINE 50MCG (0.05MG) TAB 50 MCG PO (07:58)
[2025-03-18] MEDS: MEMANTINE 10MG TABLET 5 MG PO (08:43)
[2025-03-18] MEDS: ROPINIROLE 1MG TABLET 0.5 MG PO (08:43)
[2025-03-18] MEDS: CARBIDOPA/LEVODOPA 25/100MG TABLET 1 EACH PO (08:44)
[2025-03-18] MEDS: AMIODARONE 200MG TABLET 400 MG PO (08:50)
[2025-03-18] MEDS: HEPARIN SODIUM 5,000 UNIT/ML VIAL 5000 UNIT SUBCUT ×2 (08:56→14:09)
--- NOTE | 2025-03-18 09:00 | EXP.ACUTE.PN ---
Subjective *Date: 03/18/25 *Time: 09:00 Medical Exam Vital signs and Labs for Last 24 Hours: Vital Signs Temp Pulse Pulse Resp BP BP Pulse Ox 03/18/25 08:00 97.9 F 73 17 99/53 L 97 03/18/25 08:00 97.9 F 73 14 99/53 L 95 03/18/25 07:24 97 03/18/25 07:00 73 15 104/49 L 96 03/18/25 07:00 03/18/25 06:00 106/48 L 03/18/25 06:00 73 17 96 03/18/25 05:00 73 16 103/49 L 96 03/18/25 05:00 03/18/25 04:07 97.7 F 73 16 106/45 L 95 03/18/25 04:00 73 20 95 03/18/25 04:00 106/45 L 03/18/25 03:02 73 16 98/44 L 95 03/18/25 03:00 03/18/25 02:58 88 L 03/18/25 02:00 74 12 118/50 L 93 L 03/18/25 02:00 73 92 L 03/18/25 02:00 03/18/25 02:00 73 16 118/50 L 92 L 03/18/25 01:00 73 95/43 L 92 L 03/18/25 01:00 03/18/25 00:00 73 18 94/40 L 92 L 03/17/25 23:00 73 16 97/44 L 92 L 03/17/25 23:00 03/17/25 22:00 98.1 F 73 16 113/43 L 93 L 03/17/25 21:00 03/17/25 20:00 03/17/25 20:00 03/17/25 20:00 97.9 F 73 12 110/66 98 03/17/25 19:00 73 13 110/48 L 94 L 03/17/25 18:48 03/17/25 18:45 74 18 94 L 03/17/25 18:30 73 13 95 03/17/25 18:15 73 12 97 03/17/25 18:00 73 18 116/53 L 96 03/17/25 17:00 03/17/25 16:41 98.4 F 73 18 107/55 L 97 03/17/25 16:27 98.2 F 73 22 106/51 L 03/17/25 16:13 96 03/17/25 16:00 73 17 106/51 L 93 L 03/17/25 15:30 73 14 117/50 L 99 03/17/25 15:00 73 17 105/48 L 99 03/17/25 14:30 73 16 110/50 L 96 03/17/25 14:00 73 11 L 118/47 L 96 03/17/25 13:31 73 17 108/37 L 100 03/17/25 13:15 73 13 95 03/17/25 13:00 84 24 124/52 L 99 03/17/25 13:00 98.1 F 73 20 124/52 L 100 O2 Del Method O2 Flow Rate 03/18/25 08:00 Nasal Cannula 1 03/18/25 08:00 Nasal Cannula 1 03/18/25 07:24 Nasal Cannula 1 03/18/25 07:00 Nasal Cannula 2 03/18/25 07:00 Nasal Cannula 2 03/18/25 06:00 03/18/25 06:00 03/18/25 05:00 Nasal Cannula 2 03/18/25 05:00 Nasal Cannula 2 03/18/25 04:07 Nasal Cannula 2 03/18/25 04:00 03/18/25 04:00 03/18/25 03:02 Nasal Cannula 2 03/18/25 03:00 Nasal Cannula 2 03/18/25 02:58 Room Air 03/18/25 02:00 Room Air 03/18/25 02:00 Room Air 03/18/25 02:00 Room Air 03/18/25 02:00 Room Air 03/18/25 01:00 Room Air 03/18/25 01:00 Room Air 03/18/25 00:00 Room Air 03/17/25 23:00 Room Air 03/17/25 23:00 Room Air 03/17/25 22:00 Room Air 03/17/25 21:00 Room Air 03/17/25 20:00 Room Air 03/17/25 20:00 Room Air 03/17/25 20:00 Room Air 03/17/25 19:00 03/17/25 18:48 Room Air 03/17/25 18:45 Room Air 03/17/25 18:30 Room Air 03/17/25 18:15 Room Air 03/17/25 18:00 Room Air 03/17/25 17:00 Room Air 03/17/25 16:41 Room Air 03/17/25 16:27 Room Air 03/17/25 16:13 Room Air 03/17/25 16:00 03/17/25 15:30 03/17/25 15:00 03/17/25 14:30 03/17/25 14:00 03/17/25 13:31 03/17/25 13:15 Room Air 03/17/25 13:00 Room Air 03/17/25 13:00 Room Air Intake and Output 03/17/25 03/18/25 03/18/25 23:59 07:59 15:59 Intake Total 580 / 680 100 / 100 Output Total 0 / 0 350 / 350 Balance 580 / 680 -250 / -250 Intake: Intake, Oral Amount 330 / 330 Intake, Total IV Amount 250 / 350 100 / 100 Pipercillin/Tazo 3.375 gm In 0. 100 / 100 9 % Sodium Chloride 50 ml @ 100 mls/hr IV Q6H [facility] Rx#:[id number] Vancomycin/Water For Inj (Peg) 250 / 250 1.5 gm In 300 ml @ 150 mls/hr IV ONCE ONE Rx#:[id number] Output: Output, Urine Amount 0 / 0 350 / 350 Other: Number of Unmeasured Voids 0 0 0 Weight 72.575 kg 72.575 kg Patient Weight 03/18/25 23:59 Weight 72.575 kg Laboratory Results - last 24 hr 03/17/25 12:57: WBC 10.6, RBC 3.61 L, Hgb 11.4 L, Hct 33.0 L, MCV 91.4, MCH 31.6 H, MCHC 34.5, RDW 14.6, Plt Count 494 H, MPV 11.5 H, Neut % (Auto) 80.8 H, Lymph % (Auto) 11.6, [place] % (Auto) 5.9, Eos % (Auto) 0.7, Baso % (Auto) 0.3, Neut # (Auto) 8.6 H, Lymph # (Auto) 1.2, [place] # (Auto) 0.6, Eos # (Auto) 0.1, Baso # (Auto) 0.0, PT 11.2, INR 1.01, APTT 25.4, D-Dimer 1.73 H, Sodium 136, Potassium 3.9, Chloride 100, Carbon Dioxide 23, Anion Gap 16.9 H, BUN 50 H, Creatinine 2.20 H, Estimated Creat Clear 27, Estimated GFR 21 L, Est GFR ( Amer) 26 L, Glucose 110 H, Calcium 8.7, Total Bilirubin 1.0, AST 90 H, ALT 56, Alkaline Phosphatase 176 H, Troponin I 0.02, NT-Pro-B Natriuret Pep 5480 H, Total Protein 6.0 L, Albumin 3.3 L, Globulin 2.7, Albumin/Globulin Ratio 1.2, HCV Ab JONAH w/Rflx PCR Qn Negative, HIV Ag/Ab Combo Qual Negative 03/17/25 13:15: VBG pH 7.41, VBG pCO2 29.1 L, VBG pO2 33.5, VBG HCO3 18.1 L, VBG Total CO2 19.0 L, VBG O2 Saturation 69.4, VBG Base Excess -6.5 L, VBG Lactic Acid 3.0 H 03/17/25 17:35: Lactate 0.9, Troponin I 0.01 03/17/25 21:13: Troponin I < 0.01 03/18/25 04:12: WBC 7.8 D, RBC 3.17 L, Hgb 9.9 L D, Hct 29.0 L, MCV 91.5, MCH 31.5 H, MCHC 34.5, RDW 14.7, Plt Count 406, MPV 10.8 H, Neut % (Auto) 76.2, Lymph % (Auto) 13.7, [place] % (Auto) 7.0, Eos % (Auto) 1.5, Baso % (Auto) 0.6, Neut # (Auto) 5.9, Lymph # (Auto) 1.1, [place] # (Auto) 0.5, Eos # (Auto) 0.1, Baso # (Auto) 0.1, Sodium 134 L, Potassium 3.8, Chloride 102, Carbon Dioxide 24, Anion Gap 11.8, BUN 47 H, Creatinine 2.10 H, Estimated Creat Clear 23, Estimated GFR 22 L, Est GFR ( Amer) 27 L, Glucose 89, Calcium 7.6 L, Magnesium 1.7, Total Bilirubin 0.7, AST 64 H D, ALT 35 D, Alkaline Phosphatase 159 H, Total Protein 5.0 L, Albumin 2.6 L D, Globulin 2.4, Albumin/Globulin Ratio 1.1 I & O for Labs for Last 24 Hours: Intake & Output 03/15/25 03/16/25 03/17/25 03/18/25 23:59 23:59 23:59 23:59 Intake Total 580 / 680 100 / 100 Output Total 0 / 0 350 / 350 Balance 580 / 680 -250 / -250 Weight 72.575 kg 72.575 kg
[2025-03-18 09:07] LABS: Acinetobacter calcoaceticus-ba Not Detected; Bacteroides fragilis Not Detected; Candida auris Not Detected; Candida glabrata Not Detected; Enterobacterales Not Detected; Enterococcus faecalis Not Detected; Enterococcus faecium Not Detected; Klebsiella aerogenes Not Detected; Klebsiella pneumoniae grp Not Detected; Proteus spp. Not Detected; Salmonella spp. Not Detected; Serratia marcescens Not Detected; Staphylococcus epidermidis Detected; Staphylococcus lugdunensis Not Detected; Staphylococcus spp. Detected; Stenotrophomonas maltophilia Not Detected; Streptococcus agalactiae(GrpB) Not Detected; Streptococcus pyogenes Group A Not Detected; Streptococcus spp. Not Detected; mecA/C Detected
[2025-03-18] MEDS: BUMETANIDE 1MG/4ML VIAL 2 MG IV (09:24)
[2025-03-18] MEDS: MAGNESIUM SULFATE IN WATER 2 GM/50 ML PIGGYBACK IV ×2 (09:24→10:50)
--- NOTE | 2025-03-18 09:30 | PC.NURSE ---
Boogie Catheter inserted at this time. Patient tolerated well. 500 mL urine output. Urine clear and pale yellow. Continuation of care plan.
--- NOTE | 2025-03-18 09:38 | HMH.OTEV ---
OT Inpatient Evaluation Rehab OT IP Evaluation Start: 03/18/25 09:00 Freq: ONCE Status: Active Protocol: Document 03/18/25 09:31 BRENDAN (Rec: 03/18/25 09:38 BRENDAN [id number]) Rehab OT IP Assessment Subjective History Per HPI narrative: pt is a 84 year old female PMHx AICD, CVA, Hx cardaic arrythmias, HTN, PAD, CHF, HLD & A-fib who presents to the ED with spouse for SOA x 3-4 days. Patient states she is having significant episodes of coughing with phlegm, has difficulty catching her breath after these episodes. Subjective I've been coughing alot. Pt supine in bed when therapy entered room. Pt orient x3. pt agreeable to engage in initial OT eval this morning. Pt reports they live with in single story home with basement. Pt reports the washer and dryer are in basement, but and granddaughter complete laundry. Pt reports is there 09/04. Pt reports they use walker for FM. pt reports they have no steps to enter home. pt reports they have had no falls within past 30 days. pt reports they are ind in ADLs and need assist in IADLs. pt does not drive. pt is normally not on O2, currently at 1/2 L O2. pt reports they have a raised toilet seat. pt reported they wanted to sit in chair. Pt went from supine to EOB with SBA. Pt then held static sitting balance for aprox 2 mins with SBA while therapy adjusted chair. Pt then completed STS transfer with walker, SBA. Pt then completed FM task of aprox 10 ft with walker with SBA. Pt demo good activity tolerance. Pt then sat in chair using good body mechanics. Pt left in chair with call light and all other needs within reach. Objective Patient Orientation Person,Place,Name Right Upper WFL Extremity Gross ROM Left Upper Extremity WFL Gross ROM Bed Mobility bed mobility-scooting,bed mobility - supine/sit Assist Level Supervision/Stand by Transfer Training Sit/Stand Transfer Assist Level Supervision/Stand by Chair Transfer Supervision/Stand by Ability Chair Transfer Sit to/from Ambulatory Technique Chair Transfer Standard Walker Assistive Devices Decrease in No Endurance Rehab OT IP prob,goals,plan Problems Date of Evaluation: 03/18/25 Rehab Potential Rehab Potential Innapropriate for Skilled Therapy Equipment Needs Assistive Devices Rolling / Wheeled Walker Discharge Goals Commode/Toilet Grab Bars Transfer Assistive Devices Discharge Plan OT Discharge Plan At this time, pt would not benefit from skilled acute OT services and interventions while at [facility] due to being at baseline in FM and transfers. If pt does not regress, pt can go home with 24/7 care and OT services to further address strength and endurance. Eval Complexity Eval Charge Codes 71166 - Moderate Complexity PHYSICIAN CERTIFICATION: I certify the specified therapy services for Noni Trujillo are required, authorized, and reviewed every 30 days.
[2025-03-18 09:41] LABS: Microscopic, Urine URINE MICROSCOPIC (MICROSCOPIC)
--- NOTE | 2025-03-18 09:42 | EXP.PULM.CON ---
History of Present Illness History of present illness: Mr. Trujillo is a 84-year-old female no significant smoking history history of right lower lobe lung mass adenocarcinoma last seen in pulmonary clinic March with subsequent PET scan shows increasing size of the nodule, seen oncology March 2024 for referred to radiation therapy given her poor functional status presented to the ER with worsening generalized weakness found to be having worsening right lower lobe mass and effusion and pulmonary was called for further evaluation and management. CT scan from November 2023 right lower lobe mass and small pleural effusion status post CT-guided biopsy positive for adenocarcinoma diagnosed as stage IIa refer to radiation. Predominant complaint today include generalized weakness and cough with scant productive phlegm. Denies any subjective fevers or chills. No sick contacts. Patient today admits completion of radiation therapy, following with her radiation oncologist as well with CT scans and PET CT scan that were reported to be not showing any worsening malignancy as per the patient. [facility] Disclaimer: The information contained in this section may have been updated after the patient was seen, as this information can be updated by other users. Medical History Near syncope Dizziness V-tach Dyspnea Left arm pain Abnormal EKG Right arm pain Defibrillator discharge PAD (peripheral artery disease) Pulmonary hypertension Automatic implantable cardioverter-defibrillator in situ Cardiomyopathy Bilateral edema of lower extremity A-fib HHD (hypertensive heart disease) CAD (coronary artery disease) HLD (hyperlipidemia) CVA (cerebral vascular accident) Surgical History History of left atrial appendage closure History of lumpectomy of left breast Family History Other Family history of myocardial infarction Social History Smoking Status: Former smoker tobacco type: cigarettes packs per day: 1 second hand exposure: No alcohol intake: never substance use type: denies use current occupational status: retired Travel in the last 8 weeks?: None household members: spouse housing: house marital status: current occupational exposures/hazards: No caffeine: No Have you lived/traveled outside US in past 30 days?: No Contact w/someone who lives/traveled outside US past 30 days?: No Exposure to someone with infectious disease in past 14 days?: No Do you have a fever (greater than 100.4 F or 38 C)?: No Have you tested positive for COVID-19?: No Exposed to someone with COVID-19 in past 14 days?: No Do you have a sore throat?: No Do you have a cough?: No Do you have any weakness?: No Do you have any diarrhea?: No Are you experiencing any unusual bleeding?: No Do you have any muscle aches/pain?: No Do you have any abdominal pain?: No Are you experiencing loss of taste or smell?: No Review of Systems Constitutional Constitutional: Reports anorexia, Reports body ache(s), Reports fatigue, Reports poor appetite and Reports lethargy Eyes Eyes: Denies eye discharge, Denies dry eyes, Denies irritation and Denies itchy eyes ENT Ears, Nose, Mouth, and Throat: Denies epistaxis, Denies facial pain, Denies lip swelling and Denies throat swelling *Cardiovascular Cardiovascular: Reports dyspnea and Reports dyspnea on exertion *Respiratory Respiratory: Denies change in phlegm color, Reports chest congestion, Reports cough, Reports dyspnea, Reports dyspnea on exertion, Denies excessive phlegm production, Denies hemoptysis, Denies pain on inspiration and Denies pain with cough *Gastrointestinal Gastrointestinal: Denies abdominal pain, Denies belching and Denies cramping *Musculoskeletal Musculoskeletal: Reports back pain, Reports myalgias and Reports other (No small joint swelling or Pain) Psychiatric Psychiatric: Denies homicidal ideation and Denies suicidal ideation Endocrine Endocrine: Reports fatigue and Denies heat intolerance Hematologic/Lymphatic Hematologic/Lymphatic: Denies easy bleeding and Denies lymphadenopathy Allergic/Immunologic Allergic/Immunologic: Denies itchy eyes, Denies lip swelling and Denies throat swelling Pulmonology Exam Inpatient Vital signs and Labs for Last 24 Hours: Temp Pulse Resp BP Pulse Ox O2 Del Method O2 Flow Rate 97.9 F 73 17 99/53 L 97 Nasal Cannula 1 03/18/25 08:00 03/18/25 08:00 03/18/25 08:00 03/18/25 08:00 03/18/25 08:00 03/18/25 08:00 03/18/25 08:00 Laboratory Results - last 24 hr 03/17/25 12:57: WBC 10.6, RBC 3.61 L, Hgb 11.4 L, Hct 33.0 L, MCV 91.4, MCH 31.6 H, MCHC 34.5, RDW 14.6, Plt Count 494 H, MPV 11.5 H, Neut % (Auto) 80.8 H, Lymph % (Auto) 11.6, [place] % (Auto) 5.9, Eos % (Auto) 0.7, Baso % (Auto) 0.3, Neut # (Auto) 8.6 H, Lymph # (Auto) 1.2, [place] # (Auto) 0.6, Eos # (Auto) 0.1, Baso # (Auto) 0.0, PT 11.2, INR 1.01, APTT 25.4, D-Dimer 1.73 H, Sodium 136, Potassium 3.9, Chloride 100, Carbon Dioxide 23, Anion Gap 16.9 H, BUN 50 H, Creatinine 2.20 H, Estimated Creat Clear 27, Estimated GFR 21 L, Est GFR ( Amer) 26 L, Glucose 110 H, Calcium 8.7, Total Bilirubin 1.0, AST 90 H, ALT 56, Alkaline Phosphatase 176 H, Troponin I 0.02, NT-Pro-B Natriuret Pep 5480 H, Total Protein 6.0 L, Albumin 3.3 L, Globulin 2.7, Albumin/Globulin Ratio 1.2, HCV Ab JONAH w/Rflx PCR Qn Negative, HIV Ag/Ab Combo Qual Negative 03/17/25 13:15: VBG pH 7.41, VBG pCO2 29.1 L, VBG pO2 33.5, VBG HCO3 18.1 L, VBG Total CO2 19.0 L, VBG O2 Saturation 69.4, VBG Base Excess -6.5 L, VBG Lactic Acid 3.0 H 03/17/25 15:24: A. baumannii (PCR) Not detected, Bacteroides fragilis Not detected, Teresa albicans (PCR) Not detected, Teresa auris (PCR) Not detected, C. glabrata (PCR) Not detected, C. krusei (PCR) Not detected, C. parapsilosis (PCR) Not detected, C. tropicalis (PCR) Not detected, Cryptococcus neoformans PCR Not detected, Enterobacterales (PCR) Not detected, Enterococc faecalis PCR Not detected, Enterococc faecium PCR Not detected, E. coli (PCR) Not detected, H. influenzae DNA Not detected, Klebsiella aerogenes (PCR) Not detected, Klebsiella oxytoca PCR Not detected, K. pneumoniae group (PCR) Not detected, List. monocytogenes PCR Not detected, N. meningitidis (PCR) Not detected, Proteus species (PCR) Not detected, Salmonella spp. (PCR) Not detected, Serratia marcescens PCR Not detected, Staphylococcus sp PCR Detected, Staph aureus (PCR) Not detected, mecA/C & MREJ Resist Gene Not applicable, mecA/C-Methicil Resis Gene Detected, Staph epidermidis (PCR) Detected, Staph lugdunensis (TEM-PCR) Not detected, S. maltophilia (PCR) Not detected, Streptococcus sp PCR Not detected, S.agalactiae Grp B MAJO Not detected, Strep pneumoniae (PCR) Not detected, S. pyogenes GrpA MAJO Not detected, P. aeruginosa (PCR) Not detected, Agusto/B-Vanco Res Genes Not applicable, blaIMP Car res Gene PCR Not applicable, KPC-Carbap Res Gene PCR Not applicable, blaNDM Car Res Gene PCR Not applicable, OXA-48 Carbapenem Resis Gene (PCR) Not applicable, blaVIM Car Res Gene PCR Not applicable, CTX-M Gene Resistance (PCR) Not applicable, MCR-1 Resistance Gene Not applicable 03/17/25 17:35: Lactate 0.9, Troponin I 0.01 03/17/25 21:13: Troponin I < 0.01 03/18/25 04:12: WBC 7.8 D, RBC 3.17 L, Hgb 9.9 L D, Hct 29.0 L, MCV 91.5, MCH 31.5 H, MCHC 34.5, RDW 14.7, Plt Count 406, MPV 10.8 H, Neut % (Auto) 76.2, Lymph % (Auto) 13.7, [place] % (Auto) 7.0, Eos % (Auto) 1.5, Baso % (Auto) 0.6, Neut # (Auto) 5.9, Lymph # (Auto) 1.1, [place] # (Auto) 0.5, Eos # (Auto) 0.1, Baso # (Auto) 0.1, Sodium 134 L, Potassium 3.8, Chloride 102, Carbon Dioxide 24, Anion Gap 11.8, BUN 47 H, Creatinine 2.10 H, Estimated Creat Clear 23, Estimated GFR 22 L, Est GFR ( Amer) 27 L, Glucose 89, Calcium 7.6 L, Magnesium 1.7, Total Bilirubin 0.7, AST 64 H D, ALT 35 D, Alkaline Phosphatase 159 H, Total Protein 5.0 L, Albumin 2.6 L D, Globulin 2.4, Albumin/Globulin Ratio 1.1 I & O for Labs for Last 24 Hours: Intake & Output 03/15/25 03/16/25 03/17/25 03/18/25 23:59 23:59 23:59 23:59 Intake Total 580 / 680 100 / 100 Output Total 0 / 0 350 / 350 Balance 580 / 680 -250 / -250 Weight 160 lb 160 lb Microbiology Reports for the Last 24 Hours: Microbiology 03/17/25 15:24 Blood Blood Culture - Preliminary Constitutional: Present mild distress Head: Present normocephalic and atraumatic ENT: Present normal exam, normal oropharynx and mucous membranes moist Neck: Present normal inspection and full ROM Respiratory: Present respiratory distress, distant breath sounds, diminished air movement and able to speak in complete sentences; Absent wheezes or crackles Cardiac: Present S1/S2, Tachycardia and radial pulses present GI: Present soft and distention; Absent tenderness or guarding Rectal (female): Present deferred (female): Present deferred Skin: Present intact; Absent cyanosis or jaundice Neuro: Present alert, awake and oriented x 3 Extremities: Present normal inspection; Absent clubbing or cyanosis Psychiatric: Present normal affect and cooperative Meds Home Medications and Allergies Home Medications ?Medication ?Instructions ?Recorded ?Confirmed ?Type tramadol 50 mg tablet 50 mg PO TIDP PRN Moderate Pain 11/05/19 03/17/25 History amiodarone 400 mg tablet 400 mg PO DAILY 03/07/24 03/17/25 History furosemide 20 mg tablet 20 mg PO DAILY 03/07/24 03/17/25 History memantine 5 mg tablet 5 mg PO BID 03/07/24 03/18/25 History bumetanide 1 mg tablet 1 mg PO DAILY 03/17/25 03/17/25 History carbidopa ER 25 mg-levodopa 100 mg 1 tab PO DAILY 03/17/25 03/17/25 History tablet,extended release nitroglycerin 0.4 mg/hr 0.4 mg transdermal DAILY 03/17/25 03/17/25 History transdermal 24 hour patch ropinirole 0.5 mg tablet 0.5 mg PO BID 03/17/25 03/17/25 History sacubitril 97 mg-valsartan 103 mg 1 tab PO BID 03/17/25 03/17/25 History tablet (Entresto) levocetirizine 5 mg tablet 5 mg PO DAILY 03/18/25 03/18/25 History levothyroxine 50 mcg tablet 50 mcg PO DAILY 03/18/25 03/18/25 History New Prescriptions to Start Prescriptions: Allergies Allergy/AdvReac Type Severity Reaction Status Date / Time No Known Allergies Allergy Verified 04/08/24 10:22 Results Laboratory Findings 03/18/25 04:12 03/18/25 04:12 PT/INR, D-dimer PT 11.2 seconds (10.1-12.5) 03/17/25 12:57 INR 1.01 (0.9-1.1) 03/17/25 12:57 D-Dimer 1.73 ug/mL (0.0-0.5) H 03/17/25 12:57 Abnormal lab findings: Abnormal Labs 03/17/25 03/17/25 03/18/25 12:57 13:15 04:12 RBC 3.61 L 3.17 L Hgb 11.4 L 9.9 L D Hct 33.0 L 29.0 L MCH 31.6 H 31.5 H Plt Count 494 H MPV 11.5 H 10.8 H Neut % (Auto) 80.8 H Neut # (Auto) 8.6 H D-Dimer 1.73 H VBG pCO2 29.1 L VBG HCO3 18.1 L VBG Total CO2 19.0 L VBG Base Excess -6.5 L VBG Lactic Acid 3.0 H Sodium 134 L Anion Gap 16.9 H BUN 50 H 47 H Creatinine 2.20 H 2.10 H Estimated GFR 21 L 22 L Est GFR ( Amer) 26 L 27 L Glucose 110 H Calcium 7.6 L AST 90 H 64 H D Alkaline Phosphatase 176 H 159 H NT-Pro-B Natriuret Pep 5480 H Total Protein 6.0 L 5.0 L Albumin 3.3 L 2.6 L D Assessment and Plan *Assessment and plan (1) Primary cancer of right lower lobe of lung: Status: Acute Category: Medical Code(s): C34.31 - Malignant neoplasm of lower lobe, right bronchus or lung (2) Pleural effusion: Status: Acute Category: Medical Code(s): J90 - Pleural effusion, not elsewhere classified (3) Pneumonia: Status: Suspected Category: Medical Code(s): J18.9 - Pneumonia, unspecified organism Plan Mr. Trujillo is a 84-year-old female no significant smoking history history of right lower lobe lung mass adenocarcinoma last seen in pulmonary clinic March with subsequent PET scan shows increasing size of the nodule, seen oncology March 2024 for referred to radiation therapy given her poor functional status presented to the ER with worsening generalized weakness found to be having worsening right lower lobe mass and effusion and pulmonary was called for further evaluation and management. CT scan from November 2023 right lower lobe mass and small pleural effusion status post CT-guided biopsy positive for adenocarcinoma diagnosed as stage IIa refer to radiation. Patient today admits completion of radiation therapy, following with her radiation oncologist as well with CT scans and PET CT scan that were reported to be not showing any worsening malignancy as per the patient. Will obtain records. Afebrile. Hemodynamically stable. No evidence of leukocytosis. Currently receiving Zosyn. Mild respiratory distress. On room air saturating 95% and above. Predominant complaint including cough with scant productive phlegm. Plan: DuoNebs 4 times daily scheduled Thoracentesis Continue Zosyn pending culture results Obtain records from including CT scan and PET scan from patient's radiation oncologist
[2025-03-18 10:00] LABS: Bilirubin,Urine Negative (Negative); Color,Urine YELLOW (Yellow); Glucose,Urine (UA) Negative (Negative); Ketones,Urine Negative (Negative); Leukocyte Esterase,Urine Negative (Negative); PH,Urine 5.5 (5.0-8.5); Protein,Urine Negative (Negative); Specific Gravity, Urine 1.010 (1.005-1.030); Urobilinogen,Urine 0.2 EU/dl (0.2)
--- NOTE | 2025-03-18 10:20 | PC.NURSE ---
requests to do a Thoracentesis at 1200. Primary RN notified Radiology at this time. No new orders received. Continuation of care plan.
[2025-03-18 10:26] LABS: Bacteria,Urine Trace /lpf; Squamous Epithelial Cell,Urine Occasional #/hpf (0-5); WBC,Urine Occasional #/hpf (0-3)
--- NOTE | 2025-03-18 10:31 | US_ITS ---
FINAL REPORT CLINICAL HISTORY: Pleural effusion FINDINGS: ULTRASOUND-GUIDED THORACENTESIS HISTORY: Pleural effusion. ATTENDING PHYSICIAN: Dr. Abdul PHYSICIAN WARNING ANALYST: Vladimir Mcneill PA-C TECHNIQUE: Informed consent was obtained from the patient. The indications and complications were discussed with the patient prior to beginning the procedure. This included, but was not limited to pain, bleeding, infection, and pneumothorax requiring chest tube placement. The back was then prepped and draped in sterile fashion. 1% Lidocaine was used for local anesthesia. Utilizing sonographic guidance, a standard thoracentesis needle and sheath were inserted. clear pleural fluid was successfully removed without complication. The patient tolerated the procedure well. IMPRESSION: Technically successful sonographic guided thoracentesis as above. Reviewed, Interpreted and Dictated by Deonte Stringer MD Transcribed by ELIJAH Wahl Authenticated and [facility]
--- NOTE | 2025-03-18 11:15 | HMH.PTEV ---
Physical Therapy Evaluation Rehab PT IP Evaluation Start: 03/18/25 09:00 Freq: ONCE Status: Active Protocol: Document 03/18/25 11:08 GIORGIO (Rec: 03/18/25 11:15 GIORGIO [id number]) Subjective/History History History Per H&P: 84-year-old female with history of AICD, CVA, hypertension, CHF, lung cancer. Presented to the ER because of worsening shortness of breath over 3 to 4 days. Complains of dry nonproductive cough. Denies fever. Feels short of breath with exertion. Increased swelling in the legs over the past several weeks. Diuretics were stopped 6 months ago. Workup in the ER with chest imaging found large right-sided effusion with suspected pneumonia. BNP elevated as well as 5500 . Initiated on antibiotics with vancomycin and Zosyn. Medicine consulted for admission for further management of pleural effusion and treatment of respiratory distress. On further evaluation after arriving to the floor, patient states she was diagnosed with lung cancer a year ago and underwent chemotherapy infusions. She follows with cardiology in [place]. Has been on Entresto with improvement in her ejection fraction, slowly worsening kidney function which is why her diuretics were stopped. Subjective Subjective PLOF: IND with use of rollator. Not driving. No falls reported in past 30 days. HOME: Lives with in a single-story home with washer/dryer in basement. No SHAHNAZ. Available assistance: available as needed. New diagnosis of No cancer in past 12 months? [facility] How much help from another person do you currently need... Turning from your None back to your side while in a flat bed without using bedrails? Moving from lying on None back to sitting on the side of a flat bed without using bedrails? Moving to and from a None bed to a chair ( including a wheelchair)? Standing up from a None chair using your arms? (e.g., wheelchair, bedside chair) Walking in hospital None room? Climbing 3-5 steps A little with a railing? Mobility Score 23 Mobility Level Casarez Kelley Mobility 7 Walk 25 feet or more Mobility Calculator Rehab PT IP Eval Objective Appearance Patient Behavior Appropriate,Cooperative Patient Orientation Person,Place Difficulty following none instructions Speech Pattern Clear Ambulation Patient Able to Yes Ambulate Ambulation Observation IP General Gait No Deviations/Normal Pattern Observation Ambulation Distance 16 (feet) Ambulation Assistive Rolling Walker Device Ambulation Ability Supervision/Stand by Balance Ability to Arise Able, uses arms to help Sitting Balance Steady, safe Standing Balance Steady, wide stance Dynamic Sitting Good Balance Ability Dynamic Standing Good Balance Ability Transfers Bed Transfer Ability Supervision/Stand by Sit to Stand Bed Supervision/Stand by Transfer Ability Rehab PT IP prob,goals,plan Problems Date of Evaluation: 03/18/25 Rehab Potential Rehab Potential Innapropriate for Skilled Therapy Discharge Plan PT Discharge Plan Pt most appropriate to d/c home when deemed medically necessary d/t current level of mobility, home set-up, and family support. Pt not appropriate for skilled acute care PT at this time d/t pt?s mobility being at baseline. Recommending HH or OP PT services to address strength and endurance to improve overall mobility. Eval Complexity Eval Charge Codes 96925 - Moderate Complexity PHYSICIAN CERTIFICATION: I certify the specified therapy services for Noni Trujillo are required, authorized, and reviewed every 30 days.
--- NOTE | 2025-03-18 11:37 | SW/DCPLANNER ---
Addendum entered by Liya Lyons 03/18/25 13:27: [facility] is able to accept patient. Sharan Miranda Original Note: Spoke with patient once she is medically stable and ready for discharge if she would be interested in home health services. Patient stated that she would be interested. Im faxing patient's information to [facility] and will update once I hear back if they are able to accept or not. Sharan Miranda
--- NOTE | 2025-03-18 11:52 | PC.NURSE ---
Consent obtained for scheduled procedure at this time. Continuation of care plan.
--- NOTE | 2025-03-18 12:44 | XR_ITS ---
PROCEDURE INFORMATION: Exam: XR Chest Exam date and time: 03/18/2025 12:40 PM Age: 84 years old Clinical indication: Device placement; Other: Post thora; Additional info: Post thorocentesis TECHNIQUE: Imaging protocol: Radiologic exam of the chest. Views: 1 view. COMPARISON: CT CHEST WO CON 03/17/2025 2:16 PM FINDINGS: Tubes, catheters and devices: Devices are unchanged. Lungs: See Pleural spaces finding. Pleural spaces: There is decreased right pleural effusion identified. There is a small right basilar consolidation again noted. No pneumothorax is visualized. Heart/Mediastinum: Unremarkable. No cardiomegaly. Bones/joints: Unremarkable. IMPRESSION: Decreased right pleural effusion. No pneumothorax visualized.
--- NOTE | 2025-03-18 12:50 | PC.NURSE ---
, radiology, and primary RN at bedside. Time out preformed at 1230 for scheduled procedure, all parties agreeable. Incision made at 1236. Sterile technique maintained. 700mL removed. End time at 1246. Dressing applied by . Dressing clean, dry, and intact. Patient complains of 8/10 pain when inhaling after procedure. aware. Chest xray obtained. No new orders received. Continuation of care plan.
[2025-03-18] MEDS: HYDROCODONE/APAP 5/325 MG TABLET 1 TAB PO (12:57)
--- NOTE | 2025-03-18 13:04 | P.PCN_ITS ---
[facility] Procedure Note Date: 03/18/25 Time: 13:05 Procedure Note:: Procedure: Right Thoracentesis Indication for procedure: Pleural Effusion, Hypoxic Respiratory failure A time out was performed, and the chest x-ray was reviewed, the appropriate side was confirmed and marked. My hands were washed immediately prior to the procedure. I wore a surgical cap, mask with protective eyewear, sterile gown, and sterile gloves throughout the procedure. The patient was prepped and draped in a sterile manner using chlorhexidine scrub after the appropriate level was percussed and confirmed by ultrasound. 1% lidocaine was used to anesthetize the skin, subcutaneous tissue, superior aspect of the rib periosteum and parietal pleura.? A finder needle was then introduced at the seventh intercoastal space posteriorly?to locate the pleural fluid; straw colored fluid was aspirated. A 10-blade scalpel was used to celso the skin at the insertion site. The ThoraCentesis needle was then introduced through the skin incision into the pleural space using negative aspiration pressure to confirm appropriate positioning of the needle. The thoracentesis catheter was then threaded without difficulty.? 700 ml of straw-colored?fluid was removed without difficulty. The catheter was then removed. No immediate complications were noted during the procedure. A post-procedure chest X-ray is pending at the time of this note. The fluid will be sent for routine pleural studies, cultures along with cytopathology.? Patient tolerated the procedure well? Estimated blood loss is 2cc.
[2025-03-18] MEDS: IPRATROPIUM/ALBUTEROL 3 ML NEB IH (13:22)
[2025-03-18] MEDS: SODIUM CHLORIDE 3% 15ML NEB 3 ML IH (13:23)
--- NOTE | 2025-03-18 13:37 | PC.NURSE ---
requests CAT scan and PET scan from [facility]. Consent obtained from patient. Request faxed at this time. Continuation of care plan.
[2025-03-18 14:24] LABS: Appearance,Body Fld. Normal; Volume,Body Fld. 700 mL
--- NOTE | 2025-03-18 14:24 | P.DS_ITS ---
General Admission date:: 03/17/25 Discharge date: 03/18/25 HPI HPI HPI: 84-year-old female with history of AICD, CVA, hypertension, CHF, lung cancer. Presented to the ER because of worsening shortness of breath over 3 to 4 days. Complains of dry nonproductive cough. Denies fever. Feels short of breath with exertion. Increased swelling in the legs over the past several weeks. Diuretics were stopped 6 months ago. Workup in the ER with chest imaging found large right-sided effusion with suspected pneumonia. BNP elevated as well as 5500. Initiated on antibiotics with vancomycin and Zosyn. Medicine consulted for admission for further management of pleural effusion and treatment of respiratory distress. On further evaluation after arriving to the floor, patient states she was diagnosed with lung cancer a year ago and underwent chemotherapy infusions. She follows with cardiology in [place]. Has been on Entresto with improvement in her ejection fraction, slowly worsening kidney function which is why her diuretics were stopped. at bedside. Patient denies chest pain, just dry nonproductive cough. No nausea or vomiting. Oriented at baseline. Hospital Course Hospital Course Hospital Course: 84-year-old female with coronary artery disease, history of heart failure with recovered EF, and recent history of lung cancer treated within the past year in right lower lobe. Presented with worsening shortness of breath over the past few weeks. Workup in the ER with right-sided pleural effusion and elevated BNP. Differential includes HFpEF exacerbation, volume overload, malignant effusion, pneumonia with parapneumonic effusion. Discussed case with ER provider, request admission for further treatment and definitive management of effusion along with thoracentesis for diagnosis. I decided to admit for IV antibiotics, diuresis, pulmonology consult. Admitted to stepdown due to risk for decompensation with initiation of diuretics. Pulmonology consulted, thoracentesis performed. Patient stable on room air. Continue oral antibiotics at discharge. Stable to discharge home with follow-up as an outpatient for fluid study results. Problems addressed as follows: Moderate to large right-sided effusion Right lung mass with consolidation Suspected pneumonia Acute on chronic HFpEF - Previous echo in 2018 with normal EF but elevated RVSP 40 to 50 mmHg. Repeat echo obtained this visit, preliminary read shows preserved EF approximately 50%. Significant diastolic dysfunction, Elevated RVSP of 40 to 45 mmHg. 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 Previously had a small effusion. Effusion on CT this visit significantly larger and has masslike lesion in right lung consistent with her known lung cancer. Does have some mild consolidation around the mass suspicious for atelectasis versus pneumonia. Stable on room air at time of admission and throughout hospitalization course. White count normal at 10.6 and BNP was elevated at 5500. Was initiated on Bumex IV for volume overload. initiated on vancomycin and Zosyn for suspected pneumonia component. Pulmonology consulted to assist with management. Thoracentesis performed with removal of 700 cc of straw- colored fluid. Fluid sent for pathology. Patient tolerated procedure well with mild pain at site of catheter insertion. Remained stable on room air. Repeat imaging showed no pneumothorax. Cultures pending. Antibiotics were weaned to Levaquin to complete 7 days total of therapy renally dosed. Continue Bumex 1 mg twice daily due to volume overload, acute on chronic HFpEF, and effusion. Will need labs in 1 week to monitor kidney function and electrolytes. From a heart failure and A-fib standpoint, continued patient's amiodarone. Pressures were soft. Recommended holding Entresto at this time. BUN 50, creatinine 2.2. Creatinine 1.4-1.6 little over a year ago. No other recent labs. 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 Will need follow-up with her oncologist pending fluid results. Total time spent on discharge 32 minutes in counseling, documentation, chart review, and direct care with patient. Exam Data for Last 24 hours Vital signs and Labs for Last 24 Hours: Temp Pulse Resp BP Pulse Ox O2 Del Method O2 Flow Rate 97.4 F L 73 18 108/57 L 93 L Vapotherm 40 03/18/25 12:00 03/18/25 13:32 03/18/25 13:32 03/18/25 12:00 03/18/25 13:31 03/18/25 13:31 03/18/25 13:31 FiO2 100 03/18/25 13:31 Laboratory Results - last 24 hr 03/17/25 12:57: HCV Ab JONAH w/Rflx PCR Qn Negative, HIV Ag/Ab Combo Qual Negative 03/17/25 15:24: A. baumannii (PCR) Not detected, Bacteroides fragilis Not detected, Teresa albicans (PCR) Not detected, Teresa auris (PCR) Not detected, C. glabrata (PCR) Not detected, C. krusei (PCR) Not detected, C. parapsilosis (PCR) Not detected, C. tropicalis (PCR) Not detected, Cryptococcus neoformans PCR Not detected, Enterobacterales (PCR) Not detected, Enterococc faecalis PCR Not detected, Enterococc faecium PCR Not detected, E. coli (PCR) Not detected, H. influenzae DNA Not detected, Klebsiella aerogenes (PCR) Not detected, Klebsiella oxytoca PCR Not detected, K. pneumoniae group (PCR) Not detected, List. monocytogenes PCR Not detected, N. meningitidis (PCR) Not detected, Proteus species (PCR) Not detected, Salmonella spp. (PCR) Not detected, Serratia marcescens PCR Not detected, Staphylococcus sp PCR Detected, Staph aureus (PCR) Not detected, mecA/C & MREJ Resist Gene Not applicable, mecA/C-Methicil Resis Gene Detected, Staph epidermidis (PCR) Detected, Staph lugdunensis (TEM-PCR) Not detected, S. maltophilia (PCR) Not detected, Streptococcus sp PCR Not detected, S.agalactiae Grp B MAJO Not detected, Strep pneumoniae (PCR) Not detected, S. pyogenes GrpA MAJO Not detected, P. aeruginosa (PCR) Not detected, Agusto/B-Vanco Res Genes Not applicable, blaIMP Car res Gene PCR Not applicable, KPC-Carbap Res Gene PCR Not applicable, blaNDM Car Res Gene PCR Not applicable, OXA-48 Carbapenem Resis Gene (PCR) Not applicable, blaVIM Car Res Gene PCR Not applicable, CTX-M Gene Resistance (PCR) Not applicable, MCR-1 Resistance Gene Not applicable 03/17/25 17:35: Lactate 0.9, Troponin I 0.01 03/17/25 21:13: Troponin I < 0.01 03/18/25 04:12: WBC 7.8 D, RBC 3.17 L, Hgb 9.9 L D, Hct 29.0 L, MCV 91.5, MCH 31.5 H, MCHC 34.5, RDW 14.7, Plt Count 406, MPV 10.8 H, Neut % (Auto) 76.2, Lymph % (Auto) 13.7, Marshall % (Auto) 7.0, Eos % (Auto) 1.5, Baso % (Auto) 0.6, Neut # (Auto) 5.9, Lymph # (Auto) 1.1, Marshall # (Auto) 0.5, Eos # (Auto) 0.1, Baso # (Auto) 0.1, Sodium 134 L, Potassium 3.8, Chloride 102, Carbon Dioxide 24, Anion Gap 11.8, BUN 47 H, Creatinine 2.10 H, Estimated Creat Clear 23, Estimated GFR 22 L, Est GFR ( Amer) 27 L, Glucose 89, Calcium 7.6 L, Magnesium 1.7, Total Bilirubin 0.7, AST 64 H D, ALT 35 D, Alkaline Phosphatase 159 H, Lactate Dehydrogenase 282 L, Total Protein 5.0 L, Albumin 2.6 L D, Globulin 2.4, Albumin/Globulin Ratio 1.1 03/18/25 09:36: Urine Color Yellow, Urine Appearance Clear, Urine pH 5.5, Ur Specific [place] 1.010, Urine Protein Negative, Urine Glucose (UA) Negative, Urine Ketones Negative, Urine Blood Negative, Urine Nitrate Negative, Urine Bilirubin Negative, Urine Urobilinogen 0.2, Ur Leukocyte Esterase Negative, Urine RBC None, Urine WBC Occasional, Ur Squamous Epith Cells Occasional, Urine Bacteria Trace I & O for Last 24 hours: Intake & Output 03/15/25 03/16/25 03/17/25 03/18/25 23:59 23:59 23:59 23:59 Intake Total 580 / 680 221 / 221 Output Total 0 / 0 850 / 850 Balance 580 / 680 -629 / -629 Weight 72.575 kg 72.575 kg Microbiology Reports for the Last 24 Hours: Microbiology 03/17/25 15:24 Blood Blood Culture - Preliminary Constitutional Constitutional: mild distress, average body habitus, chronically ill appearing and cooperative *Routine HEENT Exam Head: Present normocephalic Eye: Present EOMI and PERRL ENT: Present mucous membranes moist *Routine Neck Exam Neck: Present supple; Absent lymphadenopathy *Routine Respiratory Exam Respiratory: Present crackles (Right lung field) and normal respiratory effort; Absent rhonchi or wheezes *Routine Cardiovascular Exam Cardiovascular: Present RRR *Routine Abdominal Exam Abdominal: Present soft and normoactive bowel sounds; Absent tenderness *Routine Rectal Exam Patient deferred: visual exam *Routine Exam Patient deferred: external exam *Routine Extremities Exam Extremities: Present edema (1+ to knees); Absent cyanosis or clubbing Routine Back/Spine/Pelvis Exam Back image: [address] from thoracentesis *Routine Skin Exam Skin: Present intact and warm; Absent rash *Routine Neurological Exam Neurological: Present alert, oriented X3 and moving all extremities; Absent altered mental status Results Data Completed and Pending Labs on day of discharge: Labs from last 24 hours 03/18/25 03/18/25 03/17/25 09:36 04:12 21:13 WBC 7.8 D RBC 3.17 L Hgb 9.9 L D Hct 29.0 L MCV 91.5 MCH 31.5 H MCHC 34.5 RDW 14.7 Plt Count 406 MPV 10.8 H Neut % (Auto) 76.2 Lymph % (Auto) 13.7 Marshall % (Auto) 7.0 Eos % (Auto) 1.5 Baso % (Auto) 0.6 Neut # (Auto) 5.9 Lymph # (Auto) 1.1 Marshall # (Auto) 0.5 Eos # (Auto) 0.1 Baso # (Auto) 0.1 Sodium 134 L Potassium 3.8 Chloride 102 Carbon Dioxide 24 Anion Gap 11.8 BUN 47 H Creatinine 2.10 H Estimated Creat Clear 23 Estimated GFR 22 L Est GFR ( Amer) 27 L Glucose 89 Lactate Calcium 7.6 L Magnesium 1.7 Total Bilirubin 0.7 AST 64 H D ALT 35 D Alkaline Phosphatase 159 H Lactate Dehydrogenase 282 L Troponin I < 0.01 Total Protein 5.0 L Albumin 2.6 L D Globulin 2.4 Albumin/Globulin Ratio 1.1 Urine Color Yellow Urine Appearance Clear Urine pH 5.5 Ur Specific [place] 1.010 Urine Protein Negative Urine Glucose (UA) Negative Urine Ketones Negative Urine Blood Negative Urine Nitrate Negative Urine Bilirubin Negative Urine Urobilinogen 0.2 Ur Leukocyte Esterase Negative Urine RBC None Urine WBC Occasional Ur Squamous Epith Cells Occasional Urine Bacteria Trace A. baumannii (PCR) Bacteroides fragilis Teresa albicans (PCR) Teresa auris (PCR) C. glabrata (PCR) C. krusei (PCR) C. parapsilosis (PCR) C. tropicalis (PCR) Cryptococcus neoformans PCR Enterobacterales (PCR) Enterococc faecalis PCR Enterococc faecium PCR E. coli (PCR) H. influenzae DNA HCV Ab JONAH w/Rflx PCR Qn HIV Ag/Ab Combo Qual Klebsiella aerogenes (PCR) Klebsiella oxytoca PCR K. pneumoniae group (PCR) List. monocytogenes PCR N. meningitidis (PCR) Proteus species (PCR) Salmonella spp. (PCR) Serratia marcescens PCR Staphylococcus sp PCR Staph aureus (PCR) mecA/C & MREJ Resist Gene mecA/C-Methicil Resis Gene Staph epidermidis (PCR) Staph lugdunensis (TEM-PCR) S. maltophilia (PCR) Streptococcus sp PCR S.agalactiae Grp B MAJO Strep pneumoniae (PCR) S. pyogenes GrpA MAJO P. aeruginosa (PCR) Agusto/B-Vanco Res Genes blaIMP Car res Gene PCR KPC-Carbap Res Gene PCR blaNDM Car Res Gene PCR OXA-48 Carbapenem Resis Gene (PCR) blaVIM Car Res Gene PCR CTX-M Gene Resistance (PCR) MCR-1 Resistance Gene 03/17/25 03/17/25 03/17/25 17:35 15:24 12:57 WBC RBC Hgb Hct MCV MCH MCHC RDW Plt Count MPV Neut % (Auto) Lymph % (Auto) [place] % (Auto) Eos % (Auto) Baso % (Auto) Neut # (Auto) Lymph # (Auto) Marshall # (Auto) Eos # (Auto) Baso # (Auto) Sodium Potassium Chloride Carbon Dioxide Anion Gap BUN Creatinine Estimated Creat Clear Estimated GFR Est GFR ( Amer) Glucose Lactate 0.9 Calcium Magnesium Total Bilirubin AST ALT Alkaline Phosphatase Lactate Dehydrogenase Troponin I 0.01 Total Protein Albumin Globulin Albumin/Globulin Ratio Urine Color Urine Appearance Urine pH Ur Specific [place] Urine Protein Urine Glucose (UA) Urine Ketones Urine Blood Urine Nitrate Urine Bilirubin Urine Urobilinogen Ur Leukocyte Esterase Urine RBC Urine WBC Ur Squamous Epith Cells Urine Bacteria A. baumannii (PCR) Not detected Bacteroides fragilis Not detected Teresa albicans (PCR) Not detected Teresa auris (PCR) Not detected C. glabrata (PCR) Not detected C. krusei (PCR) Not detected C. parapsilosis (PCR) Not detected C. tropicalis (PCR) Not detected Cryptococcus neoformans PCR Not detected Enterobacterales (PCR) Not detected Enterococc faecalis PCR Not detected Enterococc faecium PCR Not detected E. coli (PCR) Not detected H. influenzae DNA Not detected HCV Ab JONAH w/Rflx PCR Qn Negative HIV Ag/Ab Combo Qual Negative Klebsiella aerogenes (PCR) Not detected Klebsiella oxytoca PCR Not detected K. pneumoniae group (PCR) Not detected List. monocytogenes PCR Not detected N. meningitidis (PCR) Not detected Proteus species (PCR) Not detected Salmonella spp. (PCR) Not detected Serratia marcescens PCR Not detected Staphylococcus sp PCR Detected Staph aureus (PCR) Not detected mecA/C & MREJ Resist Gene Not applicable mecA/C-Methicil Resis Gene Detected Staph epidermidis (PCR) Detected Staph lugdunensis (TEM-PCR) Not detected S. maltophilia (PCR) Not detected Streptococcus sp PCR Not detected S.agalactiae Grp B MAJO Not detected Strep pneumoniae (PCR) Not detected S. pyogenes GrpA MAJO Not detected P. aeruginosa (PCR) Not detected Agusto/B-Vanco Res Genes Not applicable blaIMP Car res Gene PCR Not applicable KPC-Carbap Res Gene PCR Not applicable blaNDM Car Res Gene PCR Not applicable OXA-48 Carbapenem Resis Gene (PCR) Not applicable blaVIM Car Res Gene PCR Not applicable CTX-M Gene Resistance (PCR) Not applicable MCR-1 Resistance Gene Not applicable Preliminary micro results at discharge 03/17/25 15:24 Blood Culture - Preliminary Blood DS: Diagnosis Discharge Diagnosis (1) Primary cancer of right lower lobe of lung: Status: Acute Code(s): C34.31 - Malignant neoplasm of lower lobe, right bronchus or lung (2) Pleural effusion: Status: Acute Code(s): J90 - Pleural effusion, not elsewhere classified (3) Pneumonia: Status: Suspected Code(s): J18.9 - Pneumonia, unspecified organism (4) Acute on chronic heart failure with preserved ejection fraction (HFpEF): Status: Acute Code(s): I50.33 - Acute on chronic diastolic (congestive) heart failure (5) HTN (hypertension): Status: Chronic Code(s): I10 - Essential (primary) hypertension Qualifiers: Hypertension type: essential hypertension Qualified Code(s): I10 - Essential (primary) hypertension (6) A-fib: Status: Chronic Code(s): I48.91 - Unspecified atrial fibrillation Qualifiers: Atrial fibrillation type: persistent (not longstanding) Qualified Code(s): I48.19 - Other persistent atrial fibrillation (7) CAD (coronary artery disease): Status: Chronic Code(s): I25.10 - Atherosclerotic heart disease of [place] coronary artery without angina pectoris Qualifiers: Associated angina: without angina Coronary Disease-Associated Artery/Lesion type: [place] artery [place] vs. transplanted heart: [place] heart Qualified Code(s): I25.10 - Atherosclerotic heart disease of [place] coronary artery without angina pectoris Meds Home Medications and Allergies Home Medications ?Medication ?Instructions ?Recorded ?Confirmed ?Type tramadol 50 mg tablet 50 mg PO TIDP PRN Moderate P ain 11/05/19 03/17/25 History amiodarone 400 mg tablet 400 mg PO DAILY 03/07/2410/11 History memantine 5 mg tablet 5 mg PO BID 03/07/24 5 History carbidopa ER 25 mg-levodopa 100 mg 1 tab PO DAILY 10/1103/17/25 History tablet,extended release nitroglycerin 0.4 mg/hr 0.4 mg transdermal DAILY 10/1103/17/25 History transdermal 24 hour patch ropinirole 0.5 mg tablet 0.5 mg PO BID 03/17/2503/17 History sacubitril 97 mg-valsartan 103 mg 1 tab PO BID 5 03/17/25 History tablet (Entresto) Held on 03/18/25. Instructions: Pending follow-up with PCP or supplier quality, needs reevaluation of blood and kidney function bumetanide 1 mg tablet 1 mg PO BIDL 30 days #60 tab s 03/18/25 Rx ipratropium 20 mcg-albuterol 100 1 puff inhalation Q6H PRN 03/18/25 Rx mcg/actuation mist for inhalation shortness of breath or wheezing #4 (Combivent Respimat) grams levocetirizine 5 mg tablet 5 mg PO DAILY 03/18/2511/11 History levofloxacin 750 mg tablet 750 mg PO Q48H 5 days #3 ta bs 03/18/25 Rx levothyroxine 50 mcg tablet 50 mcg PO DAILY 03/18/25 0 03/18/25 History New Prescriptions to Start Prescriptions: Oscar Mariano ipratropium-albuterol [Combivent Respimat] Oscar Dozier levofloxacin Oscar Dozier Allergies Allergy/AdvReac Type Severity Reaction Status Date / Time No Known Allergies Allergy Verified 04/08/24 10:22 Discharge Plan Disposition Patient Disposition: Home Health Service Condition: Fair Discharge Order Discharge Orders: Discharge Order (Routine); Ordered 03/18/25 Ordered By: Oscar Dozier Follow up Plan Follow up with: Wolfgang Betancourt MD [Staff Physician, Oncology] - 03/26/25 10:00 am Josephine Young MD [Physician, Pulmonology] - 04/14/25 1:00 pm Ignacio Aceves MD [Primary Care Provider, Internal Medicine] - 03/26/25 3:15 pm Prescriptions/Medication Reconciliation: New levofloxacin 750 mg tablet 750 mg PO Q48H 5 Days Qty: 3 0RF Rx Instructions: please take first dose 03/19/25 Combivent Respimat 20-100 mcg/actuation mist 1 puff inhalation Q6H PRN (Reason: shortness of breath or wheezing) Qty: 4 0RF Rx Instructions: sent inhaler home with pt Continued amiodarone 400 mg tablet 400 mg PO DAILY memantine 5 mg tablet 5 mg PO BID tramadol 50 MG tablet 50 mg PO TIDP PRN (Reason: Moderate Pain) nitroglycerin 0.4 mg/hr patch 24 hour 0.4 mg transdermal DAILY Patient Comments: APPLY 1 PATCH TOPICALLY ONCE DAILY carbidopa-levodopa 25-100 mg tablet extended release 1 tab PO DAILY ropinirole 0.5 mg tablet 0.5 mg PO BID levothyroxine 50 mcg tablet 50 mcg PO DAILY Patient Comments: TAKE 1 TABLET BY MOUTH ONCE DAILY levocetirizine 5 mg tablet 5 mg PO DAILY Changed bumetanide 1 mg tablet 1 mg PO BIDL 30 Days Qty: 60 0RF Held Entresto 97-103 mg tablet 1 tab PO BID Hold Instructions: Pending follow-up with PCP or supplier quality, needs reevaluation of blood and kidney function Discontinued furosemide 20 mg tablet 20 mg PO DAILY Problem Reconciliation Problems Reviewed?: Yes Patient Discharge Instructions ACTIVITY: Continue current activity DIET: continue same diet Print Language: Spanish Providers Primary Care Provider: Ignacio Aceves Admit Provider: Oscar Dozier Attending Provider: Oscar Dozier
[2025-03-18 14:26] LABS: RBC,Body Fluid 4000 cells/uL (< 10 X 10^3)
[2025-03-18 14:28] LABS: Source, Body Fld. Thoracentesis Fluid; TNC,Body Fluid 1366 cells/uL (< 1000)
[2025-03-18 15:00] LABS: Mononuclear WBCs,Body Fluid 55 %; Polynuclear WBC,Body Fluid 45 %
--- NOTE | 2025-03-18 16:27 | PC.NURSE ---
Boogie catheter removed at this time. Boogie catheter intact. Patient tolerated well. Continuation of care plan.
[2025-03-18 16:48] LABS: Acinetobacter calcoaceticus-ba Not Detected; Bacteroides fragilis Not Detected; Candida auris Not Detected; Candida glabrata Not Detected; Enterobacterales Not Detected; Enterococcus faecalis Not Detected; Enterococcus faecium Not Detected; Klebsiella aerogenes Not Detected; Klebsiella pneumoniae grp Not Detected; Proteus spp. Not Detected; Salmonella spp. Not Detected; Serratia marcescens Not Detected; Staphylococcus epidermidis Not Detected; Staphylococcus lugdunensis Not Detected; Staphylococcus spp. Detected; Stenotrophomonas maltophilia Not Detected; Streptococcus agalactiae(GrpB) Not Detected; Streptococcus pyogenes Group A Not Detected; Streptococcus spp. Not Detected
--- NOTE | 2025-03-19 11:17 | SW/DCPLANNER ---
Spoke with patient's on the phone. Patient's stated that his is doing farely well and that she did not sleep very well last night. Patient's stated that he has not picked up her new medicine just yet, Patient's stated that they are aware of her upcoming appointments. Patient's stated that they have no concerns or questions at this time. Sharan Miranda
[2025-03-19 17:11] LABS: Albumin, Body Fluid 1.8 g/dL (Not Estab.); Glucose, Body Fluid 134 mg/dL (.); LD, Body Fluid 198 IU/L (.)
--- NOTE | 2025-03-20 08:45 | PC.NURSE ---
I transmitted the pts prelim blood culture results to the hospitalist as the pt was admitted.
--- NOTE | 2025-03-25 08:14 | PC.NURSE ---
Blood culture results forwarded to hospitalist
== END 2025-03-18 17:42 | disposition home health service (06) ==
LOC: ER 12:55 → ICU 16:43 → 2ND 03-18 12:39 → ICU 03-18 12:52
PROVIDERS: Internal Medicine Pulmonary Disease; Nurse Practitioner; Admitting Provider Internal Medicine Adolescent Medicine; Emergency Provider Student in an Organized Health Care Education/Training Program; PCP Internal Medicine Adolescent Medicine; Visit Provider Internal Medicine Adolescent Medicine
DX: J90 Pleural effusion, not elsewhere classified (principal); J96.91 Respiratory failure, unspecified with hypoxia; C34.31 Malignant neoplasm of lower lobe, right bronchus or lung; J18.9 Pneumonia, unspecified organism; I11.0 Hypertensive heart disease with heart failure; I50.33 Acute on chronic diastolic (congestive) heart failure; I48.19 Other persistent atrial fibrillation; I25.10 Atherosclerotic heart disease of native coronary artery without angina pectoris; R60.0 Localized edema; E78.2 Mixed hyperlipidemia; I73.9 Peripheral vascular disease, unspecified; Z95.810 Presence of automatic (implantable) cardiac defibrillator; Z86.73 Personal history of transient ischemic attack (TIA), and cerebral infarction without residual deficits; Z92.3 Personal history of irradiation; Z92.21 Personal history of antineoplastic chemotherapy; Z79.02 Long term (current) use of antithrombotics/antiplatelets; Z79.890 Hormone replacement therapy; Z79.899 Other long term (current) drug therapy; Z82.49 Family history of ischemic heart disease and other diseases of the circulatory system
CPT/HCPCS: 96365; 96375 ×2; 96376 ×2; 32555; 36415; 51702; 71045; 71250; 80053; 81001; 82042; 82803; 82945; 83605; 83615; 83735; 83880; 84157; 84484; 85025; 85378; 85610; 85730; 86803; 87040; 87070; 87077; 87154; 87205; 87389; 88112; 88305; 89051; 93005; 93306; 94640; 94761; 97162; 97166; G0378; J1644; J1939; J2543; J3372; J3475